=== PATIENT | female | born 1960 | race Caucasian/White ===

== ENCOUNTER 2016-12-12 11:02 | Inpatient (IN) | payer BC, OTHER ==
[2016-12-12] MEDS ORDERED: HEPARIN SODIUM,PORCINE 5,000 UNIT/ML 1 ML VIAL IV ONE (11:47)
[2016-12-12] MEDS ORDERED: LIDOCAINE 2% INJ 20 MG/ML (20 ML MDV) ONE (11:47)
[2016-12-12] MEDS ORDERED: NITROGLYCERIN SL TABS 0.4 MG TAB SUBLINGUAL PRN (11:47)
[2016-12-12] MEDS ORDERED: HEPARIN SODIUM,PORCINE 5,000 UNIT/ML 1 ML VIAL IV STA (11:47)
[2016-12-12] MEDS ORDERED: MORPHINE SULFATE 4 MG/ML SYRINGE IV PRN (11:47)
[2016-12-12] MEDS ORDERED: MIDAZOLAM 2 MG/2 ML VIAL ONE (11:47)
[2016-12-12] MEDS ORDERED: SODIUM CHLORIDE 0.9% 1,000 ML IV STA (11:47)
[2016-12-12] MEDS ORDERED: ATORVASTATIN 80 MG TAB PO STA (11:47)
[2016-12-12] MEDS ORDERED: HEPARIN SODIUM,PORCINE 5,000 UNIT/ML 1 ML VIAL IV PRN (11:47)
[2016-12-12] MEDS ORDERED: ASPIRIN 81 MG CHEW PO STA ×2 (11:47)
[2016-12-12] MEDS ORDERED: diphenhydrAMINE 50 MG/ML 1 ML VIAL ONE (11:48)
--- NOTE | 2016-12-12 11:50 | ED ---
General Adult HPI - General Chief complaint: Chest Pain Stated complaint: chest pain Time Seen by Provider: 12/12/16 11:39 Source: patient, RN notes reviewed, old records reviewed Mode of arrival: wheelchair Limitations: no limitations - History of Present Illness Initial comments: This is a 56 female to the ER today complaining of chest pain. Chest discomfort starting yesterday. Patient also noted fever with mild cough, no other specific upper respiratory symptoms, no runny nose no abdominal pain. Patient does have significant history of cardiac risk factors of high blood pressure high cholesterol morbid obesity, patient did feel a heaviness on her chest. No modifying factors or symptoms, she did not perform any exercise so unknown if that exacerbate symptom, patient denies any significant diaphoresis pathology did break fever with chills, at this time she has no shortness of breath. - Related Data Home Medications Medication Instructions Recorded Confirmed Atorvastatin [Lipitor] 20 mg PO DAILY 05/27/15 10/17/16 Butalb/APAP/Caff 50-325-40Mg 1 - 2 tab PO Q4HR PRN 05/27/15 10/17/16 [Fioricet 50-325-40] Carisoprodol [Soma] 350 mg PO TID PRN 05/27/15 10/17/16 Levothyroxine Sodium [Synthroid] 25 mcg PO QAM 05/27/15 10/17/16 Losartan Potassium 50 mg PO BID 05/27/15 10/17/16 Ipratropium-Albuterol Nebulize 3 ml INHALATION RT-QID PRN 04/05/16 10/17/16 [Duoneb 0.5 mg-3 mg/3 ml Soln] Brimonidine Tartrate [Alphagan P 1 drop BOTH EYES BID 05/04/16 10/17/16 0.15% Ophth Soln] Spironolactone [Aldactone] 50 mg PO BID 05/04/16 10/17/16 Albuterol Inhaler [Ventolin Hfa 1 - 2 puff INHALATION RT-Q6H PRN 06/28/16 Inhaler] Bimatoprost [Lumigan .01% Ophth 1 drop BOTH EYES HS 06/28/16 10/17/16 Soln] Budesonide-Formot 160-4.5 Mcg 2 puff INHALATION RT-BID 06/28/16 10/17/16 [Symbicort 160-4.5 Mcg Inhaler] Theophylline 24 Hour [Erick-24] 200 mg PO DAILY 06/28/16 10/17/16 Budesonide [Pulmicort] 0.5 mg INHALATION RT-BID 10/17/16 10/17/16 predniSONE See Taper PO DAILY 10/17/16 10/17/16 traMADol-ACETAMINOP 37.5-325MG 1 tab PO DAILY PRN 10/17/16 10/17/16 [Ultracet] Previous Rx's Medication Instructions Recorded Loratadine-Pseudoeph 5-120 mg 1 each PO Q12HR #10 tab.er.12h 10/20/16 [Claritin-D 12 Hour] predniSONE 10 mg PO DAILY #30 tab 10/20/16 Allergies Allergy/AdvReac Type Severity Reaction Status Date / Time cefaclor [From Ceclor] Allergy Anaphylaxis Verified 12/12/16 11:14 latex Allergy Rash/Hives Verified 12/12/16 11:14 levofloxacin [From Levaquin] Allergy Burning Verified 12/12/16 11:14 sensatin on feet sulfamethoxazole Allergy Anaphylaxis Verified 12/12/16 11:14 [From Bactrim] trimethoprim [From Bactrim] Allergy Anaphylaxis Verified 12/12/16 11:14 amoxicillin trihydrate AdvReac Nausea & Verified 12/12/16 11:14 [From Augmentin] Vomiting doxycycline AdvReac Nausea & Verified 12/12/16 11:14 Vomiting potassium clavulanate AdvReac Nausea & Verified 12/12/16 11:14 [From Augmentin] Vomiting Review of Systems ROS Statement: Those systems with pertinent positive or pertinent negative responses have been documented in the HPI. ROS Other: All systems not noted in ROS Statement are negative. Past Medical History Past Medical History: Asthma, Cancer, Eye Disorder, Hyperlipidemia, Hypertension , Musculoskeletal Disorder, Osteoarthritis (OA), Thyroid Disorder Additional Past Medical History / Comment(s): Migraine headache, glaucoma, obesity, severe persistent bronchial asthma, diverticular disease, environmental ALLERGIES, hyperlipidemia, hypertension, multiple bilateral pulmonary nodules seen on previous CAT scan of the chest, psoriasis, edema of the lower extremities History of Any Multi-Drug Resistant Organisms: None Reported Past Surgical History: Appendectomy, Orthopedic Surgery, Tonsillectomy Additional Past Surgical History / Comment(s): Tonsillectomy, dilatation and curettage, colonoscopy, bronchoscopy, appendectomy, L KNEE arthroscopy, skin cancer removal, D&C. Past Anesthesia/Blood Transfusion Reactions: Motion Sickness, Postoperative Nausea & Vomiting (PONV) Past Psychological History: No Psychological Hx Reported Additional Psychological History / Comment(s): Pt lives with her mother. Her mother is in a intermediate at this time for rehab. She uses no assistive device. She drives. Smoking Status: Never smoker Past Alcohol Use History: None Reported Past Drug Use History: None Reported - Past Family History Father Family Medical History: Cancer Additional Family Medical History / Comment(s): COLON CANCER Mother Family Medical History: Cancer Additional Family Medical History / Comment(s): SKIN CA, General Exam Limitations: no limitations General appearance: alert, in no apparent distress, anxious, in distress, obese Head exam: Present: atraumatic, normocephalic, normal inspection Eye exam: Present: normal appearance, PERRL, EOMI. Absent: scleral icterus, conjunctival injection, periorbital swelling ENT exam: Present: normal exam, mucous membranes moist Neck exam: Present: normal inspection. Absent: tenderness, meningismus, lymphadenopathy Respiratory exam: Present: normal lung sounds bilaterally. Absent: respiratory distress, wheezes, rales, rhonchi, stridor Cardiovascular Exam: Present: regular rate, normal rhythm, normal heart sounds. Absent: systolic murmur, diastolic murmur, rubs, gallop, clicks GI/Abdominal exam: Present: soft, normal bowel sounds. Absent: distended, tenderness, guarding, rebound, rigid Extremities exam: Present: normal inspection, full ROM, normal capillary refill. Absent: tenderness, pedal edema, joint swelling, calf tenderness Back exam: Present: normal inspection Neurological exam: Present: alert, oriented X3, CN II-XII intact Psychiatric exam: Present: normal affect, normal mood Skin exam: Present: warm, dry, intact, normal color. Absent: rash Course Vital Signs 12/12/16 11:09 Temperature 99.8 F H Pulse Rate 102 H Respiratory 16 Rate Blood Pressure 136/64 O2 Sat by Pulse 97 Oximetry EKG Findings - EKG Comments: EKG Findings:: EKG does show ST elevation in inferior leads with anterior T- wave inversion, normal sinus rhythm, normal axis, no ST depression, is a rate of 98, OH 146, QRS 86, QTC 423 Medical Decision Making - Medical Decision Making 56 female here with chest pain shortness of breath and fever, patient to take not Tylenol at home, patient coming in with chest pain, positive S2 elevation on EKG, patient seen and evaluated emergency room by cardiology and taken to the collaborating supervising physician for cardiac catheterization - Radiology Data Radiology results: report reviewed (Chest x-ray one view portable is negative for acute disease), image reviewed Critical Care Time Critical Care Time: Yes Total Critical Care Time: 31 Disposition Clinical Impression: ST elevation myocardial infarction (STEMI) Disposition: ADMITTED IP TO THIS HOSP Condition: Serious
[2016-12-12] MEDS ORDERED: HEPARIN SODIUM,PORCINE/D5W PMX 25,000 UNIT in DEXTROSE/WATER 1 500ML.BAG IV SCH (12:00)
[2016-12-12] MEDS ORDERED: NITROGLYCERIN-D5W PMX 50 MG in DEXTROSE/WATER 1 250ML.BAG IV ONE (12:00)
[2016-12-12] MEDS ORDERED: SODIUM CHLORIDE 0.9% 1,000 ML IV ONE (12:08)
--- NOTE | 2016-12-12 12:08 | P.CRDCN ---
History of Present Illness Consult reason: chest pain Chief complaint: abnormal ecg History of present illness: 56-year-old obese female presenting with chest discomfort since yesterday. She is complaining of a burning discomfort yesterday but did not seek medical attention. It got worse today and she came to the emergency room several minutes back rate she complained of her sensation of heaviness as if an elephant was sitting on her chest. Twelve-lead ECG shows sinus mechanism with ST elevation in the inferior leads and in the lateral precordial leads. These are new as compared to the ECG from September 2016. However there is UT depression noted in the inferior leads and the lateral precordial leads and UT elevation noted in aVR She also complained of fever for the last several days and a cough and bronchitis-like symptoms Past history of severe persistent bronchial asthma, obstructive sleep apnea, obesity and hypertension, glaucoma, morbid obesity, bilateral pulmonary nodules , psoriasis Past surgical history appendectomy tonsillectomy She is a never smoker no alcohol use Family history of colon cancer Medication list includes atorvastatin Lasix Synthroid losartan 50 g twice daily , steroids and inhalers ALLERGIES to Ceclor levofloxacin and Bactrim amoxicillin and doxycycline She can complains of a history of fever chills cough with expectoration no nausea vomiting or diarrhea any hematuria dysuria or strokes or seizure no skin lesions or no musculoskeletal complaints On examination she is complaining of midsternal chest discomfort at this time but she does not appear to be short of breath. Impression Chest discomfort at least since yesterday with ST elevation in inferior leads and subtle ST elevation in the lateral precordial leads but also with UT depression in those leads and UT elevation in aVR. Possible pericarditis versus acute MT Severe persistent bronchial asthma Hypertension Morbid obesity Obstructive sleep apnea Low IgG levels Bilateral pulmonary nodules Suggest Coronary angiography to evaluate for chest discomfort with EKG abnormalities This may be COPD exacerbation bronchitis with an element of pericarditis Past Medical History Past Medical History: Asthma, Cancer, Eye Disorder, Hyperlipidemia, Hypertension , Musculoskeletal Disorder, Osteoarthritis (OA), Thyroid Disorder Additional Past Medical History / Comment(s): Migraine headache, glaucoma, obesity, severe persistent bronchial asthma, diverticular disease, environmental ALLERGIES, hyperlipidemia, hypertension, multiple bilateral pulmonary nodules seen on previous CAT scan of the chest, psoriasis, edema of the lower extremities History of Any Multi-Drug Resistant Organisms: None Reported Past Surgical History: Appendectomy, Orthopedic Surgery, Tonsillectomy Additional Past Surgical History / Comment(s): Tonsillectomy, dilatation and curettage, colonoscopy, bronchoscopy, appendectomy, L KNEE arthroscopy, skin cancer removal, D&C. Past Anesthesia/Blood Transfusion Reactions: Motion Sickness, Postoperative Nausea & Vomiting (PONV) Past Psychological History: No Psychological Hx Reported Additional Psychological History / Comment(s): Pt lives with her mother. Her mother is in a intermediate at this time for rehab. She uses no assistive device. She drives. Smoking Status: Never smoker Past Alcohol Use History: None Reported Past Drug Use History: None Reported - Past Family History Father Family Medical History: Cancer Additional Family Medical History / Comment(s): COLON CANCER Mother Family Medical History: Cancer Additional Family Medical History / Comment(s): SKIN CA, Medications and Allergies Home Medications Medication Instructions Recorded Confirmed Type Atorvastatin [Lipitor] 20 mg PO DAILY 05/27/15 12/12/16 History Butalb/APAP/Caff 50-325-40Mg 1 - 2 tab PO Q4HR PRN 05/27/15 12/12/16 History [Fioricet 50-325-40] Carisoprodol [Soma] 350 mg PO TID PRN 05/27/15 12/12/16 History Levothyroxine Sodium [Synthroid] 25 mcg PO QAM 05/27/15 12/12/16 History Losartan Potassium 50 mg PO BID 05/27/15 12/12/16 History Brimonidine Tartrate [Alphagan P 1 drop BOTH EYES BID 05/04/16 12/12/16 History 0.15% Ophth Soln] Spironolactone [Aldactone] 50 mg PO BID 05/04/16 12/12/16 History Albuterol Inhaler [Ventolin Hfa 1 - 2 puff INHALATION RT-Q6H PRN 06/28/16 History Inhaler] Bimatoprost [Lumigan .01% Ophth 1 drop BOTH EYES HS 06/28/16 12/12/16 History Soln] Budesonide-Formot 160-4.5 Mcg 2 puff INHALATION RT-BID 06/28/16 12/12/16 History [Symbicort 160-4.5 Mcg Inhaler] Diazepam [Valium] 5 mg PO TID PRN 12/12/16 12/12/16 History Furosemide [Lasix] 20 mg PO TID PRN 12/12/16 12/12/16 History Loratadine-Pseudoeph 5-120 mg 1 tab PO Q12HR PRN 12/12/16 12/12/16 History [Claritin-D 12 Hour] Theophylline 24 Hour [Erick-24] 400 mg PO DAILY 12/12/16 12/12/16 History amLODIPine [Norvasc] 5 mg PO DAILY 12/12/16 12/12/16 History Allergies Allergy/AdvReac Type Severity Reaction Status Date / Time cefaclor [From Ceclor] Allergy Anaphylaxis Verified 12/12/16 11:14 latex Allergy Rash/Hives Verified 12/12/16 11:14 levofloxacin [From Levaquin] Allergy Burning Verified 12/12/16 11:14 sensatin on feet sulfamethoxazole Allergy Anaphylaxis Verified 12/12/16 11:14 [From Bactrim] trimethoprim [From Bactrim] Allergy Anaphylaxis Verified 12/12/16 11:14 amoxicillin trihydrate AdvReac Nausea & Verified 12/12/16 11:14 [From Augmentin] Vomiting doxycycline AdvReac Nausea & Verified 12/12/16 11:14 Vomiting potassium clavulanate AdvReac Nausea & Verified 12/12/16 11:14 [From Augmentin] Vomiting Results Current Medications Generic Name Dose Route Start Last Admin Trade Name Evansq PRN Reason Stop Dose Admin Aspirin 325 mg 12/13/16 09:00 Aspirin PO DAILY [facility] Atorvastatin Calcium 80 mg 12/13/16 09:00 Lipitor PO DAILY [facility] Heparin Sodium (Porcine) 0 unit 12/12/16 11:47 Heparin IV PER PROTOCOL PRN Low PTT Protocol Heparin Sodium/Dextrose 25,000 500 mls @ 20 mls/hr 12/12/16 12:00 unit/ IV Solution IV .Q24H [facility] Protocol 6.89 UNITS/KG/HR Sodium Chloride 1,000 mls @ 100 mls/hr 12/12/16 11:47 Saline 0.9% IV 12/12/16 21:46 .Q10H STA Nitroglycerin/Dextrose 50 mg/ 250 mls @ 1.5 mls/hr 12/12/16 12:00 12/12/16 11 :55 IV Solution IV 12/13/16 11:59 5 mcg/min .Q24H ONE 1.5 mls/hr Protocol Administration 5 MCG/MIN Morphine Sulfate 4 mg 12/12/16 11:47 Morphine Sulfate (Inj) IV Q4HR PRN Nausea Nitroglycerin 0.4 mg 12/12/16 11:47 Nitrostat SUBLINGUAL Q5M PRN Chest Pain
[2016-12-12] MEDS ORDERED: fentaNYL (PF) 50 MCG/ML 2 ML AMP ONE (12:13)
[2016-12-12] MEDS ORDERED: fentaNYL (PF) 50 MCG/ML 2 ML AMP IV ONE ×2 (12:15)
[2016-12-12] MEDS ORDERED: diphenhydrAMINE 50 MG/ML 1 ML VIAL IVP ONE ×2 (12:15)
[2016-12-12] MEDS ORDERED: LIDOCAINE 2% INJ 20 MG/ML SQ ONE ×2 (12:18→12:19)
[2016-12-12 12:19] LABS: Basophils % (A) 0 %; CH 29.5; CHCM 32.8; Eosinophils # (A) 0.1 k/uL (0-0.7); Eosinophils % (A) 1 %; HDW 2.48; HGB 11.8 gm/dL (11.4-16.0); Luc # (Auto) 0.28; Luc % (Auto) 2; Lymphocytes # (A) 3.1 k/uL (1.0-4.8); Lymphocytes % (A) 20 %; MCH 28.8 pg (25.0-35.0); MCHC 31.9 g/dL (31.0-37.0); MCV 90.2 fL (80.0-100.0); Mean Platelet Volume 6.6; Monocytes % (A) 6 %; Neutrophils # (A) 11.1 k/uL (1.3-7.7); Neutrophils % (A) 71 %; RDW 13.6 % (11.5-15.5); WBC 15.6 k/uL (3.8-10.6); WBC (Perox) 16.31
[2016-12-12 12:25] LABS: Partial Thromboplastin Time 24.5 sec (22.0-30.0); Prothrombin Time 10.2 sec (9.0-12.0)
--- NOTE | 2016-12-12 12:27 | XR ---
EXAMINATION TYPE: XR chest 1V portable DATE OF EXAM: 12/12/2016 11:59 AM COMPARISON: 10/17/2016 INDICATION: Chest pain TECHNIQUE: Single frontal view of the chest is obtained. FINDINGS: The heart size is normal. The pulmonary vasculature is normal. The lungs are clear. IMPRESSION: 1. No acute pulmonary process.
[2016-12-12 12:28] LABS: ALT 31 U/L (9-52); AST 22 U/L (14-36); Alkaline Phosphatase 92 U/L (38-126); Anion Gap 12 mmol/L; Blood Urea Nitrogen 17 mg/dL (7-17); Calcium 9.8 mg/dL (8.4-10.2); Carbon Dioxide 27 mmol/L (22-30); Chloride 99 mmol/L (98-107); Glucose 118 mg/dL (74-99); Non-African American GFR(MDRD) >60 (>60 ml/min/1.73 sqM); Potassium 4.5 mmol/L (3.5-5.1); Sodium 138 mmol/L (137-145); Total Bilirubin 1.1 mg/dL (0.2-1.3); Total Protein 7.2 g/dL (6.3-8.2)
[2016-12-12] MEDS ORDERED: NITROGLYCERIN 1000MCG/10ML SYRINGE INTRACORON ONE (12:32)
[2016-12-12] MEDS ORDERED: IOHEXOL 350 MG/ML 100 ML BOTTLE INJ ONE (12:39)
[2016-12-12] MEDS ORDERED: RX INFO: IV CONTRAST WAS GIVEN 1 EACH MISC MISCELLANE PRN (12:47)
[2016-12-12] MEDS ORDERED: FUROSEMIDE 20 MG TAB PO PRN (12:50)
[2016-12-12 12:52] LABS: Creatine Kinase 41 U/L (30-135)
[2016-12-12 13:04] LABS: Creatine Kinase MB 0.2 ng/mL (0.0-2.4); Troponin I <0.012 ng/mL (0.000-0.034)
[2016-12-12] MEDS ORDERED: HYDROmorphone 1 MG/ML 1 ML SYRINGE IVP PRN (19:43)
[2016-12-12] MEDS ORDERED: ALPRAZolam 0.25 MG TAB PO PRN (19:43)
[2016-12-12] MEDS ORDERED: TEMAZEPAM 15 MG CAP PO PRN (19:43)
[2016-12-12] MEDS ORDERED: LORATADINE-PSEUDOEPH 5-120 MG 1 EACH TAB.ER.12H PO PRN (19:46)
[2016-12-12] MEDS ORDERED: CARISOPRODOL 350 MG TAB PO PRN (19:46)
[2016-12-12 19:54] LABS: Creatine Kinase MB 0.3 ng/mL (0.0-2.4); Troponin I 0.013 ng/mL (0.000-0.034)
[2016-12-12] MEDS ORDERED: SYMBICORT 160-4.5 MCG INHALER INHALATION SCH (20:00)
[2016-12-12] MEDS: SODIUM CHLORIDE 0.9% 1,000 ML IV SCH ×2 (20:12→22:01)
[2016-12-12 20:16] VITALS: BMI 55.8
[2016-12-12] MEDS ORDERED: IPRATROPIUM-ALBUTEROL 3 ML NEB INHALATION PRN (21:10)
[2016-12-12] MEDS: BUDESONIDE 1 MG/2 ML NEBU INHALATION SCH (21:33)
[2016-12-12] MEDS: FORMOTEROL FUMARATE 20 MCG/2 ML NEBU INHALATION SCH (21:33)
[2016-12-12] MEDS: IPRATROPIUM-ALBUTEROL 3 ML NEB INHALATION SCH (21:33)
[2016-12-12 21:53] LABS: Glucose,Whole Blood 137 mg/dL (75-99)
[2016-12-12] MEDS: BRIMONIDINE TARTRATE 0.2% DROPS 5 ML BTL BOTH EYES SCH (21:58)
[2016-12-12] MEDS: LATANOPROST 0.005% OPHTH DROPS 2.5 ML BTL BOTH EYES SCH (21:58)
[2016-12-12] MEDS: methylPREDNISolone SOD SUCCI 125 MG/2 ML VIAL IV SCH ×2 (21:59→22:06)
[2016-12-12] MEDS: SPIRONOLACTONE 25 MG TAB PO SCH (22:00)
[2016-12-12] MEDS: LOSARTAN 50 MG TAB PO SCH (22:01)
[2016-12-12] MEDS: INSULIN LISPRO (humaLOG) 300 UNIT/3 ML VIAL SQ SCH (22:05)
[2016-12-12 23:54] LABS: Creatine Kinase MB 0.4 ng/mL (0.0-2.4)
[2016-12-12 23:55] LABS: Troponin I 0.065 ng/mL (0.000-0.034)
[2016-12-12] MEDS: DIAZEPAM 5 MG TAB PO PRN (23:59)
[2016-12-13 00:25] LABS: Hemoglobin A1C 6.8 % (4.2-6.1)
[2016-12-13 04:22] LABS: Appearance,Urine Clear (Clear); Bilirubin,Urine Negative (Negative); Glucose,Urine (UA) 2+ (Negative); Ketones,Urine Negative (Negative); Leukocyte Esterase,Urine Negative (Negative); Nitrite,Urine Negative (Negative); PH, Urine 5.5 (5.0-8.0); Protein,Urine Negative (Negative); Specific Gravity,Urine 1.014 (1.001-1.035); UA Billing (MACRO vs. MICRO) CHEM; Urobilinogen,Urine <2.0 mg/dL (<2.0)
[2016-12-13] MEDS: SODIUM CHLORIDE 0.9% 1,000 ML IV SCH ×2 (04:36→14:54)
[2016-12-13 06:25] LABS: Glucose,Whole Blood 159 mg/dL (75-99)
[2016-12-13 06:29] LABS: Basophils % (A) 0 %; CH 29.3; CHCM 31.8; Eosinophils % (A) 0 %; HCT 34.3 % (34.0-46.0); HDW 2.51; HGB 11.1 gm/dL (11.4-16.0); Luc # (Auto) 0.05; Luc % (Auto) 1; Lymphocytes # (A) 0.8 k/uL (1.0-4.8); Lymphocytes % (A) 8 %; MCHC 32.4 g/dL (31.0-37.0); MCV 92.5 fL (80.0-100.0); Mean Platelet Volume 6.6; Monocytes # (A) 0.2 k/uL (0-1.0); Monocytes % (A) 2 %; Neutrophils # (A) 9.1 k/uL (1.3-7.7); Neutrophils % (A) 89 %; RDW 13.5 % (11.5-15.5); WBC 10.2 k/uL (3.8-10.6); WBC (Perox) 10.86
[2016-12-13 06:32] LABS: Glucose,Whole Blood 252 mg/dL (75-99)
[2016-12-13] MEDS: LEVOTHYROXINE 25 MCG TAB PO SCH (06:36)
[2016-12-13] MEDS: methylPREDNISolone SOD SUCCI 125 MG/2 ML VIAL IV SCH ×2 (06:36→11:47)
[2016-12-13] MEDS: PANTOPRAZOLE 40 MG TABLET PO SCH (06:37)
[2016-12-13] MEDS: INSULIN LISPRO (humaLOG) 300 UNIT/3 ML VIAL SQ SCH ×4 (06:38→21:38)
[2016-12-13 06:43] LABS: Anion Gap 9 mmol/L; Blood Urea Nitrogen 15 mg/dL (7-17); Calcium 9.2 mg/dL (8.4-10.2); Carbon Dioxide 25 mmol/L (22-30); Chloride 102 mmol/L (98-107); Cholesterol 180 mg/dL (<200); Glucose 246 mg/dL (74-99); HDL Cholesterol 72 mg/dL (40-60); Non-African American GFR(MDRD) >60 (>60 ml/min/1.73 sqM); Potassium 4.9 mmol/L (3.5-5.1); Sodium 136 mmol/L (137-145); Triglycerides 41 mg/dL (<150)
--- NOTE | 2016-12-13 08:05 | CC ---
DATE OF SERVICE: Cardiac catheter report on suspected CT, but turned out to be normal coronaries. Admitted by Dr. Barney and hospitalist here. Patient is allergic to CECLOR, LATEX, LEVOFLOXACIN, SULFAMETHOXAZOLE. Patient is known to have hypertension, morbid exogenous obesity, admitted to the hospital through the emergency room and evaluated by my associates, suspected possible acute inferior CT. Mild J-point elevations are noted in the inferior leads with ongoing pain. Patient was brought to the field laboratory operator for possible intervention. With sterile precautions, right femoral artery was cannulated using a Seldinger technique. Place a 6 Estonian sheath into the right coronary artery and proceeded with right and left coronary arteriogram followed by left ventriculogram, right femoral angiogram and Angio-Seal. Patient tolerated the procedure. There were no complications during or after completion of the procedure. HEMODYNAMIC DATA: The aortic pressure noted to be 115/64 with ( ) pressure of 86. Left ventricular end diastolic pressure followed by the left ventriculogram was about 10, post angiogram revealed pressures of 12 to 14. There was no gradient across the aortic valve. LEFT VENTRICULOGRAPHY: Left ventriculography done in 30-degree SAAB projection revealed normal cardiac silhouette with excellent normal function with an ejection fraction of 70% without any mitral regurgitation. Ascending aorta and descending aorta appear normal. SELECTIVE CORONARY ARTERIOGRAPHY: Left main coronary artery is of normal caliber, free of any atherosclerotic occlusive disease. Left anterior descending revealed good caliber blood vessel, wraps around the apex, free of any atherosclerotic occlusive disease. Left circumflex is a nondominant, moderate caliber blood vessel free of any atherosclerotic occlusive disease throughout its course. Right coronary is a moderate caliber blood vessel, dominant, appears to have mild irregularities in the midsection without any critical atherosclerotic occlusive lesions and PDA and PLV are very small caliber blood vessels without any occlusive lesions other than mild irregularities, maybe mild plaque 10% to 20% in the mid RCA. ASSESSMENT: No evidence of acute myocardial infarction. No evidence of significant coronary artery disease. Normal left ventricular function. Normal end-diastolic pressure. RECOMMENDATIONS: Continue on medical therapy and risk factor modification. Considering patient's obesity, advised to get a CT of the chest to rule out pulmonary embolism. Meanwhile patient will be kept on some nitrates for possible vasospastic angina. Cath number being [id number].
[2016-12-13] MEDS: ASPIRIN 325 MG TAB PO SCH (08:09)
[2016-12-13] MEDS: LOSARTAN 50 MG TAB PO SCH ×2 (08:09→19:17)
[2016-12-13] MEDS: amLODIPine 5 MG TAB PO SCH ×2 (08:10→08:15)
[2016-12-13] MEDS: ISOSORBIDE MONONITRATE ER 60 MG TAB.ER.24H PO SCH (08:10)
[2016-12-13] MEDS: BRIMONIDINE TARTRATE 0.2% DROPS 5 ML BTL BOTH EYES SCH ×2 (08:10→19:20)
[2016-12-13] MEDS: ATORVASTATIN 80 MG TAB PO SCH (08:10)
[2016-12-13] MEDS: THEOPHYLLINE 24 HOUR 400 MG CAP.ER.24H PO SCH (08:11)
[2016-12-13] MEDS: SPIRONOLACTONE 25 MG TAB PO SCH ×2 (08:11→19:17)
[2016-12-13] MEDS: IPRATROPIUM-ALBUTEROL 3 ML NEB INHALATION SCH ×4 (08:28→19:15)
[2016-12-13] MEDS: BUDESONIDE 1 MG/2 ML NEBU INHALATION SCH ×2 (08:28→19:19)
[2016-12-13] MEDS: FORMOTEROL FUMARATE 20 MCG/2 ML NEBU INHALATION SCH ×2 (08:28→19:19)
--- NOTE | 2016-12-13 08:44 | HP ---
DATE OF ADMISSION: DATE OF SERVICE: 12/12/2016 Chief complaint is chest pain. HISTORY OF PRESENT ILLNESS: This 56-year-old woman with the past medical history of multiple problems including asthma, history of hyperlipidemia, hypertension, history of DJD, hypothyroidism, migraines, glaucoma being followed by Dr. Héctor Barney in the outpatient setting was complaining of chest pain. The pain is felt in the anterior part, started yesterday which was a pressure type and squeezing in character, which is aggravated by coughing and deep inspiration as well as movement also. The patient also had cough and phlegm for the last couple of days and because of the multiple concerns, patient came to [facility], admitted for further evaluation and treatment. Initially, showed CT changes of the possibility of acute coronary window was considered. Patient underwent emergent cardiac catheterization. The final reports are pending at this time but; however, the possibility of pericardium is also being considered. The cardiac cath did not show any acute coronary artery disease. PAST MEDICAL HISTORY: History of asthma, hypertension, hyperlipidemia, history of DJD, History of migraine headaches, tonsillectomy. Medications prior to admission include: 1. Loratadine-Pseudoeph Claritin-D 1 p.o. b.i.d. 2. Norvasc 5 mg p.o. daily. 3. Erick-24 four hundred mg. 4. Lasix 20 mg t.i.d. p.r.n. 5. Valium 5 mg t.i.d. p.r.n. 6. Aldactone 50 mg b.i.d. 7. Losartan 50 mg p.o. b.i.d. 8. Synthroid 25 mcg p.o. q.a.m. 9. Soma 350 mg p.o. t.i.d. p.r.n. 10. Fioricet 1 to 2 tablets q.4 p.r.n. 11. Symbicort 160/4.5 two puffs b.i.d. 12. Alphagan 1 drop both eyes b.i.d. 13. Lumigan 0.01% one drop eyes q.h.s. 14. Lipitor 20 mg daily. 15. Ventolin-HFA 1 to 2 puffs q.6 p.r.n. ALLERGIES: CEFACLOR, LATEX, LEVAQUIN, SULFAMETHOXAZOLE, TRIMETHOPRIM, AMOXICILLIN, DOXYCYCLINE, AUGMENTIN. FAMILY HISTORY: History of colon cancer in the family. SOCIAL HISTORY: No history of smoking, no history of alcohol. REVIEW OF SYSTEMS: ENT: No diminished hearing or vision. CARDIOVASCULAR: As mentioned earlier. RESPIRATORY: As mentioned earlier. GI: No nausea. : No dysuria. NERVOUS SYSTEM: As mentioned earlier. ALLERGY/IMMUNOLOGY: As mentioned earlier. HEMATOLOGY: As mentioned earlier. ENDOCRINE: Hypothyroidism, but no history of diabetes mellitus. CONSTITUTIONAL: As mentioned earlier. DERMATOLOGY: Negative. RHEUMATOLOGY: Negative. PSYCHIATRY: As mentioned earlier. PHYSICAL EXAMINATION: Patient is alert and oriented x3. Pulse is 99, blood pressure 137/82, respirations 18, temperature 97.4, pulse ox 94% on room air. HEENT: Conjunctivae normal, oral mucosa moist. NECK: No jugular venous distension, no carotid bruit, no lymph node enlargement.. CARDIOVASCULAR: S1, S2, muffled, no S3, no S4. RESPIRATORY: Breath sounds diminished at the bases, bilateral scattered rhonchi, no crackles and expiratory wheezing also present. Abdomen is soft, obese, nontender. No mass palpable. EXTREMITIES: Legs no edema, no swelling. NERVOUS SYSTEM: Higher functions as mentioned. Moves all 4 limbs. No focal motor deficits. LYMPHATICS: No lymph node enlargement in the neck, axillae or groin. SKIN: No ulcer, rash or bleeding. LABS: WBC is 15.6, hemoglobin is 11.8. Otherwise, troponin is 0.012, EKG noted. The chest x-ray reviewed which showed no acute pulmonary process. ASSESSMENT: 1. Chest pain, acute coronary artery syndrome, unlikely possibly acute pleuropericarditis. 2. Acute bronchial asthma, acute exacerbation, with purulent tracheobronchitis. 3. Hypertension essential. 4. Hyperlipidemia. 5. History of degenerative joint disease. 6. Hypothyroidism. 7. History of migraines. 8. History of glaucoma. 9. Obesity with a body mass index of 56.7. 10. History of diverticular disease. 11. Multiple bilateral pulmonary nodules in the previous CAT scan. 12. History of degenerative joint disease. 13. History tracheobronchomalacia. 14. History of diverticulosis and diverticulitis. 15. History of hypothyroidism. 16. FULL CODE. RECOMMENDATION: In this 56-year-old gentleman has multiple complex medical issues. Will monitor the patient closely, continue with the current medications and symptomatic treatment. Will optimize bronchodilator treatment. Otherwise, I would recommend IV steroids and continue to monitor. Other than that, symptomatic treatment of the pain also will be ordered. Will cut down the IV fluids, closely follow with Cardiology, await final report of the cardiac cath. Prognosis guarded. Further recommendations to follow. Will also get a 2-D echo with Doppler also.
[2016-12-13 11:46] LABS: Glucose,Whole Blood 306 mg/dL (75-99)
[2016-12-13] MEDS: BUTALB/APAP/CAFF 50-325-40MG TAB PO PRN ×2 (15:01→19:25)
--- NOTE | 2016-12-13 15:19 | P.PN ---
Subjective Principal diagnosis: Pericarditis This is a 56-year-old female who presented to the hospital with symptoms of chest discomfort. She describes the feeling as an elephant sitting on her chest. Her initial 12-lead EKG revealed a sinus mechanism with suggestion of ST elevation in the inferior lateral leads. This was new as compared with her prior EKG. There was however [place] depression also noted in the inferior leads and lateral leads. Patient was also known to have a recent fever over the past few days with associated cough and bronchitis-like symptoms. She has a known history of severe persistent bronchial asthma, COPD, obesity, hypertension. Because of the EKG changes with associated chest pain she was taken to the cardiac catheterization lab yesterday. Cardiac catheterization revealed normal coronary arteries. Myocardial infarction has been ruled out. Patient was seen and examined this morning, denies any chest pain, still feels wheezy. Objective - Vital Signs Vital signs: Vital Signs Temp 96.8 F L 12/13/16 08:00 Pulse 86 12/13/16 15:03 Resp 17 12/13/16 15:03 BP 133/64 12/13/16 15:03 Pulse Ox 96 12/13/16 15:03 Intake & Output 12/12/16 12/13/16 12/13/16 18:59 06:59 18:59 Intake Total 100 1600 360 Output Total 1200 300 Balance 100 400 60 Weight 143 kg 145.1 kg Intake: IV 100 Intake, IV Titration 1000 Amount Sodium Chloride 0.9% 1, 1000 000 ml @ 125 mls/hr IV . [facility] Rx#:[id number] Oral 600 360 Output: Urine 1200 300 Other: Voiding Method Toilet Toilet # Voids 1 1 - Exam PHYSICAL EXAMINATION: HEENT: Head is atraumatic, normocephalic. Pupils equal, round. Neck is supple. There is no elevated jugular venous pressure. HEART EXAMINATION: Heart S1, S2 normal. No murmur or gallop heard. CHEST EXAMINATION: Lungs reveal scattered coarse wheezes throughout. ABDOMEN: Soft, obese , nontender. Bowel sounds are heard. No organomegaly noted. EXTREMITIES: 2+ peripheral pulses with trace evidence of peripheral edema and no calf tenderness noted. NEUROLOGIC patient is awake, alert and oriented -3. . - Labs CBC & Chem 7: 12/13/16 06:04 12/13/16 06:04 Labs: Abnormal Lab Results - Last 24 Hours (Table) 12/12/16 12/12/16 12/12/16 Range/Units 21:51 22:54 22:54 RBC (3.80-5.40) m/uL Hgb (11.4-16.0) gm/dL Neutrophils # (1.3-7.7) k/uL Lymphocytes # (1.0-4.8) k/uL ESR (0-20) mm/hr Sodium (137-145) mmol/L Glucose (74-99) mg/dL POC Glucose (mg/dL) 137 H (75-99) mg/dL Hemoglobin A1c 6.8 H (4.2-6.1) % Troponin I 0.065 H* (0.000-0.034) ng/mL LDL Cholesterol, Calc (0-99) mg/dL HDL Cholesterol (40-60) mg/dL Urine Glucose (UA) (Negative) 12/13/16 12/13/16 12/13/16 Range/Units 04:11 06:04 06:04 RBC 3.70 L (3.80-5.40) m/uL Hgb 11.1 L (11.4-16.0) gm/dL Neutrophils # 9.1 H (1.3-7.7) k/uL Lymphocytes # 0.8 L (1.0-4.8) k/uL ESR (0-20) mm/hr Sodium 136 L (137-145) mmol/L Glucose 246 H (74-99) mg/dL POC Glucose (mg/dL) (75-99) mg/dL Hemoglobin A1c (4.2-6.1) % Troponin I (0.000-0.034) ng/mL LDL Cholesterol, Calc 100 H (0-99) mg/dL HDL Cholesterol 72 H (40-60) mg/dL Urine Glucose (UA) 2+ H (Negative) 12/13/16 12/13/16 12/13/16 Range/Units 06:04 06:24 06:31 RBC (3.80-5.40) m/uL Hgb (11.4-16.0) gm/dL Neutrophils # (1.3-7.7) k/uL Lymphocytes # (1.0-4.8) k/uL ESR 56 H (0-20) mm/hr Sodium (137-145) mmol/L Glucose (74-99) mg/dL POC Glucose (mg/dL) 159 H 252 H (75-99) mg/dL Hemoglobin A1c (4.2-6.1) % Troponin I (0.000-0.034) ng/mL LDL Cholesterol, Calc (0-99) mg/dL HDL Cholesterol (40-60) mg/dL Urine Glucose (UA) (Negative) 12/13/16 Range/Units 11:45 RBC (3.80-5.40) m/uL Hgb (11.4-16.0) gm/dL Neutrophils # (1.3-7.7) k/uL Lymphocytes # (1.0-4.8) k/uL ESR (0-20) mm/hr Sodium (137-145) mmol/L Glucose (74-99) mg/dL POC Glucose (mg/dL) 306 H (75-99) mg/dL Hemoglobin A1c (4.2-6.1) % Troponin I (0.000-0.034) ng/mL LDL Cholesterol, Calc (0-99) mg/dL HDL Cholesterol (40-60) mg/dL Urine Glucose (UA) (Negative) Assessment and Plan Plan: Assessment and plan #1 symptoms of chest discomfort initially felt to be ST elevation myocardial infarction, patient was taken to the cardiac catheterization lab where she was found to have normal coronary arteries. With normal left ventricular systolic function. Myocardial infarction has been ruled out. Diagnosis of pericarditis. #2 obesity #3 bronchial asthma #4 hypertension # 5 hyperlipidemia #6 hypothyroidism Plan We'll decrease patient's aspirin 81 mg daily, continue Lipitor, Cozaar, Aldactone 50 mg one tablet by mouth twice a day, Norvasc 5 mg daily, discontinue IV heparin. Sed rate was obtained today which came back to be high at 56. Add Colchicine. DNP note has been reviewed, I agree with a documented findings and plan of care. Patient was seen and examined.
[2016-12-13 17:10] LABS: Glucose,Whole Blood 309 mg/dL (75-99)
[2016-12-13] MEDS: DIAZEPAM 5 MG TAB PO PRN (19:15)
[2016-12-13] MEDS: LATANOPROST 0.005% OPHTH DROPS 2.5 ML BTL BOTH EYES SCH (19:19)
[2016-12-13] MEDS: COLCHICINE 0.6 MG TAB PO SCH (19:26)
--- NOTE | 2016-12-13 19:43 | PN ---
DATE OF SERVICE: 12/13/2016 This 56-year-old woman who was admitted with chest pain had cardiac catheterization with normal coronary arteries. The patient had features of pericarditis. Cardiology is following the patient closely. Cardiac catheterization showed no evidence of myocardial infarction or significant coronary artery disease. Two-D echo with Doppler: final report is pending at this time. The patient still has significant cough and sputum also. Past medical history reviewed. REVIEW OF SYSTEMS: CARDIOVASCULAR SYSTEM: As mentioned earlier. RESPIRATORY SYSTEM: As mentioned earlier. GI: No nausea, vomiting. : No dysuria. NERVOUS SYSTEM: No numbness or weakness. Current medications are reviewed and include: 1. Fioricet 50 mg q.4 p.r.n. 2. DuoNeb q.i.d. and p.r.n. 3. Norvasc 5 mg p.o. daily. 4. Aspirin 325 mg daily. 5. Lipitor 80 mg daily. 6. Alphagan eyedrops. 7. Pulmicort 1 mg b.i.d. 8. Soma. 9. Colcrys. 10. Valium. 11. Perforomist. 12. Lasix. 13. Heparin. 14. Dilaudid. 15. Humalog. 16. Imdur. 17. Xalatan. 18. Synthroid. 19. Claritin D. 20. Cozaar. 21. Solu-Medrol. 22. Morphine sulfate. 23. Nitrostat. 24. Protonix. 25. Aldactone. 26. Restoril. 27. Erick-24. PHYSICAL EXAMINATION: Patient is alert and oriented x3. Pulse 86. Blood pressure is 130/64, respiration 17, temperature normal, pulse ox 96% on room air. HEENT: Conjunctivae normal. Oral mucosa moist. NECK: No jugular venous distention. No carotid bruit. No lymph node enlargement. CARDIOVASCULAR SYSTEM: S1, S2 muffled. RESPIRATORY SYSTEM: Breath sounds diminished at the bases. Bilateral scattered rhonchi and crackles. ABDOMEN: Soft, non-tender. LEGS: No edema. No swelling. NERVOUS SYSTEM: No focal deficit. LABS: WBC 10.2, hemoglobin 11.1. Sodium 136. HDL is 72. Accu-Cheks noted. Urine glucose is 2+. Hemoglobin A1c is 6.8. ASSESSMENT: 1. Chest pain; possible acute pleural pericarditis. 2. MYOCARDIAL INFARCTION RULED OUT. 3. Acute bronchial asthma, acute exacerbation, with acute purulent tracheobronchitis. 4. Hypertension, essential. 5. Hyperlipidemia. 6. History of degenerative joint disease. 7. History of hypothyroidism. 8. History of migraine. 9. History of glaucoma. 10. Obesity with a body mass index of 56.7. 11. History of diverticular disease. 12. Multiple bilateral pulmonary nodules on the previous CT scan. 13. History of tracheobronchomalacia. 14. History of diverticulosis and diverticulitis. 15. History of hypothyroidism. 16. FULL CODE. RECOMMENDATIONS AND DISCUSSION: In this 56-year-old gentleman who presented with multiple complex medical issues, we will monitor the patient closely, continue the current medications, continue symptomatic treatment. Otherwise, I would recommend following closely with Cardiology. As mentioned earlier, MYOCARDIAL INFARCTION WAS RULED OUT. Cardiac catheterization was clean, the patient had features of pleural pericarditis. Colchicine has been initiated. The patient was started on IV steroids, which I will cut down rather rapidly. Otherwise, we will hold off the antibiotics because the patient has got a SERIES OF ALLERGIES. Antibiotics for bronchitis will be held off because of the allergies. Otherwise, guarded prognosis because of the multiple medical issues. Further recommendations to follow. See orders for further details.
[2016-12-13 20:53] LABS: Glucose,Whole Blood 327 mg/dL (75-99)
[2016-12-13] MEDS: methylPREDNISolone SOD SUCCI 40 MG/ML 1 ML VIAL IV SCH (23:47)
[2016-12-14] MEDS: DIAZEPAM 5 MG TAB PO PRN (01:33)
[2016-12-14 01:37] LABS: Glucose,Whole Blood 211 mg/dL (75-99)
[2016-12-14 02:19] VITALS: RESP 18
[2016-12-14 06:06] LABS: Glucose,Whole Blood 213 mg/dL (75-99)
[2016-12-14] MEDS: PANTOPRAZOLE 40 MG TABLET PO SCH (06:15)
[2016-12-14] MEDS: LEVOTHYROXINE 25 MCG TAB PO SCH (06:15)
[2016-12-14] MEDS: INSULIN LISPRO (humaLOG) 300 UNIT/3 ML VIAL SQ SCH ×3 (06:16→18:05)
[2016-12-14 06:34] LABS: Basophils % (A) 0 %; CH 29.2; CHCM 31.6; Eosinophils % (A) 0 %; HCT 32.3 % (34.0-46.0); HDW 2.49; HGB 10.3 gm/dL (11.4-16.0); Luc # (Auto) 0.06; Luc % (Auto) 0; Lymphocytes % (A) 5 %; MCH 29.6 pg (25.0-35.0); MCHC 31.8 g/dL (31.0-37.0); MCV 92.9 fL (80.0-100.0); Mean Platelet Volume 6.8; Monocytes # (A) 0.5 k/uL (0-1.0); Monocytes % (A) 3 %; Neutrophils # (A) 17.6 k/uL (1.3-7.7); Neutrophils % (A) 92 %; RBC 3.48 m/uL (3.80-5.40); RDW 13.5 % (11.5-15.5); WBC 19.2 k/uL (3.8-10.6); WBC (Perox) 19.53
[2016-12-14 06:51] LABS: Anion Gap 12 mmol/L; Blood Urea Nitrogen 21 mg/dL (7-17); Calcium 9.5 mg/dL (8.4-10.2); Carbon Dioxide 21 mmol/L (22-30); Chloride 104 mmol/L (98-107); Glucose 200 mg/dL (74-99); Non-African American GFR(MDRD) >60 (>60 ml/min/1.73 sqM); Potassium 4.9 mmol/L (3.5-5.1); Sodium 137 mmol/L (137-145)
[2016-12-14] MEDS: BUDESONIDE 1 MG/2 ML NEBU INHALATION SCH (07:58)
[2016-12-14] MEDS: IPRATROPIUM-ALBUTEROL 3 ML NEB INHALATION SCH ×3 (07:58→16:32)
[2016-12-14] MEDS: FORMOTEROL FUMARATE 20 MCG/2 ML NEBU INHALATION SCH (07:58)
[2016-12-14] MEDS: COLCHICINE 0.6 MG TAB PO SCH (08:57)
[2016-12-14] MEDS: ASPIRIN 325 MG TAB PO SCH (08:57)
[2016-12-14] MEDS: ISOSORBIDE MONONITRATE ER 60 MG TAB.ER.24H PO SCH ×2 (08:57→12:22)
[2016-12-14] MEDS: BRIMONIDINE TARTRATE 0.2% DROPS 5 ML BTL BOTH EYES SCH (08:57)
[2016-12-14] MEDS: methylPREDNISolone SOD SUCCI 40 MG/ML 1 ML VIAL IV SCH ×2 (08:57→17:57)
[2016-12-14] MEDS: THEOPHYLLINE 24 HOUR 400 MG CAP.ER.24H PO SCH (08:58)
[2016-12-14] MEDS: LOSARTAN 50 MG TAB PO SCH (08:58)
[2016-12-14] MEDS: amLODIPine 5 MG TAB PO SCH ×2 (08:58→10:12)
[2016-12-14] MEDS: ATORVASTATIN 80 MG TAB PO SCH (08:58)
[2016-12-14] MEDS: SPIRONOLACTONE 25 MG TAB PO SCH (08:59)
[2016-12-14 12:07] LABS: Glucose,Whole Blood 264 mg/dL (75-99)
--- NOTE | 2016-12-14 15:54 | P.PN ---
Subjective Principal diagnosis: Pericarditis This is a 56-year-old female who presented to the hospital with symptoms of chest discomfort. She describes the feeling as an elephant sitting on her chest. Her initial 12-lead EKG revealed a sinus mechanism with suggestion of ST elevation in the inferior lateral leads. This was new as compared with her prior EKG. There was however [place] depression also noted in the inferior leads and lateral leads. Patient was also known to have a recent fever over the past few days with associated cough and bronchitis-like symptoms. She has a known history of severe persistent bronchial asthma, COPD, obesity, hypertension. Because of the EKG changes with associated chest pain she was taken to the cardiac catheterization lab . Cardiac catheterization revealed normal coronary arteries. Myocardial infarction has been ruled out. Patient was seen and examined this morning, denies any chest pain, still feels wheezy. Shortness of breath through the night. Objective - Vital Signs Vital signs: Vital Signs Temp 97.6 F 12/14/16 12:00 Pulse 92 12/14/16 12:52 Resp 18 12/14/16 12:00 BP 111/53 12/14/16 12:00 Pulse Ox 95 12/14/16 12:00 Intake & Output 12/13/16 12/14/16 12/14/16 18:59 06:59 18:59 Intake Total 960 430 Output Total 300 1050 500 Balance 660 -1050 -70 Weight 147.2 kg Intake: Oral 960 430 Output: Urine 300 1050 500 Other: Voiding Method Toilet Toilet # Voids 1 - Exam PHYSICAL EXAMINATION: HEENT: Head is atraumatic, normocephalic. Pupils equal, round. Neck is supple. There is no elevated jugular venous pressure. HEART EXAMINATION: Heart S1, S2 normal. No murmur or gallop heard. CHEST EXAMINATION: Lungs reveal scattered coarse wheezes throughout. ABDOMEN: Soft, obese , nontender. Bowel sounds are heard. No organomegaly noted. EXTREMITIES: 2+ peripheral pulses with trace evidence of peripheral edema and no calf tenderness noted. NEUROLOGIC patient is awake, alert and oriented -3. . - Labs CBC & Chem 7: 12/14/16 06:02 12/14/16 06:02 Labs: Abnormal Lab Results - Last 24 Hours (Table) 12/13/16 12/13/16 12/14/16 Range/Units 17:01 20:52 01:35 WBC (3.8-10.6) k/uL RBC (3.80-5.40) m/uL Hgb (11.4-16.0) gm/dL Hct (34.0-46.0) % Neutrophils # (1.3-7.7) k/uL Carbon Dioxide (22-30) mmol/L BUN (7-17) mg/dL Glucose (74-99) mg/dL POC Glucose (mg/dL) 309 H 327 H 211 H (75-99) mg/dL 12/14/16 12/14/16 12/14/16 Range/Units 06:02 06:02 06:04 WBC 19.2 H (3.8-10.6) k/uL RBC 3.48 L (3.80-5.40) m/uL Hgb 10.3 L (11.4-16.0) gm/dL Hct 32.3 L (34.0-46.0) % Neutrophils # 17.6 H (1.3-7.7) k/uL Carbon Dioxide 21 L (22-30) mmol/L BUN 21 H (7-17) mg/dL Glucose 200 H (74-99) mg/dL POC Glucose (mg/dL) 213 H (75-99) mg/dL 12/14/16 Range/Units 11:53 WBC (3.8-10.6) k/uL RBC (3.80-5.40) m/uL Hgb (11.4-16.0) gm/dL Hct (34.0-46.0) % Neutrophils # (1.3-7.7) k/uL Carbon Dioxide (22-30) mmol/L BUN (7-17) mg/dL Glucose (74-99) mg/dL POC Glucose (mg/dL) 264 H (75-99) mg/dL Assessment and Plan Plan: Assessment and plan #1 symptoms of chest discomfort initially felt to be ST elevation myocardial infarction, patient was taken to the cardiac catheterization lab where she was found to have normal coronary arteries. With normal left ventricular systolic function. Myocardial infarction has been ruled out. Diagnosis of pericarditis. #2 obesity #3 bronchial asthma #4 hypertension # 5 hyperlipidemia #6 hypothyroidism Plan Cardiology's perspective, we will recommend to continue the patient on current dose of colchicine. A follow-up appointment will be made with Dr. Sales in the office post discharge. DNP note has been reviewed, I agree with a documented findings and plan of care. Patient was seen and examined.
[2016-12-14 16:57] LABS: Glucose,Whole Blood 222 mg/dL (75-99)
[2016-12-14 19:11] VITALS: BP 113/59; PULSE 91; TEMP 97.2
--- NOTE | 2016-12-15 12:04 | DS ---
DATE OF ADMISSION: 12/12/2016 DATE OF DISCHARGE: 12/14/2016 Patient is admitted for chest pain. Patient is found to have ST-elevations in the inferior leads and patient subsequently underwent cardiac catheterization which showed ( ). Patient is diagnosed with pericarditis. Patient still has a history of asthma, because of which I am giving her Medrol Dose-Elio since steroids have shown to cause recurrence of pericarditis or not implemented recurrence of pericarditis. I am going to go ahead and discharge her on colchicine. I am giving her an additional aspirin because patient is already taking aspirin at home. I will also give her Pepcid until she is done with prednisone. Patient is clinically stable. Patient was seen and examined on the day of discharge. Vitals are stable. PHYSICAL EXAMINATION: GENERAL: The patient is alert and oriented x3, not in any acute distress. Well developed, well nourished. HEENT: Pupils are round and equally reacting to light. EOMI. No scleral icterus. No conjunctival pallor. Normocephalic, atraumatic. No pharyngeal erythema. No thyromegaly. CARDIOVASCULAR: S1 and S2 present. No murmurs, rubs, or gallops. PULMONARY: Chest is clear to auscultation, no wheezing or crackles. ABDOMEN: Soft, nontender, nondistended, normoactive bowel sounds. No palpable organomegaly. MUSCULOSKELETAL: No joint swelling or deformity. EXTREMITIES: No cyanosis, clubbing, or pedal edema. NEUROLOGICAL: Gross neurological examination did not reveal any focal deficits. SKIN: No rashes. FINAL DIAGNOSES: 1. Acute pericarditis, myocardial infarction ruled out. 2. Bronchial asthma. 3. Hypertension. 4. Hyperlipidemia. 5. Patient has multiple pulmonary nodules, which are being followed by followup CT scan in Dr. Coto's office. 6. Morbid obesity. 7. History of diverticulosis. 8. Hypothyroidism. 9. Glaucoma. Please refer to my depart summary for further details of discharge medications. DISCHARGE DIET: Cardiac. Activity as tolerated. Follow up with her primary care physician, Dr. Héctor Barney in 3 to 7 days. Patient will follow with Dr. Sales as an outpatient in about a week; Dr. Coto as scheduled. Spent greater than 35 minutes in total discharge process.
== END 2016-12-14 20:04 | disposition home or self-care (01) | DRG 287 ==
LOC: EC 11:02 → 6ICU 11:50 → 6SEL 13:54
PROVIDERS: ADMIT Hospitalist; ATTEND Hospitalist
PROC: B2151ZZ Fluoroscopy of Left Heart using Low Osmolar Contrast (ICD-10-PCS; 2016-12-12)
PROC: B2111ZZ Fluoroscopy of Multiple Coronary Arteries using Low Osmolar Contrast (ICD-10-PCS; principal; 2016-12-12 12:00)
DX: I30.9 Acute pericarditis, unspecified (principal); J44.0 Chronic obstructive pulmonary disease with (acute) lower respiratory infection; J45.901 Unspecified asthma with (acute) exacerbation; Z68.43 Body mass index [BMI] 50.0-59.9, adult; J44.1 Chronic obstructive pulmonary disease with (acute) exacerbation; E66.01 Morbid (severe) obesity due to excess calories; I10 Essential (primary) hypertension; E03.9 Hypothyroidism, unspecified; E78.5 Hyperlipidemia, unspecified; M19.90 Unspecified osteoarthritis, unspecified site; G43.909 Migraine, unspecified, not intractable, without status migrainosus; H40.9 Unspecified glaucoma; G47.33 Obstructive sleep apnea (adult) (pediatric); L40.9 Psoriasis, unspecified; Z71.3 Dietary counseling and surveillance; Z85.828 Personal history of other malignant neoplasm of skin; Z88.2 Allergy status to sulfonamides; Z88.1 Allergy status to other antibiotic agents; Z91.040 Latex allergy status; Z90.49 Acquired absence of other specified parts of digestive tract
CPT/HCPCS: 71010; 80048; 80053; 80061; 81003; 82550; 82553; 83036; 84484; 85025; 85610; 85652; 85730; 93005; 93458; 94640; 94660; 94760; 96374; 99291

== ENCOUNTER → 2017-02-07 | Outpatient (CLI) | payer OTHER ==
--- NOTE | 2017-02-08 11:15 | MM ---
Reason for exam: screening (asymptomatic). Last mammogram was performed 1 year and 3 months ago. History: Patient is postmenopausal and is nulliparous. Physical Findings: A clinical breast exam by your physician is recommended on an annual basis and results should be correlated with mammographic findings. MG Screening Mammo w CAD Bilateral CC and MLO view(s) were taken. Prior study comparison: November 19, 2015, mammogram, performed at [facility]. November 18, 2011, mammogram, performed at [facility]. There are scattered fibroglandular densities. Finding: There are typically benign round, diffuse/scattered and grouped calcifications in both breasts. Developing asymmetry in the right middle depth outer aspect. ASSESSMENT: Incomplete: need additional imaging evaluation, BI-RAD 0 RECOMMENDATION: Special view mammogram of the right breast. If lesion persists on supplemental views, image directed ultrasound is recommended. [facility] will attempt to contact patient to return for supplemental views and ultrasound if indicated.
== END | disposition home or self-care (01) ==
LOC: RADMAMWWP 10:41
PROVIDERS: ATTEND Family Medicine
DX: Z12.31 Encounter for screening mammogram for malignant neoplasm of breast (principal)

== ENCOUNTER → 2017-02-14 | Outpatient (CLI) | payer OTHER ==
--- NOTE | 2017-02-15 07:33 | MM ---
Reason for exam: additional evaluation requested from abnormal screening. Last mammogram was performed less than 1 month ago. History: Patient is postmenopausal and is nulliparous. Physical Findings: Nurse did not find any significant physical abnormalities on exam. MG Work Up Mamm w CAD RT LM, spot compression CC, and spot compression MLO view(s) were taken of the right breast. Prior study comparison: February 07, 2017, bilateral MG screening mammo w CAD. November 19, 2015, mammogram, performed at [facility]. Finding: There is a 10 mm high density mass in the right breast. These results were verbally communicated with the patient and result sheet given to the patient on 02/14/17. ASSESSMENT: Incomplete: need additional imaging evaluation, BI-RAD 0 RECOMMENDATION: Ultrasound of the right breast.
--- NOTE | 2017-02-15 07:34 | USB ---
Reason for exam: additional evaluation requested from abnormal screening. History: Patient is postmenopausal and is nulliparous. US Breast Workup Limited RT Right breast ultrasound demonstrates no cystic or solid lesion seen. These results were verbally communicated with the patient and result sheet given to the patient on 02/14/17. ASSESSMENT: Probably benign, BI-RAD 3 RECOMMENDATION: Follow-up diagnostic mammogram of the right breast in 6 months.
== END | disposition home or self-care (01) ==
LOC: RADMAMWWP 13:28
PROVIDERS: ATTEND Family Medicine
DX: R92.8 Other abnormal and inconclusive findings on diagnostic imaging of breast (principal)
CPT/HCPCS: 76642; G0206

== ENCOUNTER 2017-09-28 12:25 | Emergency (ER) | payer OTHER ==
--- NOTE | 2017-09-28 13:23 | ED ---
General Adult HPI - General Chief complaint: Recheck/Abnormal Lab/Rx Stated complaint: Acute Kidney Failuer-Sent by Time Seen by Provider: 09/28/17 12:45 Source: patient, RN notes reviewed Mode of arrival: wheelchair Limitations: no limitations - History of Present Illness Initial comments: This is a 56-year-old female who presents emergency department stating that her office called her and told her that she needed to go to the hospital because her kidney function was off. Patient denies any symptoms currently. Patient states she's on spironolactone and Lasix. Patient states he only new medication she takes is baclofen. Patient states she was getting some preoperative blood work and was told her kidney function was off and she should go to the emergency room. Patient denies any fever or chills recently. Patient denies any dysuria hematuria urinary frequency. Patient denies any chest pain difficulty breathing or shortness of breath. - Related Data Home Medications Medication Instructions Recorded Confirmed Atorvastatin [Lipitor] 20 mg PO DAILY 05/27/15 09/28/17 Butalb/APAP/Caff 50-325-40Mg 1 - 2 tab PO Q4HR PRN 05/27/15 09/28/17 [Fioricet 50-325-40] Levothyroxine Sodium [Synthroid] 25 mcg PO QAM 05/27/15 09/28/17 Losartan Potassium 50 mg PO BID 05/27/15 09/28/17 Albuterol Inhaler [Ventolin Hfa 1 - 2 puff INHALATION RT-Q6H PRN 06/28/16 Inhaler] Bimatoprost [Lumigan .01% Ophth 1 drop BOTH EYES HS 06/28/16 09/28/17 Soln] Budesonide-Formot 160-4.5 Mcg 2 puff INHALATION RT-BID 06/28/16 09/28/17 [Symbicort 160-4.5 Mcg Inhaler] Diazepam [Valium] 5 mg PO TID PRN 12/12/16 09/28/17 Furosemide [Lasix] 60 mg PO DAILY 12/12/16 09/28/17 Theophylline 24 Hour [Erikc-24] 400 mg PO DAILY 12/12/16 09/28/17 Baclofen 10 mg PO BID 09/28/17 09/28/17 Budesonide [Pulmicort] 0.5 mg PO RT-BID 09/28/17 09/28/17 Ipratropium-Albuterol Nebulize 3 ml INHALATION RT-QID PRN 09/28/17 09/28/17 [Duoneb 0.5 mg-3 mg/3 ml Soln] Spironolactone 50 mg PO BID 09/28/17 09/28/17 traMADol HCL [Ultram] 50 mg PO TID PRN 09/28/17 09/28/17 Allergies Allergy/AdvReac Type Severity Reaction Status Date / Time cefaclor [From Ceclor] Allergy Anaphylaxis Verified 09/28/17 13:51 latex Allergy Rash/Hives Verified 09/28/17 13:51 levofloxacin [From Levaquin] Allergy Burning Verified 09/28/17 13:51 sensatin on feet sulfamethoxazole Allergy Anaphylaxis Verified 09/28/17 13:51 [From Bactrim] trimethoprim [From Bactrim] Allergy Anaphylaxis Verified 09/28/17 13:51 amoxicillin trihydrate AdvReac Nausea & Verified 09/28/17 13:51 [From Augmentin] Vomiting doxycycline AdvReac Nausea & Verified 09/28/17 13:51 Vomiting potassium clavulanate AdvReac Nausea & Verified 09/28/17 13:51 [From Augmentin] Vomiting Review of Systems ROS Statement: Those systems with pertinent positive or pertinent negative responses have been documented in the HPI. ROS Other: All systems not noted in ROS Statement are negative. Past Medical History Past Medical History: Asthma, Cancer, Diabetes Mellitus, Eye Disorder, Hyperlipidemia, Hypertension, Musculoskeletal Disorder, Osteoarthritis (OA), Thyroid Disorder Additional Past Medical History / Comment(s): Migraine headache, glaucoma, obesity, severe persistent bronchial asthma, diverticular disease, environmental ALLERGIES, hyperlipidemia, hypertension, multiple bilateral pulmonary nodules seen on previous CAT scan of the chest, psoriasis, edema of the lower extremities History of Any Multi-Drug Resistant Organisms: None Reported Past Surgical History: Appendectomy, Orthopedic Surgery, Tonsillectomy Additional Past Surgical History / Comment(s): Tonsillectomy, dilatation and curettage, colonoscopy, bronchoscopy, appendectomy, L KNEE arthroscopy, skin cancer removal, D&C. Past Anesthesia/Blood Transfusion Reactions: Motion Sickness, Postoperative Nausea & Vomiting (PONV) Past Psychological History: No Psychological Hx Reported Smoking Status: Never smoker Past Alcohol Use History: None Reported Past Drug Use History: None Reported - Past Family History Father Family Medical History: Cancer Additional Family Medical History / Comment(s): COLON CANCER Mother Family Medical History: Cancer Additional Family Medical History / Comment(s): SKIN CA, General Exam - General Exam Comments Initial Comments: GENERAL: Patient is well-developed and well-nourished. Patient is nontoxic and well- hydrated and is in no acute distress. ENT: Neck is soft and supple. No significant lymphadenopathy is noted. Oropharynx is clear. Moist mucous membranes. Neck has full range of motion without eliciting any pain. EYES: The sclera were anicteric and conjunctiva were pink and moist. Extraocular movements were intact and pupils were equal round and reactive to light. Eyelids were unremarkable. PULMONARY: Unlabored respirations. Good breath sounds bilaterally. No audible rales rhonchi or wheezing was noted. CARDIOVASCULAR: There is a regular rate and rhythm without any murmurs gallops or rubs. ABDOMEN: Soft and nontender with normal bowel sounds. No palpable organomegaly was noted. There is no palpable pulsatile mass. SKIN: Skin is clear with no lesions or rashes and otherwise unremarkable. NEUROLOGIC: Patient is alert and oriented x3. Cranial nerves II through XII are grossly intact. Motor and sensory are also intact. Normal speech, volume and content. Symmetrical smile. MUSCULOSKELETAL: Normal extremities with adequate strength and full range of motion. No lower extremity swelling or edema. No calf tenderness. LYMPHATICS: No significant lymphadenopathy is noted PSYCHIATRIC: Normal psychiatric evaluation. Normal interpersonal interactions appears functionally intact in deals appropriately with others. No signs of depression. No signs of anxiety. No delusions. No hallucinations. Limitations: no limitations Course Vital Signs 09/28/17 09/28/17 12:42 13:27 Temperature 97.8 F 98.5 F Pulse Rate 86 85 Respiratory 20 18 Rate Blood Pressure 140/63 127/66 O2 Sat by Pulse 99 97 Oximetry Medical Decision Making - Lab Data Result diagrams: 09/28/17 13:27 09/28/17 13:27 Lab Results 09/28/17 09/28/17 09/28/17 Range/Units 12:59 13:27 13:27 WBC 12.9 H (3.8-10.6) k/uL RBC 4.02 (3.80-5.40) m/uL Hgb 11.5 (11.4-16.0) gm/dL Hct 37.3 (34.0-46.0) % MCV 93.0 (80.0-100.0) fL MCH 28.7 (25.0-35.0) pg MCHC 30.9 L (31.0-37.0) g/dL RDW 14.3 (11.5-15.5) % Plt Count 502 H (150-450) k/uL Neutrophils % 72 % Lymphocytes % 20 % Monocytes % 6 % Eosinophils % 1 % Basophils % 1 % Neutrophils # 9.2 H (1.3-7.7) k/uL Lymphocytes # 2.5 (1.0-4.8) k/uL Monocytes # 0.7 (0-1.0) k/uL Eosinophils # 0.1 (0-0.7) k/uL Basophils # 0.1 (0-0.2) k/uL Sodium 138 (137-145) mmol/L Potassium 4.4 (3.5-5.1) mmol/L Chloride 101 (98-107) mmol/L Carbon Dioxide 26 (22-30) mmol/L Anion Gap 11 mmol/L BUN 32 H (7-17) mg/dL Creatinine 1.34 H (0.52-1.04) mg/dL Est GFR (MDRD) Af Amer 49 (>60 ml/min/1.73 sqM) Est GFR (MDRD) Non-Af 41 (>60 ml/min/1.73 sqM) Glucose 107 H (74-99) mg/dL Calcium 9.9 (8.4-10.2) mg/dL Total Bilirubin 0.5 (0.2-1.3) mg/dL AST 16 (14-36) U/L ALT 28 (9-52) U/L Alkaline Phosphatase 107 (38-126) U/L Total Protein 7.6 (6.3-8.2) g/dL Albumin 4.4 (3.5-5.0) g/dL Urine Color Colorless Urine Appearance Clear (Clear) Urine pH 5.0 (5.0-8.0) Ur Specific Glidden 1.006 (1.001-1.035) Urine Protein Negative (Negative) Urine Glucose (UA) Negative (Negative) Urine Ketones Negative (Negative) Urine Blood Negative (Negative) Urine Nitrite Negative (Negative) Urine Bilirubin Negative (Negative) Urine Urobilinogen <2.0 (<2.0) mg/dL Ur Leukocyte Esterase Small H (Negative) Urine WBC <1 (0-5) /hpf Ur Squamous Epith Cells 1 (0-4) /hpf Urine Mucus Rare H (None) /hpf Disposition Clinical Impression: Renal insufficiency Disposition: HOME SELF-CARE Condition: Good Additional Instructions: Patient should stop her spironolactone she follows up with a primary medical care doctor Referrals: Héctor Galvez DO [Primary Care Provider] - 1-2 days Time of Disposition: 14:31
[2017-09-28 13:29] VITALS: RESP 18
[2017-09-28 13:29] LABS: Appearance,Urine Clear (Clear); Bilirubin,Urine Negative (Negative); Glucose,Urine (UA) Negative (Negative); Ketones,Urine Negative (Negative); Leukocyte Esterase,Urine Small (Negative); Mucus,Urine Rare /hpf; Nitrite,Urine Negative (Negative); Particle Count 1513; Protein,Urine Negative (Negative); Specific Gravity,Urine 1.006 (1.001-1.035); Squamous Epithelial Cell,Urine 1 /hpf (0-4); UA Billing (MACRO vs. MICRO) MICRO; Urobilinogen,Urine <2.0 mg/dL (<2.0); WBC,Urine <1 /hpf (0-5)
[2017-09-28 13:50] LABS: Basophils # (A) 0.1 k/uL (0-0.2); Basophils % (A) 1 %; CH 29.5; CHCM 31.9; Eosinophils # (A) 0.1 k/uL (0-0.7); Eosinophils % (A) 1 %; HCT 37.3 % (34.0-46.0); HDW 2.17; HGB 11.5 gm/dL (11.4-16.0); Luc # (Auto) 0.19; Luc % (Auto) 2; Lymphocytes # (A) 2.5 k/uL (1.0-4.8); Lymphocytes % (A) 20 %; MCH 28.7 pg (25.0-35.0); MCHC 30.9 g/dL (31.0-37.0); Mean Platelet Volume 6.9; Monocytes # (A) 0.7 k/uL (0-1.0); Monocytes % (A) 6 %; Neutrophils # (A) 9.2 k/uL (1.3-7.7); Neutrophils % (A) 72 %; RBC 4.02 m/uL (3.80-5.40); RDW 14.3 % (11.5-15.5); WBC 12.9 k/uL (3.8-10.6); WBC (Perox) 13.09
[2017-09-28 13:58] LABS: Calcium 9.9 mg/dL (8.4-10.2); Potassium 4.4 mmol/L (3.5-5.1); Total Bilirubin 0.5 mg/dL (0.2-1.3); Total Protein 7.6 g/dL (6.3-8.2)
[2017-09-28 14:50] VITALS: BP 115/68; PULSE 84; TEMP 98.7
== END 2017-09-28 14:50 | disposition home or self-care (01) ==
LOC: EC 12:25
DX: N28.9 Disorder of kidney and ureter, unspecified (principal); J45.909 Unspecified asthma, uncomplicated; E78.5 Hyperlipidemia, unspecified; I10 Essential (primary) hypertension; E07.9 Disorder of thyroid, unspecified; E66.9 Obesity, unspecified; Z85.828 Personal history of other malignant neoplasm of skin; Z68.43 Body mass index [BMI] 50.0-59.9, adult; Z88.1 Allergy status to other antibiotic agents; Z91.040 Latex allergy status; Z88.2 Allergy status to sulfonamides; Z88.0 Allergy status to penicillin; Z79.51 Long term (current) use of inhaled steroids; Z79.899 Other long term (current) drug therapy
CPT/HCPCS: 36415; 80053; 81001; 85025; 99283

== ENCOUNTER 2017-10-18 10:12 | Day surgery (SDC) | payer OTHER ==
[2017-10-17 08:51] VITALS: BMI 58.8
--- NOTE | 2017-10-17 14:37 | HP ---
HISTORY AND PHYSICAL DATE OF SERVICE: 10/18/2017 Nupur Pacheco is a 56-year-old patient seen with progressive right knee pain. We discussed options. She elected to proceed with arthroscopy. Consent was obtained. Medical clearance provided by Dr. Barney. PAST MEDICAL HISTORY: Hypothyroidism, hypertension, asthma, hyperlipidemia. PAST SURGICAL HISTORY: Noncontributory. . DAILY MEDICATIONS: 1. Albuterol. 2. Lasix. 3. Levothyroxine. 4. Lopressor. 5. Theophylline. 6. Lipitor. 7. Tramadol. ALLERGIES: VIOXX, BACTRIM, CELEBREX, AUGMENTIN, CEFACLOR. SOCIAL HISTORY: Patient denies current tobacco use. PHYSICAL EVALUATION: Right knee range of motion, -2 to 115 degrees. Mild effusion. Tenderness medial joint line. Positive medial Valeriano's. Ligaments stable. Hip rotation without pain. Distal neurovascular exam intact. Crepitus along the medial and patellofemoral compartments and range of motion. Radiographs of the right knee revealed moderate medial compartment osteoarthritis and MRI of the right knee revealed a medial meniscal tear. IMPRESSION: Internal derangement, right knee with medial meniscal tear. PLAN: Right knee arthroscopy with partial meniscectomy and debridement. MMODL / IJN: [id number] /
[~2017-10-18 10:12] MED LIST: DEXAMETHASONE SOD PHOSPHATE 10 MG/ML 1 ML VIAL IV ONE; LACTATED RINGERS 1,000 ML IV SCH; LIDOCAINE 1% 20 ML VIAL (10MG/ML) FOR IV START INTRADERMA PRN; MIDAZOLAM 2 MG/2 ML VIAL IV PRN; ONDANSETRON 4 MG/2 ML VIAL IVP ONE; Pre Op ABX Message 1 EACH MISC MISCELLANE ONE; SCOPOLAMINE 1.5MG/72HR PATCH TRANSDERM ONE
[2017-10-18] MEDS ORDERED: CLINDAMYCIN 900 MG in DEXTROSE 5% IN WATER 50 ML IVPB ONE ×2 (10:15)
[2017-10-18 10:53] VITALS: TEMP 97.8
[2017-10-18 11:13] LABS: Glucose,Whole Blood 113 mg/dL (75-99)
[2017-10-18] MEDS ORDERED: PROPOFOL 10 MG/ML 20 ML VIAL IV ONE (11:52)
[2017-10-18] MEDS ORDERED: MIDAZOLAM 2 MG/2 ML VIAL ONE (11:52)
[2017-10-18] MEDS ORDERED: fentaNYL (PF) 50 MCG/ML 2 ML AMP ONE (11:52)
[2017-10-18] MEDS ORDERED: PHENYLEPHRINE-0.9% NACL SYG 1 MG/10 ML SYRINGE ONE (11:52)
[2017-10-18] MEDS ORDERED: LIDOCAINE 1% INJ 10MG/ML (20 ML MDV) ONE (11:52)
[2017-10-18] MEDS ORDERED: HYDROmorphone (PF) 1 MG/ML ONE (11:52)
[2017-10-18] MEDS ORDERED: SUCCINYLCHOLINE CHLORIDE 100 MG/5 ML SYR IV ONE (11:52)
--- NOTE | 2017-10-18 12:52 | P.OP ---
Date of Procedure: 10/18/17 Preoperative Diagnosis: Internal derangement right knee Postoperative Diagnosis: 1. Tear medial and lateral meniscus right knee 2. Grade 2/3 chondromalacia medial femoral condyle right knee 3. Grade 2 chondromalacia medial tibial plateau right knee 4. Grade 2/3 chondromalacia patella right knee 5. Reactive synovitis medial and suprapatellar compartments right knee Procedure(s) Performed: 1. Arthroscopic partial medial and lateral meniscectomy right knee 2. Arthroscopic chondroplasty medial femoral condyle right knee 3. Arthroscopic chondroplasty medial tibial plateau right knee 4. Arthroscopic chondroplasty patella right knee 5. Arthroscopic partial synovectomy medial and suprapatellar compartments right knee Implants: None Anesthesia: YNES, local Surgeon: Chandan Velasquez Estimated Blood Loss (ml): 10 Pathology: none sent Condition: stable Disposition: PACU Indications for Procedure: 56-year-old patient seen with progressive right knee pain. After we had discussed treatment options, she elected to proceed with arthroscopy. Operative Findings: See description of procedure Description of Procedure: Patient was taken to the operative suite. Patient underwent a general anesthetic by the department of anesthesia. Patient was given preoperative antibiotics. The right lower extremity was placed in a well-padded arthroscopic leg grant. The right leg was prepped and draped in the normal sterile orthopedic fashion. A lateral parapatellar and suprapatellar incision was made. Trochars were inserted. Arthroscopy was initiated. Suprapatellar pouch revealed some reactive synovitis. The patellofemoral joint appeared to articulate congruently. There was grade 2/3 chondromalacia with some osteochondral tears present. The scope was guided into the medial gutter. Was bodies or plica were identified. The scope was then guided into the medial compartment. A medial parapatellar incision was made. Trocar inserted followed by probe. There was a radial tear involving the posterior horn and midbody of the medial meniscus. There were grade 2/3 chondromalacia changes of the medial femoral condyle and grade 2 chondromalacia changes of the medial tibial plateau. There was reactive synovitis anteriorly. A partial medial meniscectomy was performed down to stable tissue. I performed a chondroplasty of the medial femoral condyle and tibial plateau down to stable tissue. I performed a partial synovectomy. The residual meniscus and osteochondral surfaces appeared stable. Scope and probe were then guided into the intercondylar notch. Cruciates were identified, probed and found to be stable. The scope and probe were then guided into lateral compartment. There was a radial tear involving the midbody of the lateral meniscus. There were grade 1 chondral moist changes of the lateral femoral condyle and tibial plateau with no osteochondral tears present. There were no loose bodies. There was no reactive synovitis. A partial lateral meniscectomy was performed down to stable tissue. The residual meniscus was stable. The scope was in guided back into the suprapatellar compartment. I introduced a motorized shaver into the super patellar compartment. I performed a chondroplasty of the patella down to stable tissue. I performed a partial synovectomy. The shaver was removed. Instruments were now removed from the joint. The joint was infiltrated with .25 % Marcaine. Steri-Strips were applied to the portal sites. Sterile dressings were applied. The patient was placed into a SRINIVAS hose. No tourniquet was utilized. The patient was awakened, transferred to a bed and taken to recovery stable satisfactory condition.
[2017-10-18] MEDS: HYDROmorphone 0.5 MG/0.5 ML SYRINGE IVP PRN ×3 (12:55→13:15)
[2017-10-18] MEDS ORDERED: ONDANSETRON 4 MG/2 ML VIAL IVP ONE (13:00)
[2017-10-18] MEDS ORDERED: diphenhydrAMINE 50 MG/ML 1 ML VIAL IVP ONE (13:27)
[2017-10-18] MEDS ORDERED: LACTATED RINGERS 1,000 ML IV ONE (13:28)
[2017-10-18 16:39] VITALS: PULSE 86
[2017-10-18 16:40] VITALS: BP 142/80; RESP 20
== END 2017-10-18 16:48 | disposition home or self-care (01) ==
LOC: OR 10:12
PROVIDERS: ATTEND Orthopaedic Surgery
DX: S83.241A Other tear of medial meniscus, current injury, right knee, initial encounter (principal); S83.281A Other tear of lateral meniscus, current injury, right knee, initial encounter; X58.XXXA Exposure to other specified factors, initial encounter; M94.261 Chondromalacia, right knee; M22.41 Chondromalacia patellae, right knee; M65.861 Other synovitis and tenosynovitis, right lower leg; E03.9 Hypothyroidism, unspecified; I10 Essential (primary) hypertension; J45.909 Unspecified asthma, uncomplicated; E78.5 Hyperlipidemia, unspecified; I25.10 Atherosclerotic heart disease of native coronary artery without angina pectoris; J44.9 Chronic obstructive pulmonary disease, unspecified; E66.01 Morbid (severe) obesity due to excess calories; Z68.43 Body mass index [BMI] 50.0-59.9, adult; Z79.899 Other long term (current) drug therapy; Z88.6 Allergy status to analgesic agent; Z88.1 Allergy status to other antibiotic agents; Z88.0 Allergy status to penicillin; Z88.2 Allergy status to sulfonamides; Z91.040 Latex allergy status
CPT/HCPCS: 29880; J2250; J1200; J1100; J2405; J2001; J3010; J1170 ×2; J2370; J0330; J2704

== ENCOUNTER → 2017-12-07 | Outpatient (CLI) | payer OTHER ==
--- NOTE | 2017-12-08 08:47 | MM ---
Reason for exam: follow-up at short interval from prior study. Last mammogram was performed 10 months ago. History: Patient is postmenopausal and is nulliparous. Physical Findings: Nurse did not find any significant physical abnormalities on exam. MG Diagnostic Mammo RT w CAD CC and MLO view(s) were taken of the right breast. Prior study comparison: February 14, 2017, right breast MG work up mamm w CAD RT. February 07, 2017, bilateral MG screening mammo w CAD. There are scattered fibroglandular densities. Stable nodular density in the right breast. This finding is changed when compared with previous exams. These results were verbally communicated with the patient and result sheet given to the patient on 12/07/17. ASSESSMENT: Probably benign, BI-RAD 3 RECOMMENDATION: Follow-up diagnostic mammogram of both breasts in 2 months. Back on schedule, January 2018.
== END | disposition home or self-care (01) ==
LOC: RADMAMWWP 15:24
PROVIDERS: ATTEND Family Medicine
DX: R92.8 Other abnormal and inconclusive findings on diagnostic imaging of breast (principal)
CPT/HCPCS: 77065

== ENCOUNTER → 2018-03-29 | Outpatient (CLI) | payer OTHER ==
--- NOTE | 2018-03-29 14:55 | MM ---
Reason for exam: follow-up at short interval from prior study. Last mammogram was performed 4 months ago. History: Patient is postmenopausal and is nulliparous. Physical Findings: Nurse did not find any significant physical abnormalities on exam. MG Diagnostic Mammo w CAD CLEMENT Bilateral CC and MLO view(s) were taken. Prior study comparison: December 07, 2017, right breast MG diagnostic mammo RT w CAD. February 14, 2017, right breast MG work up mamm w CAD RT. The breast tissue is heterogeneously dense. This may lower the sensitivity of mammography. Finding: There are typically benign round, grouped/clustered and scattered calcifications in both breasts. There is no discrete abnormality. Benign bilateral axillary lymph nodes. These results were verbally communicated with the patient and result sheet given to the patient on 03/29/18. ASSESSMENT: Benign, BI-RAD 2 RECOMMENDATION: Routine screening mammogram of both breasts in 1 year.
== END | disposition home or self-care (01) ==
LOC: RADMAMWWP 13:27
DX: R92.8 Other abnormal and inconclusive findings on diagnostic imaging of breast (principal)
CPT/HCPCS: 77066

== ENCOUNTER → 2019-03-11 | Outpatient (CLI) | payer OTHER ==
--- NOTE | 2019-03-12 10:13 | MM ---
Reason for exam: screening (asymptomatic). Last mammogram was performed 11 months ago. History: Patient is postmenopausal, history of other cancer, and is nulliparous. Physical Findings: A clinical breast exam by your physician is recommended on an annual basis and results should be correlated with mammographic findings. MG Screening Mammo w CAD Bilateral CC and MLO view(s) were taken. XCCL view(s) were taken of the left breast. Prior study comparison: March 29, 2018, bilateral MG diagnostic mammo w CAD CLEMENT. December 07, 2017, right breast MG diagnostic mammo RT w CAD. The breast tissue is heterogeneously dense. This may lower the sensitivity of mammography. Focal asymmetry upper outer left breast is stable. No significant changes when compared with prior studies. ASSESSMENT: Benign, BI-RAD 2 RECOMMENDATION: Routine screening mammogram of both breasts in 1 year.
== END | disposition home or self-care (01) ==
LOC: RADMAMWWP 12:19
PROVIDERS: ATTEND Physician Assistant Medical
DX: Z12.31 Encounter for screening mammogram for malignant neoplasm of breast (principal)
CPT/HCPCS: 77067

== ENCOUNTER → 2019-04-02 | Outpatient (CLI) | payer OTHER ==
[2019-04-02 13:59] VITALS: BP 136/83; PULSE 52; RESP 20; TEMP 98.1; BMI 55.3
--- NOTE | 2019-04-02 14:46 | P.HPOB ---
History of Present Illness H&P Date: 04/02/19 Chief Complaint: The patient is here for routine gynecologic exam. This is a 58-year-old with an LMP of 2012. The patient's last Pap smear was about 2012. She is without gynecologic complaints and denies any postmenopausal bleeding. Review of Systems She believes she is gained a fair amount of weight over the last few years. She may have gained more than 100 pounds over the last couple of years. She believes her weight gain is at least in part due to steroid use because of chronic lung problems. Respiratory: some asthma symptoms at times. She denies cardiac problems. G.I.: certain foods seemed upset her stomach. Past Medical History Past Medical History: Asthma, Cancer, COPD, Diabetes Mellitus, Eye Disorder, Hyperlipidemia, Hypertension, Musculoskeletal Disorder, Osteoarthritis (OA), Thyroid Disorder Additional Past Medical History / Comment(s): Migraine headache, glaucoma, obesity, severe persistent bronchial asthma, diverticular disease, environmental ALLERGIES,multiple bilateral pulmonary nodules seen on previous CAT scan of the chest, psoriasis, edema of the lower extremities. Basal cell skin cancer. 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 History of Any Multi-Drug Resistant Organisms: None Reported Past Surgical History: Appendectomy, Orthopedic Surgery, Tonsillectomy Additional Past Surgical History / Comment(s): Tonsillectomy, dilatation and curettage, colonoscopy 2016(2nd, next 5yr), bronchoscopy, appendectomy, L KNEE arthroscopy, skin cancer removal, D&C. Past Anesthesia/Blood Transfusion Reactions: Motion Sickness, Postoperative Nausea & Vomiting (PONV) Past Psychological History: No Psychological Hx Reported Additional Psychological History / Comment(s): Pt lives with her mother. Her mother is in a senior living at this time for rehab. She uses no assistive device. She drives. Smoking Status: Never smoker Past Alcohol Use History: Rare (1 per month) Past Drug Use History: None Reported Additional History: She is and is not seeing anybody at this time. She is a [employer] and is considered disabled. - Past Family History Father Family Medical History: Cancer Additional Family Medical History / Comment(s): COLON CANCER. Skin cancer. Mother Family Medical History: Cancer, Diabetes Mellitus, Hypertension Additional Family Medical History / Comment(s): SKIN CA, Medications and Allergies Home Medications Medication Instructions Recorded Confirmed Type Atorvastatin [Lipitor] 20 mg PO DAILY 05/27/15 04/02/19 History Butalb/APAP/Caff 50-325-40Mg 1 - 2 tab PO Q4HR PRN 05/27/15 04/02/19 History [Fioricet 50-325-40] Levothyroxine Sodium [Synthroid] 25 mcg PO QAM 05/27/15 04/02/19 History Losartan Potassium 50 mg PO BID 05/27/15 04/02/19 History Albuterol Inhaler [Ventolin Hfa 1 - 2 puff INHALATION RT-Q6H PRN 06/28/16 04/02/19 History Inhaler] Budesonide-Formot 160-4.5 Mcg 2 puff INHALATION RT-BID 06/28/16 04/02/19 History [Symbicort 160-4.5 Mcg Inhaler] Diazepam [Valium] 5 mg PO TID PRN 12/12/16 04/02/19 History Furosemide [Lasix] 40 mg PO BID 12/12/16 04/02/19 History Theophylline 24 Hour [Erick-24] 400 mg PO DAILY 12/12/16 04/02/19 History Baclofen 10 mg PO BID PRN 09/28/17 04/02/19 History Budesonide [Pulmicort] 0.5 mg PO RT-BID 09/28/17 04/02/19 History Ipratropium-Albuterol Nebulize 3 ml INHALATION RT-QID PRN 09/28/17 04/02/19 History [Duoneb 0.5 mg-3 mg/3 ml Soln] traMADol HCL [Ultram] 50 mg PO TID PRN 09/28/17 04/02/19 History Latanoprost Ophth [Xalatan 0.005%] 1 drop BOTH EYES DAILY 10/18/17 04/02/19 History Multivit with Calcium,Iron,Min 1 each PO DAILY 04/02/19 04/02/19 History [Women's Multivitamin] Allergies Allergy/AdvReac Type Severity Reaction Status Date / Time cefaclor [From Ceclor] Allergy Anaphylaxis Verified 04/02/19 13:45 latex Allergy Rash/Hives Verified 04/02/19 13:45 levofloxacin [From Levaquin] Allergy Burning Verified 04/02/19 13:45 sensatin on feet sulfamethoxazole Allergy Anaphylaxis Verified 04/02/19 13:45 [From Bactrim] trimethoprim [From Bactrim] Allergy Anaphylaxis Verified 04/02/19 13:45 amoxicillin trihydrate AdvReac Nausea & Verified 04/02/19 13:45 [From Augmentin] Vomiting doxycycline AdvReac Nausea & Verified 04/02/19 13:45 Vomiting potassium clavulanate AdvReac Nausea & Verified 04/02/19 13:45 [From Augmentin] Vomiting Exam Vital Signs Temp Pulse Resp BP Pulse Ox 04/02/19 13:55 98.1 F 52 L 20 136/83 100 Intake and Output 04/01/19 04/02/19 04/02/19 22:59 06:59 14:59 Other: Weight 141.521 kg Height 5'3", weight 312 pounds, NICHOLAS 55.3. This is a well-developed well-nourished obese white female who is alert and oriented times 3 in no acute distress. HEENT: Within normal limits. NECK: Supple without mass or thyromegaly. CHEST AND LUNGS: moderate prolonged exploration phase by auscultation consistent with COPD. HEART: Regular rate and rhythm. BREASTS: Are without mass or discharge. AXILLARY EXAM: Negative for adenopathy. BACK: Negative for CVA tenderness. ABDOMEN: Soft, obese, nontender, without palpable masses. PELVIC EXAM: Normal external genitalia with mild atrophy. Cervix and vagina appear normal with mild atrophy. There is no unusual discharge. There is no evidence of prolapse. The uterus is midposition, nongravid size and nontender. There are no palpable adnexal masses or tenderness. Bimanual examination is somewhat limited secondary to her size. RECTAL EXAM: don't vaginal exam is negative for mass or tenderness and is trace positive for Hemoccult blood on one of 2 specimens.. EXTREMITIES: Nontender. IMPRESSION: 1. 58-year-old menopausal female with normal gynecologic exam. 2. Obesity which may limit the pelvic examination. 3. Trace Hemoccult positive stool on one of 2 specimens. The patient states she has a history of rectal fissures which sometimes are aggravated with hard stools. 4.Multiple medical problems PLAN: 1. Pap smear was performed with high-risk HPV testing (cotesting). 2. Self breast awareness was discussed with the patient. 3. Screening mammogram was done on 03/11/2019 and was benign. She will repeat this in one year. 4. I have given her a fecal occult blood test kit. She will follow-up with her primary care physician for reevaluation and she can have the test kit rechecked by her primary caregiver. She is to obtain specimens from 2 consecutive bowel movements and return them for developing. She is to do this testing after she has kept her stools soft by keeping lots of fiber in her diet and drinking lots of fluids. If it continues to be Hemoccult positive, she should follow up with Dr. Barrios, her G.I. specialist. 5. She was advised to return in one year for her annual well woman exam.
== END ==
LOC: WWCWWP 13:21
PROVIDERS: ATTEND Obstetrics & Gynecology
DX: Z01.419 Encounter for gynecological examination (general) (routine) without abnormal findings (principal)

== ENCOUNTER → 2020-07-09 | Outpatient (CLI) | payer OTHER ==
--- NOTE | 2020-07-10 08:51 | MM ---
Reason for exam: screening (asymptomatic). Last mammogram was performed 1 year and 4 months ago. History: Patient is postmenopausal, history of other cancer, and is nulliparous. Physical Findings: A clinical breast exam by your physician is recommended on an annual basis and results should be correlated with mammographic findings. MG Screening Mammo w CAD Bilateral CC and MLO view(s) were taken. Prior study comparison: March 11, 2019, bilateral MG screening mammo w CAD. March 29, 2018, bilateral MG diagnostic mammo w CAD CLEMENT. The breast tissue is heterogeneously dense. This may lower the sensitivity of mammography. Finding #1: There is a 6 mm equal density (isodense) mass in the lower quadrant, central position of the right breast. Finding #2: There are typically benign calcifications in both breasts. There is a chronic nodularity bilaterally. ASSESSMENT: Incomplete: need additional imaging evaluation, BI-RAD 0 RECOMMENDATION: Special view mammogram of the right breast. If lesion persists on supplemental views, image directed ultrasound is recommended. [facility] will attempt to contact patient to return for supplemental views and ultrasound if indicated.
== END | disposition home or self-care (01) ==
LOC: RADMAMWWP 10:01
DX: Z12.31 Encounter for screening mammogram for malignant neoplasm of breast (principal)
CPT/HCPCS: 77067

== ENCOUNTER → 2020-07-14 | Outpatient (CLI) | payer OTHER ==
--- NOTE | 2020-07-14 14:34 | MM ---
Reason for exam: additional evaluation requested from abnormal screening. Last mammogram was performed less than 1 month ago. History: Patient is postmenopausal, history of other cancer, and is nulliparous. Physical Findings: Nurse did not find any significant physical abnormalities on exam. MG Work Up Mamm w CAD RT Spot compression CC and spot compression MLO view(s) were taken of the right breast. Prior study comparison: July 09, 2020, bilateral MG screening mammo w CAD. March 11, 2019, bilateral MG screening mammo w CAD. Nodular density 10.6cm from nipple central right breast. These results were verbally communicated with the patient and result sheet given to the patient on 07/14/20. ASSESSMENT: Incomplete: need additional imaging evaluation, BI-RAD 0 RECOMMENDATION: Ultrasound of the right breast.
--- NOTE | 2020-07-14 15:00 | USB ---
Reason for exam: additional evaluation requested from abnormal screening. History: Patient is postmenopausal, history of other cancer, and is nulliparous. US Breast Workup Limited RT Right limited breast ultrasound including focal area of concern, retroareolar and axilla demonstrates a 0.6 x 0.5 x 0.4cm oval, cystic lesion at 12 o'clock. These results were verbally communicated with the patient and result sheet given to the patient on 07/14/20. ASSESSMENT: Benign, BI-RAD 2 RECOMMENDATION: Return to routine screening mammogram schedule for both breasts.
== END | disposition home or self-care (01) ==
LOC: RADMAMWWP 13:35
DX: R92.8 Other abnormal and inconclusive findings on diagnostic imaging of breast (principal)
CPT/HCPCS: 77065

== ENCOUNTER → 2021-07-12 | Outpatient (CLI) | payer OTHER ==
--- NOTE | 2021-07-14 10:42 | MM ---
Reason for exam: screening (asymptomatic). Last mammogram was performed 1 year ago. History: Patient is postmenopausal, history of other cancer, and is nulliparous. Took hormonal contraceptives for 15 years. Physical Findings: A clinical breast exam by your physician is recommended on an annual basis and results should be correlated with mammographic findings. MG Screening Mammo w CAD Bilateral CC and MLO view(s) were taken. Prior study comparison: July 14, 2020, right breast MG work up mamm w CAD RT. July 09, 2020, bilateral MG screening mammo w CAD. The breast tissue is heterogeneously dense. This may lower the sensitivity of mammography. Stable benign calcifications. No significant changes when compared with prior studies. ASSESSMENT: Benign, BI-RAD 2 RECOMMENDATION: Routine screening mammogram of both breasts in 1 year.
== END | disposition home or self-care (01) ==
LOC: RADMAMWWP 13:09
DX: Z12.31 Encounter for screening mammogram for malignant neoplasm of breast (principal)
CPT/HCPCS: 77067

== ENCOUNTER 2021-12-21 12:01 | Day surgery (SDC) | payer OTHER ==
[2021-12-16 17:59] VITALS: BMI 57.6
[~2021-12-21 12:01] MED LIST changes: +ALBUTEROL NEB (CONC) 2.5 MG/0.5 ML INHALATION ONE; -DEXAMETHASONE SOD PHOSPHATE 10 MG/ML 1 ML VIAL IV ONE; +LIDOCAINE 1% (10MG/ML) FOR IV START INTRADERMA PRN; -LIDOCAINE 1% 20 ML VIAL (10MG/ML) FOR IV START INTRADERMA PRN; +LIDOCAINE 2% (PF) 20 MG/ML 5 ML VIAL INHALATION ONE; +LIDOCAINE VISCOUS 300 MG/15 ML CUP MUCOUS MEM ONE; -MIDAZOLAM 2 MG/2 ML VIAL IV PRN; -ONDANSETRON 4 MG/2 ML VIAL IVP ONE; -Pre Op ABX Message 1 EACH MISC MISCELLANE ONE; -SCOPOLAMINE 1.5MG/72HR PATCH TRANSDERM ONE
[2021-12-21 12:44] LABS: Glucose,Whole Blood 190 mg/dL (75-99)
[2021-12-21] MEDS ORDERED: KETAMINE 10 MG/ML 20 ML VIAL ONE (13:27)
[2021-12-21] MEDS ORDERED: fentaNYL (PF) 50 MCG/ML 2 ML AMP ONE (13:27)
[2021-12-21] MEDS ORDERED: PROPOFOL 10 MG/ML 20 ML VIAL IV ONE (13:27)
[2021-12-21] MEDS ORDERED: MIDAZOLAM 2 MG/2 ML VIAL ONE (13:27)
[2021-12-21] MEDS ORDERED: LIDOCAINE 1% INJ 10MG/ML (20 ML MDV) ONE (13:27)
[2021-12-21] MEDS ORDERED: LIDOCAINE 2% INJ 20 MG/ML INTRATRACH ONE (13:46)
--- NOTE | 2021-12-21 13:57 | P.PCN ---
Date of Procedure: 12/21/21 Preoperative Diagnosis: 1 Chronic cough Postoperative Diagnosis: 1 Tracheobronchomalacia (mild) 2 Acute bronchitis (mild) 3 BAL of the lingula Procedure(s) Performed: Flexible bronchoscopy, airway inspection, bronchioloalveolar lavage of the lingula Anesthesia: MAC Surgeon: Earlene Coto Estimated Blood Loss (ml): 0 Pathology: other Condition: stable Disposition: same day Operative Findings: this procedure was done under conscious sedation. The procedure was done in the endoscopy suite. The patient was given a combination of ketamine and propofol for sedation. Following that, the flexible bronchoscope was introduced through the right nostril that was advanced into the upper airway. Examination of the posterior nasopharynx, pharynx, larynx was done and there was evidence of redundant adipose tissue and collapsible upper laryngeal wall consistent with underlying obstructive sleep apnea. Epiglottis was easily identified. The vallecula was within normal limits. The arytenoids were slightly swollen and erythematous. There was normal functional vocal cords with normal abduction and adduction of the vocal cords. A total of 2 mL of 1% lidocaine was applied to the vocal cords and following that the bronchoscope was advanced into the upper trachea. Examination of the tracheal bronchial tree was done.Trachea was seen and it was normal and then the gaurav appears normal then the scope advanced to the left main and SARITA LB1-LB3 were seen and no endobronchial lesions were seen then the scope advanced to the lingula and the LB4 and LB5 were seen and no endobronchial lesions were seen the scope retracted and advanced to the left lower lobes LB6 to LB12 were seen one by one and no endobronchial lesions, then the scope was retracted back to the gaurav and advanced to the Right main and RUL RB1 and RB2 and RB3 were seen one by one and no endobronchial lesions were seen the scope then retracted and advanced to the BI and RML RB4 and RB5 were seen and no endobronchial lesions were seen then it was retracted and advanced to the RLL RB6 to RB12 were seen the airway inspection revealed a mild degree of tracheal bronchomalacia. Some looseness for secretions were obtained within the airway. The bronchial mucosa was slightly inflamed. No other abnormalities was identified. The bronchoscope was wedged into this a segment of the lingula and the bronchioloalveolar lavage was done. A total of 60 mL of fluid was infused and 20 mL was suctioned back without any difficulties. Bronchoscope was removed. The patient was transferred recovery in stable condition. She did encounter some cough and following the procedure. No oxygen desaturations. No other complications. Plan Complete a prednisone burst taper and will decide if antibiotics are needed based on the results of the bronchioloalveolar lavage and the cultures.
[2021-12-21 14:13] VITALS: TEMP 96.9
--- NOTE | 2021-12-21 14:25 | XR ---
EXAMINATION TYPE: XR chest 1V portable DATE OF EXAM: 12/21/2021 COMPARISON: Chest x-ray December 15, 2021. HISTORY: Postbronchoscopy. TECHNIQUE: Single AP portable frontal upright view of the chest is obtained. FINDINGS: There are some increased opacities in the bilateral lower lungs. Findings favor atelectat ic change. The cardiac silhouette size is mildly enlarged. No pneumothorax identified after broncho scopy. The osseous structures are intact. IMPRESSION: As above.
[2021-12-21 15:18] VITALS: PULSE 74; RESP 16
[2021-12-21 15:19] VITALS: BP 173/98
[2021-12-22 01:31] LABS: Appearance,BF Cloudy
== END 2021-12-21 15:23 ==
LOC: ORWHC2ENDO 12:01
PROVIDERS: ATTEND Internal Medicine Critical Care Medicine
DX: J20.9 Acute bronchitis, unspecified (principal); M83.9 Adult osteomalacia, unspecified
CPT/HCPCS: 31624; 89050; 87252; 87070; 87205; 87116; 87102; 87206; 71045; J2001 ×2; J2250; J3010; J2704; 87496; 87498; 87502; 87529; 87634; 87798

== ENCOUNTER → 2021-12-21 | Outpatient (CLI) | payer OTHER ==
--- NOTE | 2021-12-22 07:05 | CT ---
EXAMINATION TYPE: CT chest w con DATE OF EXAM: 12/21/2021 COMPARISON: Chest CT October 17, 2016 HISTORY: h/o pneumonia CT DLP: 693.2 mGycm. Automated Exposure Control for Dose Reduction was Utilized. TECHNIQUE: CT scan of the thorax is performed following with IV Contrast, patient injected with 80 m L of Isovue 300. FINDINGS: LUNGS: Stable 5 mm anterior right upper to midlung nodule axial image 21. Stable 3 to 4 mm periphera l right middle lobe nodule axial image 34. No new or enlarging greater than 5 mm nodules. Some ground glass opacity localized to to the posterior lingula and posterior aspect of the right middle lobe are present on current study. Stable mild left basilar linear scarring just above diaphragm There is no pleural effusion or pneumothorax seen. The tracheobronchial tree is patent. MEDIASTINUM: There are no greater than 1 cm hilar or mediastinal lymph nodes. Tiny pericardial effusi on is now present. Cardiomegaly redemonstrated. Coronary artery desiccation again seen. OTHER: Anterior bridging osteophytes in the visualized spine. IMPRESSION: Confirmation of groundglass opacities involving the right middle lobe and lingula consist ent with bilateral pneumonic infiltrates.
== END | disposition home or self-care (01) ==
LOC: RADCTMAIN 15:56
PROVIDERS: ATTEND Internal Medicine Critical Care Medicine
DX: J18.1 Lobar pneumonia, unspecified organism (principal); R91.8 Other nonspecific abnormal finding of lung field
CPT/HCPCS: 82565; 84520; 71260; 36415; Q9967

== ENCOUNTER 2022-03-19 17:26 | Inpatient (IN) | payer OTHER ==
[2022-03-19] MEDS ORDERED: methylPREDNISolone SOD SUCCI 125 MG/2 ML VIAL IV STA (17:44)
[2022-03-19] MEDS ORDERED: SODIUM CHLORIDE 0.9% 1,000 ML IV STA (17:44)
[2022-03-19] MEDS ORDERED: ALBUTEROL HFA INHALER INHALATION STA (17:44)
--- NOTE | 2022-03-19 17:48 | ED ---
General Adult HPI - General Chief complaint: Shortness of Breath Stated complaint: Covid+,NICOLE Time Seen by Provider: 03/19/22 17:29 Source: patient, RN notes reviewed Mode of arrival: ambulatory Limitations: no limitations - History of Present Illness Initial comments: Patient is a pleasant 61-year-old female presenting to the emergency department with concerns for difficulty breathing. Patient has had cough and shortness of breath for the past 4 days. Cough dry nonproductive. Patient has wheezing. Patient does have history of asthma and COPD. Patient did test positive for COVID-19 infection. Patient does feel somewhat fatigued. - Related Data Home Medications Medication Instructions Recorded Confirmed Atorvastatin [Lipitor] 20 mg PO DAILY 05/27/15 12/21/21 Butalb/APAP/Caff 50-325-40Mg 1 - 2 tab PO Q4HR PRN 05/27/15 12/21/21 [Fioricet 50-325-40] Levothyroxine Sodium [Synthroid] 25 mcg PO QAM 05/27/15 12/21/21 Losartan Potassium 50 mg PO BID 05/27/15 12/21/21 Albuterol Inhaler (Mhu) [Ventolin 1 - 2 puff INHALATION RT-Q6H PRN 06/28/16 12/21/21 Hfa Inhaler (Mhu)] Budesonide-Formot 160-4.5 Mcg 2 puff INHALATION RT-BID 06/28/16 12/21/21 [Symbicort 160-4.5 Mcg Inhaler] Furosemide [Lasix] 80 mg PO DAILY 12/12/16 12/21/21 Theophylline 24 Hour [Erick-24] 400 mg PO HS 12/12/16 12/21/21 Baclofen 10 mg PO BID PRN 09/28/17 12/21/21 Ipratropium-Albuterol Nebulize 3 ml INHALATION RT-QID PRN 09/28/17 12/21/21 [Duoneb 0.5 mg-3 mg/3 ml Soln] traMADol HCL [Ultram] 50 mg PO TID PRN 09/28/17 12/21/21 Multivit with Calcium,Iron,Min 1 each PO DAILY 04/02/19 12/21/21 [Women's Multivitamin] Acetaminophen [Tylenol Arthritis] 650 mg PO DIRECTED PRN 12/16/21 12/21/21 Cholecalciferol [Vitamin D3 (25 50 mcg PO DAILY 12/16/21 12/21/21 Mcg = 1000 Iu)] Diclofenac Sodium Gel [Voltaren 2 gm TOPICAL QID PRN 12/16/21 12/21/21 Gel] Fluticasone Nasal Aston [Flonase 1 spray EA NOSTRIL BID 12/16/21 12/21/21 Nasal Aston] Ibuprofen [Motrin Ib] 200 - 400 mg PO Q8H PRN 12/16/21 12/21/21 Metoprolol Tartrate [Lopressor] 25 mg PO BID 12/16/21 12/21/21 Tiotropium 2.5 Mcg/Puff [Spiriva 2 puff INHALATION DAILY 12/16/21 12/21/21 Respimat 2.5 Mcg] Vitamin B Complex 1 each PO DAILY 12/16/21 12/21/21 predniSONE [Deltasone] 40 mg PO DAILY 12/16/21 12/21/21 Allergies Allergy/AdvReac Type Severity Reaction Status Date / Time cefaclor [From Ceclor] Allergy Anaphylaxis Verified 03/19/22 17:31 latex Allergy Rash/Hives Verified 03/19/22 17:31 levofloxacin [From Levaquin] Allergy Burning Verified 03/19/22 17:31 sensatin on feet sulfamethoxazole Allergy Anaphylaxis Verified 03/19/22 17:31 [From Bactrim] trimethoprim [From Bactrim] Allergy Anaphylaxis Verified 03/19/22 17:31 amoxicillin trihydrate AdvReac Nausea & Verified 03/19/22 17:31 [From Augmentin] Vomiting celecoxib [From Celebrex] AdvReac weight gain Verified 03/19/22 17:31 doxycycline AdvReac Nausea & Verified 03/19/22 17:31 Vomiting montelukast [From Singulair] AdvReac hyperactivi Verified 03/19/22 17:31 ty potassium clavulanate AdvReac Nausea & Verified 03/19/22 17:31 [From Augmentin] Vomiting rofecoxib [From Vioxx] AdvReac weight gain Verified 03/19/22 17:31 Review of Systems ROS Statement: Those systems with pertinent positive or pertinent negative responses have been documented in the HPI. ROS Other: All systems not noted in ROS Statement are negative. Constitutional: Denies: fever Eyes: Denies: eye pain ENT: Denies: ear pain Respiratory: Reports: as per HPI, cough, dyspnea Cardiovascular: Denies: chest pain Endocrine: Reports: fatigue Gastrointestinal: Denies: abdominal pain Genitourinary: Denies: dysuria Musculoskeletal: Denies: back pain Skin: Denies: rash Neurological: Denies: weakness Past Medical History Past Medical History: Asthma, Cancer, COPD, Diabetes Mellitus, Eye Disorder, Hyperlipidemia, Hypertension, Musculoskeletal Disorder, Osteoarthritis (OA), Pneumonia, Skin Disorder, Sleep Apnea/CPAP/BIPAP, Thyroid Disorder Additional Past Medical History / Comment(s): Migraine headache, glaucoma, obesity, severe persistent bronchial asthma, diverticular disease, environmental allergies,multiple bilat pulmonary nodules, psoriasis, edema BLE. Basal cell skin cancer. Pericarditis. Uses CPAP. Pneumonia 12/03/21 ongoing History of Any Multi-Drug Resistant Organisms: None Reported Past Surgical History: Appendectomy, Orthopedic Surgery, Tonsillectomy Additional Past Surgical History / Comment(s): D&C, colonoscopy 2015, bronchoscopy, Bilat Knee arthroscopy, skin cancer removal Past Anesthesia/Blood Transfusion Reactions: Motion Sickness, Postoperative Nausea & Vomiting (PONV) Past Psychological History: No Psychological Hx Reported Smoking Status: Never smoker Past Alcohol Use History: Occasional Past Drug Use History: None Reported - Past Family History Brother(s) Family Medical History: Cancer Additional Family Medical History / Comment(s): blood cancer Father Family Medical History: Cancer Additional Family Medical History / Comment(s): Colon cancer. Skin cancer. Mother Family Medical History: Cancer, Diabetes Mellitus, Hypertension Additional Family Medical History / Comment(s): SKIN CA, General Exam Limitations: no limitations General appearance: alert Head exam: Present: normocephalic Eye exam: Present: normal appearance Neck exam: Present: normal inspection Respiratory exam: Present: respiratory distress (Mild respiratory distress), wheezes Cardiovascular Exam: Present: regular rate, normal rhythm GI/Abdominal exam: Present: soft. Absent: tenderness Extremities exam: Present: normal inspection Neurological exam: Present: alert Psychiatric exam: Present: normal affect, normal mood Skin exam: Present: normal color Course Vital Signs 03/19/22 03/19/22 03/19/22 17:27 17:45 18:31 Temperature 98.6 F Pulse Rate 98 87 Respiratory 24 22 20 Rate Blood Pressure 129/59 143/67 O2 Sat by Pulse 97 Oximetry 03/19/22 19:19 Temperature Pulse Rate 86 Respiratory 18 Rate Blood Pressure 132/59 O2 Sat by Pulse 96 Oximetry EKG Findings - EKG Comments: EKG Findings:: Sinus rhythm with rate of 90. NM 162. QRS 93. QT 360. QTC 408. Normal axis. Low QRS voltage. Nonspecific ST-T Medical Decision Making - Medical Decision Making Patient reevaluated with some improvement. Patient still with wheezing. Patient updated on results and plan. Case discussed with Dr. Pacheco, who will admit covering the MO - Lab Data Result diagrams: 03/19/22 18:22 03/19/22 18: Lab Results 03/19/22 03/19/22 03/19/22 Range/Units 18: 18: 18:22 WBC 10.3 (3.8-10.6) k/uL RBC 4.14 (3.80-5.40) m/uL Hgb 12.6 (11.4-16.0) gm/dL Hct 39.0 (34.0-46.0) % MCV 94.1 (80.0-100.0) fL MCH 30.3 (25.0-35.0) pg MCHC 32.2 (31.0-37.0) g/dL RDW 13.5 (11.5-15.5) % Plt Count 337 (150-450) k/uL MPV 7.5 Neutrophils % 64 % Lymphocytes % 28 % Monocytes % 4 % Eosinophils % 1 % Basophils % 1 % Neutrophils # 6.5 (1.3-7.7) k/uL Lymphocytes # 2.9 (1.0-4.8) k/uL Monocytes # 0.5 (0-1.0) k/uL Eosinophils # 0.1 (0-0.7) k/uL Basophils # 0.1 (0-0.2) k/uL PT 10.4 (9.0-12.0) sec INR 1.0 (<1.2) APTT 22.0 (22.0-30.0) sec D-Dimer 0.52 (<0.60) mg/L FEU Sodium 138 (137-145) mmol/L Potassium 3.8 (3.5-5.1) mmol/L Chloride 103 (98-107) mmol/L Carbon Dioxide 21 L (22-30) mmol/L Anion Gap 14 mmol/L BUN 33 H (7-17) mg/dL Creatinine 1.69 H (0.52-1.04) mg/dL Est GFR (CKD-EPI)AfAm 37 (>60 ml/min/1.73 sqM) Est GFR (CKD-EPI)NonAf 32 (>60 ml/min/1.73 sqM) Glucose 135 H (74-99) mg/dL Plasma Lactic Acid Wojciech (0.7-2.0) mmol/L Calcium 9.5 (8.4-10.2) mg/dL Total Bilirubin 0.8 (0.2-1.3) mg/dL AST 28 (14-36) U/L ALT 19 (4-34) U/L Alkaline Phosphatase 99 (38-126) U/L Total Protein 7.6 (6.3-8.2) g/dL Albumin 4.4 (3.5-5.0) g/dL 03/19/22 Range/Units 18:22 WBC (3.8-10.6) k/uL RBC (3.80-5.40) m/uL Hgb (11.4-16.0) gm/dL Hct (34.0-46.0) % MCV (80.0-100.0) fL MCH (25.0-35.0) pg MCHC (31.0-37.0) g/dL RDW (11.5-15.5) % Plt Count (150-450) k/uL MPV Neutrophils % % Lymphocytes % % Monocytes % % Eosinophils % % Basophils % % Neutrophils # (1.3-7.7) k/uL Lymphocytes # (1.0-4.8) k/uL Monocytes # (0-1.0) k/uL Eosinophils # (0-0.7) k/uL Basophils # (0-0.2) k/uL PT (9.0-12.0) sec INR (<1.2) APTT (22.0-30.0) sec D-Dimer (<0.60) mg/L FEU Sodium (137-145) mmol/L Potassium (3.5-5.1) mmol/L Chloride (98-107) mmol/L Carbon Dioxide (22-30) mmol/L Anion Gap mmol/L BUN (7-17) mg/dL Creatinine (0.52-1.04) mg/dL Est GFR (CKD-EPI)AfAm (>60 ml/min/1.73 sqM) Est GFR (CKD-EPI)NonAf (>60 ml/min/1.73 sqM) Glucose (74-99) mg/dL Plasma Lactic Acid Wojciech 3.4 H* (0.7-2.0) mmol/L Calcium (8.4-10.2) mg/dL Total Bilirubin (0.2-1.3) mg/dL AST (14-36) U/L ALT (4-34) U/L Alkaline Phosphatase (38-126) U/L Total Protein (6.3-8.2) g/dL Albumin (3.5-5.0) g/dL Disposition Clinical Impression: MARLYN (acute kidney injury), Acute exacerbation of chronic obstructive pulmonary disease, Dehydration, COVID-19 Disposition: ADMITTED IP TO THIS HOSP Is patient prescribed a controlled substance at d/c from ED?: No Referrals: Jessica Smith, PAC [REFERRING] - 1-2 days Time of Disposition: 19:34
[2022-03-19 18:40] LABS: Basophils # (A) 0.1 k/uL (0-0.2); Basophils % (A) 1 %; Eosinophils # (A) 0.1 k/uL (0-0.7); Eosinophils % (A) 1 %; HGB 12.6 gm/dL (11.4-16.0); Lymphocytes # (A) 2.9 k/uL (1.0-4.8); Lymphocytes % (A) 28 %; MCH 30.3 pg (25.0-35.0); MCHC 32.2 g/dL (31.0-37.0); MCV 94.1 fL (80.0-100.0); Mean Platelet Volume 7.5; Monocytes # (A) 0.5 k/uL (0-1.0); Monocytes % (A) 4 %; Neutrophils # (A) 6.5 k/uL (1.3-7.7); Neutrophils % (A) 64 %; Platelet Count 337 k/uL (150-450); RBC 4.14 m/uL (3.80-5.40); RDW 13.5 % (11.5-15.5); WBC 10.3 k/uL (3.8-10.6)
[2022-03-19 18:56] LABS: Albumin 4.4 g/dL (3.5-5.0); Calcium 9.5 mg/dL (8.4-10.2); Potassium 3.8 mmol/L (3.5-5.1); Total Bilirubin 0.8 mg/dL (0.2-1.3); Total Protein 7.6 g/dL (6.3-8.2)
[2022-03-19 19:17] LABS: Prothrombin Time 10.4 sec (9.0-12.0)
--- NOTE | 2022-03-19 19:20 | XR ---
EXAMINATION TYPE: XR chest 2V DATE OF EXAM: 03/19/2022 COMPARISON: 01/05/2022 HISTORY: Rapidly breathing TECHNIQUE: FINDINGS: Heart is normal. There is minimal pleural reaction lateral left lung base. There are no hil ar masses. There are chest leads. Bony thorax is intact. IMPRESSION: Mild pleural reaction at the left lung base without change. Normal heart.
[2022-03-19] MEDS ORDERED: IPRATROPIUM-ALBUTEROL 3 ML NEB INHALATION PRN ×2 (20:01→22:58)
[2022-03-19] MEDS ORDERED: NALOXONE 0.4 MG/ML 1 ML VIAL IV PRN (20:04)
[2022-03-19] MEDS: SODIUM CHLORIDE 0.9% 1,000 ML IV SCH (20:22)
[2022-03-19] MEDS ORDERED: BEBTELOVIMAB (EUA) 175 MG/2 ML VIAL IV ONE (20:30)
[2022-03-19 21:29] LABS: Glucose,Whole Blood 151 mg/dL (75-99)
[2022-03-19] MEDS ORDERED: SODIUM CHLORIDE 0.9% 1,000 ML IV ONE (21:58)
--- NOTE | 2022-03-19 22:52 | P.HPIM ---
History of Present Illness H&P Date: 03/19/22 Chief Complaint: hypoxemia 61 year old female with hypertension , DM, COPD, WILSON patient comes in due to hypoxemia , she has been having URI symptoms for the past 4 days , she tested positive for covid at home, reporting fever, chills, sore throat, cough, diffuse muscle aches. she monitors her Oxygen and today was pretty low in the mid 80s% for which she decided to come in for evaluation , denies any recent hospitalization, or history of blood clots. she uses CPAP at home, with setting of 16 cm H2O denies any smoking, illicit drugs. or heavy alcohol in the ED, upon evaluation she was not hypoxic, and satting well on room air, however, she was noted to be wheezing . blood work showed MARLYN, with lactic acidosis CXR no acute changes , she has pleural reaction unchanged Review of Systems Pertinent positives as noted in HPI. All other systems were reviewed and are negative Past Medical History Past Medical History: Asthma, Cancer, COPD, Diabetes Mellitus, Eye Disorder, Hyperlipidemia, Hypertension, Musculoskeletal Disorder, Osteoarthritis (OA), Pneumonia, Skin Disorder, Sleep Apnea/CPAP/BIPAP, Thyroid Disorder Additional Past Medical History / Comment(s): Migraine headache, glaucoma, obesity, severe persistent bronchial asthma, diverticular disease, environmental allergies,multiple bilat pulmonary nodules, psoriasis, edema BLE. Basal cell skin cancer. Pericarditis. Uses CPAP. Pneumonia 12/03/21 ongoing History of Any Multi-Drug Resistant Organisms: None Reported Past Surgical History: Appendectomy, Orthopedic Surgery, Tonsillectomy Additional Past Surgical History / Comment(s): D&C, colonoscopy 2016, bronchoscopy, Bilat Knee arthroscopy, skin cancer removal Past Anesthesia/Blood Transfusion Reactions: Motion Sickness, Postoperative Nausea & Vomiting (PONV) Past Psychological History: No Psychological Hx Reported Smoking Status: Never smoker Past Alcohol Use History: Occasional Past Drug Use History: None Reported - Past Family History Brother(s) Family Medical History: Cancer Additional Family Medical History / Comment(s): blood cancer Father Family Medical History: Cancer Additional Family Medical History / Comment(s): Colon cancer. Skin cancer. Mother Family Medical History: Cancer, Diabetes Mellitus, Hypertension Additional Family Medical History / Comment(s): SKIN CA, Medications and Allergies Home Medications Medication Instructions Recorded Confirmed Type Levothyroxine Sodium [Synthroid] 25 mcg PO HS 05/27/15 03/19/22 History Losartan Potassium 50 mg PO BID 05/27/15 03/19/22 History Theophylline 24 Hour [Erick-24] 400 mg PO DAILY 12/12/16 03/19/22 History Baclofen 10 mg PO BID 09/28/17 03/19/22 History Ipratropium-Albuterol Nebulize 3 ml INHALATION RT-QID 09/28/17 03/19/22 History [Duoneb 0.5 mg-3 mg/3 ml Soln] Multivit with Calcium,Iron,Min 1 tab PO DAILY 04/02/19 03/19/22 History [Women's Multivitamin] Cholecalciferol [Vitamin D3 (25 50 mcg PO DAILY 12/16/21 03/19/22 History Mcg = 1000 Iu)] Diclofenac Sodium Gel [Voltaren 2 gm TOPICAL QID PRN 12/16/21 03/19/22 History Gel] Fluticasone Nasal Rush [Flonase 1 spr EA NOSTRIL BID 12/16/21 03/19/22 History Nasal Rush] Metoprolol Tartrate [Lopressor] 25 mg PO BID 12/16/21 03/19/22 History Tiotropium 2.5 Mcg/Puff [Spiriva 2 puff INHALATION RT-DAILY 12/16/21 03/19/22 History Respimat 2.5 Mcg] Albuterol Sulfate [Albuterol 1 puff INHALATION RT-QID PRN 03/19/22 03/19/22 History Sulfate Hfa] Ascorbic Acid [Vitamin C] 1,000 mg PO DAILY 03/19/22 03/19/22 History Atorvastatin [Lipitor] 20 mg PO HS 03/19/22 03/19/22 History Fluticasone Propion/Salmeterol 1 puff INHALATION RT-BID 03/19/22 03/19/22 History [Fluticasone-Salmeterol 250-50] Furosemide [Lasix] 80 mg PO DAILY 03/19/22 03/19/22 History Zinc 50 mg PO DAILY 03/19/22 03/19/22 History metFORMIN HCL [Glucophage] 500 mg PO BID 03/19/22 03/19/22 History Allergies Allergy/AdvReac Type Severity Reaction Status Date / Time cefaclor [From [facility]] Allergy Anaphylaxis Verified 03/19/22 20:06 latex Allergy Rash/Hives Verified 03/19/22 20:06 levofloxacin [From Levaquin] Allergy Burning Verified 03/19/22 20:06 sensatin on feet sulfamethoxazole Allergy Anaphylaxis Verified 03/19/22 20:06 [From Bactrim] trimethoprim [From Bactrim] Allergy Anaphylaxis Verified 03/19/22 20:06 amlodipine AdvReac Angioedema Verified 03/19/22 20:06 amoxicillin trihydrate AdvReac Nausea & Verified 03/19/22 20:06 [From Augmentin] Vomiting celecoxib [From Celebrex] AdvReac weight gain Verified 03/19/22 20:06 doxycycline AdvReac Nausea & Verified 03/19/22 20:06 Vomiting ferrous sulfate AdvReac Nausea & Verified 03/19/22 20:06 Vomiting & Diarrhea montelukast [From Singulair] AdvReac hyperactivity, Verified 03/19/22 20:06 weight gain naproxen [From Aleve] AdvReac Angioedema Verified 03/19/22 20:06 potassium clavulanate AdvReac Nausea & Verified 03/19/22 20:06 [From Augmentin] Vomiting rofecoxib [From Vioxx] AdvReac weight gain Verified 03/19/22 20:06 Physical Exam Vitals: Vital Signs Temp Pulse Resp BP Pulse Ox 03/19/22 20:28 73 18 134/69 96 03/19/22 19:19 86 18 132/59 96 03/19/22 18:31 87 20 143/67 03/19/22 17:45 22 03/19/22 17:27 98.6 F 98 24 129/59 97 Intake and Output 03/19/22 03/19/22 03/19/22 06:59 14:59 22:59 Other: Weight 145.603 kg Constitutional: No acute distress, conversant, pleasant Eyes: Anicteric sclerae, moist conjunctiva, Pupils equal round reactive to light ENMT: NC/AT Oropharynx clear, no erythema, or exudates Neck: Supple, FROM, no masses, or JVD No carotid bruits No thyromegaly Lungs: good breath sounds bilaterally , with expiratory wheezing Clear to percussion Normal respiratory effort, no accessory muscle use Cardiovascular: Heart regular in rate and rhythm, No murmurs, gallops, or rubs No peripheral edema Abdominal: Soft Nontender, no guarding, rebound or rigidity Abdomen moving with respiration Normoactive bowel sounds No hepatomegaly, No splenomegaly No palpable mass No abdominal wall hernia noted Skin: Normal temperature, tone, texture, turgor No induration No subcutaneous nodules No rash, lesions No ulcers Extremities: No digital cyanosis No clubbing Pedal pulses intact and symmetrical Radial pulses intact and symmetrical No calf tenderness Psychiatric: Alert and oriented to person, place and time Appropriate affect fair judgement Neuro Muscles Strength 5/5 in all 4 extremities Sensation to light touch grossly present throughout Cranial nerves II-XII grossly intact No focal sensory deficits Lymphatics: no palpable cervical or supraclavicular , or inguinal lymph nodes Results CBC & Chem 7: 03/19/22 18:22 03/19/22 18:22 Labs: Abnormal Lab Results - Last 24 Hours (Table) 03/19/22 03/19/22 03/19/22 Range/Units 18:22 18:22 21:21 Carbon Dioxide 21 L (22-30) mmol/L BUN 33 H (7-17) mg/dL Creatinine 1.69 H (0.52-1.04) mg/dL Glucose 135 H (74-99) mg/dL POC Glucose (mg/dL) 151 H (75-99) mg/dL Plasma Lactic Acid Wojciech 3.4 H* (0.7-2.0) mmol/L Assessment and Plan Assessment: acute COPD exacerbation COVID URI MARLYN lactic acidosis plan confirm COVID infection CXR no acute changes systemic PO steroids patient received monoclonal AB in the ED duonebs scheduled and PRN patient does not tolerate spireva IVF hydration with normal saline follow up LA check COVID related labs , d dimer, fibrinogen, CRP, LDH, procalcitonin , ferritin , PRO BNP, trops supportive care pulmonary consult avoid nephrotoxic meds hold losartan and diuretics monitor renal function monitor urine output tylenol for fevers lovenox sc daily for DVT PPX full code anticipated length of stay > 2 midnights
[2022-03-19] MEDS: ATORVASTATIN 20 MG TAB PO SCH (23:02)
[2022-03-19] MEDS: LEVOTHYROXINE 25 MCG TAB PO SCH ×2 (23:02→23:08)
[2022-03-19] MEDS: BACLOFEN 10 MG TAB PO SCH (23:02)
[2022-03-19] MEDS: METOPROLOL TARTRATE 25 MG TAB PO SCH (23:02)
[2022-03-19] MEDS: predniSONE 20 MG TAB PO SCH (23:02)
[2022-03-19] MEDS: methylPREDNISolone SOD SUCCI 125 MG/2 ML VIAL IV SCH (23:03)
[2022-03-19] MEDS: INSULIN ASPART (NovoLOG) 100 UNIT/ML VIAL SQ SCH (23:04)
[2022-03-20] MEDS: ACETAMINOPHEN TAB 325 MG TAB PO PRN ×3 (05:10→22:51)
[2022-03-20] MEDS: FLUTICASONE 50MCG/SPRAY NASAL 16GM EA NOSTRIL SCH ×3 (05:19→22:52)
[2022-03-20] MEDS: LEVOTHYROXINE 25 MCG TAB PO SCH ×2 (05:19→22:53)
[2022-03-20] MEDS: methylPREDNISolone SOD SUCCI 125 MG/2 ML VIAL IV SCH ×4 (06:38→22:50)
[2022-03-20 07:03] LABS: INR 0.9 (<1.2); Partial Thromboplastin Time 24.2 sec (22.0-30.0); Prothrombin Time 10.2 sec (9.0-12.0)
[2022-03-20 07:27] LABS: Glucose,Whole Blood 242 mg/dL (75-99)
[2022-03-20] MEDS ORDERED: IPRATROPIUM-ALBUTEROL 3 ML NEB INHALATION SCH (08:00)
[2022-03-20] MEDS: ALBUTEROL HFA INHALER INHALATION SCH ×4 (08:17→19:47)
[2022-03-20] MEDS: BACLOFEN 10 MG TAB PO SCH ×2 (08:38→22:51)
[2022-03-20] MEDS: THEOPHYLLINE 24 HOUR 400 MG CAP.ER.24H PO SCH (08:38)
[2022-03-20] MEDS: ZINC SULFATE 220 MG CAP PO SCH (08:38)
[2022-03-20] MEDS: ASCORBIC ACID 500 MG TAB PO SCH (08:38)
[2022-03-20] MEDS: predniSONE 20 MG TAB PO SCH (08:38)
[2022-03-20] MEDS: METOPROLOL TARTRATE 25 MG TAB PO SCH ×2 (08:38→22:50)
[2022-03-20] MEDS: INSULIN ASPART (NovoLOG) 100 UNIT/ML VIAL SQ SCH ×4 (08:39→22:52)
[2022-03-20] MEDS ORDERED: ENOXAPARIN 40 MG/0.4 ML SYRINGE SQ SCH (09:00)
[2022-03-20 09:13] LABS: HCT 36.3 % (37.2-46.3); HGB 11.1 g/dL (12.0-15.0); MCH 29.6 pg (27.0-32.0); MCHC 30.6 g/dL (32.0-37.0); MCV 96.8 fL (80.0-97.0); Mean Platelet Volume 10.2 fL (9.5-12.2); NRBC Per 100 WBC 0 /100 WBCS (0.0-0.0); Platelet Count 267 X 10*3/uL (140-440); RBC 3.75 X 10*6/uL (4.10-5.20); RDW 13.2 % (11.5-14.5); WBC 6.37 X 10*3/uL (4.50-10.00)
[2022-03-20 09:45] LABS: Albumin 4.2 g/dL (3.8-4.9); Albumin/Globulin Ratio 1.61 (1.60-3.17); Anion Gap 16.2 mmol/L (10.00-18.00); BUN/Creat Ratio 20.56 Ratio (12.00-20.00); Blood Urea Nitrogen 33.1 mg/dL (9.0-27.0); C Reactive Protein 1.1 mg/dL (0.00-0.80); Carbon Dioxide 20.5 mmol/L (20.0-27.5); Globulin 2.6 g/dL (1.6-3.3); Magnesium 1.7 mg/dL (1.5-2.4); Non-African American GFR(CKD) 33.7 (60.0-200.0); Potassium 4.3 mmol/L (3.5-5.5); Total Bilirubin 0.3 mg/dL (0.30-1.20); Total Protein 6.8 g/dL (6.2-8.2)
[2022-03-20] MEDS ORDERED: LOPERAMIDE 2 MG CAP PO PRN (09:51)
[2022-03-20 09:53] LABS: Basophils # (A) 0.02 X 10*3/uL (0.00-0.10); Basophils % (A) 0.3 %; Eosinophils # (A) 0 X 10*3/uL (0.04-0.35); Eosinophils % (A) 0 %; Immature Grans, Automated 0.3 %; Lymphocytes # (A) 1.39 X 10*3/uL (0.90-5.00); Lymphocytes % (A) 21.8 %; Monocytes # (A) 0.09 X 10*3/uL (0.20-1.00); Monocytes % (A) 1.4 %; Neutrophils # (A) 4.85 X 10*3/uL (1.80-7.70); Neutrophils % (A) 76.2 %
[2022-03-20 09:54] LABS: Acanthocytes 2+
[2022-03-20 11:41] LABS: Glucose,Whole Blood 285 mg/dL (75-99)
[2022-03-20] MEDS: SODIUM CHLORIDE 0.9% 1,000 ML IV SCH ×2 (11:43→17:11)
[2022-03-20] MEDS: TIOTROPIUM 2.5 MCG INHALER INHALATION SCH (11:44)
--- NOTE | 2022-03-20 12:20 | P.CNPUL ---
History of Present Illness Consult date: 03/20/22 Reason for consult: dyspnea, COPD History of present illness: A pleasant 61-year-old female patient is well-known to me. She is known to have severe persistent bronchial asthma/COPD along with obstructive sleep apnea. The patient is morbidly obese with a BMI 58.7. Around December of this current year, the patient was having increased symptoms of bronchitis and asthma exacerbation. At that point, I performed a bronchoscopy on her in the microbial cultures came back essentially negative. She was doing well and around 2 days ago, she started having increased dyspnea cough chest tightness and wheezing. She does have some loose diarrhea. No change in the taste or smell. She checked herself positive for COVID 19 on outpatient basis. This was confirmed after she came back to the hospital. Accordingly, the patient was hospitalized that the patient was found to have increased bronchospasm wheezing and shortness of breath. She is currently on IV Solu Medrol 60 mg every 6 hours. She is on room air oxygen. Her pulse ox is 94%. No altered mentation. No chest pain. No change in mental status. Outpatient medications have been resumed and the patient remains on Lovenox 30 mg subcu for DVT prophylaxis. Note that the patient has been vaccinated 2 for COVID 19 and she has not taken the booster shot. Other blood work the patient also comes at 6.37 with a hemoglobin of 11.1. Normal coagulation profile. D-dimer is at 0.46. The BUN 33 with a creatinine of 1.6 and the sodium level of 138. LFTs are normal. CRP level is at 1.1. LDH level is at 211. Detrol calcitonin LEVEL IS AT 0.1. CHEST X-RAY SHOWING SOME PLEURAL REACTION LEFT LUNG BASE OTHERWISE NO OTHER ACUTE ABNORMALITIES NOTED. Review of Systems CONSTITUTIONAL: Positive for continued weight gain. EYES: Denies change in vision. EARS, NOSE, MOUTH, THROAT: Denies headaches, denies sore throat. CARDIOVASCULAR: Denies chest pain, palpitations or syncopal episodes. Some chest tightness. RESPIRATORY: Positive for shortness of breath, cough, congestion. Denies hemoptysis. GASTROINTESTINAL: Denies change in appetite, denies abdominal pain GENITOURINARY: Denies hematuria, denies infections. MUSKULOSKELETAL: Denies pain, denies swelling. INTEGUMENTARY: Denies rash, denies eczema. NEUROLOGICAL: Denies recent memory loss, no recent seizure activity. PSYCHIATRIC: Denies anxiety, denies depression. HEMATOLOGIC/LYMPHATIC: Denies anemia, denies enlarged lymph nodes. Past Medical History Past Medical History: Asthma, Cancer, COPD, Diabetes Mellitus, Eye Disorder, Hyperlipidemia, Hypertension, Musculoskeletal Disorder, Osteoarthritis (OA), Pneumonia, Skin Disorder, Sleep Apnea/CPAP/BIPAP, Thyroid Disorder Additional Past Medical History / Comment(s): Migraine headache, glaucoma, obesity, severe persistent bronchial asthma, diverticular disease, environmental allergies,multiple bilat pulmonary nodules, psoriasis, edema BLE. Basal cell skin cancer. Pericarditis. Uses CPAP. Pneumonia 12/03/21 ongoing History of Any Multi-Drug Resistant Organisms: None Reported Past Surgical History: Appendectomy, Orthopedic Surgery, Tonsillectomy Additional Past Surgical History / Comment(s): D&C, colonoscopy 2015, bronchoscopy, Bilat Knee arthroscopy, skin cancer removal Past Anesthesia/Blood Transfusion Reactions: Motion Sickness, Postoperative Nausea & Vomiting (PONV) Past Psychological History: No Psychological Hx Reported Smoking Status: Never smoker Past Alcohol Use History: Occasional Past Drug Use History: None Reported - Past Family History Brother(s) Family Medical History: Cancer Additional Family Medical History / Comment(s): blood cancer Father Family Medical History: Cancer Additional Family Medical History / Comment(s): Colon cancer. Skin cancer. Mother Family Medical History: Cancer, Diabetes Mellitus, Hypertension Additional Family Medical History / Comment(s): SKIN CA, Medications and Allergies Home Medications Medication Instructions Recorded Confirmed Type Levothyroxine Sodium [Synthroid] 25 mcg PO HS 05/27/15 03/19/22 History Losartan Potassium 50 mg PO BID 05/27/15 03/19/22 History Theophylline 24 Hour [Erick-24] 400 mg PO DAILY 12/12/16 03/19/22 History Baclofen 10 mg PO BID 09/28/17 03/19/22 History Ipratropium-Albuterol Nebulize 3 ml INHALATION RT-QID 09/28/17 03/19/22 History [Duoneb 0.5 mg-3 mg/3 ml Soln] Multivit with Calcium,Iron,Min 1 tab PO DAILY 04/02/19 03/19/22 History [Women's Multivitamin] Cholecalciferol [Vitamin D3 (25 50 mcg PO DAILY 12/16/21 03/19/22 History Mcg = 1000 Iu)] Diclofenac Sodium Gel [Voltaren 2 gm TOPICAL QID PRN 12/16/21 03/19/22 History Gel] Fluticasone Nasal Trimble [Flonase 1 spr EA NOSTRIL BID 12/16/21 03/19/22 History Nasal Trimble] Metoprolol Tartrate [Lopressor] 25 mg PO BID 12/16/21 03/19/22 History Tiotropium 2.5 Mcg/Puff [Spiriva 2 puff INHALATION RT-DAILY 12/16/21 03/19/22 History Respimat 2.5 Mcg] Albuterol Sulfate [Albuterol 1 puff INHALATION RT-QID PRN 03/19/22 03/19/22 History Sulfate Hfa] Ascorbic Acid [Vitamin C] 1,000 mg PO DAILY 03/19/22 03/19/22 History Atorvastatin [Lipitor] 20 mg PO HS 03/19/22 03/19/22 History Fluticasone Propion/Salmeterol 1 puff INHALATION RT-BID 03/19/22 03/19/22 History [Fluticasone-Salmeterol 250-50] Furosemide [Lasix] 80 mg PO DAILY 03/19/22 03/19/22 History Zinc 50 mg PO DAILY 03/19/22 03/19/22 History metFORMIN HCL [Glucophage] 500 mg PO BID 03/19/22 03/19/22 History Allergies Allergy/AdvReac Type Severity Reaction Status Date / Time cefaclor [From Ceclor] Allergy Anaphylaxis Verified 03/19/22 20:06 latex Allergy Rash/Hives Verified 03/19/22 20:06 levofloxacin [From Levaquin] Allergy Burning Verified 03/19/22 20:06 sensatin on feet sulfamethoxazole Allergy Anaphylaxis Verified 03/19/22 20:06 [From Bactrim] trimethoprim [From Bactrim] Allergy Anaphylaxis Verified 03/19/22 20:06 amlodipine AdvReac Angioedema Verified 03/19/22 20:06 amoxicillin trihydrate AdvReac Nausea & Verified 03/19/22 20:06 [From Augmentin] Vomiting celecoxib [From Celebrex] AdvReac weight gain Verified 03/19/22 20:06 doxycycline AdvReac Nausea & Verified 03/19/22 20:06 Vomiting ferrous sulfate AdvReac Nausea & Verified 03/19/22 20:06 Vomiting & Diarrhea montelukast [From Singulair] AdvReac hyperactivity, Verified 03/19/22 20:06 weight gain naproxen [From Aleve] AdvReac Angioedema Verified 03/19/22 20:06 potassium clavulanate AdvReac Nausea & Verified 03/19/22 20:06 [From Augmentin] Vomiting rofecoxib [From Vioxx] AdvReac weight gain Verified 03/19/22 20:06 Physical Exam Vitals: Vital Signs Temp Pulse Pulse Resp BP BP Pulse Ox 03/20/22 08:00 97.9 F 84 18 132/75 94 L 03/20/22 02:00 97.9 F 62 18 144/79 93 L 03/19/22 20:28 73 18 134/69 96 03/19/22 19:19 86 18 132/59 96 03/19/22 18:31 87 20 143/67 03/19/22 17:45 22 03/19/22 17:27 98.6 F 98 24 129/59 97 Intake and Output 03/19/22 03/20/22 03/20/22 22:59 06:59 14:59 Intake Total 2200 Balance 2200 Intake: Intake, IV Titration 2200 Amount Sodium Chloride 0.9% 1, 1200 000 ml @ 100 mls/hr IV . Q10H [facility] Rx#:[id number] Sodium Chloride 0.9% 1, 1000 000 ml @ 999 mls/hr IV . Q1H1M [facility] Rx#:[id number] Other: # Voids 3 Weight 145.603 kg GENERAL EXAM: Morbidly obese. Alert, active, comfortable in no apparent distress. She is morbidly obese with a BMI 58.7 HEAD: Normocephalic. EYES: Normal reaction of pupils, equal size. NOSE: Clear with pink turbinates. THROAT: There is crowding of posterior pharynx. No erythema or exudates. NECK: Short. No masses, no JVD. CHEST: No chest wall deformity. LUNGS: Equal air entry with no crackles, rhonchi or dullness. There is faint end expiratory wheeze. Diminished. The patient diffuse expiratory wheezes throughout the lung meyers bilaterally CVS: S1 and S2 normal with no audible murmurs, regular rhythm. ABDOMEN: Obese, soft, normal bowel sounds, no guarding or rigidity. SPINE: No scoliosis or deformity SKIN: No rashes CENTRAL NERVOUS SYSTEM: No focal deficits, tone is normal in all 4 extremities. Extremities: There is recent peripheral edema. No clubbing, no cyanosis. Peripheral pulses are intact. Results - Laboratory Findings CBC and BMP: 03/20/22 05:06 03/20/22 05:06 PT/INR, D-dimer PT 10.2 sec (9.0-12.0) 03/20/22 05:06 INR 0.9 (<1.2) 03/20/22 05:06 D-Dimer 0.46 mg/L FEU (<0.60) 03/20/22 05:06 Abnormal lab findings: Abnormal Labs 03/19/22 03/19/22 03/19/22 18:22 18:22 21:21 RBC Hgb Hct MCHC Monocytes # Eosinophils # Carbon Dioxide 21 L BUN 33 H Creatinine 1.69 H Est GFR (CKD-EPI)AfAm Est GFR (CKD-EPI)NonAf BUN/Creatinine Ratio Glucose 135 H POC Glucose (mg/dL) 151 H Plasma Lactic Acid Wojciech 3.4 H* C-Reactive Protein Procalcitonin Coronavirus (PCR) 03/19/22 03/20/22 03/20/22 22:41 05:06 05:06 RBC 3.75 L Hgb 11.1 L Hct 36.3 L MCHC 30.6 L Monocytes # 0.09 L Eosinophils # 0 L Carbon Dioxide BUN 33.1 H Creatinine 1.6 H Est GFR (CKD-EPI)AfAm 39.0 L Est GFR (CKD-EPI)NonAf 33.7 L BUN/Creatinine Ratio 20.56 H Glucose 272 H POC Glucose (mg/dL) Plasma Lactic Acid Wojciech C-Reactive Protein 1.10 H Procalcitonin 0.10 H Coronavirus (PCR) 03/20/22 03/20/22 07:00 07:25 RBC Hgb Hct MCHC Monocytes # Eosinophils # Carbon Dioxide BUN Creatinine Est GFR (CKD-EPI)AfAm Est GFR (CKD-EPI)NonAf BUN/Creatinine Ratio Glucose POC Glucose (mg/dL) 242 H Plasma Lactic Acid Wojciech C-Reactive Protein Procalcitonin Coronavirus (PCR) Detected A - Diagnostic Findings Chest x-ray: image reviewed Assessment and Plan Plan: 1 COVID 19 infection, previous vaccinated for COVID 19 x2 (moderna), no boosters. The patient had exacerbation of her chronic COPD/asthma. No acute indication for pneumonia. No hypoxemia. The patient has been vaccinated for COVID 192 without any booster shots. The patient's inflammatory markers abdomen low including LDH, CRP and D dimers. 2 Severe persistent bronchial asthma/COPD with an acute exacerbation. 3 Shortness of breath, chest tightness, wheezing and cough secondary to above. 5 history of Multiple bilateral pulmonary nodules all stable on CT 6 Severe obstructive sleep apnea with apnea hypopnea index of 63.8 and severe nocturnal oxygen desaturation, awaiting CPAP titration. 7 Psoriasis. 8 Chronic lower extremity edema. 9 Diverticular disease. 10 Environmental ALLERGIES. 11 Hyperlipidemia. 12 Hypertension. 13 Borderline low IgG levels. Plan We'll treat this patient's for COPD/asthma exacerbation with a combination of bronchodilators and steroids. Monitor the blood sugar especially the patient developed a mild component of steroid-induced hyperglycemia. No need for the additional treatment regarding COVID 19. No clear indication for COVID 19 pneumonia. This band of being a simple infection in a patient with previous COVID 19 vaccination. All medications we will resume. We'll continue to follow.
--- NOTE | 2022-03-20 13:41 | P.PN ---
Subjective Progress Note Date: 03/20/22 Principal diagnosis: sob Doing better compared to admission but still with sob and cough. No fevers. No chest pain. No n/v. Objective - Vital Signs Vital signs: Vital Signs Temp 97.9 F 03/20/22 08:00 Pulse 84 03/20/22 08:00 Resp 18 03/20/22 08:00 BP 132/75 03/20/22 08:00 Pulse Ox 94 L 03/20/22 08:00 Intake & Output 03/19/22 03/20/22 03/20/22 18:59 06:59 18:59 Intake Total 2200 Balance 2200 Weight 145.603 kg 145.603 kg Intake: Intake, IV Titration 2200 Amount Sodium Chloride 0.9% 1, 1200 000 ml @ 100 mls/hr IV . Q10H [facility] Rx#:[id number] Sodium Chloride 0.9% 1, 1000 000 ml @ 999 mls/hr IV . Q1H1M [facility] Rx#:[id number] Other: # Voids 3 - Exam Constitutional: No acute distress, conversant, pleasant Eyes:Anicteric sclerae, moist conjunctiva, no lid-lag, PERRLA, ENMT: Oropharynx clear, no erythema, exudates Neck: Supple, FROM, no masses, or JVD, No carotid bruits, No thyromegaly Lungs: Bilateral wheezing, Clear to percussion, Normal respiratory effort, no accessory muscle use Cardiovascular: Heart regular in rate and rhythm, No murmurs, gallops, or rubs, No peripheral edema Abdominal: Soft, Nontender, no guarding, rebound or rigidity, Normoactive bowel sounds, No hepatomegaly, No splenomegaly, No palpable mass Skin: Normal temperature, tone, texture, turgor, no induration, No subcutaneous nodules, No rash, lesions, No ulcers Extremities: No digital cyanosis, No clubbing, Pedal pulses intact and symmetrical, Radial pulses intact and symmetrical, No calf tenderness Psychiatric: Alert and oriented to person, place and time, appropriate affect, intact judgement Neuro: Muscles Strength 5/5 in all 4 extremities, Sensation to light touch gross ly present throughout, Cranial nerves II-XII grossly intact, no focal sensory deficits - Labs CBC & Chem 7: 03/20/22 05:06 03/20/22 05:06 Labs: Abnormal Lab Results - Last 24 Hours (Table) 03/19/22 03/19/22 03/19/22 Range/Units 18:22 18:22 21:21 RBC (4.10-5.20) X 10*6/uL Hgb (12.0-15.0) g/dL Hct (37.2-46.3) % MCHC (32.0-37.0) g/dL Monocytes # (0.20-1.00) X 10*3/uL Eosinophils # (0.04-0.35) X 10*3/uL Carbon Dioxide 21 L (22-30) mmol/L BUN 33 H (7-17) mg/dL Creatinine 1.69 H (0.52-1.04) mg/dL Est GFR (CKD-EPI)AfAm (60.0-200.0) Est GFR (CKD-EPI)NonAf (60.0-200.0) BUN/Creatinine Ratio (12.00-20.00) Ratio Glucose 135 H (74-99) mg/dL POC Glucose (mg/dL) 151 H (75-99) mg/dL Plasma Lactic Acid Wojciech 3.4 H* (0.7-2.0) mmol/L C-Reactive Protein (0.00-0.80) mg/dL Procalcitonin (0.02-0.09) ng/mL Coronavirus (PCR) (Not Detectd) 03/19/22 03/20/22 03/20/22 Range/Units 22:41 05:06 05:06 RBC 3.75 L (4.10-5.20) X 10*6/uL Hgb 11.1 L (12.0-15.0) g/dL Hct 36.3 L (37.2-46.3) % MCHC 30.6 L (32.0-37.0) g/dL Monocytes # 0.09 L (0.20-1.00) X 10*3/uL Eosinophils # 0 L (0.04-0.35) X 10*3/uL Carbon Dioxide (22-30) mmol/L BUN 33.1 H (7-17) mg/dL Creatinine 1.6 H (0.52-1.04) mg/dL Est GFR (CKD-EPI)AfAm 39.0 L (60.0-200.0) Est GFR (CKD-EPI)NonAf 33.7 L (60.0-200.0) BUN/Creatinine Ratio 20.56 H (12.00-20.00) Ratio Glucose 272 H (74-99) mg/dL POC Glucose (mg/dL) (75-99) mg/dL Plasma Lactic Acid Wojciech (0.7-2.0) mmol/L C-Reactive Protein 1.10 H (0.00-0.80) mg/dL Procalcitonin 0.10 H (0.02-0.09) ng/mL Coronavirus (PCR) (Not Detectd) 03/20/22 03/20/22 03/20/22 Range/Units 07:00 07:25 11:39 RBC (4.10-5.20) X 10*6/uL Hgb (12.0-15.0) g/dL Hct (37.2-46.3) % MCHC (32.0-37.0) g/dL Monocytes # (0.20-1.00) X 10*3/uL Eosinophils # (0.04-0.35) X 10*3/uL Carbon Dioxide (22-30) mmol/L BUN (7-17) mg/dL Creatinine (0.52-1.04) mg/dL Est GFR (CKD-EPI)AfAm (60.0-200.0) Est GFR (CKD-EPI)NonAf (60.0-200.0) BUN/Creatinine Ratio (12.00-20.00) Ratio Glucose (74-99) mg/dL POC Glucose (mg/dL) 242 H 285 H (75-99) mg/dL Plasma Lactic Acid Wojciech (0.7-2.0) mmol/L C-Reactive Protein (0.00-0.80) mg/dL Procalcitonin (0.02-0.09) ng/mL Coronavirus (PCR) Detected A (Not Detectd) Assessment and Plan Plan: acute COPD exacerbation COVID URI Continue bronchodilators and steroids Seen by pulmonary patient received monoclonal AB in the ED IVF hydration with normal saline Lactic acidosis Resolved MARLYN Likely secondary to dehydration avoid nephrotoxic meds hold losartan and diuretics monitor renal function monitor urine output Hyperglycemia Last A1c from 2016 indicates prediabetes Could be steroid induced or worsened Recheck A1c Start sliding scale insulin with blood sugar checks every before meals and at bedtime DVT prophylaxis lovenox sc daily full code Disposition: Likely home in 2-3 days
[2022-03-20 16:23] LABS: Estimated Average Glucose UNC
[2022-03-20 16:41] LABS: Glucose,Whole Blood 329 mg/dL (75-99)
[2022-03-20 20:59] LABS: Glucose,Whole Blood 315 mg/dL (75-99)
[2022-03-20] MEDS: ATORVASTATIN 20 MG TAB PO SCH (22:50)
[2022-03-21 06:27] LABS: Glucose,Whole Blood 243 mg/dL (75-99)
[2022-03-21] MEDS: LEVOTHYROXINE 25 MCG TAB PO SCH (06:29)
[2022-03-21] MEDS: methylPREDNISolone SOD SUCCI 125 MG/2 ML VIAL IV SCH ×3 (06:29→17:41)
[2022-03-21] MEDS ORDERED: cloNIDine HCL 0.1 MG TAB PO STA (06:45)
[2022-03-21] MEDS: SODIUM CHLORIDE 0.9% 1,000 ML IV SCH ×2 (07:37→13:21)
[2022-03-21] MEDS: ASCORBIC ACID 500 MG TAB PO SCH (08:12)
[2022-03-21] MEDS: ENOXAPARIN 30 MG/0.3 ML SYRINGE SQ SCH (08:12)
[2022-03-21] MEDS: THEOPHYLLINE 24 HOUR 400 MG CAP.ER.24H PO SCH (08:12)
[2022-03-21] MEDS: INSULIN ASPART (NovoLOG) 100 UNIT/ML VIAL SQ SCH ×4 (08:12→20:22)
[2022-03-21] MEDS: ZINC SULFATE 220 MG CAP PO SCH (08:12)
[2022-03-21] MEDS: BACLOFEN 10 MG TAB PO SCH ×2 (08:12→20:22)
[2022-03-21] MEDS: METOPROLOL TARTRATE 25 MG TAB PO SCH ×2 (08:12→20:22)
[2022-03-21] MEDS: FLUTICASONE 50MCG/SPRAY NASAL 16GM EA NOSTRIL SCH ×2 (08:13→20:24)
[2022-03-21] MEDS: TIOTROPIUM 2.5 MCG INHALER INHALATION SCH (08:40)
[2022-03-21] MEDS: ALBUTEROL HFA INHALER INHALATION SCH ×4 (08:40→20:18)
[2022-03-21] MEDS ORDERED: FAMOTIDINE 20 MG/2 ML VIAL IV SCH (10:00)
[2022-03-21 11:05] LABS: Glucose,Whole Blood 302 mg/dL (75-99)
--- NOTE | 2022-03-21 14:17 | P.PN ---
Subjective Progress Note Date: 03/21/22 Principal diagnosis: Shortness of breath A pleasant 61-year-old female patient is well-known to me. She is known to have severe persistent bronchial asthma/COPD along with obstructive sleep apnea. The patient is morbidly obese with a BMI 58.7. Around December of this current year, the patient was having increased symptoms of bronchitis and asthma exacerbation. At that point, I performed a bronchoscopy on her in the microbial cultures came back essentially negative. She was doing well and around 2 days ago, she started having increased dyspnea cough chest tightness and wheezing. She does have some loose diarrhea. No change in the taste or smell. She checked herself positive for COVID 19 on outpatient basis. This was confirmed after she came back to the hospital. Accordingly, the patient was hospitalized that the patient was found to have increased bronchospasm wheezing and shortness of breath. She is currently on IV Solu Medrol 60 mg every 6 hours. She is on room air oxygen. Her pulse ox is 94%. No altered mentation. No chest pain. No change in mental status. Outpatient medications have been resumed and the patient remains on Lovenox 30 mg subcu for DVT prophylaxis. Note that the patient has been vaccinated 2 for COVID 19 and she has not taken the booster shot. Other blood work the patient also comes at 6.37 with a hemoglobin of 11.1. Normal coagulation profile. D-dimer is at 0.46. The BUN 33 with a creatinine of 1.6 and the sodium level of 138. LFTs are normal. CRP level is at 1.1. LDH level is at 211. Detrol calcitonin LEVEL IS AT 0.1. CHEST X-RAY SHOWING SOME PLEURAL REACTION LEFT LUNG BASE OTHERWISE NO OTHER ACUTE ABNORM ALITIES NOTED. On 03/21/2022 patient seen in follow-up on medical surgical floor. She is awake and alert, in no acute distress, she is currently on room air with pulse ox of 94%, she sits up in the recliner, breathing seems to be nonlabored, she does get short of breath with exertion but no acute distress, with chest pain, she's been afebrile, vital signs have been stable overnight. Chest x-ray from admission showed mild pleural reaction at the left lung base, unchanged compared to previous chest x-ray from December 2021. Her labs from yesterday were reviewed showing white blood cell count is 6.3, hemoglobin was 11.1, electrolytes and renal profile were within normal limits, d-dimer was within normal limits, and so was a fibrinogen, electrolytes were within normal limits, renal profile was stable with BUN of 33.1, and creatinine of 1.6, ferritin LDH were within normal limits, troponin was negative, CRP was 1.1, pro calcitonin level was negative at 0.10. She has a very congested harsh cough, and she remains on IV Solu-Medrol at 60 mg every 6 hours, DuoNeb on an as-needed basis, she is on GI and DVT prophylaxis, multivitamins, she is on theophylline, and Spiriva. Objective - Vital Signs Vital signs: Vital Signs Temp 97.7 F 03/21/22 07:54 Pulse 59 L 03/21/22 07:54 Resp 19 03/21/22 07:54 BP 150/74 03/21/22 07:54 Pulse Ox 94 L 03/21/22 07:54 Intake & Output 03/20/22 03/21/22 03/21/22 18:59 06:59 18:59 Intake Total 480 Balance 480 Intake: Oral 480 Other: Voiding Method Toilet # Voids 3 - Exam GENERAL EXAM: Alert, very pleasant, 61-year-old white female, on room air with a pulse ox of 94%, sitting up in a recliner comfortable in no apparent distress. HEAD: Normocephalic/atraumatic. EYES: Normal reaction of pupils, equal size. Conjunctiva pink, sclera white. NOSE: Clear with pink turbinates. THROAT: No erythema or exudates. NECK: No masses, no JVD, no thyroid enlargement, no adenopathy. CHEST: No chest wall deformity. Symmetrical expansion. LUNGS: Equal air entry with diffuse wheezes, congestive cough, CVS: Regular rate and rhythm, normal S1 and S2, no gallops, no murmurs, no rubs ABDOMEN: Soft, nontender. No hepatosplenomegaly, normal bowel sounds, no guarding or rigidity. EXTREMITIES: No clubbing, no edema, no cyanosis, 2+ pulses and upper and lower extremities. MUSCULOSKELETAL: Muscle strength and tone normal. SPINE: No scoliosis or deformity SKIN: No rashes CENTRAL NERVOUS SYSTEM: Alert and oriented -3. No focal deficits, tone is normal in all 4 extremities. PSYCHIATRIC: Alert and oriented -3. Appropriate affect. Intact judgment and insight. - Labs CBC & Chem 7: 03/20/22 05:06 03/20/22 05:06 Labs: Abnormal Lab Results - Last 24 Hours (Table) 03/20/22 03/20/22 03/21/22 Range/Units 16:30 20:58 06:26 POC Glucose (mg/dL) 329 H 315 H 243 H (75-99) mg/dL 03/21/22 Range/Units 11:04 POC Glucose (mg/dL) 302 H (75-99) mg/dL Assessment and Plan Plan: Assessment: #1. Acute COVID-19 infection, patient was previously vaccinated for COVID-19 2 with Moderna, no boosters. Chest x-ray did not show acute pneumonia, patient is on room air, patient's inflammatory markers are not significantly elevated, d- dimer is negative #2. Acute exacerbation of severe persistent bronchial asthma #3. Shortness of breath, wheezing and chest tightness related to the above #4. History of multiple bilateral pulmonary nodules, all stable on computed tomography scan #5. Severe obstructive sleep apnea with AHI score of 63.8, and severe nocturnal oxygen desaturation awaiting CPAP titration #6. Psoriasis #7. Chronic lower extremity edema #8. The reticular disease #9. Hypertension #10. Hyperlipidemia #11. Borderline low IgG levels #12. Environmental ALLERGIES Plan: Continue current medical treatment Patient's chronic bronchial asthma is still quite active, and patient would benefit from continued inpatient treatment with IV steroids Continue inhaled and nebulized bronchodilators Continue multivitamins, and GI and DVT prophylaxis Inflammatory markers were noted, and are not significantly elevated d-dimer is within normal limits We'll continue to follow her clinical course I have personally seen and examined the patient, performed the documentation and the assessment and plan as written. Number of minutes spent on the visit: [10] Time with Patient: Less than 30
--- NOTE | 2022-03-21 14:25 | P.PN ---
Subjective Patient was examined at bedside today not complaining of any chest pain, palpitations, nausea vomiting. Case discussed with health services information specialist noted patient's heart rate dips down all the way to 30 and hypertensive at times. She is not complaining of any cardiac pain. Patient was evaluated by pulmonary just prior to my arrival continue with treatment for asthma most likely provoked by COVID- 19. Objective - Vital Signs Vital signs: Vital Signs Temp 97.7 F 03/21/22 07:54 Pulse 59 L 03/21/22 07:54 Resp 19 03/21/22 07:54 BP 150/74 03/21/22 07:54 Pulse Ox 94 L 03/21/22 07:54 Intake & Output 03/20/22 03/21/22 03/21/22 18:59 06:59 18:59 Intake Total 480 Balance 480 Intake: Oral 480 Other: Voiding Method Toilet # Voids 3 - Exam Constitutional: No acute distress, conversant, pleasant Eyes:Anicteric sclerae, moist conjunctiva, no lid-lag, PERRLA, ENMT: Oropharynx clear, no erythema, exudates Neck: Supple, FROM, no masses, or JVD, No carotid bruits, No thyromegaly Lungs: Bilateral wheezing, Clear to percussion, Normal respiratory effort, no accessory muscle use Cardiovascular: No murmurs, gallops, or rubs, No peripheral edema Abdominal: Soft, Nontender, no guarding, rebound or rigidity, Normoactive bowel sounds, No hepatomegaly, No splenomegaly, No palpable mass Skin: Normal temperature, tone, texture, turgor, no induration, No subcutaneous nodules, No rash, lesions, No ulcers Extremities: No digital cyanosis, No clubbing, Pedal pulses intact and symmetrical, Radial pulses intact and symmetrical, No calf tenderness Psychiatric: Alert and oriented to person, place and time, appropriate affect, intact judgement Neuro: Muscles Strength 5/5 in all 4 extremities, Sensation to light touch grossly present throughout, Cranial nerves II-XII grossly intact, no focal s ensory deficits - Labs CBC & Chem 7: 03/20/22 05:06 03/20/22 05:06 Labs: Abnormal Lab Results - Last 24 Hours (Table) 03/20/22 03/20/22 03/21/22 Range/Units 16:30 20:58 06:26 POC Glucose (mg/dL) 329 H 315 H 243 H (75-99) mg/dL 03/21/22 Range/Units 11:04 POC Glucose (mg/dL) 302 H (75-99) mg/dL Assessment and Plan Assessment: Assessment: #1 asthma exacerbation #2 COVID-19 pneumonia #3 lactic acidosis resolved #4 acute kidney injury #5 hyperglycemia secondary to steroids induced #6 episodes of bradycardia Plan: -Admit to medicine for close monitoring -Aspiration/fall precaution -Agree with methylprednisolone -Chest x-ray noted from March 19 repeat tomorrow -Cardio consult is patient's heart rate dips down to the 30s and episodes hypertension -Repeat EKG -Patient's glucose levels are controlled most likely secondary to IV methylprednisolone. We'll start patient on 5 units Levemir at bedtime and continue with sliding scale -Obtain hemoglobin A1c. -DVT prophylaxis Lovenox
[2022-03-21 14:27] LABS: Basophils # (A) 0.02 X 10*3/uL (0.00-0.10); Basophils % (A) 0.1 %; Eosinophils # (A) 0 X 10*3/uL (0.04-0.35); Eosinophils % (A) 0 %; HCT 34.7 % (37.2-46.3); HGB 10.6 g/dL (12.0-15.0); Immature Grans, Automated 0.6 %; Lymphocytes # (A) 1.68 X 10*3/uL (0.90-5.00); Lymphocytes % (A) 8.7 %; MCH 29.6 pg (27.0-32.0); MCHC 30.5 g/dL (32.0-37.0); MCV 96.9 fL (80.0-97.0); Mean Platelet Volume 10.8 fL (9.5-12.2); Monocytes # (A) 0.53 X 10*3/uL (0.20-1.00); Monocytes % (A) 2.7 %; NRBC Per 100 WBC 0 /100 WBCS (0.0-0.0); Neutrophils # (A) 17.07 X 10*3/uL (1.80-7.70); Neutrophils % (A) 87.9 %; Platelet Count 264 X 10*3/uL (140-440); RBC 3.58 X 10*6/uL (4.10-5.20); RDW 13.2 % (11.5-14.5); WBC 19.41 X 10*3/uL (4.50-10.00)
[2022-03-21 16:01] LABS: Glucose,Whole Blood 277 mg/dL (75-99)
[2022-03-21 16:13] LABS: African American GFR (CKD) 37.6 (60.0-200.0); Anion Gap 15.6 mmol/L (10.00-18.00); BUN/Creat Ratio 19.52 Ratio (12.00-20.00); Blood Urea Nitrogen 32.4 mg/dL (9.0-27.0); Carbon Dioxide 16.6 mmol/L (20.0-27.5); Non-African American GFR(CKD) 32.5 (60.0-200.0); Potassium 3.9 mmol/L (3.5-5.5)
[2022-03-21] MEDS: ACETAMINOPHEN TAB 325 MG TAB PO PRN (18:06)
[2022-03-21] MEDS ORDERED: ALPRAZolam 0.25 MG TAB PO STA (18:18)
[2022-03-21 20:07] LABS: Glucose,Whole Blood 289 mg/dL (75-99)
[2022-03-21] MEDS: SYMBICORT 160-4.5 MCG INHALER INHALATION SCH (20:18)
[2022-03-21] MEDS: ATORVASTATIN 20 MG TAB PO SCH (20:21)
[2022-03-21] MEDS: guaiFENesin 600 MG TABLET.ER PO SCH (20:21)
[2022-03-21] MEDS: INSULIN DETEMIR (LEVEMIR) 100 UNIT/ML SYR SQ SCH (20:22)
[2022-03-21] MEDS: BENZONATATE 100 MG CAP PO SCH (20:22)
[2022-03-21] MEDS: FAMOTIDINE 20 MG TAB PO SCH (20:23)
[2022-03-22] MEDS: SODIUM CHLORIDE 0.9% 1,000 ML IV SCH ×3 (00:18→17:54)
[2022-03-22] MEDS: methylPREDNISolone SOD SUCCI 125 MG/2 ML VIAL IV SCH ×4 (00:29→17:54)
[2022-03-22] MEDS: LEVOTHYROXINE 25 MCG TAB PO SCH (05:16)
--- NOTE | 2022-03-22 07:15 | XR ---
EXAMINATION TYPE: XR chest 1V portable DATE OF EXAM: 03/22/2022 CLINICAL HISTORY: Difficulty breathing progress study. TECHNIQUE: Single AP portable upright view of the chest is obtained. COMPARISON: Chest x-ray from 3 days earlier and older studies. FINDINGS: Lungs remain grossly clear. Mild cardiomegaly redemonstrated. Osseous structures are intac t. IMPRESSION: Mild cardiomegaly without new suspicious acute pulmonary process. Left basilar findings f avor scarring and/or atelectasis not significantly changed from most recent prior.
[2022-03-22 07:24] LABS: Glucose,Whole Blood 230 mg/dL (75-99)
[2022-03-22] MEDS: METOPROLOL TARTRATE 25 MG TAB PO SCH (07:59)
[2022-03-22] MEDS: SYMBICORT 160-4.5 MCG INHALER INHALATION SCH ×2 (08:09→20:17)
[2022-03-22] MEDS: ALBUTEROL HFA INHALER INHALATION SCH ×4 (08:09→20:17)
[2022-03-22] MEDS: TIOTROPIUM 2.5 MCG INHALER INHALATION SCH (08:09)
[2022-03-22] MEDS: FAMOTIDINE 20 MG TAB PO SCH (08:28)
[2022-03-22] MEDS: BACLOFEN 10 MG TAB PO SCH ×2 (08:28→21:59)
[2022-03-22] MEDS: ZINC SULFATE 220 MG CAP PO SCH (08:28)
[2022-03-22] MEDS: INSULIN ASPART (NovoLOG) 100 UNIT/ML VIAL SQ SCH ×4 (08:28→22:00)
[2022-03-22] MEDS: ASCORBIC ACID 500 MG TAB PO SCH (08:28)
[2022-03-22] MEDS: BENZONATATE 100 MG CAP PO SCH ×3 (08:28→21:59)
[2022-03-22] MEDS: guaiFENesin 600 MG TABLET.ER PO SCH ×2 (08:28→21:59)
[2022-03-22] MEDS: THEOPHYLLINE 24 HOUR 400 MG CAP.ER.24H PO SCH (08:28)
[2022-03-22] MEDS: ENOXAPARIN 30 MG/0.3 ML SYRINGE SQ SCH (08:28)
[2022-03-22] MEDS: FLUTICASONE 50MCG/SPRAY NASAL 16GM EA NOSTRIL SCH ×2 (08:31→22:00)
[2022-03-22] MEDS: ACETAMINOPHEN TAB 325 MG TAB PO PRN ×2 (09:13→22:05)
[2022-03-22 09:15] LABS: Basophils # (A) 0.01 X 10*3/uL (0.00-0.10); Basophils % (A) 0.1 %; Eosinophils # (A) 0 X 10*3/uL (0.04-0.35); Eosinophils % (A) 0 %; HGB 10.7 g/dL (12.0-15.0); Immature Grans, Automated 1.2 %; MCH 30.1 pg (27.0-32.0); MCHC 31.5 g/dL (32.0-37.0); MCV 95.8 fL (80.0-97.0); Mean Platelet Volume 10.8 fL (9.5-12.2); Monocytes # (A) 0.26 X 10*3/uL (0.20-1.00); Monocytes % (A) 1.6 %; NRBC Per 100 WBC 0 /100 WBCS (0.0-0.0); Neutrophils # (A) 14.01 X 10*3/uL (1.80-7.70); Neutrophils % (A) 87.1 %; Platelet Count 245 X 10*3/uL (140-440); RBC 3.55 X 10*6/uL (4.10-5.20); RDW 13.2 % (11.5-14.5); WBC 16.07 X 10*3/uL (4.50-10.00)
[2022-03-22 09:34] LABS: African American GFR (CKD) 40.6 (60.0-200.0); Anion Gap 11.7 mmol/L (10.00-18.00); BUN/Creat Ratio 21.15 Ratio (12.00-20.00); Calcium 9.3 mg/dL (8.7-10.3); Carbon Dioxide 21.1 mmol/L (20.0-27.5); Potassium 4.6 mmol/L (3.5-5.5)
[2022-03-22] MEDS: LOSARTAN 25 MG TAB PO SCH ×2 (11:05→22:00)
[2022-03-22 11:46] LABS: Glucose,Whole Blood 232 mg/dL (75-99)
--- NOTE | 2022-03-22 12:25 | P.PN ---
Subjective Progress Note Date: 03/22/22 Principal diagnosis: Shortness of breath A pleasant 61-year-old female patient is well-known to me. She is known to have severe persistent bronchial asthma/COPD along with obstructive sleep apnea. The patient is morbidly obese with a BMI 58.7. Around December of this current year, the patient was having increased symptoms of bronchitis and asthma exacerbation. At that point, I performed a bronchoscopy on her in the microbial cultures came back essentially negative. She was doing well and around 2 days ago, she started having increased dyspnea cough chest tightness and wheezing. She does have some loose diarrhea. No change in the taste or smell. She checked herself positive for COVID 19 on outpatient basis. This was confirmed after she came back to the hospital. Accordingly, the patient was hospitalized that the patient was found to have increased bronchospasm wheezing and shortness of breath. She is currently on IV Solu Medrol 60 mg every 6 hours. She is on room air oxygen. Her pulse ox is 94%. No altered mentation. No chest pain. No change in mental status. Outpatient medications have been resumed and the patient remains on Lovenox 30 mg subcu for DVT prophylaxis. Note that the patient has been vaccinated 2 for COVID 19 and she has not taken the booster shot. Other blood work the patient also comes at 6.37 with a hemoglobin of 11.1. Normal coagulation profile. D-dimer is at 0.46. The BUN 33 with a creatinine of 1.6 and the sodium level of 138. LFTs are normal. CRP level is at 1.1. LDH level is at 211. Detrol calcitonin LEVEL IS AT 0.1. CHEST X-RAY SHOWING SOME PLEURAL REACTION LEFT LUNG BASE OTHERWISE NO OTHER ACUTE ABNORM ALITIES NOTED. On 03/21/2022 patient seen in follow-up on medical surgical floor. She is awake and alert, in no acute distress, she is currently on room air with pulse ox of 94%, she sits up in the recliner, breathing seems to be nonlabored, she does get short of breath with exertion but no acute distress, with chest pain, she's been afebrile, vital signs have been stable overnight. Chest x-ray from admission showed mild pleural reaction at the left lung base, unchanged compared to previous chest x-ray from December 2021. Her labs from yesterday were reviewed showing white blood cell count is 6.3, hemoglobin was 11.1, electrolytes and renal profile were within normal limits, d-dimer was within normal limits, and so was a fibrinogen, electrolytes were within normal limits, renal profile was stable with BUN of 33.1, and creatinine of 1.6, ferritin LDH were within normal limits, troponin was negative, CRP was 1.1, pro calcitonin level was negative at 0.10. She has a very congested harsh cough, and she remains on IV Solu-Medrol at 60 mg every 6 hours, DuoNeb on an as-needed basis, she is on GI and DVT prophylaxis, multivitamins, she is on theophylline, and Spiriva. On 03/22/2022 patient seen in follow-up on medical surgical floor. Patient is awake and alert, still quite wheezy, was complaining of some chest tightness earlier, coughing. She was noted to be bradycardic earlier, her beta blockers are on hold. She continues on IV steroids with Solu-Medrol 60 mg every 6 hours, nebulized bronchodilators, Mucinex, she is on Symbicort, Spiriva and albuterol, she is on Tessalon pearls. She is on prophylactic dose of Lovenox 30 mg once a day, she had a negative pro calcitonin of 0.10. She tested positive for coarse with 19, she is being treated for acute exacerbation of severe persistent bronchial asthma, was possibly triggered by COVID-19 infection. Objective - Vital Signs Vital signs: Vital Signs Temp 97.3 F L 03/22/22 10:00 Pulse 44 L 03/22/22 10:00 Resp 18 03/22/22 10:00 BP 145/78 03/22/22 10:00 Pulse Ox 98 03/22/22 10:00 Intake & Output 03/21/22 03/22/22 03/22/22 18:59 06:59 18:59 Intake Total 1080 480 Balance 1080 480 Intake: Oral 1080 480 Other: Voiding Method Toilet Toilet # Voids 4 1 2 # Bowel Movements 1 1 - Exam GENERAL EXAM: Alert, very pleasant, 61-year-old white female, on 2 l/min with a pulse ox of 98%, sitting up in a recliner comfortable in no apparent distress. HEAD: Normocephalic/atraumatic. EYES: Normal reaction of pupils, equal size. Conjunctiva pink, sclera white. NOSE: Clear with pink turbinates. THROAT: No erythema or exudates. NECK: No masses, no JVD, no thyroid enlargement, no adenopathy. CHEST: No chest wall deformity. Symmetrical expansion. LUNGS: Equal air entry with diffuse wheezes, congestive cough, CVS: Regular rate and rhythm, normal S1 and S2, no gallops, no murmurs, no rubs ABDOMEN: Soft, nontender. No hepatosplenomegaly, normal bowel sounds, no guarding or rigidity. EXTREMITIES: No clubbing, no edema, no cyanosis, 2+ pulses and upper and lower extremities. MUSCULOSKELETAL: Muscle strength and tone normal. SPINE: No scoliosis or deformity SKIN: No rashes CENTRAL NERVOUS SYSTEM: Alert and oriented -3. No focal deficits, tone is normal in all 4 extremities. PSYCHIATRIC: Alert and oriented -3. Appropriate affect. Intact judgment and insight. - Labs CBC & Chem 7: 03/22/22 06:03 03/22/22 06:03 Labs: Abnormal Lab Results - Last 24 Hours (Table) 03/21/22 03/21/22 03/21/22 Range/Units 10:51 10:51 10:51 WBC 19.41 H (4.50-10.00) X 10*3/uL RBC 3.58 L (4.10-5.20) X 10*6/uL Hgb 10.6 L (12.0-15.0) g/dL Hct 34.7 L (37.2-46.3) % MCHC 30.5 L (32.0-37.0) g/dL Immature Gran # 0.11 H (0.00-0.04) X 10*3/uL Neutrophils # 17.07 H (1.80-7.70) X 10*3/uL Eosinophils # 0 L (0.04-0.35) X 10*3/uL Carbon Dioxide 16.6 L (20.0-27.5) mmol/L BUN 32.4 H (9.0-27.0) mg/dL Creatinine 1.7 H (0.6-1.5) mg/dL Est GFR (CKD-EPI)AfAm 37.6 L (60.0-200.0) Est GFR (CKD-EPI)NonAf 32.5 L (60.0-200.0) BUN/Creatinine Ratio (12.00-20.00) Ratio Glucose 336 H (70-110) mg/dL POC Glucose (mg/dL) (75-99) mg/dL Hemoglobin A1c 7.1 H (0.0-6.0) % 03/21/22 03/21/22 03/22/22 Range/Units 16:00 20:05 06:03 WBC 16.07 H (4.50-10.00) X 10*3/uL RBC 3.55 L (4.10-5.20) X 10*6/uL Hgb 10.7 L (12.0-15.0) g/dL Hct 34.0 L (37.2-46.3) % MCHC 31.5 L (32.0-37.0) g/dL Immature Gran # 0.19 H (0.00-0.04) X 10*3/uL Neutrophils # 14.01 H (1.80-7.70) X 10*3/uL Eosinophils # 0 L (0.04-0.35) X 10*3/uL Carbon Dioxide (20.0-27.5) mmol/L BUN (9.0-27.0) mg/dL Creatinine (0.6-1.5) mg/dL Est GFR (CKD-EPI)AfAm (60.0-200.0) Est GFR (CKD-EPI)NonAf (60.0-200.0) BUN/Creatinine Ratio (12.00-20.00) Ratio Glucose (70-110) mg/dL POC Glucose (mg/dL) 277 H 289 H (75-99) mg/dL Hemoglobin A1c (0.0-6.0) % 03/22/22 03/22/22 03/22/22 Range/Units 06:03 07:23 11:45 WBC (4.50-10.00) X 10*3/uL RBC (4.10-5.20) X 10*6/uL Hgb (12.0-15.0) g/dL Hct (37.2-46.3) % MCHC (32.0-37.0) g/dL Immature Gran # (0.00-0.04) X 10*3/uL Neutrophils # (1.80-7.70) X 10*3/uL Eosinophils # (0.04-0.35) X 10*3/uL Carbon Dioxide (20.0-27.5) mmol/L BUN 33.0 H (9.0-27.0) mg/dL Creatinine 1.6 H (0.6-1.5) mg/dL Est GFR (CKD-EPI)AfAm 40.6 L (60.0-200.0) Est GFR (CKD-EPI)NonAf 35.0 L (60.0-200.0) BUN/Creatinine Ratio 21.15 H (12.00-20.00) Ratio Glucose 243 H (70-110) mg/dL POC Glucose (mg/dL) 230 H 232 H (75-99) mg/dL Hemoglobin A1c (0.0-6.0) % Assessment and Plan Plan: Assessment: #1. Acute COVID-19 infection, patient was previously vaccinated for COVID-19 2 with Moderna, no boosters. Chest x-ray did not show acute pneumonia, patient is on room air, patient's inflammatory markers are not significantly elevated, d- dimer is negative #2. Acute exacerbation of severe persistent bronchial asthma #3. Shortness of breath, wheezing and chest tightness related to the above #4. History of multiple bilateral pulmonary nodules, all stable on computed tomography scan #5. Severe obstructive sleep apnea with AHI score of 63.8, and severe nocturnal oxygen desaturation awaiting CPAP titration #6. Psoriasis #7. Chronic lower extremity edema #8. The reticular disease #9. Hypertension #10. Hyperlipidemia #11. Borderline low IgG levels #12. Environmental ALLERGIES Plan: Patient is still quite short of breath, wheezy, and bronchospastic Continue high-dose IV steroids, continue inhaled and nebulized bronchodilators Continue prophylactic Lovenox We will add multivitamins Patient developed some bradycardia, cardiology is adjusting beta blockers Not quite ready for discharge Continue current inpatient treatment I have personally seen and examined the patient, performed the documentation and the assessment and plan as written. Number of minutes spent on the visit: [10] Time with Patient: Less than 30
--- NOTE | 2022-03-22 12:40 | P.PN ---
Subjective Patient was examined at bedside today was having an episode of chest pain in the morning to completely resolve. Patient stated last for a few seconds and then resolved was also reproducible by deep inspiration and palpation. The pain did however radiate to the left arm. During my examination it is completely asymptomatic not complaining of any intractable nausea, vomiting, palpitations or chest pain. Case discussed with RN present at bedside. Objective - Vital Signs Vital signs: Vital Signs Temp 97.3 F L 03/22/22 10:00 Pulse 44 L 03/22/22 10:00 Resp 18 03/22/22 10:00 BP 145/78 03/22/22 10:00 Pulse Ox 98 03/22/22 10:00 Intake & Output 03/21/22 03/22/22 03/22/22 18:59 06:59 18:59 Intake Total 1080 480 Balance 1080 480 Intake: Oral 1080 480 Other: Voiding Method Toilet Toilet # Voids 4 1 2 # Bowel Movements 1 1 - Exam Constitutional: No acute distress, conversant, pleasant Eyes:Anicteric sclerae, moist conjunctiva, no lid-lag, PERRLA, ENMT: Oropharynx clear, no erythema, exudates Neck: Supple, FROM, no masses, or JVD, No carotid bruits, No thyromegaly Lungs: Bilateral wheezing, Clear to percussion, Normal respiratory effort, no accessory muscle use Cardiovascular: No murmurs, gallops, or rubs, No peripheral edema Abdominal: Soft, Nontender, no guarding, rebound or rigidity, Normoactive bowel sounds, No hepatomegaly, No splenomegaly, No palpable mass Skin: Normal temperature, tone, texture, turgor, no induration, No subcutaneous nodules, No rash, lesions, No ulcers Extremities: No digital cyanosis, No clubbing, Pedal pulses intact and symmetrical, Radial pulses intact and symmetrical, No calf tenderness Psychiatric: Alert and oriented to person, place and time, appropriate affect, intact judgement Neuro: Muscles Strength 5/5 in all 4 extremities, Sensation to light touch grossly present throughout, Cranial nerves II-XII grossly intact, no focal sensory deficits - Labs CBC & Chem 7: 03/22/22 06:03 03/22/22 06:03 Labs: Abnormal Lab Results - Last 24 Hours (Table) 03/21/22 03/21/22 03/21/22 Range/Units 10:51 10:51 10:51 WBC 19.41 H (4.50-10.00) X 10*3/uL RBC 3.58 L (4.10-5.20) X 10*6/uL Hgb 10.6 L (12.0-15.0) g/dL Hct 34.7 L (37.2-46.3) % MCHC 30.5 L (32.0-37.0) g/dL Immature Gran # 0.11 H (0.00-0.04) X 10*3/uL Neutrophils # 17.07 H (1.80-7.70) X 10*3/uL Eosinophils # 0 L (0.04-0.35) X 10*3/uL Carbon Dioxide 16.6 L (20.0-27.5) mmol/L BUN 32.4 H (9.0-27.0) mg/dL Creatinine 1.7 H (0.6-1.5) mg/dL Est GFR (CKD-EPI)AfAm 37.6 L (60.0-200.0) Est GFR (CKD-EPI)NonAf 32.5 L (60.0-200.0) BUN/Creatinine Ratio (12.00-20.00) Ratio Glucose 336 H (70-110) mg/dL POC Glucose (mg/dL) (75-99) mg/dL Hemoglobin A1c 7.1 H (0.0-6.0) % 03/21/22 03/21/22 03/22/22 Range/Units 16:00 20:05 06:03 WBC 16.07 H (4.50-10.00) X 10*3/uL RBC 3.55 L (4.10-5.20) X 10*6/uL Hgb 10.7 L (12.0-15.0) g/dL Hct 34.0 L (37.2-46.3) % MCHC 31.5 L (32.0-37.0) g/dL Immature Gran # 0.19 H (0.00-0.04) X 10*3/uL Neutrophils # 14.01 H (1.80-7.70) X 10*3/uL Eosinophils # 0 L (0.04-0.35) X 10*3/uL Carbon Dioxide (20.0-27.5) mmol/L BUN (9.0-27.0) mg/dL Creatinine (0.6-1.5) mg/dL Est GFR (CKD-EPI)AfAm (60.0-200.0) Est GFR (CKD-EPI)NonAf (60.0-200.0) BUN/Creatinine Ratio (12.00-20.00) Ratio Glucose (70-110) mg/dL POC Glucose (mg/dL) 277 H 289 H (75-99) mg/dL Hemoglobin A1c (0.0-6.0) % 03/22/22 03/22/22 03/22/22 Range/Units 06:03 07:23 11:45 WBC (4.50-10.00) X 10*3/uL RBC (4.10-5.20) X 10*6/uL Hgb (12.0-15.0) g/dL Hct (37.2-46.3) % MCHC (32.0-37.0) g/dL Immature Gran # (0.00-0.04) X 10*3/uL Neutrophils # (1.80-7.70) X 10*3/uL Eosinophils # (0.04-0.35) X 10*3/uL Carbon Dioxide (20.0-27.5) mmol/L BUN 33.0 H (9.0-27.0) mg/dL Creatinine 1.6 H (0.6-1.5) mg/dL Est GFR (CKD-EPI)AfAm 40.6 L (60.0-200.0) Est GFR (CKD-EPI)NonAf 35.0 L (60.0-200.0) BUN/Creatinine Ratio 21.15 H (12.00-20.00) Ratio Glucose 243 H (70-110) mg/dL POC Glucose (mg/dL) 230 H 232 H (75-99) mg/dL Hemoglobin A1c (0.0-6.0) % Assessment and Plan Assessment: Assessment: #1 asthma exacerbation #2 COVID-19 pneumonia #3 lactic acidosis resolved #4 acute kidney injury #5 hyperglycemia secondary to steroids induced #6 episodes of bradycardia #7 obesity class III Plan: -Admit to medicine for close monitoring -Aspiration/fall precaution -EKG, cardiology consulted pending further recommendations. Cardiac troponin negative 1 -Patient was given one-time dose of Xanax last night due to severe anxiety that helped. -Patient's glucose levels are controlled most likely secondary to IV methylpredn isolone. We'll start patient on 5 units Levemir at bedtime and continue with sliding scale -7.1 hemoglobin A1c - continue metformin on discharge. -DVT prophylaxis Lovenox
--- NOTE | 2022-03-22 13:08 | P.CRDCN ---
History of Present Illness Consult date: 03/22/22 History of present illness: CHIEF COMPLAINT: Bradycardia and hypertension HISTORY OF PRESENT ILLNESS: This is a 61-year-old female with a past medical history significant for hypertension, hyperlipidemia, diabetes, and hypothyroidism. 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 We have been asked to see the patient in c onsultation for bradycardia and hypertension. Patient examined at the bedside. Patient presented to the hospital for chief complaint of shortness of breath. Patient was found to be positive for Covid. The patient had an episode of chest discomfort this morning. EKG was obtained which was nonischemic. Troponin completed which was negative. Telemetry reveals sinus bradycardia with a heart rate in the 40s. Patient's blood pressure this morning is 137/65. * EKG reveals sinus mechanism with no signs of acute ischemia * Chest xray mild cardiac male without new suspicious acute pulmonary process. Left basilar findings favor scarring and/or atelectasis not significantly changed from most prior * Laboratory data: WBC 16.07. Hemoglobin 10.7. Platelet count 245. Sodium 138. Potassium 4.6. BUN 33. Creatinine 1.6. * Current home cardiac medications include Lipitor 10 mg daily, metoprolol t artrate 25 mg twice a day, losartan 50 mg twice a day, Lasix 80 mg daily * Most recent echocardiogram obtained in 2016 revealed ejection fraction 55-60% with trace TR * Cardiac catheterization history: 2017 revealing normal coronary arteries REVIEW OF SYSTEMS: Thorough review of systems not completed secondary to limited evaluation/examination due to Covid19 PHYSICAL EXAM: Thorough physical exam not completed secondary to limited evaluation/examination due to Covid19 ASSESSMENT: Shortness of breath Acute Covid 19 Chest pain, likely secondary to Covid 19, EKG negative for ischemic changes and troponin negative Asymptomatic bradycardia, secondary to beta krista therapy Hypertension Acute kidney injury Hypothyroidism Diabetes PLAN: Discontinue metoprolol in view of bradycardia Resume Cozaar at a lower dose of 25mg BID Monitor kidney function Monitor blood pressure Further adjustments of blood pressure medications may be managed by primary medicine We will sign off. Please reconsult if needed. Nurse practitioner note has been reviewed by physician. Signing provider agrees with the documented findings, assessment, and plan of care. Past Medical History Past Medical History: Asthma, Cancer, COPD, Diabetes Mellitus, Eye Disorder, Hyperlipidemia, Hypertension, Musculoskeletal Disorder, Osteoarthritis (OA), Pneumonia, Skin Disorder, Sleep Apnea/CPAP/BIPAP, Thyroid Disorder Additional Past Medical History / Comment(s): Migraine headache, glaucoma, obesity, severe persistent bronchial asthma, diverticular disease, environmental allergies,multiple bilat pulmonary nodules, psoriasis, edema BLE. Basal cell skin cancer. Pericarditis. Uses CPAP. Pneumonia 12/03/21 ongoing History of Any Multi-Drug Resistant Organisms: None Reported Past Surgical History: Appendectomy, Orthopedic Surgery, Tonsillectomy Additional Past Surgical History / Comment(s): D&C, colonoscopy 2015, bronchoscopy, Bilat Knee arthroscopy, skin cancer removal Past Anesthesia/Blood Transfusion Reactions: Motion Sickness, Postoperative Nausea & Vomiting (PONV) Smoking Status: Never smoker - Past Family History Brother(s) Family Medical History: Cancer Additional Family Medical History / Comment(s): blood cancer Father Family Medical History: Cancer Additional Family Medical History / Comment(s): Colon cancer. Skin cancer. Mother Family Medical History: Cancer, Diabetes Mellitus, Hypertension Additional Family Medical History / Comment(s): SKIN CA, Medications and Allergies Home Medications Medication Instructions Recorded Confirmed Type Levothyroxine Sodium [Synthroid] 25 mcg PO HS 05/27/15 03/19/22 History Losartan Potassium 50 mg PO BID 05/27/15 03/19/22 History Theophylline 24 Hour [Erick-24] 400 mg PO DAILY 12/12/16 03/19/22 History Baclofen 10 mg PO BID 09/28/17 03/19/22 History Ipratropium-Albuterol Nebulize 3 ml INHALATION RT-QID 09/28/17 03/19/22 History [Duoneb 0.5 mg-3 mg/3 ml Soln] Multivit with Calcium,Iron,Min 1 tab PO DAILY 04/02/19 03/19/22 History [Women's Multivitamin] Cholecalciferol [Vitamin D3 (25 50 mcg PO DAILY 12/16/21 03/19/22 History Mcg = 1000 Iu)] Diclofenac Sodium Gel [Voltaren 2 gm TOPICAL QID PRN 12/16/21 03/19/22 History Gel] Fluticasone Nasal [place] [Flonase 1 spr EA NOSTRIL BID 12/16/21 03/19/22 History Nasal [place]] Metoprolol Tartrate [Lopressor] 25 mg PO BID 12/16/21 03/19/22 History Tiotropium 2.5 Mcg/Puff [Spiriva 2 puff INHALATION RT-DAILY 12/16/21 03/19/22 History Respimat 2.5 Mcg] Albuterol Sulfate [Albuterol 1 puff INHALATION RT-QID PRN 03/19/22 03/19/22 History Sulfate Hfa] Ascorbic Acid [Vitamin C] 1,000 mg PO DAILY 03/19/22 03/19/22 History Atorvastatin [Lipitor] 10 mg PO HS 03/19/22 03/22/22 History Fluticasone Propion/Salmeterol 1 puff INHALATION RT-BID 03/19/22 03/19/22 History [Fluticasone-Salmeterol 250-50] Furosemide [Lasix] 80 mg PO DAILY 03/19/22 03/19/22 History Zinc 50 mg PO DAILY 03/19/22 03/19/22 History metFORMIN HCL [Glucophage] 500 mg PO BID 03/19/22 03/19/22 History Allergies Allergy/AdvReac Type Severity Reaction Status Date / Time cefaclor [From Ceclor] Allergy Anaphylaxis Verified 03/19/22 20:06 latex Allergy Rash/Hives Verified 03/19/22 20:06 levofloxacin [From Levaquin] Allergy Burning Verified 03/19/22 20:06 sensatin on feet sulfamethoxazole Allergy Anaphylaxis Verified 03/19/22 20:06 [From Bactrim] trimethoprim [From Bactrim] Allergy Anaphylaxis Verified 03/19/22 20:06 amlodipine AdvReac Angioedema Verified 03/19/22 20:06 amoxicillin trihydrate AdvReac Nausea & Verified 03/19/22 20:06 [From Augmentin] Vomiting celecoxib [From Celebrex] AdvReac weight gain Verified 03/19/22 20:06 doxycycline AdvReac Nausea & Verified 03/19/22 20:06 Vomiting ferrous sulfate AdvReac Nausea & Verified 03/19/22 20:06 Vomiting & Diarrhea montelukast [From Singulair] AdvReac hyperactivity, Verified 03/19/22 20:06 weight gain naproxen [From Aleve] AdvReac Angioedema Verified 03/19/22 20:06 potassium clavulanate AdvReac Nausea & Verified 03/19/22 20:06 [From Augmentin] Vomiting rofecoxib [From Vioxx] AdvReac weight gain Verified 03/19/22 20:06 Physical Exam Vitals: Vital Signs Temp Pulse Resp BP Pulse Ox 03/22/22 10:00 97.3 F L 44 L 18 145/78 98 03/22/22 09:00 98 03/22/22 08:26 97.5 F L 45 L 20 137/65 98 03/22/22 08:00 41 L 03/22/22 05:22 42 L 17 162/66 98 03/22/22 02:15 97.9 F 43 L 16 156/77 98 03/21/22 19:46 97.6 F 47 L 18 147/79 99 03/21/22 18:14 70 19 153/76 97 03/21/22 16:37 95 03/21/22 14:00 97.4 F L 49 L 19 182/75 97 Intake and Output 03/21/22 03/22/22 03/22/22 22:59 06:59 14:59 Intake Total 1080 480 Balance 1080 480 Intake: Oral 1080 480 Other: Voiding Method Toilet # Voids 4 1 2 # Bowel Movements 1 1 Results 03/22/22 06:03 03/22/22 06:03 Cardiac Enzymes 03/22/22 Range/Units 08:30 Troponin I <0.012 (0.000-0.034) ng/mL CBC 03/21/22 03/22/22 Range/Units 10:51 06:03 WBC 19.41 H 16.07 H (4.50-10.00) X 10*3/uL RBC 3.58 L 3.55 L (4.10-5.20) X 10*6/uL Hgb 10.6 L 10.7 L (12.0-15.0) g/dL Hct 34.7 L 34.0 L (37.2-46.3) % Plt Count 264 245 (140-440) X 10*3/uL Comprehensive Metabolic Panel 03/21/22 03/22/22 Range/Units 10:51 06:03 Sodium 138 138 (135-145) mmol/L Potassium 3.9 4.6 (3.5-5.5) mmol/L Chloride 106 105 (96-109) mmol/L Carbon Dioxide 16.6 L 21.1 (20.0-27.5) mmol/L BUN 32.4 H 33.0 H (9.0-27.0) mg/dL Creatinine 1.7 H 1.6 H (0.6-1.5) mg/dL Glucose 336 H 243 H (70-110) mg/dL Calcium 9.0 9.3 (8.7-10.3) mg/dL Current Medications Generic Name Dose Route Start Last Admin Trade Name Freq PRN Reason Stop Dose Admin Acetaminophen 650 mg 03/19/22 21:58 03/22/22 09:13 Acetaminophen Tab 325 Mg Tab PO 650 mg Q4HR PRN Administration Fever>101 Albuterol Sulfate 2 puff 03/20/22 08:00 03/22/22 11:57 Albuterol Hfa Inhaler INHALATION 2 puff RT-QID IBAN Administration Albuterol/Ipratropium 3 ml 03/19/22 22:58 Ipratropium-Albuterol 3 Ml Neb INHALATION RT-Q2H PRN Shortness Of Breath Or Wheezing Ascorbic Acid 1,000 mg 03/20/22 09:00 03/22/22 08:28 Ascorbic Acid 500 Mg Tab PO 1,000 mg DAILY IBAN Administration Atorvastatin Calcium 20 mg 03/19/22 22:00 03/21/22 20:21 Atorvastatin 20 Mg Tab PO 20 mg HS IBAN Administration Baclofen 10 mg 03/19/22 22:00 03/22/22 08:28 Baclofen 10 Mg Tab PO 10 mg BID IBAN Administration Benzonatate 100 mg 03/21/22 22:00 03/22/22 08:28 Benzonatate 100 Mg Cap PO 100 mg TID IBAN Administration Budesonide/Formoterol Fumarate 2 puff 03/21/22 20:00 03/22/22 08:09 Symbicort 160-4.5 Mcg Inhaler INHALATION 2 puff RT-BID IBAN Administration Enoxaparin Sodium 30 mg 03/21/22 09:00 03/22/22 08:28 Enoxaparin 30 Mg/0.3 Ml Syringe SQ 30 mg DAILY IBAN Administration Famotidine 20 mg 03/23/22 09:00 Famotidine 20 Mg Tab PO DAILY IBAN Fluticasone Propionate 1 spray 03/19/22 22:00 03/22/22 08:31 Fluticasone 50mcg/[place] Nasal 16gm EA NOSTRIL 1 spray BID IBAN Administration Guaifenesin 600 mg 03/21/22 21:00 03/22/22 08:28 Guaifenesin 600 Mg Tablet.Er PO 600 mg Q12HR IBAN Administration Sodium Chloride 1,000 mls @ 100 mls/hr 03/19/22 20:15 03/22/22 08:29 Saline 0.9% IV 100 mls/hr .Q10H IBAN Administration Insulin Aspart 0 unit 03/19/22 22:04 03/22/22 08:28 Insulin Aspart (Novolog) 100 Unit/Ml Vial SQ 5 unit ACHS IBAN Administration Protocol Insulin Detemir 5 unit 03/21/22 21:00 03/21/22 20:22 Insulin Detemir (Levemir) 100 Unit/Ml Syr SQ 5 unit HS IBAN Administration Levothyroxine Sodium 25 mcg 03/20/22 06:30 03/22/22 05:16 Levothyroxine 25 Mcg Tab PO 25 mcg DAILY@0630 IBAN Administration Loperamide HCl 2 mg 03/20/22 09:51 03/20/22 12:45 Loperamide 2 Mg Cap PO 2 mg QID PRN Administration Diarrhea Losartan Potassium 25 mg 03/22/22 10:00 03/22/22 11:05 Losartan 25 Mg Tab PO 25 mg BID IBAN Administration Methylprednisolone Sodium Succinate 60 mg 03/20/22 00:00 03/22/22 05:44 Methylprednisolone Sod Succi 125 Mg/2 Ml Vial IV 60 mg Q6HR IBAN Administration Naloxone HCl 0.2 mg 03/19/22 20:04 Naloxone 0.4 Mg/Ml 1 Ml Vial IV Q2M PRN Opioid Reversal Theophylline 400 mg 03/20/22 09:00 03/22/22 08:28 Theophylline 24 Hour 400 Mg Cap.Er.24h PO 400 mg DAILY IBAN Administration Tiotropium [place] 1 puff 03/20/22 08:00 03/22/22 08:09 Tiotropium 2.5 Mcg Inhaler INHALATION 1 puff RT-DAILY IBAN Administration Zinc Sulfate 220 mg 03/20/22 09:00 03/22/22 08:28 Zinc Sulfate 220 Mg Cap PO 220 mg DAILY IBAN Administration Intake and Output 03/21/22 03/22/22 03/22/22 22:59 06:59 14:59 Intake Total 1080 480 Balance 1080 480 Intake: Oral 1080 480 Other: Voiding Method Toilet # Voids 4 1 2 # Bowel Movements 1 1 03/22/22 06:03 03/22/22 06:03
[2022-03-22 16:55] LABS: Glucose,Whole Blood 267 mg/dL (75-99)
[2022-03-22] MEDS ORDERED: ALPRAZolam 0.25 MG TAB PO STA (19:05)
[2022-03-22 20:56] LABS: Glucose,Whole Blood 290 mg/dL (75-99)
[2022-03-22] MEDS: ATORVASTATIN 20 MG TAB PO SCH (21:59)
[2022-03-22] MEDS: INSULIN DETEMIR (LEVEMIR) 100 UNIT/ML SYR SQ SCH (22:00)
[2022-03-23] MEDS: methylPREDNISolone SOD SUCCI 125 MG/2 ML VIAL IV SCH ×5 (00:02→23:00)
[2022-03-23] MEDS: SODIUM CHLORIDE 0.9% 1,000 ML IV SCH ×2 (05:27→13:25)
[2022-03-23] MEDS: LEVOTHYROXINE 25 MCG TAB PO SCH (05:54)
[2022-03-23 07:54] LABS: Glucose,Whole Blood 275 mg/dL (75-99)
[2022-03-23 08:35] LABS: Basophils % (A) 0 %; Eosinophils % (A) 0 %; HCT 36.3 % (34.0-46.0); HGB 11.5 gm/dL (11.4-16.0); Lymphocytes # (A) 1.1 k/uL (1.0-4.8); Lymphocytes % (A) 10 %; MCH 30.3 pg (25.0-35.0); MCHC 31.6 g/dL (31.0-37.0); MCV 95.9 fL (80.0-100.0); Mean Platelet Volume 8.2; Monocytes # (A) 0.3 k/uL (0-1.0); Monocytes % (A) 3 %; Neutrophils # (A) 9.5 k/uL (1.3-7.7); Neutrophils % (A) 87 %; Platelet Count 261 k/uL (150-450); RBC 3.79 m/uL (3.80-5.40); RDW 13.6 % (11.5-15.5)
[2022-03-23 08:46] LABS: African American GFR (CKD) 41 (>60 ml/min/1.73 sqM); Anion Gap 8 mmol/L; Blood Urea Nitrogen 36 mg/dL (7-17); Calcium 8.9 mg/dL (8.4-10.2); Carbon Dioxide 20 mmol/L (22-30); Chloride 110 mmol/L (98-107); Glucose 251 mg/dL (74-99); Non-African American GFR(CKD) 35 (>60 ml/min/1.73 sqM); Potassium 4.2 mmol/L (3.5-5.1); Sodium 138 mmol/L (137-145)
[2022-03-23] MEDS: TIOTROPIUM 2.5 MCG INHALER INHALATION SCH (08:54)
[2022-03-23] MEDS: ALBUTEROL HFA INHALER INHALATION SCH ×4 (08:54→20:37)
[2022-03-23] MEDS: SYMBICORT 160-4.5 MCG INHALER INHALATION SCH ×2 (08:54→20:37)
[2022-03-23] MEDS ORDERED: FAMOTIDINE 20 MG TAB PO SCH (09:00)
[2022-03-23] MEDS: THEOPHYLLINE 24 HOUR 400 MG CAP.ER.24H PO SCH (09:40)
[2022-03-23] MEDS: LOSARTAN 25 MG TAB PO SCH ×2 (09:40→21:03)
[2022-03-23] MEDS: BACLOFEN 10 MG TAB PO SCH ×2 (09:40→21:03)
[2022-03-23] MEDS: INSULIN DETEMIR (LEVEMIR) 100 UNIT/ML SYR SQ SCH ×2 (09:40→21:02)
[2022-03-23] MEDS: ENOXAPARIN 30 MG/0.3 ML SYRINGE SQ SCH (09:40)
[2022-03-23] MEDS: ASCORBIC ACID 500 MG TAB PO SCH (09:40)
[2022-03-23] MEDS: guaiFENesin 600 MG TABLET.ER PO SCH ×2 (09:40→21:02)
[2022-03-23] MEDS: FAMOTIDINE 20 MG TAB PO SCH (09:41)
[2022-03-23] MEDS: FLUTICASONE 50MCG/SPRAY NASAL 16GM EA NOSTRIL SCH ×2 (09:41→21:03)
[2022-03-23] MEDS: BENZONATATE 100 MG CAP PO SCH ×3 (09:41→23:00)
[2022-03-23] MEDS: INSULIN ASPART (NovoLOG) 100 UNIT/ML VIAL SQ SCH ×4 (09:41→21:02)
[2022-03-23] MEDS: ZINC SULFATE 220 MG CAP PO SCH (09:41)
--- NOTE | 2022-03-23 10:33 | P.PN ---
Subjective Patient was examined at bedside today continues to some shortness of breath currently on 2 L nasal cannula. She also [place] Xanax overnight to help her sleep and relax. Continues to wheeze. Denies any active chest pain or palpitations today. Objective - Vital Signs Vital signs: Vital Signs Temp 97.6 F 03/23/22 10:15 Pulse 63 03/23/22 10:15 Resp 18 03/23/22 10:15 BP 163/70 03/23/22 10:15 Pulse Ox 99 03/23/22 10:15 Intake & Output 03/22/22 03/23/22 03/23/22 18:59 06:59 18:59 Intake Total 1560 Balance 1560 Intake: Oral 1560 Other: Voiding Method Toilet Toilet # Voids 3 2 # Bowel Movements 1 - Exam Constitutional: No acute distress, conversant, pleasant Eyes:Anicteric sclerae, moist conjunctiva, no lid-lag, PERRLA, Lungs: Bilateral wheezing, Clear to percussion, Normal respiratory effort, no accessory muscle use Cardiovascular: No murmurs, gallops, or rubs, No peripheral edema Abdominal: Soft, Nontender, no guarding, rebound or rigidity, Normoactive bowel sounds, No hepatomegaly, No splenomegaly, No palpable mass Skin: Normal temperature, tone, texture, turgor, no induration, No subcutaneous nodules, No rash, lesions, No ulcers Extremities: No digital cyanosis, No clubbing, Pedal pulses intact and symmetrical, Radial pulses intact and symmetrical, No calf tenderness Psychiatric: Alert and oriented to person, place and time, appropriate affect, i ntact judgement - Labs CBC & Chem 7: 03/23/22 08:00 03/23/22 08:00 Labs: Abnormal Lab Results - Last 24 Hours (Table) 03/22/22 03/22/22 03/22/22 Range/Units 11:45 16:53 20:55 WBC (3.8-10.6) k/uL RBC (3.80-5.40) m/uL Neutrophils # (1.3-7.7) k/uL Chloride (98-107) mmol/L Carbon Dioxide (22-30) mmol/L BUN (7-17) mg/dL Creatinine (0.52-1.04) mg/dL Glucose (74-99) mg/dL POC Glucose (mg/dL) 232 H 267 H 290 H (75-99) mg/dL 03/23/22 03/23/22 03/23/22 Range/Units 07:53 08:00 08:00 WBC 11.0 H (3.8-10.6) k/uL RBC 3.79 L (3.80-5.40) m/uL Neutrophils # 9.5 H (1.3-7.7) k/uL Chloride 110 H (98-107) mmol/L Carbon Dioxide 20 L (22-30) mmol/L BUN 36 H (7-17) mg/dL Creatinine 1.55 H (0.52-1.04) mg/dL Glucose 251 H (74-99) mg/dL POC Glucose (mg/dL) 275 H (75-99) mg/dL Assessment and Plan Assessment: Assessment: #1 asthma exacerbation #2 COVID-19 pneumonia #3 lactic acidosis resolved #4 acute kidney injury #5 hyperglycemia secondary to steroids induced #6 episodes of bradycardia - asymptomatic #7 obesity class III Plan: -Admit to medicine for close monitoring -Aspiration/fall precaution -Beta blockers have been discontinued continue to monitor heart rate patient's currently a symptomatic -Patient was given one-time dose of Xanax last night due to severe anxiety that helped. -Patient's glucose levels are controlled most likely secondary to IV methylprednisolone. We'll start patient on 5 units Levemir twice a day and continue with sliding scale -Continue with breathing treatments and steroids -7.1 hemoglobin A1c - continue metformin on discharge. -DVT prophylaxis Lovenox Disposition continue to monitor for another 24-48 hours pending clinical course. Currently on 2 L nasal cannula however wheezing.
--- NOTE | 2022-03-23 11:45 | P.PN ---
Subjective Progress Note Date: 03/23/22 Principal diagnosis: Shortness of breath A pleasant 61-year-old female patient is well-known to me. She is known to have severe persistent bronchial asthma/COPD along with obstructive sleep apnea. The patient is morbidly obese with a BMI 58.7. Around December of this current year, the patient was having increased symptoms of bronchitis and asthma exacerbation. At that point, I performed a bronchoscopy on her in the microbial cultures came back essentially negative. She was doing well and around 2 days ago, she started having increased dyspnea cough chest tightness and wheezing. She does have some loose diarrhea. No change in the taste or smell. She checked herself positive for COVID 19 on outpatient basis. This was confirmed after she came back to the hospital. Accordingly, the patient was hospitalized that the patient was found to have increased bronchospasm wheezing and shortness of breath. She is currently on IV Solu Medrol 60 mg every 6 hours. She is on room air oxygen. Her pulse ox is 94%. No altered mentation. No chest pain. No change in mental status. Outpatient medications have been resumed and the patient remains on Lovenox 30 mg subcu for DVT prophylaxis. Note that the patient has been vaccinated 2 for COVID 19 and she has not taken the booster shot. Other blood work the patient also comes at 6.37 with a hemoglobin of 11.1. Normal coagulation profile. D-dimer is at 0.46. The BUN 33 with a creatinine of 1.6 and the sodium level of 138. LFTs are normal. CRP level is at 1.1. LDH level is at 211. Detrol calcitonin LEVEL IS AT 0.1. CHEST X-RAY SHOWING SOME PLEURAL REACTION LEFT LUNG BASE OTHERWISE NO OTHER ACUTE ABNORM ALITIES NOTED. On 03/21/2022 patient seen in follow-up on medical surgical floor. She is awake and alert, in no acute distress, she is currently on room air with pulse ox of 94%, she sits up in the recliner, breathing seems to be nonlabored, she does get short of breath with exertion but no acute distress, with chest pain, she's been afebrile, vital signs have been stable overnight. Chest x-ray from admission showed mild pleural reaction at the left lung base, unchanged compared to previous chest x-ray from December 2021. Her labs from yesterday were reviewed showing white blood cell count is 6.3, hemoglobin was 11.1, electrolytes and renal profile were within normal limits, d-dimer was within normal limits, and so was a fibrinogen, electrolytes were within normal limits, renal profile was stable with BUN of 33.1, and creatinine of 1.6, ferritin LDH were within normal limits, troponin was negative, CRP was 1.1, pro calcitonin level was negative at 0.10. She has a very congested harsh cough, and she remains on IV Solu-Medrol at 60 mg every 6 hours, DuoNeb on an as-needed basis, she is on GI and DVT prophylaxis, multivitamins, she is on theophylline, and Spiriva. On 03/22/2022 patient seen in follow-up on medical surgical floor. Patient is awake and alert, still quite wheezy, was complaining of some chest tightness earlier, coughing. She was noted to be bradycardic earlier, her beta blockers are on hold. She continues on IV steroids with Solu-Medrol 60 mg every 6 hours, nebulized bronchodilators, Mucinex, she is on Symbicort, Spiriva and albuterol, she is on Tessalon pearls. She is on prophylactic dose of Lovenox 30 mg once a day, she had a negative pro calcitonin of 0.10. She tested positive for coarse with 19, she is being treated for acute exacerbation of severe persistent bronchial asthma, was possibly triggered by COVID-19 infection. On 03/23/2022 patient seen in follow-up on medical surgical floor. Patient states she feels a little improved, however still has a congested cough, but she is able to bring up some yellowish and greenish colored phlegm. No fever or chills, vital signs have been stable, she is currently on 2 L of oxygen, her pulse ox is 99%. There is better air entry noted bilaterally on today's exam. No complaints of chest discomfort. Vital signs have been stable. Patient continues on high-dose IV steroids Solu-Medrol 60 mg every 6 hours, continues on inhaled bronchodilators. No hemoptysis, no chest tightness. No altered mentation. Continues on multivitamins. Today's labs show improving with ethyl, which is down to 11, hemoglobin is 11.5, sodium is 138, potassium is 4.2, chloride is 110, CO2 is 20, BUN is 36, creatinine is 1.5. Objective - Vital Signs Vital signs: Vital Signs Temp 97.6 F 03/23/22 10:15 Pulse 63 03/23/22 10:15 Resp 18 03/23/22 10:15 BP 163/70 03/23/22 10:15 Pulse Ox 99 03/23/22 10:15 Intake & Output 03/22/22 03/23/22 03/23/22 18:59 06:59 18:59 Intake Total 1560 Balance 1560 Intake: Oral 1560 Other: Voiding Method Toilet Toilet # Voids 3 2 # Bowel Movements 1 - Exam GENERAL EXAM: Alert, very pleasant, 61-year-old white female, on 2 l/min with a pulse ox of 98%, sitting up in a recliner comfortable in no apparent distress. HEAD: Normocephalic/atraumatic. EYES: Normal reaction of pupils, equal size. Conjunctiva pink, sclera white. NOSE: Clear with pink turbinates. THROAT: No erythema or exudates. NECK: No masses, no JVD, no thyroid enlargement, no adenopathy. CHEST: No chest wall deformity. Symmetrical expansion. LUNGS: Equal air entry with diffuse wheezes, congestive cough, CVS: Regular rate and rhythm, normal S1 and S2, no gallops, no murmurs, no rubs ABDOMEN: Soft, nontender. No hepatosplenomegaly, normal bowel sounds, no guarding or rigidity. EXTREMITIES: No clubbing, no edema, no cyanosis, 2+ pulses and upper and lower extremities. MUSCULOSKELETAL: Muscle strength and tone normal. SPINE: No scoliosis or deformity SKIN: No rashes CENTRAL NERVOUS SYSTEM: Alert and oriented -3. No focal deficits, tone is normal in all 4 extremities. PSYCHIATRIC: Alert and oriented -3. Appropriate affect. Intact judgment and insight. - Labs CBC & Chem 7: 03/23/22 08:00 03/23/22 08:00 Labs: Abnormal Lab Results - Last 24 Hours (Table) 03/22/22 03/22/22 03/22/22 Range/Units 11:45 16:53 20:55 WBC (3.8-10.6) k/uL RBC (3.80-5.40) m/uL Neutrophils # (1.3-7.7) k/uL Chloride (98-107) mmol/L Carbon Dioxide (22-30) mmol/L BUN (7-17) mg/dL Creatinine (0.52-1.04) mg/dL Glucose (74-99) mg/dL POC Glucose (mg/dL) 232 H 267 H 290 H (75-99) mg/dL 03/23/22 03/23/22 03/23/22 Range/Units 07:53 08:00 08:00 WBC 11.0 H (3.8-10.6) k/uL RBC 3.79 L (3.80-5.40) m/uL Neutrophils # 9.5 H (1.3-7.7) k/uL Chloride 110 H (98-107) mmol/L Carbon Dioxide 20 L (22-30) mmol/L BUN 36 H (7-17) mg/dL Creatinine 1.55 H (0.52-1.04) mg/dL Glucose 251 H (74-99) mg/dL POC Glucose (mg/dL) 275 H (75-99) mg/dL Assessment and Plan Plan: Assessment: #1. Acute COVID-19 infection, patient was previously vaccinated for COVID-19 2 with Moderna, no boosters. Chest x-ray did not show acute pneumonia, patient is on room air, patient's inflammatory markers are not significantly elevated, d- dimer is negative #2. Acute exacerbation of severe persistent bronchial asthma #3. Shortness of breath, wheezing and chest tightness related to the above #4. History of multiple bilateral pulmonary nodules, all stable on computed tomography scan #5. Severe obstructive sleep apnea with AHI score of 63.8, and severe nocturnal oxygen desaturation awaiting CPAP titration #6. Psoriasis #7. Chronic lower extremity edema #8. The reticular disease #9. Hypertension #10. Hyperlipidemia #11. Borderline low IgG levels #12. Environmental ALLERGIES Plan: Patient is stable, still bronchospastic, and congested but improving We'll continue Solu-Medrol 60 mg every 6 hours, continue inhaled bronchodilators We'll send a sputum for culture GI and DVT prophylaxis Continue to follow her progress Not quite ready for discharge Continue current inpatient treatment I have personally seen and examined the patient, performed the documentation and the assessment and plan as written. Number of minutes spent on the visit: [10] Time with Patient: Less than 30
[2022-03-23 11:56] LABS: Glucose,Whole Blood 296 mg/dL (75-99)
[2022-03-23 16:52] LABS: Glucose,Whole Blood 233 mg/dL (75-99)
[2022-03-23 20:37] LABS: Glucose,Whole Blood 239 mg/dL (75-99)
[2022-03-23] MEDS: ACETAMINOPHEN TAB 325 MG TAB PO PRN (21:02)
[2022-03-23] MEDS: ATORVASTATIN 20 MG TAB PO SCH (21:02)
[2022-03-24] MEDS: SODIUM CHLORIDE 0.9% 1,000 ML IV SCH ×3 (02:42→21:18)
[2022-03-24] MEDS: methylPREDNISolone SOD SUCCI 125 MG/2 ML VIAL IV SCH ×3 (05:52→17:11)
[2022-03-24] MEDS: LEVOTHYROXINE 25 MCG TAB PO SCH (05:52)
[2022-03-24 07:20] LABS: Glucose,Whole Blood 240 mg/dL (75-99)
[2022-03-24] MEDS: FAMOTIDINE 20 MG TAB PO SCH (07:57)
[2022-03-24] MEDS: INSULIN ASPART (NovoLOG) 100 UNIT/ML VIAL SQ SCH ×4 (07:57→21:17)
[2022-03-24] MEDS: INSULIN DETEMIR (LEVEMIR) 100 UNIT/ML SYR SQ SCH ×2 (07:57→21:17)
[2022-03-24] MEDS: guaiFENesin 600 MG TABLET.ER PO SCH ×2 (07:57→21:17)
[2022-03-24] MEDS: BACLOFEN 10 MG TAB PO SCH ×2 (07:57→21:18)
[2022-03-24] MEDS: BENZONATATE 100 MG CAP PO SCH ×3 (07:57→21:18)
[2022-03-24] MEDS: ENOXAPARIN 30 MG/0.3 ML SYRINGE SQ SCH (07:57)
[2022-03-24] MEDS: ASCORBIC ACID 500 MG TAB PO SCH (07:57)
[2022-03-24] MEDS: THEOPHYLLINE 24 HOUR 400 MG CAP.ER.24H PO SCH (08:18)
[2022-03-24] MEDS: ZINC SULFATE 220 MG CAP PO SCH (08:18)
[2022-03-24] MEDS: LOSARTAN 25 MG TAB PO SCH ×2 (08:18→21:18)
[2022-03-24] MEDS: FLUTICASONE 50MCG/SPRAY NASAL 16GM EA NOSTRIL SCH ×2 (08:19→21:18)
[2022-03-24] MEDS: ALBUTEROL HFA INHALER INHALATION SCH ×4 (09:51→20:57)
[2022-03-24] MEDS: SYMBICORT 160-4.5 MCG INHALER INHALATION SCH ×2 (09:51→20:57)
[2022-03-24] MEDS: TIOTROPIUM 2.5 MCG INHALER INHALATION SCH (09:51)
[2022-03-24 10:25] LABS: Basophils # (A) 0.04 X 10*3/uL (0.00-0.10); Basophils % (A) 0.3 %; Eosinophils # (A) 0 X 10*3/uL (0.04-0.35); Eosinophils % (A) 0 %; HCT 37.4 % (37.2-46.3); HGB 12.2 g/dL (12.0-15.0); Immature Grans, Automated 2.1 %; Lymphocytes # (A) 1.27 X 10*3/uL (0.90-5.00); MCH 30.1 pg (27.0-32.0); MCHC 32.6 g/dL (32.0-37.0); MCV 92.3 fL (80.0-97.0); Mean Platelet Volume 10.9 fL (9.5-12.2); Monocytes # (A) 0.32 X 10*3/uL (0.20-1.00); NRBC Per 100 WBC 0 /100 WBCS (0.0-0.0); Neutrophils # (A) 13.96 X 10*3/uL (1.80-7.70); Neutrophils % (A) 87.6 %; Platelet Count 300 X 10*3/uL (140-440); RBC 4.05 X 10*6/uL (4.10-5.20); RDW 13.1 % (11.5-14.5); WBC 15.93 X 10*3/uL (4.50-10.00)
[2022-03-24 10:45] LABS: African American GFR (CKD) 38.2 (60.0-200.0); Anion Gap 12.1 mmol/L (10.00-18.00); BUN/Creat Ratio 23.48 Ratio (12.00-20.00); Blood Urea Nitrogen 38.5 mg/dL (9.0-27.0); Calcium 9.3 mg/dL (8.7-10.3); Carbon Dioxide 17.8 mmol/L (20.0-27.5); Non-African American GFR(CKD) 32.9 (60.0-200.0); Potassium 4.3 mmol/L (3.5-5.5)
[2022-03-24 11:48] LABS: Glucose,Whole Blood 228 mg/dL (75-99)
[2022-03-24] MEDS: ACETAMINOPHEN TAB 325 MG TAB PO PRN ×2 (11:55→18:32)
[2022-03-24] MEDS ORDERED: FUROSEMIDE 10 MG/ML 4 ML VIAL IV STA (12:39)
--- NOTE | 2022-03-24 15:26 | P.PN ---
Subjective Progress Note Date: 03/24/22 A pleasant 61-year-old female patient is well-known to me. She is known to have severe persistent bronchial asthma/COPD along with obstructive sleep apnea. The patient is morbidly obese with a BMI 58.7. Around December of this current year, the patient was having increased symptoms of bronchitis and asthma exacerbation. At that point, I performed a bronchoscopy on her in the microbial cultures came back essentially negative. She was doing well and around 2 days ago, she started having increased dyspnea cough chest tightness and wheezing. She does have some loose diarrhea. No change in the taste or smell. She checked herself positive for COVID 19 on outpatient basis. This was confirmed after she came back to the hospital. Accordingly, the patient was hospitalized that the patient was found to have increased bronchospasm wheezing and shortness of breath. She is currently on IV Solu Medrol 60 mg every 6 hours. She is on room air oxygen. Her pulse ox is 94%. No altered mentation. No chest pain. No change in mental status. Outpatient medications have been resumed and the patient remains on Lovenox 30 mg subcu for DVT prophylaxis. Note that the patient has been vaccinated 2 for COVID 19 and she has not taken the booster shot. Other blood work the patient also comes at 6.37 with a hemoglobin of 11.1. Normal coagulation profile. D-dimer is at 0.46. The BUN 33 with a cr eatinine of 1.6 and the sodium level of 138. LFTs are normal. CRP level is at 1.1. LDH level is at 211. Detrol calcitonin LEVEL IS AT 0.1. CHEST X-RAY SHOWING SOME PLEURAL REACTION LEFT LUNG BASE OTHERWISE NO OTHER ACUTE ABNORMALITIES NOTED. On 03/21/2022 patient seen in follow-up on medical surgical floor. She is awake and alert, in no acute distress, she is currently on room air with pulse ox of 94%, she sits up in the recliner, breathing seems to be nonlabored, she does get short of breath with exertion but no acute distress, with chest pain, she's been afebrile, vital signs have been stable overnight. Chest x-ray from admission showed mild pleural reaction at the left lung base, unchanged compared to previous chest x-ray from December 2021. Her labs from yesterday were reviewed showing white blood cell count is 6.3, hemoglobin was 11.1, electrolytes and renal profile were within normal limits, d-dimer was within normal limits, and so was a fibrinogen, electrolytes were within normal limits, renal profile was stable with BUN of 33.1, and creatinine of 1.6, ferritin LDH were within normal limits, troponin was negative, CRP was 1.1, pro calcitonin level was negative at 0.10. She has a very congested harsh cough, and she remains on IV Solu-Medrol at 60 mg every 6 hours, DuoNeb on an as-needed basis, she is on GI and DVT prophylaxis, multivitamins, she is on theophylline, and Spiriva. On 03/22/2022 patient seen in follow-up on medical surgical floor. Patient is awake and alert, still quite wheezy, was complaining of some chest tightness earlier, coughing. She was noted to be bradycardic earlier, her beta blockers are on hold. She continues on IV steroids with Solu-Medrol 60 mg every 6 hours, nebulized bronchodilators, Mucinex, she is on Symbicort, Spiriva and albuterol, she is on Tessalon pearls. She is on prophylactic dose of Lovenox 30 mg once a day, she had a negative pro calcitonin of 0.10. She tested positive for coarse with 19, she is being treated for acute exacerbation of severe persistent bronchial asthma, was possibly triggered by COVID-19 infection. On 03/23/2022 patient seen in follow-up on medical surgical floor. Patient states she feels a little improved, however still has a congested cough, but she is able to bring up some yellowish and greenish colored phlegm. No fever or chills, vital signs have been stable, she is currently on 2 L of oxygen, her pulse ox is 99%. There is better air entry noted bilaterally on today's exam. No complaints of chest discomfort. Vital signs have been stable. Patient continues on high-dose IV steroids Solu-Medrol 60 mg every 6 hours, continues on inhaled bronchodilators. No hemoptysis, no chest tightness. No altered mentation. Continues on multivitamins. Today's labs show improving with ethyl, which is down to 11, hemoglobin is 11.5, sodium is 138, potassium is 4.2, chloride is 110, CO2 is 20, BUN is 36, creatinine is 1.5. The patient is seen today 03/24/2022 in follow-up on the regular medical floor. She is currently sitting up in a chair at the bedside. Awake and alert in no acute distress. She still has a loose congested cough. Still dyspneic with minimal exertion. Maintaining O2 saturations up to 99% on 2 L/m per nasal cannula. Afebrile. White count 15.9. Hemoglobin 12.2. Sodium 139. Potassium 4.3. Appropriate BUN 38. Creatinine 1.6. Glucose 254. She is continued on DuoNeb inhalations, Symbicort, IV Solu-Medrol, Spiriva and theophylline. Lovenox for DVT prophylaxis. Vitamin supplements. Objective - Vital Signs Vital signs: Vital Signs Temp 97.6 F 03/24/22 14:00 Pulse 72 03/24/22 14:00 Resp 16 03/24/22 14:00 BP 169/79 03/24/22 14:00 Pulse Ox 99 03/24/22 14:00 Intake & Output 03/23/22 03/24/22 03/24/22 18:59 06:59 18:59 Intake Total 1200 592 Balance 1200 592 Intake: Intake, IV Titration 1200 Amount Sodium Chloride 0.9% 1, 1200 000 ml @ 100 mls/hr IV . Q10H [facility] Rx#:[id number] Oral 592 Other: Voiding Method Toilet Toilet # Voids 6 3 # Bowel Movements 3 - Exam GENERAL EXAM: Alert, morbidly obese 61-year-old female, on 2 l/min with a pulse ox of 99%, sitting up in a recliner comfortable in no apparent distress. HEAD: Normocephalic/atraumatic. EYES: Normal reaction of pupils, equal size. Conjunctiva pink, sclera white. NOSE: Clear with pink turbinates. THROAT: No erythema or exudates. NECK: No masses, no JVD, no thyroid enlargement, no adenopathy. CHEST: No chest wall deformity. Symmetrical expansion. LUNGS: Equal air entry with diffuse wheezes, bilateral scattered rhonchi CVS: Regular rate and rhythm, normal S1 and S2, no gallops, no murmurs, no rubs ABDOMEN: Soft, nontender. No hepatosplenomegaly, normal bowel sounds, no guarding or rigidity. EXTREMITIES: No clubbing, no edema, no cyanosis, 2+ pulses and upper and lower extremities. MUSCULOSKELETAL: Muscle strength and tone normal. SPINE: No scoliosis or deformity SKIN: No rashes CENTRAL NERVOUS SYSTEM: No focal deficits, tone is normal in all 4 extremities. PSYCHIATRIC: Alert and oriented -3. Appropriate affect. Intact judgment and insight. - Labs CBC & Chem 7: 03/24/22 07:47 03/24/22 07:47 Labs: Abnormal Lab Results - Last 24 Hours (Table) 03/23/22 03/23/22 03/24/22 Range/Units 16:49 20:35 07:18 WBC (4.50-10.00) X 10*3/uL RBC (4.10-5.20) X 10*6/uL Immature Gran # (0.00-0.04) X 10*3/uL Neutrophils # (1.80-7.70) X 10*3/uL Eosinophils # (0.04-0.35) X 10*3/uL Carbon Dioxide (20.0-27.5) mmol/L BUN (9.0-27.0) mg/dL Creatinine (0.6-1.5) mg/dL Est GFR (CKD-EPI)AfAm (60.0-200.0) Est GFR (CKD-EPI)NonAf (60.0-200.0) BUN/Creatinine Ratio (12.00-20.00) Ratio Glucose (70-110) mg/dL POC Glucose (mg/dL) 233 H 239 H 240 H (75-99) mg/dL 03/24/22 03/24/22 03/24/22 Range/Units 07:47 07:47 11:47 WBC 15.93 H (4.50-10.00) X 10*3/uL RBC 4.05 L (4.10-5.20) X 10*6/uL Immature Gran # 0.34 H (0.00-0.04) X 10*3/uL Neutrophils # 13.96 H (1.80-7.70) X 10*3/uL Eosinophils # 0 L (0.04-0.35) X 10*3/uL Carbon Dioxide 17.8 L (20.0-27.5) mmol/L BUN 38.5 H (9.0-27.0) mg/dL Creatinine 1.6 H (0.6-1.5) mg/dL Est GFR (CKD-EPI)AfAm 38.2 L (60.0-200.0) Est GFR (CKD-EPI)NonAf 32.9 L (60.0-200.0) BUN/Creatinine Ratio 23.48 H (12.00-20.00) Ratio Glucose 254 H (70-110) mg/dL POC Glucose (mg/dL) 228 H (75-99) mg/dL Assessment and Plan Assessment: 1 Acute COVID-19 infection, patient was previously vaccinated for COVID-19 2 with Moderna, no boosters. Chest x-ray did not show acute pneumonia 2 Acute exacerbation of severe persistent bronchial asthma 3 Shortness of breath, wheezing and chest tightness related to the above 4 History of multiple bilateral pulmonary nodules, all stable on computed tomography scan 5 Severe obstructive sleep apnea with AHI score of 63.8, and severe nocturnal oxygen desaturation awaiting CPAP titration 6 Psoriasis 7 Chronic lower extremity edema 8 The reticular disease 9 Hypertension 10 Hyperlipidemia 11 Borderline low IgG levels 12 Environmental ALLERGIES Plan: The patient was seen and evaluated Improved but not quite back to her baseline Continue the current treatment plan Titrate down the FiO2 as tolerated Increase her activity as tolerated We will continue to follow I have personally seen and examined the patient, performed the documentation and the assessment and plan as written. Number of minutes spent on the visit: 10.
[2022-03-24 16:47] LABS: Glucose,Whole Blood 251 mg/dL (75-99)
--- NOTE | 2022-03-24 16:59 | P.PN ---
Subjective Progress Note Date: 03/24/22 History of Present Illness H&P Date: 03/19/22 Chief Complaint: hypoxemia 61 year old female with hypertension , DM, COPD, WILSON patient comes in due to hypoxemia , she has been having URI symptoms for the past 4 days , she tested positive for covid at home, reporting fever, chills, sore throat, cough, diffuse muscle aches. she monitors her Oxygen and today was pretty low in the mid 80s% for which she decided to come in for evaluation , den ies any recent hospitalization, or history of blood clots. she uses CPAP at home, with setting of 16 cm H2O denies any smoking, illicit drugs. or heavy alcohol in the ED, upon evaluation she was not hypoxic, and satting well on room air, however, she was noted to be wheezing . blood work showed MARLYN, with lactic acidosis CXR no acute changes , she has pleural reaction unchanged Interval history: Patient wasn't examined at the bedside. She is s complaining of hort of breath with minimal exertion. and complaining of cough. She is currently on 2 L nasal cannula. Physical examination: GENERAL EXAM: Alert, morbidly obese 61-year-old female, on 2 l/min with a pulse ox of 99%, sitting up in a recliner comfortable in no apparent distress. HEAD: Normocephalic/atraumatic. EYES: Normal reaction of pupils, equal size. Conjunctiva pink, sclera white. NOSE: Clear with pink turbinates. THROAT: No erythema or exudates. NECK: No masses, no JVD, no thyroid enlargement, no adenopathy. CHEST: No chest wall deformity. Symmetrical expansion. LUNGS: Equal air entry with diffuse wheezes, bilateral scattered rhonchi CVS: Regular rate and rhythm, normal S1 and S2, no gallops, no murmurs, no rubs ABDOMEN: Soft, nontender. No hepatosplenomegaly, normal bowel sounds, no guarding or rigidity. EXTREMITIES: No clubbing, no edema, no cyanosis, 2+ pulses and upper and lower extremities. MUSCULOSKELETAL: Muscle strength and tone normal. SPINE: No scoliosis or deformity SKIN: No rashes CENTRAL NERVOUS SYSTEM: No focal deficits, tone is normal in all 4 extremities. PSYCHIATRIC: Alert and oriented -3. Appropriate affect. Intact judgment and insight. Assessment and plan: #Acute exacerbation of severe persistent bronchial asthma #Acute COVID-19 infection, patient was previously vaccinated for COVID-19 2 with Moderna, no boosters. Chest x-ray did not show acute pneumonia -Resume DuoNeb inhalations, Symbicort, IV Solu-Medrol, Spiriva and theophylline. -Pulmonary following. #Asystematic bradycardia secondary to beta krista -Cardiology consulted -Cardiology held beta krista. #History of multiple bilateral pulmonary nodules, -Stable on CAT scan per pulmonary #Super morbid Obesity BMI is 58 with Obstructive sleep apnea -We'll need outpatient sleep study #Chest pain secondary to -Acute coronary syndrome has been ruled out -Negative D-dimer -Cardiology evaluated the patient -History of normal left heart catheterization 2016 #Type II diabetes mellitus -Check A1c -Resume Scale insulin and Levemir -Metformin on hold #Psoriasis #Chronic lower extremity edema -Check 2-D echo -Check venous Dopplers -Etiology was consulted #Acute kidney injury Versus chronic kidney disease -Consult nephrology #Hypertension #Hyperlipidemia #Borderline low IgG level #Environmental ALLERGIES #Lovenox for DVT prophylaxis. Objective - Vital Signs Vital signs: Vital Signs Temp 97.6 F 03/24/22 14:00 Pulse 72 03/24/22 14:00 Resp 16 03/24/22 14:00 BP 169/79 03/24/22 14:00 Pulse Ox 99 03/24/22 14:00 Intake & Output 03/23/22 03/24/22 03/24/22 18:59 06:59 18:59 Intake Total 1200 592 Balance 1200 592 Intake: Intake, IV Titration 1200 Amount Sodium Chloride 0.9% 1, 1200 000 ml @ 100 mls/hr IV . Q10H [facility] Rx#:[id number] Oral 592 Other: Voiding Method Toilet Toilet # Voids 6 3 # Bowel Movements 3 - Labs CBC & Chem 7: 03/24/22 07:47 03/24/22 07:47 Labs: Abnormal Lab Results - Last 24 Hours (Table) 03/23/22 03/23/22 03/24/22 Range/Units 16:49 20:35 07:18 WBC (4.50-10.00) X 10*3/uL RBC (4.10-5.20) X 10*6/uL Immature Gran # (0.00-0.04) X 10*3/uL Neutrophils # (1.80-7.70) X 10*3/uL Eosinophils # (0.04-0.35) X 10*3/uL Carbon Dioxide (20.0-27.5) mmol/L BUN (9.0-27.0) mg/dL Creatinine (0.6-1.5) mg/dL Est GFR (CKD-EPI)AfAm (60.0-200.0) Est GFR (CKD-EPI)NonAf (60.0-200.0) BUN/Creatinine Ratio (12.00-20.00) Ratio Glucose (70-110) mg/dL POC Glucose (mg/dL) 233 H 239 H 240 H (75-99) mg/dL 03/24/22 03/24/22 03/24/22 Range/Units 07:47 07:47 11:47 WBC 15.93 H (4.50-10.00) X 10*3/uL RBC 4.05 L (4.10-5.20) X 10*6/uL Immature Gran # 0.34 H (0.00-0.04) X 10*3/uL Neutrophils # 13.96 H (1.80-7.70) X 10*3/uL Eosinophils # 0 L (0.04-0.35) X 10*3/uL Carbon Dioxide 17.8 L (20.0-27.5) mmol/L BUN 38.5 H (9.0-27.0) mg/dL Creatinine 1.6 H (0.6-1.5) mg/dL Est GFR (CKD-EPI)AfAm 38.2 L (60.0-200.0) Est GFR (CKD-EPI)NonAf 32.9 L (60.0-200.0) BUN/Creatinine Ratio 23.48 H (12.00-20.00) Ratio Glucose 254 H (70-110) mg/dL POC Glucose (mg/dL) 228 H (75-99) mg/dL
--- NOTE | 2022-03-24 17:41 | US ---
EXAMINATION TYPE: US venous doppler duplex LE DATE OF EXAM: 03/24/2022 5:25 PM COMPARISON: NONE CLINICAL HISTORY: Rule out DVT. COVID patient, leg edema SIDE PERFORMED: Bilateral TECHNIQUE: The lower extremity deep venous system is examined utilizing real time linear array sonog anastasia with graded compression, doppler sonography and color-flow sonography. VESSELS IMAGED: Common Femoral Vein Deep Femoral Vein Greater Saphenous Vein * Femoral Vein Popliteal Vein Small Saphenous Vein * Proximal Calf Veins (* superficial vessels) Right Leg: Negative for DVT; limited visualization, visualized portions of the common femoral vein, femoral vein up to vein demonstrate color Doppler flow. Subcutaneous edema is present. Left Leg: Negative for DVT; limited visualization, visualized portions of the common femoral vein, f emoral vein up to vein demonstrate color Doppler flow. Subcutaneous edema is present. Difficult exam due to large patient body habitus IMPRESSION: 1. Limited exam with no evidence of DVT in either lower extremity. 2. Bilateral lower extremity subcutaneous edema.
[2022-03-24 20:31] LABS: Glucose,Whole Blood 261 mg/dL (75-99)
[2022-03-24] MEDS: ATORVASTATIN 20 MG TAB PO SCH (21:17)
[2022-03-24] MEDS: ALPRAZolam 0.25 MG TAB PO PRN (21:18)
[2022-03-25] MEDS: methylPREDNISolone SOD SUCCI 125 MG/2 ML VIAL IV SCH ×5 (00:10→23:33)
[2022-03-25] MEDS: LEVOTHYROXINE 25 MCG TAB PO SCH (05:43)
[2022-03-25] MEDS: SODIUM CHLORIDE 0.9% 1,000 ML IV SCH (05:44)
[2022-03-25] MEDS: ACETAMINOPHEN TAB 325 MG TAB PO PRN ×3 (05:48→23:33)
[2022-03-25 07:21] LABS: Glucose,Whole Blood 251 mg/dL (75-99)
[2022-03-25] MEDS: SYMBICORT 160-4.5 MCG INHALER INHALATION SCH ×2 (08:00→19:56)
[2022-03-25] MEDS: TIOTROPIUM 2.5 MCG INHALER INHALATION SCH (08:00)
[2022-03-25] MEDS: ALBUTEROL HFA INHALER INHALATION SCH ×4 (08:00→19:56)
[2022-03-25] MEDS: ZINC SULFATE 220 MG CAP PO SCH (08:15)
[2022-03-25] MEDS: LOSARTAN 25 MG TAB PO SCH ×2 (08:15→20:21)
[2022-03-25] MEDS: ASCORBIC ACID 500 MG TAB PO SCH (08:15)
[2022-03-25] MEDS: BACLOFEN 10 MG TAB PO SCH ×2 (08:15→20:21)
[2022-03-25] MEDS: FAMOTIDINE 20 MG TAB PO SCH (08:15)
[2022-03-25] MEDS: guaiFENesin 600 MG TABLET.ER PO SCH ×2 (08:15→20:21)
[2022-03-25] MEDS: INSULIN ASPART (NovoLOG) 100 UNIT/ML VIAL SQ SCH ×4 (08:16→20:20)
[2022-03-25] MEDS: BENZONATATE 100 MG CAP PO SCH ×3 (08:16→21:23)
[2022-03-25] MEDS: INSULIN DETEMIR (LEVEMIR) 100 UNIT/ML SYR SQ SCH ×2 (08:17→21:30)
[2022-03-25] MEDS: THEOPHYLLINE 24 HOUR 400 MG CAP.ER.24H PO SCH (08:17)
[2022-03-25] MEDS: ENOXAPARIN 30 MG/0.3 ML SYRINGE SQ SCH (08:17)
[2022-03-25] MEDS: FLUTICASONE 50MCG/SPRAY NASAL 16GM EA NOSTRIL SCH ×2 (08:19→20:23)
[2022-03-25 09:23] LABS: Basophils # (A) 0.03 X 10*3/uL (0.00-0.10); Basophils % (A) 0.2 %; Eosinophils # (A) 0 X 10*3/uL (0.04-0.35); Eosinophils % (A) 0 %; HCT 33.5 % (37.2-46.3); HGB 10.8 g/dL (12.0-15.0); Immature Grans, Automated 2.6 %; Lymphocytes # (A) 1.01 X 10*3/uL (0.90-5.00); Lymphocytes % (A) 8.3 %; MCH 29.6 pg (27.0-32.0); MCHC 32.2 g/dL (32.0-37.0); MCV 91.8 fL (80.0-97.0); Mean Platelet Volume 10.8 fL (9.5-12.2); Monocytes # (A) 0.29 X 10*3/uL (0.20-1.00); Monocytes % (A) 2.4 %; NRBC Per 100 WBC 0 /100 WBCS (0.0-0.0); Neutrophils # (A) 10.46 X 10*3/uL (1.80-7.70); Neutrophils % (A) 86.5 %; Platelet Count 268 X 10*3/uL (140-440); RBC 3.65 X 10*6/uL (4.10-5.20); RDW 13.3 % (11.5-14.5)
--- NOTE | 2022-03-25 09:28 | US ---
EXAMINATION TYPE: US renals and bladder DATE OF EXAM: 03/25/2022 COMPARISON: CT CLINICAL HISTORY: RENAL FAILURE. Abnormal renal function EXAM MEASUREMENTS: Right Kidney: 11.5 x 5.7 x 5.6 cm Left Kidney: 11.1 x 5.8 x 5.2 cm Right Kidney: Appeared wnl, lower pole gassed out Left Kidney: Appeared wnl, lower pole gassed out Bladder: Unable to visualize due to pt's size Bilateral Jets seen: No There is no evidence for hydronephrosis at this point in time. No nephrolithiasis is seen. No breanna s are identified. IMPRESSION: Examination is within normal limits.
[2022-03-25 09:30] LABS: African American GFR (CKD) 33.4 (60.0-200.0); Anion Gap 12.6 mmol/L (10.00-18.00); BUN/Creat Ratio 23.55 Ratio (12.00-20.00); Blood Urea Nitrogen 43.1 mg/dL (9.0-27.0); Calcium 9.1 mg/dL (8.7-10.3); Carbon Dioxide 19.4 mmol/L (20.0-27.5); Non-African American GFR(CKD) 28.9 (60.0-200.0); Potassium 4.1 mmol/L (3.5-5.5)
[2022-03-25 09:34] VITALS: BMI 58.7
--- NOTE | 2022-03-25 09:35 | CA ---
Transthoracic Echo Report Name: Nupur Pacheco Age: 61 Gender: F : 1960 Exam Date: 03/25/2022 07:42 Exam Location: [facility] Ht (in): 62 Wt (lb): 321 Ordering Physician: Blanche Caceres MD Attending/Referring Phys: Electro Mechanic Monica Casanova RDCS Procedure CPT: Indications: lower extremity edema Cardiac Hx: Technical Quality: Technically difficult study Contrast 1: Lumason Total Dose (mL): 1 Contrast 2: Total Dose (mL): MEASUREMENTS (Male / Female) Normal Values 2D ECHO LV Diastolic Diameter PLAX 3.8 cm 4.2 - 5.9 / 3.9 - 5.3 cm LV Systolic Diameter PLAX 1.9 cm IVS Diastolic Thickness 1.3 cm 0.6 - 1.0 / 0.6 - 0.9 cm LVPW Diastolic Thickness 1.4 cm 0.6 - 1.0 / 0.6 - 0.9 cm LV Relative Wall Thickness 0.7 RV Internal Dim ED PLAX 2.4 cm M-MODE Aortic Root Diameter MM 3.6 cm LA Systolic Diameter MM 2.9 cm LA Ao Ratio MM 0.8 MV E Point Septal Separation 1.1 cm DOPPLER AV Peak Velocity 143.1 cm/s AV Peak Gradient 8.2 mmHg MV Area PHT 3.8 cm??? Mitral E Point Velocity 48.3 cm/s Mitral A Point Velocity 78.1 cm/s Mitral E to A Ratio 0.6 MV Deceleration Time 199.6 ms TR Peak Velocity 254.4 cm/s TR Peak Gradient 25.9 mmHg Right Ventricular Systolic Press 28.6 mmHg FINDINGS Left Ventricle Moderately increased septal wall thickness. Moderately increased posterior wall thickness. Left ventricular ejection fraction is estimated at 55-60% Right Ventricle The right ventricle is normal in size and function. Right Atrium The right atrium is normal in size. Left Atrium The left atrium is normal in size. Mitral Valve Structurally normal mitral valve without significant stenosis or prolapse. There is a trace mitral regurgitation. Aortic Valve Structurally normal aortic valve without significant sclerosis or stenosis. There is no aortic regurgitation. Tricuspid Valve Structurally normal tricuspid valve without significant stenosis. Pulmonary artery systolic pressure is normal. Trace tricuspid regurgitation. Pulmonic Valve Structurally normal pulmonic valve without significant stenosis. There is no pulmonic regurgitation. Pericardium Normal pericardium without effusion. Aorta Normal aortic root dimension. CONCLUSIONS Left ventricular hypertrophy with preserved LV systolic function, a technically difficult study despite Definity contrast Previewed by: Dr. Boo Sales MD (Electronically Signed) Final Date: 25 Mar 2022 09:34
[2022-03-25 12:04] LABS: Glucose,Whole Blood 250 mg/dL (75-99)
--- NOTE | 2022-03-25 12:19 | P.NPCON ---
History of Present Illness - Reason for Consult acute renal failure, chronic renal failure - History of Present Illness Reason for consultation: Acute kidney injury History of present illness: Patient is a 61-year-old female seen in consultation for acute kidney injury. Patient's creatinine is a 12/21/2021 was 0.93. Patient states in early January 2022 she was diagnosed with diabetes mellitus and was started on metformin. She was told that at that time her creatinine was near 1.3. Patient states since she has started metformin her stomach has been upset and she's been having quite a bit of diarrhea. She is also been taking diuretics for several years and was taking Lasix 80 mg once daily prior to this admission. Patient states last Monday she developed fever and chills and did a home Covid test which came back positive twice. Due to worsening shortness of breath she came to the hospital. Patient also has history of COPD. She was also bradycardic with heart rate in the 40s and beta krista has been held. She is complaining of edema in her lower as well as upper extremities. Creatinine today is 1.8. She has also been receiving IV fluids this admission. She denies regular use of nonsteroidals. Denies chest pain. Denies family history of renal disease. No hematuria or dysuria. Oral intake is fair. No vomiting. Vital signs are stable. General: Awake. No acute distress. HEENT: Head exam is unremarkable. LUNGS: Breath sounds decreased. HEART: Rate and Rhythm are regular. ABDOMEN: Soft, obese. EXTREMITITES: 1+ edema. Past Medical History Past Medical History: Asthma, Cancer, COPD, Diabetes Mellitus, Eye Disorder, Hyperlipidemia, Hypertension, Musculoskeletal Disorder, Osteoarthritis (OA), Pneumonia, Skin Disorder, Sleep Apnea/CPAP/BIPAP, Thyroid Disorder Additional Past Medical History / Comment(s): Migraine headache, glaucoma, obesity, severe persistent bronchial asthma, diverticular disease, environmental allergies,multiple bilat pulmonary nodules, psoriasis, edema BLE. Basal cell skin cancer. Pericarditis. Uses CPAP. Pneumonia 12/03/21 ongoing History of Any Multi-Drug Resistant Organisms: None Reported Past Surgical History: Appendectomy, Orthopedic Surgery, Tonsillectomy Additional Past Surgical History / Comment(s): D&C, colonoscopy 2015, bronchoscopy, Bilat Knee arthroscopy, skin cancer removal Past Anesthesia/Blood Transfusion Reactions: Motion Sickness, Postoperative Nausea & Vomiting (PONV) Smoking Status: Never smoker - Past Family History Brother(s) Family Medical History: Cancer Additional Family Medical History / Comment(s): blood cancer Father Family Medical History: Cancer Additional Family Medical History / Comment(s): Colon cancer. Skin cancer. Mother Family Medical History: Cancer, Diabetes Mellitus, Hypertension Additional Family Medical History / Comment(s): SKIN CA, Medications and Allergies Home Medications Medication Instructions Recorded Confirmed Type Levothyroxine Sodium [Synthroid] 25 mcg PO HS 05/27/15 03/19/22 History Losartan Potassium 50 mg PO BID 05/27/15 03/19/22 History Theophylline 24 Hour [Erick-24] 400 mg PO DAILY 12/12/16 03/19/22 History Baclofen 10 mg PO BID 09/28/17 03/19/22 History Ipratropium-Albuterol Nebulize 3 ml INHALATION RT-QID 09/28/17 03/19/22 History [Duoneb 0.5 mg-3 mg/3 ml Soln] Multivit with Calcium,Iron,Min 1 tab PO DAILY 04/02/19 03/19/22 History [Women's Multivitamin] Cholecalciferol [Vitamin D3 (25 50 mcg PO DAILY 12/16/21 03/19/22 History Mcg = 1000 Iu)] Diclofenac Sodium Gel [Voltaren 2 gm TOPICAL QID PRN 12/16/21 03/19/22 History Gel] Fluticasone Nasal Fifield [Flonase 1 spr EA NOSTRIL BID 12/16/21 03/19/22 History Nasal Fifield] Metoprolol Tartrate [Lopressor] 25 mg PO BID 12/16/21 03/19/22 History Tiotropium 2.5 Mcg/Puff [Spiriva 2 puff INHALATION RT-DAILY 12/16/21 03/19/22 History Respimat 2.5 Mcg] Albuterol Sulfate [Albuterol 1 puff INHALATION RT-QID PRN 03/19/22 03/19/22 History Sulfate Hfa] Ascorbic Acid [Vitamin C] 1,000 mg PO DAILY 03/19/22 03/19/22 History Atorvastatin [Lipitor] 10 mg PO HS 03/19/22 03/22/22 History Fluticasone Propion/Salmeterol 1 puff INHALATION RT-BID 03/19/22 03/19/22 History [Fluticasone-Salmeterol 250-50] Furosemide [Lasix] 80 mg PO DAILY 03/19/22 03/19/22 History Zinc 50 mg PO DAILY 03/19/22 03/19/22 History metFORMIN HCL [Glucophage] 500 mg PO BID 03/19/22 03/19/22 History Allergies Allergy/AdvReac Type Severity Reaction Status Date / Time cefaclor [From Ceclor] Allergy Anaphylaxis Verified 03/19/22 20:06 latex Allergy Rash/Hives Verified 03/19/22 20:06 levofloxacin [From Levaquin] Allergy Burning Verified 03/19/22 20:06 sensatin on feet sulfamethoxazole Allergy Anaphylaxis Verified 03/19/22 20:06 [From Bactrim] trimethoprim [From Bactrim] Allergy Anaphylaxis Verified 03/19/22 20:06 amlodipine AdvReac Angioedema Verified 03/19/22 20:06 amoxicillin trihydrate AdvReac Nausea & Verified 03/19/22 20:06 [From Augmentin] Vomiting celecoxib [From Celebrex] AdvReac weight gain Verified 03/19/22 20:06 doxycycline AdvReac Nausea & Verified 03/19/22 20:06 Vomiting ferrous sulfate AdvReac Nausea & Verified 03/19/22 20:06 Vomiting & Diarrhea montelukast [From Singulair] AdvReac hyperactivity, Verified 03/19/22 20:06 weight gain naproxen [From Aleve] AdvReac Angioedema Verified 03/19/22 20:06 potassium clavulanate AdvReac Nausea & Verified 03/19/22 20:06 [From Augmentin] Vomiting rofecoxib [From Vioxx] AdvReac weight gain Verified 03/19/22 20:06 Physical Exam Vitals: Vital Signs Temp Pulse Resp BP Pulse Ox 03/25/22 10:00 97.8 F 74 20 156/70 99 03/25/22 08:01 96 03/25/22 07:30 18 03/25/22 06:03 97.8 F 61 18 162/81 98 03/25/22 02:08 97.4 F L 60 18 137/69 97 03/24/22 18:00 97.5 F L 69 16 161/77 99 03/24/22 14:00 97.6 F 72 16 169/79 99 Intake and Output 03/24/22 03/25/22 03/25/22 22:59 06:59 14:59 Intake Total 296 Balance 296 Intake: Oral 296 Other: Voiding Method Toilet # Voids 2 2 Weight 145.603 kg Results - Lab Results Most recent lab results Calcium 9.1 mg/dL (8.7-10.3) 03/25/22 05:25 Magnesium 1.7 mg/dL (1.5-2.4) 03/20/22 05:06 03/25/22 05:25 03/25/22 05:25 Assessment and Plan Plan: Assessment: 1. Acute kidney injury secondary to ATN secondary to coughing 19 infection. Creatinine stable in the range of 1.6-1.8 this admission. Creatinine on 12/21/2021 was 0.93. Renal ultrasound showed no evidence of hydronephrosis. 2. Acute hypoxia respiratory failure secondary to acute COVID-19 infection and exacerbation. 3. Diabetes mellitus. 4. Metabolic acidosis secondary to acute kidney injury and diarrhea. 5. Hypertension with chronic disease. Exacerbated by steroids. 6. Volume overload. 7. Acute on chronic diastolic CHF. Plan: Hep-Lock IV fluids. Add oral Lasix 40 mg once daily. Encouraged oral intake. Add oral bicarb. Check UA. Continue with losartan for now as blood pressure not low. Add low-dose hydralazine. Hold for systolic blood pressure less than 120. Continue to monitor renal function and urine output. Thank you for the consultation. I'll continue to follow the patient with you during her hospital stay.
[2022-03-25] MEDS: FUROSEMIDE 40 MG TAB PO SCH (12:23)
[2022-03-25] MEDS: SODIUM BICARBONATE TAB 650 MG TAB PO SCH ×2 (12:23→20:21)
--- NOTE | 2022-03-25 12:45 | P.PN ---
Subjective History of Present Illness H&P Date: 03/19/22 Chief Complaint: hypoxemia 61 year old female with hypertension , DM, COPD, WILSON patient comes in due to hypoxemia , she has been having URI symptoms for the past 4 days , she tested positive for covid at home, reporting fever, chills, sore throat, cough, diffuse muscle aches. she monitors her Oxygen and today was pretty low in the mid 80s% for which she decided to come in for evaluation , denies any recent hospitalization, or history of blood clots. she uses CPAP at home, with setting of 16 cm H2O denies any smoking, illicit drugs. or heavy alcohol in the ED, upon evaluation she was not hypoxic, and satting well on room air, however, she was noted to be wheezing . blood work showed MARLYN, with lactic acidosis CXR no acute changes , she has pleural reaction unchanged Interval history: Patient wasn't examined at the bedside. She is s complaining of shortness of breath with minimal exertion with dry cough. She is currently on 2 L nasal cannula. Physical examination: GENERAL EXAM: Alert, morbidly obese 61-year-old female, on 2 l/min with a pulse ox of 99%, sitting up in a recliner comfortable in no apparent distress. HEAD: Normocephalic/atraumatic. EYES: Normal reaction of pupils, equal size. Conjunctiva pink, sclera white. NOSE: Clear with pink turbinates. THROAT: No erythema or exudates. NECK: No masses, no JVD, no thyroid enlargement, no adenopathy. CHEST: No chest wall deformity. Symmetrical expansion. LUNGS: Equal air entry with diffuse wheezes, bilateral scattered rhonchi CVS: Regular rate and rhythm, normal S1 and S2, no gallops, no murmurs, no rubs ABDOMEN: Soft, nontender. No hepatosplenomegaly, normal bowel sounds, no guarding or rigidity. EXTREMITIES: No clubbing, no edema, no cyanosis, 2+ pulses and upper and lower extremities. MUSCULOSKELETAL: Muscle strength and tone normal. SPINE: No scoliosis or deformity SKIN: No rashes CENTRAL NERVOUS SYSTEM: No focal deficits, tone is normal in all 4 extremities. PSYCHIATRIC: Alert and oriented -3. Appropriate affect. Intact judgment and insight. Assessment and plan: #Acute exacerbation of severe persistent bronchial asthma #Acute COVID-19 infection, patient was previously vaccinated for COVID-19 2 with Moderna, no boosters. Chest x-ray did not show acute pneumonia -Resume DuoNeb inhalations, Symbicort, IV Solu-Medrol, Spiriva and theophylline. -Pulmonary following. #Asystematic bradycardia secondary to beta krista -Cardiology consulted -Cardiology held beta krista. #History of multiple bilateral pulmonary nodules, -Stable on CAT scan per pulmonary #Super morbid Obesity BMI is 58 with Obstructive sleep apnea -We'll need outpatient sleep study #Chest pain secondary to above -Acute coronary syndrome has been ruled out -Negative D-dimer -Lower extremity Doppler negative for DVT -Cardiology evaluated the patient -History of normal left heart catheterization 2016 #Type II diabetes mellitus - A1c 7.1 -Resume Scale insulin and Levemir -Metformin on hold #Psoriasis #Chronic lower extremity edema -2-D echo showed left ventricular hypertrophy with preserved LV systolic function. Technically difficult study despite Definity contrast -Lower Extremity Doppler negative for DVT -Nephrology restarted Lasix #Acute kidney injury Versus chronic kidney disease -Consult nephrology #Hypertension -Resume losartan -Nephrology added hydralazine #Hyperlipidemia #Borderline low IgG level #Environmental ALLERGIES #Lovenox for DVT prophylaxis. Objective - Vital Signs Vital signs: Vital Signs Temp 97.8 F 03/25/22 10:00 Pulse 74 03/25/22 10:00 Resp 20 03/25/22 10:00 BP 156/70 03/25/22 10:00 Pulse Ox 99 03/25/22 10:00 Intake & Output 03/24/22 03/25/22 03/25/22 18:59 06:59 18:59 Intake Total 888 Balance 888 Weight 145.603 kg Intake: Oral 888 Other: Voiding Method Toilet Toilet # Voids 2 2 - Labs CBC & Chem 7: 03/25/22 05:25 03/25/22 05:25 Labs: Abnormal Lab Results - Last 24 Hours (Table) 03/24/22 03/24/22 03/25/22 Range/Units 16:44 20:30 05:25 WBC 12.10 H (4.50-10.00) X 10*3/uL RBC 3.65 L (4.10-5.20) X 10*6/uL Hgb 10.8 L (12.0-15.0) g/dL Hct 33.5 L (37.2-46.3) % Immature Gran # 0.31 H (0.00-0.04) X 10*3/uL Neutrophils # 10.46 H (1.80-7.70) X 10*3/uL Eosinophils # 0 L (0.04-0.35) X 10*3/uL Carbon Dioxide (20.0-27.5) mmol/L BUN (9.0-27.0) mg/dL Creatinine (0.6-1.5) mg/dL Est GFR (CKD-EPI)AfAm (60.0-200.0) Est GFR (CKD-EPI)NonAf (60.0-200.0) BUN/Creatinine Ratio (12.00-20.00) Ratio Glucose (70-110) mg/dL POC Glucose (mg/dL) 251 H 261 H (75-99) mg/dL 03/25/22 03/25/22 03/25/22 Range/Units 05:25 07:20 12:02 WBC (4.50-10.00) X 10*3/uL RBC (4.10-5.20) X 10*6/uL Hgb (12.0-15.0) g/dL Hct (37.2-46.3) % Immature Gran # (0.00-0.04) X 10*3/uL Neutrophils # (1.80-7.70) X 10*3/uL Eosinophils # (0.04-0.35) X 10*3/uL Carbon Dioxide 19.4 L (20.0-27.5) mmol/L BUN 43.1 H (9.0-27.0) mg/dL Creatinine 1.8 H (0.6-1.5) mg/dL Est GFR (CKD-EPI)AfAm 33.4 L (60.0-200.0) Est GFR (CKD-EPI)NonAf 28.9 L (60.0-200.0) BUN/Creatinine Ratio 23.55 H (12.00-20.00) Ratio Glucose 242 H (70-110) mg/dL POC Glucose (mg/dL) 251 H 250 H (75-99) mg/dL
[2022-03-25] MEDS: ALPRAZolam 0.25 MG TAB PO PRN ×2 (13:35→23:33)
[2022-03-25 14:01] LABS: Appearance,Urine Cloudy (Clear); Bacteria,Urine Rare /hpf; Bilirubin,Urine Negative (Negative); Blood,Urine Negative (Negative); Color,Urine Yellow; Glucose,Urine (UA) 3+ (Negative); Ketones,Urine Negative (Negative); Leukocyte Esterase,Urine Small (Negative); Nitrite,Urine Negative (Negative); Protein,Urine Trace (Negative); RBC,Urine <1 /hpf (0-5); Specific Gravity,Urine 1.023 (1.001-1.035); Squamous Epithelial Cell,Urine 8 /hpf (0-4); Urobilinogen,Urine <2.0 mg/dL (<2.0); WBC,Urine 2 /hpf (0-5)
--- NOTE | 2022-03-25 15:38 | P.PN ---
Subjective Progress Note Date: 03/25/22 Principal diagnosis: Acute COVID-19 infection and acute asthma exacerbation/severe persistent asthma with acute exacerbation A pleasant 61-year-old female patient is well-known to me. She is known to have severe persistent bronchial asthma/COPD along with obstructive sleep apnea. The patient is morbidly obese with a BMI 58.7. Around December of this current year, the patient was having increased symptoms of bronchitis and asthma exacerbation. At that point, I performed a bronchoscopy on her in the microbial cultures came back essentially negative. She was doing well and around 2 days ago, she started having increased dyspnea cough chest tightness and wheezing. She does have some loose diarrhea. No change in the taste or smell. She checked herself positive for COVID 19 on outpatient basis. This was confirmed after she came back to the hospital. Accordingly, the patient was hospitalized that the patient was found to have increased bronchospasm wheezing and shortness of breath. She is currently on IV Solu Medrol 60 mg every 6 hours. She is on room air oxygen. Her pulse ox is 94%. No altered mentation. No chest pain. No change in mental status. Outpatient medications have been resumed and the patient remains on Lovenox 30 mg subcu for DVT prophylaxis. Note that the patient has been vaccinated 2 for COVID 19 and she has not taken the booster s hot. Other blood work the patient also comes at 6.37 with a hemoglobin of 11.1. Normal coagulation profile. D-dimer is at 0.46. The BUN 33 with a creatinine of 1.6 and the sodium level of 138. LFTs are normal. CRP level is at 1.1. LDH level is at 211. Detrol calcitonin LEVEL IS AT 0.1. CHEST X-RAY SHOWING SOME PLEURAL REACTION LEFT LUNG BASE OTHERWISE NO OTHER ACUTE ABNORMALITIES NOTED. On 03/21/2022 patient seen in follow-up on medical surgical floor. She is awake and alert, in no acute distress, she is currently on room air with pulse ox of 94%, she sits up in the recliner, breathing seems to be nonlabored, she does get short of breath with exertion but no acute distress, with chest pain, she's been afebrile, vital signs have been stable overnight. Chest x-ray from admission showed mild pleural reaction at the left lung base, unchanged compared to previous chest x-ray from December 2021. Her labs from yesterday were reviewed showing white blood cell count is 6.3, hemoglobin was 11.1, electrolytes and renal profile were within normal limits, d-dimer was within normal limits, and so was a fibrinogen, electrolytes were within normal limits, renal profile was stable with BUN of 33.1, and creatinine of 1.6, ferritin LDH were within normal limits, troponin was negative, CRP was 1.1, pro calcitonin level was negative at 0.10. She has a very congested harsh cough, and she remains on IV Solu-Medrol at 60 mg every 6 hours, DuoNeb on an as-needed basis, she is on GI and DVT prophylaxis, multivitamins, she is on theophylline, and Spiriva. On 03/22/2022 patient seen in follow-up on medical surgical floor. Patient is awake and alert, still quite wheezy, was complaining of some chest tightness earlier, coughing. She was noted to be bradycardic earlier, her beta blockers are on hold. She continues on IV steroids with Solu-Medrol 60 mg every 6 hours, nebulized bronchodilators, Mucinex, she is on Symbicort, Spiriva and albuterol, she is on Tessalon pearls. She is on prophylactic dose of Lovenox 30 mg once a day, she had a negative pro calcitonin of 0.10. She tested positive for coarse with 19, she is being treated for acute exacerbation of severe persistent bronchial asthma, was possibly triggered by COVID-19 infection. On 03/23/2022 patient seen in follow-up on medical surgical floor. Patient states she feels a little improved, however still has a congested cough, but she is able to bring up some yellowish and greenish colored phlegm. No fever or c hills, vital signs have been stable, she is currently on 2 L of oxygen, her pulse ox is 99%. There is better air entry noted bilaterally on today's exam. No complaints of chest discomfort. Vital signs have been stable. Patient continues on high-dose IV steroids Solu-Medrol 60 mg every 6 hours, continues on inhaled bronchodilators. No hemoptysis, no chest tightness. No altered mentation. Continues on multivitamins. Today's labs show improving with ethyl, which is down to 11, hemoglobin is 11.5, sodium is 138, potassium is 4.2, chloride is 110, CO2 is 20, BUN is 36, creatinine is 1.5. The patient is seen today 03/24/2022 in follow-up on the regular medical floor. She is currently sitting up in a chair at the bedside. Awake and alert in no acute distress. She still has a loose congested cough. Still dyspneic with minimal exertion. Maintaining O2 saturations up to 99% on 2 L/m per nasal cannula. Afebrile. White count 15.9. Hemoglobin 12.2. Sodium 139. Potassium 4.3. Appropriate BUN 38. Creatinine 1.6. Glucose 254. She is continued on DuoNeb inhalations, Symbicort, IV Solu-Medrol, Spiriva and theophylline. Lovenox for DVT prophylaxis. Vitamin supplements. Reevaluated today on 03/25/2022, patient continues to have intermittent episodes cough and wheezing, shortness of breath, she is on 2 L nasal cannula and her O2 saturations 97%. Renal functioning is abnormal, and nephrology was consulted. However the patient came in with a creatinine of 1.69 and has been ranging between 1.69 and 1.8 over the last few days. Pulmonary-marin the patient continues to cough wheezing and continues to have shortness of breath. Objective - Vital Signs Vital signs: Vital Signs Temp 97.7 F 03/25/22 14:00 Pulse 113 H 03/25/22 14:00 Resp 20 03/25/22 14:00 BP 142/84 03/25/22 14:00 Pulse Ox 97 03/25/22 14:00 Intake & Output 03/24/22 03/25/22 03/25/22 18:59 06:59 18:59 Intake Total 888 Balance 888 Weight 145.603 kg Intake: Oral 888 Other: Voiding Method Toilet Toilet # Voids 2 2 - Exam GENERAL EXAM: Alert, morbidly obese 61-year-old female, on room air during my evaluation. Sitting in chair, and eating HEAD: Normocephalic/atraumatic. EYES: Normal reaction of pupils, equal size. Conjunctiva pink, sclera white. NOSE: Clear with pink turbinates. THROAT: No erythema or exudates. NECK: No masses, no JVD, no thyroid enlargement, no adenopathy. CHEST: No chest wall deformity. Symmetrical expansion. LUNGS: Diffuse rhonchi and wheezes bilaterally more so on forced expiratory maneuver. CVS: Regular rate and rhythm, normal S1 and S2, no gallops, no murmurs, no rubs ABDOMEN: Obese, Soft, nontender. No hepatosplenomegaly, normal bowel sounds, no guarding or rigidity. EXTREMITIES: No clubbing, no edema, no cyanosis, 2+ pulses and upper and lower extremities. CENTRAL NERVOUS SYSTEM: Alert oriented 3 no gross focal deficits. PSYCHIATRIC: Normal mood affect and normal mental status examination. Skin: No rashes - Labs CBC & Chem 7: 03/25/22 05:25 03/25/22 05:25 Labs: Abnormal Lab Results - Last 24 Hours (Table) 03/24/22 03/24/22 03/25/22 Range/Units 16:44 20:30 05:25 WBC 12.10 H (4.50-10.00) X 10*3/uL RBC 3.65 L (4.10-5.20) X 10*6/uL Hgb 10.8 L (12.0-15.0) g/dL Hct 33.5 L (37.2-46.3) % Immature Gran # 0.31 H (0.00-0.04) X 10*3/uL Neutrophils # 10.46 H (1.80-7.70) X 10*3/uL Eosinophils # 0 L (0.04-0.35) X 10*3/uL Carbon Dioxide (20.0-27.5) mmol/L BUN (9.0-27.0) mg/dL Creatinine (0.6-1.5) mg/dL Est GFR (CKD-EPI)AfAm (60.0-200.0) Est GFR (CKD-EPI)NonAf (60.0-200.0) BUN/Creatinine Ratio (12.00-20.00) Ratio Glucose (70-110) mg/dL POC Glucose (mg/dL) 251 H 261 H (75-99) mg/dL Urine Appearance (Clear) Urine Protein (Negative) Urine Glucose (UA) (Negative) Ur Leukocyte Esterase (Negative) Ur Squamous Epith Cells (0-4) /hpf Urine Bacteria (None) /hpf 03/25/22 03/25/22 03/25/22 Range/Units 05:25 07:20 12:02 WBC (4.50-10.00) X 10*3/uL RBC (4.10-5.20) X 10*6/uL Hgb (12.0-15.0) g/dL Hct (37.2-46.3) % Immature Gran # (0.00-0.04) X 10*3/uL Neutrophils # (1.80-7.70) X 10*3/uL Eosinophils # (0.04-0.35) X 10*3/uL Carbon Dioxide 19.4 L (20.0-27.5) mmol/L BUN 43.1 H (9.0-27.0) mg/dL Creatinine 1.8 H (0.6-1.5) mg/dL Est GFR (CKD-EPI)AfAm 33.4 L (60.0-200.0) Est GFR (CKD-EPI)NonAf 28.9 L (60.0-200.0) BUN/Creatinine Ratio 23.55 H (12.00-20.00) Ratio Glucose 242 H (70-110) mg/dL POC Glucose (mg/dL) 251 H 250 H (75-99) mg/dL Urine Appearance (Clear) Urine Protein (Negative) Urine Glucose (UA) (Negative) Ur Leukocyte Esterase (Negative) Ur Squamous Epith Cells (0-4) /hpf Urine Bacteria (None) /hpf 03/25/22 Range/Units 13:30 WBC (4.50-10.00) X 10*3/uL RBC (4.10-5.20) X 10*6/uL Hgb (12.0-15.0) g/dL Hct (37.2-46.3) % Immature Gran # (0.00-0.04) X 10*3/uL Neutrophils # (1.80-7.70) X 10*3/uL Eosinophils # (0.04-0.35) X 10*3/uL Carbon Dioxide (20.0-27.5) mmol/L BUN (9.0-27.0) mg/dL Creatinine (0.6-1.5) mg/dL Est GFR (CKD-EPI)AfAm (60.0-200.0) Est GFR (CKD-EPI)NonAf (60.0-200.0) BUN/Creatinine Ratio (12.00-20.00) Ratio Glucose (70-110) mg/dL POC Glucose (mg/dL) (75-99) mg/dL Urine Appearance Cloudy H (Clear) Urine Protein Trace H (Negative) Urine Glucose (UA) 3+ H (Negative) Ur Leukocyte Esterase Small H (Negative) Ur Squamous Epith Cells 8 H (0-4) /hpf Urine Bacteria Rare H (None) /hpf Assessment and Plan Assessment: 1 Acute COVID-19 infection, patient was previously vaccinated for COVID-19 2 with Moderna, no boosters. Chest x-ray did not show acute pneumonia 2 Acute exacerbation of severe persistent bronchial asthma 3 Shortness of breath, wheezing and chest tightness related to the above 4 History of multiple bilateral pulmonary nodules, all stable on computed tomography scan 5 Severe obstructive sleep apnea with AHI score of 63.8, and severe nocturnal oxygen desaturation awaiting CPAP titration 6 Psoriasis 7 Chronic lower extremity edema 8 history of diverticular disease 9 Hypertension 10 Hyperlipidemia 11 Borderline low IgG levels 12 Environmental ALLERGIES Plan: Continue present course of treatment Continue bronchodilators Continue IV steroids Titrate and possibly discontinue oxygen We'll continue to follow. Increase activity as tolerated Time with Patient: Less than 30
[2022-03-25 16:41] LABS: Glucose,Whole Blood 251 mg/dL (75-99)
[2022-03-25] MEDS: hydrALAZINE HCL 25 MG TAB PO SCH ×2 (17:04→21:23)
[2022-03-25] MEDS: ATORVASTATIN 20 MG TAB PO SCH (20:21)
[2022-03-25 20:26] LABS: Glucose,Whole Blood 298 mg/dL (75-99)
[2022-03-25] MEDS ORDERED: CALCIUM CARBONATE 500 MG CHEWABLE PO PRN (21:37)
[2022-03-26 02:31] LABS: African American GFR (CKD) 39 (>60 ml/min/1.73 sqM); Anion Gap 8 mmol/L; Blood Urea Nitrogen 48 mg/dL (7-17); Calcium 8.8 mg/dL (8.4-10.2); Carbon Dioxide 19 mmol/L (22-30); Chloride 107 mmol/L (98-107); Glucose 264 mg/dL (74-99); Magnesium 2.2 mg/dL (1.6-2.3); Non-African American GFR(CKD) 34 (>60 ml/min/1.73 sqM); Potassium 4.2 mmol/L (3.5-5.1); Sodium 134 mmol/L (137-145)
[2022-03-26] MEDS: methylPREDNISolone SOD SUCCI 125 MG/2 ML VIAL IV SCH ×2 (06:40→13:36)
[2022-03-26] MEDS: LEVOTHYROXINE 25 MCG TAB PO SCH (06:40)
[2022-03-26 07:09] LABS: Glucose,Whole Blood 253 mg/dL (75-99)
[2022-03-26] MEDS: BENZONATATE 100 MG CAP PO SCH ×3 (07:52→20:54)
[2022-03-26] MEDS: ACETAMINOPHEN TAB 325 MG TAB PO PRN ×3 (07:52→20:53)
[2022-03-26] MEDS: FUROSEMIDE 40 MG TAB PO SCH (07:52)
[2022-03-26] MEDS: BACLOFEN 10 MG TAB PO SCH ×2 (07:52→20:53)
[2022-03-26] MEDS: THEOPHYLLINE 24 HOUR 400 MG CAP.ER.24H PO SCH (07:53)
[2022-03-26] MEDS: ZINC SULFATE 220 MG CAP PO SCH (07:53)
[2022-03-26] MEDS: ASCORBIC ACID 500 MG TAB PO SCH (07:53)
[2022-03-26] MEDS: hydrALAZINE HCL 25 MG TAB PO SCH ×3 (07:53→20:53)
[2022-03-26] MEDS: LOSARTAN 25 MG TAB PO SCH ×2 (07:53→20:53)
[2022-03-26] MEDS: ALPRAZolam 0.25 MG TAB PO PRN ×2 (07:53→20:53)
[2022-03-26] MEDS: FAMOTIDINE 20 MG TAB PO SCH (07:53)
[2022-03-26] MEDS: guaiFENesin 600 MG TABLET.ER PO SCH ×2 (07:53→20:53)
[2022-03-26] MEDS: ENOXAPARIN 30 MG/0.3 ML SYRINGE SQ SCH (07:54)
[2022-03-26] MEDS: INSULIN DETEMIR (LEVEMIR) 100 UNIT/ML SYR SQ SCH ×2 (07:54→20:55)
[2022-03-26] MEDS: INSULIN ASPART (NovoLOG) 100 UNIT/ML VIAL SQ SCH ×4 (07:54→20:54)
[2022-03-26] MEDS: SODIUM BICARBONATE TAB 650 MG TAB PO SCH ×2 (07:54→20:53)
--- NOTE | 2022-03-26 08:21 | P.PN ---
Subjective Progress Note Date: 03/26/22 Principal diagnosis: This is a 61-year-old female seen in consultation because of acute kidney injury secondary to COVID-19, She came in because of shortness of breath cough. She's recently diagnosed with diabetes mellitus. Known also with chronic obstructive lung disease obstructive sleep apnea, on CPAP at home but on room air. She also had loose stools on admission which have resolved. Cough remains with some white to yellowish green sputum. Appetite is good. Her creatinine on admission was 1.69 had peaked to 1.8 as of yesterday and is down to 1.6 today. While signs are stable. Blood pressure is somewhat high in the 170s over 80-90 diastolic heart rate in the 50s to 70s afebrile. She is awake alert oriented comfortable on nasal cannula oxygen Objective - Vital Signs Vital signs: Vital Signs Temp 97.6 F 03/26/22 08:00 Pulse 55 L 03/26/22 08:00 Resp 19 03/26/22 08:00 BP 171/85 03/26/22 08:00 Pulse Ox 98 03/26/22 08:00 Intake & Output 03/25/22 03/26/22 03/26/22 18:59 06:59 18:59 Intake Total 1080 Output Total 3 Balance 1080 -3 Weight 145.603 kg Intake: Oral 1080 Output: Stool 3 Other: Voiding Method Toilet Toilet # Voids 4 3 On examination awake alert oriented comfortable on nasal cannula oxygen HEENT exam no JVP neck is supple no facial asymmetry Lungs are with an occasional end expiratory wheeze and occasional coarse crackle at bases. Heart sounds unremarkable for any murmur rub gallop abdomen is obese non-tender Extremities exam was mild edema of both her upper and lower extremities. Neurologically awake alert oriented - Labs CBC & Chem 7: 03/25/22 05:25 03/26/22 01:50 Labs: Abnormal Lab Results - Last 24 Hours (Table) 03/25/22 03/25/22 03/25/22 Range/Units 05:25 05:25 12:02 WBC 12.10 H (4.50-10.00) X 10*3/uL RBC 3.65 L (4.10-5.20) X 10*6/uL Hgb 10.8 L (12.0-15.0) g/dL Hct 33.5 L (37.2-46.3) % Immature Gran # 0.31 H (0.00-0.04) X 10*3/uL Neutrophils # 10.46 H (1.80-7.70) X 10*3/uL Eosinophils # 0 L (0.04-0.35) X 10*3/uL Sodium (137-145) mmol/L Carbon Dioxide 19.4 L (20.0-27.5) mmol/L BUN 43.1 H (9.0-27.0) mg/dL Creatinine 1.8 H (0.6-1.5) mg/dL Est GFR (CKD-EPI)AfAm 33.4 L (60.0-200.0) Est GFR (CKD-EPI)NonAf 28.9 L (60.0-200.0) BUN/Creatinine Ratio 23.55 H (12.00-20.00) Ratio Glucose 242 H (70-110) mg/dL POC Glucose (mg/dL) 250 H (75-99) mg/dL Urine Appearance (Clear) Urine Protein (Negative) Urine Glucose (UA) (Negative) Ur Leukocyte Esterase (Negative) Ur Squamous Epith Cells (0-4) /hpf Urine Bacteria (None) /hpf 03/25/22 03/25/22 03/25/22 Range/Units 13:30 16:39 20:14 WBC (4.50-10.00) X 10*3/uL RBC (4.10-5.20) X 10*6/uL Hgb (12.0-15.0) g/dL Hct (37.2-46.3) % Immature Gran # (0.00-0.04) X 10*3/uL Neutrophils # (1.80-7.70) X 10*3/uL Eosinophils # (0.04-0.35) X 10*3/uL Sodium (137-145) mmol/L Carbon Dioxide (20.0-27.5) mmol/L BUN (9.0-27.0) mg/dL Creatinine (0.6-1.5) mg/dL Est GFR (CKD-EPI)AfAm (60.0-200.0) Est GFR (CKD-EPI)NonAf (60.0-200.0) BUN/Creatinine Ratio (12.00-20.00) Ratio Glucose (70-110) mg/dL POC Glucose (mg/dL) 251 H 298 H (75-99) mg/dL Urine Appearance Cloudy H (Clear) Urine Protein Trace H (Negative) Urine Glucose (UA) 3+ H (Negative) Ur Leukocyte Esterase Small H (Negative) Ur Squamous Epith Cells 8 H (0-4) /hpf Urine Bacteria Rare H (None) /hpf 03/26/22 03/26/22 Range/Units 01:50 07:07 WBC (4.50-10.00) X 10*3/uL RBC (4.10-5.20) X 10*6/uL Hgb (12.0-15.0) g/dL Hct (37.2-46.3) % Immature Gran # (0.00-0.04) X 10*3/uL Neutrophils # (1.80-7.70) X 10*3/uL Eosinophils # (0.04-0.35) X 10*3/uL Sodium 134 L (137-145) mmol/L Carbon Dioxide 19 L (20.0-27.5) mmol/L BUN 48 H (9.0-27.0) mg/dL Creatinine 1.60 H (0.6-1.5) mg/dL Est GFR (CKD-EPI)AfAm (60.0-200.0) Est GFR (CKD-EPI)NonAf (60.0-200.0) BUN/Creatinine Ratio (12.00-20.00) Ratio Glucose 264 H (70-110) mg/dL POC Glucose (mg/dL) 253 H (75-99) mg/dL Urine Appearance (Clear) Urine Protein (Negative) Urine Glucose (UA) (Negative) Ur Leukocyte Esterase (Negative) Ur Squamous Epith Cells (0-4) /hpf Urine Bacteria (None) /hpf Assessment and Plan Assessment: Impression 1. Acute kidney injury, ATN secondary to call with COVID-19 pneumonia. Creatinine peaked from 1.69 on admission to 1.8 yesterday and improved to 1.6 this morning. Baseline creatinine 0.93 date 12/21/2021 2. Mild degree of non-gap acidosis secondary to acute kidney injury and diarrhea. Bicarb is stable at 19 3. Recent diagnosis of diabetes mellitus 4. Obstructive sleep apnea, edema, 5. Hypertension slightly about target Recommendation 1. Currently on Lasix 40 daily Will continue and watch. 2. Watch blood pressure. Expect the diuresis and increase medications will control her blood pressure 3. Continue sodium bicarbonate oral 4. Watch renal profile acidosis.
[2022-03-26 08:24] LABS: African American GFR (CKD) 38 (>60 ml/min/1.73 sqM); Anion Gap 12 mmol/L; Blood Urea Nitrogen 47 mg/dL (7-17); Calcium 9.1 mg/dL (8.4-10.2); Carbon Dioxide 20 mmol/L (22-30); Chloride 106 mmol/L (98-107); Glucose 270 mg/dL (74-99); Magnesium 2.3 mg/dL (1.6-2.3); Non-African American GFR(CKD) 33 (>60 ml/min/1.73 sqM); Potassium 4.6 mmol/L (3.5-5.1); Sodium 138 mmol/L (137-145)
[2022-03-26 08:37] LABS: Basophils # (A) 0.1 k/uL (0-0.2); Basophils % (A) 1 %; Eosinophils % (A) 0 %; HCT 39.7 % (34.0-46.0); HGB 12.8 gm/dL (11.4-16.0); Lymphocytes % (A) 7 %; MCH 30.3 pg (25.0-35.0); MCHC 32.1 g/dL (31.0-37.0); MCV 94.4 fL (80.0-100.0); Mean Platelet Volume 8.5; Monocytes # (A) 0.4 k/uL (0-1.0); Monocytes % (A) 3 %; Neutrophils # (A) 12.9 k/uL (1.3-7.7); Neutrophils % (A) 89 %; Platelet Count 375 k/uL (150-450); RBC 4.21 m/uL (3.80-5.40); RDW 13.9 % (11.5-15.5); WBC 14.5 k/uL (3.8-10.6)
[2022-03-26] MEDS: SYMBICORT 160-4.5 MCG INHALER INHALATION SCH ×2 (08:49→20:16)
[2022-03-26] MEDS: TIOTROPIUM 2.5 MCG INHALER INHALATION SCH (08:49)
[2022-03-26] MEDS: ALBUTEROL HFA INHALER INHALATION SCH ×4 (08:49→20:16)
[2022-03-26 11:38] LABS: Glucose,Whole Blood 281 mg/dL (75-99)
--- NOTE | 2022-03-26 14:09 | P.PN ---
Subjective Progress Note Date: 03/26/22 A pleasant 61-year-old female patient is well-known to me. She is known to have severe persistent bronchial asthma/COPD along with obstructive sleep apnea. The patient is morbidly obese with a BMI 58.7. Around December of this current year, the patient was having increased symptoms of bronchitis and asthma exacerbation. At that point, I performed a bronchoscopy on her in the microbial cultures came back essentially negative. She was doing well and around 2 days ago, she started having increased dyspnea cough chest tightness and wheezing. She does have some loose diarrhea. No change in the taste or smell. She checked herself positive for COVID 19 on outpatient basis. This was confirmed after she came back to the hospital. Accordingly, the patient was hospitalized that the patient was found to have increased bronchospasm wheezing and shortness of breath. She is currently on IV Solu Medrol 60 mg every 6 hours. She is on room air oxygen. Her pulse ox is 94%. No altered mentation. No chest pain. No change in mental status. Outpatient medications have been resumed and the patient remains on Lovenox 30 mg subcu for DVT prophylaxis. Note that the patient has been vaccinated 2 for COVID 19 and she has not taken the booster shot. Other blood work the patient also comes at 6.37 with a hemoglobin of 11.1. Normal coagulation profile. D-dimer is at 0.46. The BUN 33 with a cr eatinine of 1.6 and the sodium level of 138. LFTs are normal. CRP level is at 1.1. LDH level is at 211. Detrol calcitonin LEVEL IS AT 0.1. CHEST X-RAY SHOWING SOME PLEURAL REACTION LEFT LUNG BASE OTHERWISE NO OTHER ACUTE ABNORMALITIES NOTED. On 03/21/2022 patient seen in follow-up on medical surgical floor. She is awake and alert, in no acute distress, she is currently on room air with pulse ox of 94%, she sits up in the recliner, breathing seems to be nonlabored, she does get short of breath with exertion but no acute distress, with chest pain, she's been afebrile, vital signs have been stable overnight. Chest x-ray from admission showed mild pleural reaction at the left lung base, unchanged compared to previous chest x-ray from December 2021. Her labs from yesterday were reviewed showing white blood cell count is 6.3, hemoglobin was 11.1, electrolytes and renal profile were within normal limits, d-dimer was within normal limits, and so was a fibrinogen, electrolytes were within normal limits, renal profile was stable with BUN of 33.1, and creatinine of 1.6, ferritin LDH were within normal limits, troponin was negative, CRP was 1.1, pro calcitonin level was negative at 0.10. She has a very congested harsh cough, and she remains on IV Solu-Medrol at 60 mg every 6 hours, DuoNeb on an as-needed basis, she is on GI and DVT prophylaxis, multivitamins, she is on theophylline, and Spiriva. On 03/22/2022 patient seen in follow-up on medical surgical floor. Patient is awake and alert, still quite wheezy, was complaining of some chest tightness earlier, coughing. She was noted to be bradycardic earlier, her beta blockers are on hold. She continues on IV steroids with Solu-Medrol 60 mg every 6 hours, nebulized bronchodilators, Mucinex, she is on Symbicort, Spiriva and albuterol, she is on Tessalon pearls. She is on prophylactic dose of Lovenox 30 mg once a day, she had a negative pro calcitonin of 0.10. She tested positive for coarse with 19, she is being treated for acute exacerbation of severe persistent bronchial asthma, was possibly triggered by COVID-19 infection. On 03/23/2022 patient seen in follow-up on medical surgical floor. Patient states she feels a little improved, however still has a congested cough, but she is able to bring up some yellowish and greenish colored phlegm. No fever or chills, vital signs have been stable, she is currently on 2 L of oxygen, her pulse ox is 99%. There is better air entry noted bilaterally on today's exam. No complaints of chest discomfort. Vital signs have been stable. Patient continues on high-dose IV steroids Solu-Medrol 60 mg every 6 hours, continues on inhaled bronchodilators. No hemoptysis, no chest tightness. No altered mentation. Continues on multivitamins. Today's labs show improving with ethyl, which is down to 11, hemoglobin is 11.5, sodium is 138, potassium is 4.2, chloride is 110, CO2 is 20, BUN is 36, creatinine is 1.5. The patient is seen today 03/24/2022 in follow-up on the regular medical floor. She is currently sitting up in a chair at the bedside. Awake and alert in no acute distress. She still has a loose congested cough. Still dyspneic with minimal exertion. Maintaining O2 saturations up to 99% on 2 L/m per nasal cannula. Afebrile. White count 15.9. Hemoglobin 12.2. Sodium 139. Potassium 4.3. Appropriate BUN 38. Creatinine 1.6. Glucose 254. She is continued on DuoNeb inhalations, Symbicort, IV Solu-Medrol, Spiriva and theophylline. Lovenox for DVT prophylaxis. Vitamin supplements. The patient is seen today 03/26/2022 in follow-up on the regular medical floor. She is awake and alert in no acute distress. Sitting up in a chair at the bedside. She is better. She still has some end expiratory wheeze. She is on oxygen at 2 L/m per nasal cannula with O2 saturations up to 99%. She is utilizing CPAP at night. She's afebrile. White count 14.5. Hemoglobin 12.8. Sodium 138. Potassium 4.6. Bicarb 20. BUN 47. Creatinine 1.66. Glucose 270. Troponin negative. She remains on Symbicort, albuterol, theophylline, Spiriva, prednisone. Lovenox for DVT prophylaxis. Vitamin supplements. Levemir and Humalog for glucose control. Objective - Vital Signs Vital signs: Vital Signs Temp 97.8 F 03/26/22 14:00 Pulse 73 03/26/22 14:00 Resp 18 03/26/22 14:00 BP 169/95 03/26/22 14:00 Pulse Ox 99 03/26/22 14:00 Intake & Output 03/25/22 03/26/22 03/26/22 18:59 06:59 18:59 Intake Total 1080 Output Total 3 Balance 1080 -3 Weight 145.603 kg Intake: Oral 1080 Output: Stool 3 Other: Voiding Method Toilet Toilet Toilet # Voids 4 3 - Exam GENERAL EXAM: Alert, morbidly obese 61-year-old female, on 2 l/min with a pulse ox of 99%, sitting up in a recliner, comfortable in no apparent distress. HEAD: Normocephalic/atraumatic. EYES: Normal reaction of pupils, equal size. Conjunctiva pink, sclera white. NOSE: Clear with pink turbinates. THROAT: No erythema or exudates. NECK: No masses, no JVD, no thyroid enlargement, no adenopathy. CHEST: No chest wall deformity. Symmetrical expansion. LUNGS: Equal air entry with end expiratory wheezes, bilateral scattered rhonchi CVS: Regular rate and rhythm, normal S1 and S2, no gallops, no murmurs, no rubs ABDOMEN: Soft, nontender. No hepatosplenomegaly, normal bowel sounds, no guarding or rigidity. EXTREMITIES: No clubbing, no edema, no cyanosis, 2+ pulses and upper and lower extremities. MUSCULOSKELETAL: Muscle strength and tone normal. SPINE: No scoliosis or deformity SKIN: No rashes CENTRAL NERVOUS SYSTEM: No focal deficits, tone is normal in all 4 extremities. PSYCHIATRIC: Alert and oriented -3. Appropriate affect. Intact judgment and insight. - Labs CBC & Chem 7: 03/26/22 08:03 03/26/22 08:03 Labs: Abnormal Lab Results - Last 24 Hours (Table) 03/25/22 03/25/22 03/26/22 Range/Units 16:39 20:14 01:50 WBC (3.8-10.6) k/uL Neutrophils # (1.3-7.7) k/uL Sodium 134 L (137-145) mmol/L Carbon Dioxide 19 L (22-30) mmol/L BUN 48 H (7-17) mg/dL Creatinine 1.60 H (0.52-1.04) mg/dL Glucose 264 H (74-99) mg/dL POC Glucose (mg/dL) 251 H 298 H (75-99) mg/dL 03/26/22 03/26/22 03/26/22 Range/Units 07:07 08:03 08:03 WBC 14.5 H (3.8-10.6) k/uL Neutrophils # 12.9 H (1.3-7.7) k/uL Sodium (137-145) mmol/L Carbon Dioxide 20 L (22-30) mmol/L BUN 47 H (7-17) mg/dL Creatinine 1.66 H (0.52-1.04) mg/dL Glucose 270 H (74-99) mg/dL POC Glucose (mg/dL) 253 H (75-99) mg/dL 03/26/22 Range/Units 11:37 WBC (3.8-10.6) k/uL Neutrophils # (1.3-7.7) k/uL Sodium (137-145) mmol/L Carbon Dioxide (22-30) mmol/L BUN (7-17) mg/dL Creatinine (0.52-1.04) mg/dL Glucose (74-99) mg/dL POC Glucose (mg/dL) 281 H (75-99) mg/dL Assessment and Plan Assessment: 1 Acute COVID-19 infection, patient was previously vaccinated for COVID-19 2 with Moderna, no boosters. Chest x-ray did not show acute pneumonia 2 Acute exacerbation of severe persistent chronic bronchial asthma 3 Shortness of breath, wheezing and chest tightness related to the above 4 History of multiple bilateral pulmonary nodules, all stable on computed tomography scan 5 Severe obstructive sleep apnea with AHI score of 63.8, and severe nocturnal oxygen desaturation awaiting CPAP titration 6 Psoriasis 7 Chronic lower extremity edema 8 The reticular disease 9 Hypertension 10 Hyperlipidemia 11 Borderline low IgG levels 12 Environmental ALLERGIES Plan: The patient was seen and evaluated Improved but not quite back to her baseline Continue the current treatment plan Titrate down the FiO2 as tolerated Increase her activity as tolerated Probable home in the next 24-48 hours We will continue to follow I have personally seen and examined the patient, performed the documentation and the assessment and plan as written. Number of minutes spent on the visit: 10.
--- NOTE | 2022-03-26 14:10 | P.PN ---
Subjective History of Present Illness H&P Date: 03/19/22 Chief Complaint: hypoxemia 61 year old female with hypertension , DM, COPD, WILSON patient comes in due to hypoxemia , she has been having URI symptoms for the past 4 days , she tested positive for covid at home, reporting fever, chills, s ore throat, cough, diffuse muscle aches. she monitors her Oxygen and today was pretty low in the mid 80s% for which she decided to come in for evaluation , denies any recent hospitalization, or history of blood clots. she uses CPAP at home, with setting of 16 cm H2O denies any smoking, illicit drugs. or heavy alcohol in the ED, upon evaluation she was not hypoxic, and satting well on room air, however, she was noted to be wheezing . blood work showed MARLYN, with lactic acidosis CXR no acute changes , she has pleural reaction unchanged Interval history: Patient wasn't examined at the bedside. She is s complaining of shortness of breath with minimal exertion with dry cough. She is currently on 2 L nasal cannula. Physical examination: GENERAL EXAM: Alert, morbidly obese 61-year-old female, on 2 l/min with a pulse ox of 99%, sitting up in a recliner comfortable in no apparent distress. HEAD: Normocephalic/atraumatic. EYES: Normal reaction of pupils, equal size. Conjunctiva pink, sclera white. NOSE: Clear with pink turbinates. THROAT: No erythema or exudates. NECK: No masses, no JVD, no thyroid enlargement, no adenopathy. CHEST: No chest wall deformity. Symmetrical expansion. LUNGS: Equal air entry with diffuse wheezes, bilateral scattered rhonchi CVS: Regular rate and rhythm, normal S1 and S2, no gallops, no murmurs, no rubs ABDOMEN: Soft, nontender. No hepatosplenomegaly, normal bowel sounds, no guarding or rigidity. EXTREMITIES: No clubbing, no edema, no cyanosis, 2+ pulses and upper and lower extremities. MUSCULOSKELETAL: Muscle strength and tone normal. SPINE: No scoliosis or deformity SKIN: No rashes CENTRAL NERVOUS SYSTEM: No focal deficits, tone is normal in all 4 extremities. PSYCHIATRIC: Alert and oriented -3. Appropriate affect. Intact judgment and insight. Assessment and plan: #Acute exacerbation of severe persistent bronchial asthma #Acute COVID-19 infection, patient was previously vaccinated for COVID-19 2 with Moderna, no boosters. Chest x-ray did not show acute pneumonia -Resume DuoNeb inhalations, Symbicort, Spiriva and theophylline. - Change IV steroids to prednisone 40 mg daily for 5 days -Pulmonary following. #Asystematic bradycardia secondary to beta krista -Cardiology consulted. -Cardiology held beta krista. #History of multiple bilateral pulmonary nodules, -Stable on CAT scan per pulmonary #Super morbid Obesity BMI is 58 with Obstructive sleep apnea -We'll need outpatient sleep study #Chest pain secondary to above -Acute coronary syndrome has been ruled out -Negative D-dimer -Lower extremity Doppler negative for DVT -Cardiology evaluated the patient -History of normal left heart catheterization 2016 #Type II diabetes mellitus -A1c 7.1 -Resume Scale insulin and Levemir -Metformin on hold #Psoriasis #Chronic lower extremity edema -2-D echo showed left ventricular hypertrophy with preserved LV systolic function. Technically difficult study despite Definity contrast -Lower Extremity Doppler negative for DVT -Nephrology restarted Lasix #Acute kidney injury Versus chronic kidney disease -Consult nephrology #Uncontrolled Hypertension -Resume losartan -Increase hydralazine to 75 daily #Hyperlipidemia #Borderline low IgG level #Environmental ALLERGIES #Lovenox for DVT prophylaxis. Objective - Vital Signs Vital signs: Vital Signs Temp 97.6 F 03/26/22 08:00 Pulse 55 L 03/26/22 08:00 Resp 19 03/26/22 08:00 BP 171/85 03/26/22 08:00 Pulse Ox 99 03/26/22 08:51 Intake & Output 03/25/22 03/26/22 03/26/22 18:59 06:59 18:59 Intake Total 1080 Output Total 3 Balance 1080 -3 Weight 145.603 kg Intake: Oral 1080 Output: Stool 3 Other: Voiding Method Toilet Toilet Toilet # Voids 4 3 - Labs CBC & Chem 7: 03/26/22 08:03 03/26/22 08:03 Labs: Abnormal Lab Results - Last 24 Hours (Table) 03/25/22 03/25/22 03/25/22 Range/Units 13:30 16:39 20:14 WBC (3.8-10.6) k/uL Neutrophils # (1.3-7.7) k/uL Sodium (137-145) mmol/L Carbon Dioxide (22-30) mmol/L BUN (7-17) mg/dL Creatinine (0.52-1.04) mg/dL Glucose (74-99) mg/dL POC Glucose (mg/dL) 251 H 298 H (75-99) mg/dL Urine Appearance Cloudy H (Clear) Urine Protein Trace H (Negative) Urine Glucose (UA) 3+ H (Negative) Ur Leukocyte Esterase Small H (Negative) Ur Squamous Epith Cells 8 H (0-4) /hpf Urine Bacteria Rare H (None) /hpf 03/26/22 03/26/22 03/26/22 Range/Units 01:50 07:07 08:03 WBC 14.5 H (3.8-10.6) k/uL Neutrophils # 12.9 H (1.3-7.7) k/uL Sodium 134 L (137-145) mmol/L Carbon Dioxide 19 L (22-30) mmol/L BUN 48 H (7-17) mg/dL Creatinine 1.60 H (0.52-1.04) mg/dL Glucose 264 H (74-99) mg/dL POC Glucose (mg/dL) 253 H (75-99) mg/dL Urine Appearance (Clear) Urine Protein (Negative) Urine Glucose (UA) (Negative) Ur Leukocyte Esterase (Negative) Ur Squamous Epith Cells (0-4) /hpf Urine Bacteria (None) /hpf 03/26/22 03/26/22 Range/Units 08:03 11:37 WBC (3.8-10.6) k/uL Neutrophils # (1.3-7.7) k/uL Sodium (137-145) mmol/L Carbon Dioxide 20 L (22-30) mmol/L BUN 47 H (7-17) mg/dL Creatinine 1.66 H (0.52-1.04) mg/dL Glucose 270 H (74-99) mg/dL POC Glucose (mg/dL) 281 H (75-99) mg/dL Urine Appearance (Clear) Urine Protein (Negative) Urine Glucose (UA) (Negative) Ur Leukocyte Esterase (Negative) Ur Squamous Epith Cells (0-4) /hpf Urine Bacteria (None) /hpf
[2022-03-26] MEDS: predniSONE 20 MG TAB PO SCH (15:39)
[2022-03-26] MEDS: FLUTICASONE 50MCG/SPRAY NASAL 16GM EA NOSTRIL SCH ×2 (15:39→20:55)
[2022-03-26 16:28] LABS: Glucose,Whole Blood 276 mg/dL (75-99)
[2022-03-26 20:45] LABS: Glucose,Whole Blood 266 mg/dL (75-99)
[2022-03-26] MEDS: ATORVASTATIN 20 MG TAB PO SCH (20:54)
[2022-03-26] MEDS: CALCIUM CARBONATE 500 MG CHEWABLE PO PRN (21:09)
[2022-03-26] MEDS ORDERED: diphenhydrAMINE 25 MG CAP PO STA (23:14)
[2022-03-27] MEDS: ALPRAZolam 0.25 MG TAB PO PRN ×2 (04:52→13:06)
[2022-03-27] MEDS: ACETAMINOPHEN TAB 325 MG TAB PO PRN ×2 (04:52→21:06)
[2022-03-27] MEDS: LEVOTHYROXINE 25 MCG TAB PO SCH (05:52)
[2022-03-27 07:40] LABS: Glucose,Whole Blood 160 mg/dL (75-99)
[2022-03-27] MEDS: SODIUM BICARBONATE TAB 650 MG TAB PO SCH ×2 (07:51→21:07)
[2022-03-27] MEDS: hydrALAZINE HCL 25 MG TAB PO SCH ×3 (07:51→21:06)
[2022-03-27] MEDS: ZINC SULFATE 220 MG CAP PO SCH (07:51)
[2022-03-27] MEDS: CALCIUM CARBONATE 500 MG CHEWABLE PO PRN ×2 (07:51→17:50)
[2022-03-27] MEDS: predniSONE 20 MG TAB PO SCH (07:51)
[2022-03-27] MEDS: BENZONATATE 100 MG CAP PO SCH ×3 (07:51→21:07)
[2022-03-27] MEDS: guaiFENesin 600 MG TABLET.ER PO SCH ×2 (07:51→21:07)
[2022-03-27] MEDS: FUROSEMIDE 40 MG TAB PO SCH ×3 (07:51→17:50)
[2022-03-27] MEDS: INSULIN DETEMIR (LEVEMIR) 100 UNIT/ML SYR SQ SCH ×2 (07:52→21:06)
[2022-03-27] MEDS: FAMOTIDINE 20 MG TAB PO SCH (07:52)
[2022-03-27] MEDS: LOSARTAN 25 MG TAB PO SCH ×2 (07:52→21:07)
[2022-03-27] MEDS: ENOXAPARIN 30 MG/0.3 ML SYRINGE SQ SCH (07:52)
[2022-03-27] MEDS: THEOPHYLLINE 24 HOUR 400 MG CAP.ER.24H PO SCH (07:52)
[2022-03-27] MEDS: ASCORBIC ACID 500 MG TAB PO SCH (07:52)
[2022-03-27] MEDS: BACLOFEN 10 MG TAB PO SCH ×2 (07:52→21:07)
[2022-03-27] MEDS: INSULIN ASPART (NovoLOG) 100 UNIT/ML VIAL SQ SCH ×4 (07:52→21:05)
--- NOTE | 2022-03-27 07:59 | P.PN ---
Subjective Progress Note Date: 03/27/22 Principal diagnosis: This is a 61-year-old female seen in consultation because of acute kidney injury secondary to COVID-19, She came in because of shortness of breath cough. She's recently diagnosed with diabetes mellitus. Known also with chronic obstructive lung disease obstructive sleep apnea, on CPAP at home but on room air. She also had loose stools on admission which have resolved. Cough remains with some white to yellowish green sputum. Appetite is good. Remains on oxygen. Her creatinine on admission was 1.69 had peaked to 1.8 and is down to 1.6 yesterday. Last today are pending. Blood pressure is in the 145 systolic to 163 systolic with diastolics in the 70s to 80s. Afebrile. 24-hour intake is 1080 output is none documented well Objective - Vital Signs Vital signs: Vital Signs Temp 97.7 F 03/27/22 06:27 Pulse 74 03/27/22 06:27 Resp 18 03/27/22 06:27 BP 163/89 03/27/22 06:27 Pulse Ox 100 03/27/22 06:27 Intake & Output 03/26/22 03/27/22 03/27/22 18:59 06:59 18:59 Other: Voiding Method Toilet Toilet # Voids 3 3 Patient was examined from the doorway, because of the COVID . she has edema this both in upper extremities as well as lower extremities. She is on room air comfortable eating her breakfast - Labs CBC & Chem 7: 03/26/22 08:03 03/26/22 08:03 Labs: Abnormal Lab Results - Last 24 Hours (Table) 03/26/22 03/26/22 03/26/22 Range/Units 08:03 08:03 11:37 WBC 14.5 H (3.8-10.6) k/uL Neutrophils # 12.9 H (1.3-7.7) k/uL Carbon Dioxide 20 L (22-30) mmol/L BUN 47 H (7-17) mg/dL Creatinine 1.66 H (0.52-1.04) mg/dL Glucose 270 H (74-99) mg/dL POC Glucose (mg/dL) 281 H (75-99) mg/dL 05/07/22 05/07/22 05/08/22 Range/Units 16:27 20:41 07:39 WBC (3.8-10.6) k/uL Neutrophils # (1.3-7.7) k/uL Carbon Dioxide (22-30) mmol/L BUN (7-17) mg/dL Creatinine (0.52-1.04) mg/dL Glucose (74-99) mg/dL POC Glucose (mg/dL) 276 H 266 H 160 H (75-99) mg/dL Assessment and Plan Assessment: Impression 1. Acute kidney injury, ATN secondary secondary to COVID-19 pneumonia. Creatinine peaked from 1.69 on admission to 1.8 and improved to 1.6, labs today are pending. Baseline creatinine 0.93 date 12/21/2021 2. Mild degree of non-gap acidosis secondary to acute kidney injury and diarrhea. Bicarb is stable improved to 20 3. Recent diagnosis of diabetes mellitus 4. Obstructive sleep apnea, edema, 5. Hypertension slightly about target Recommendation 1. Currently on Lasix 40 daily, she was taking at home 40 twice a day we will resume 40 twice a day because of the edema and high blood pressure. 2. Watch blood pressure. Expect the diuresis and increase medications will control her blood pressure 3. Continue sodium bicarbonate oral 4. Watch renal profile acidosis.
--- NOTE | 2022-03-27 08:33 | P.PN ---
Subjective History of Present Illness H&P Date: 03/19/22 Chief Complaint: hypoxemia 61 year old female with hypertension , DM, COPD, WIL[facility] patient comes in due to hypoxemia , she has been having URI symptoms for the past 4 days , she tested positive for covid at home, reporting fever, chills, s ore throat, cough, diffuse muscle aches. she monitors her Oxygen and today was pretty low in the mid 80s% for which she decided to come in for evaluation , denies any recent hospitalization, or history of blood clots. she uses CPAP at home, with setting of 16 cm H2O denies any smoking, illicit drugs. or heavy alcohol in the ED, upon evaluation she was not hypoxic, and satting well on room air, however, she was noted to be wheezing . blood work showed MARLYN, with lactic acidosis CXR no acute changes , she has pleural reaction unchanged Interval history: Patient was seen and examined at the bedside. She is reporting improvement with her shortness of breath.. She is currently on 2 L nasal cannula. Physical examination: GENERAL EXAM: Alert, morbidly obese 61-year-old female, on 2 l/min with a pulse ox of 99%, sitting up in a recliner comfortable in no apparent distress. HEAD: Normocephalic/atraumatic. EYES: Normal reaction of pupils, equal size. Conjunctiva pink, sclera white. NOSE: Clear with pink turbinates. THROAT: No erythema or exudates. NECK: No masses, no JVD, no thyroid enlargement, no adenopathy. CHEST: No chest wall deformity. Symmetrical expansion. LUNGS: Equal air entry with diffuse wheezes, bilateral scattered rhonchi CVS: Regular rate and rhythm, normal S1 and S2, no gallops, no murmurs, no rubs ABDOMEN: Soft, nontender. No hepatosplenomegaly, normal bowel sounds, no guarding or rigidity. EXTREMITIES: No clubbing, no edema, no cyanosis, 2+ pulses and upper and lower extremities. MUSCULOSKELETAL: Muscle strength and tone normal. SPINE: No scoliosis or deformity SKIN: No rashes CENTRAL NERVOUS SYSTEM: No focal deficits, tone is normal in all 4 extremities. PSYCHIATRIC: Alert and oriented -3. Appropriate affect. Intact judgment and insight. Assessment and plan: #Acute exacerbation of severe persistent bronchial asthma #Acute COVID-19 infection, patient was previously vaccinated for COVID-19 2 with Moderna, no boosters. Chest x-ray did not show acute pneumonia -Resume DuoNeb inhalations, Symbicort, Spiriva and theophylline. - Change IV steroids to prednisone 40 mg daily for 5 days -Pulmonary following. #Asymptomatic bradycardia secondary to beta krista -Cardiology consulted. -Cardiology held beta krista. #History of multiple bilateral pulmonary nodules, -Stable on CAT scan per pulmonary #Super morbid Obesity BMI is 58 with Obstructive sleep apnea -Patient was counseled regarding diet and weight loss -We'll need outpatient sleep study #Chest pain secondary to above -Acute coronary syndrome has been ruled out -Negative D-dimer -Lower extremity Doppler negative for DVT -Cardiology evaluated the patient -Beta krista held by cardiology due to bradycardia -History of normal left heart catheterization 2016 #Type II diabetes mellitus -A1c 7.1 -Resume Scale insulin and Levemir -Metformin on hold #Psoriasis #Chronic lower extremity edema -2-D echo showed left ventricular hypertrophy with preserved LV systolic function. Technically difficult study despite Definity contrast -Lower Extremity Doppler negative for DVT -Nephrology restarted Lasix #Acute kidney injury -Improving -Appreciate nephrology input #Uncontrolled Hypertension -Resume losartan -Increased hydralazine to 75 daily #Hyperlipidemia #Borderline low IgG level #Environmental ALLERGIES #Lovenox for DVT prophylaxis. Anticipated discharge March 28 Objective - Vital Signs Vital signs: Vital Signs Temp 97.7 F 03/27/22 06:27 Pulse 74 03/27/22 06:27 Resp 18 03/27/22 06:27 BP 163/89 03/27/22 06:27 Pulse Ox 100 03/27/22 06:27 Intake & Output 03/26/22 03/27/22 03/27/22 18:59 06:59 18:59 Other: Voiding Method Toilet Toilet # Voids 3 3 - Labs CBC & Chem 7: 03/26/22 08:03 03/26/22 08:03 Labs: Abnormal Lab Results - Last 24 Hours (Table) 03/26/22 03/26/22 03/26/22 Range/Units 08:03 11:37 16:27 WBC 14.5 H (3.8-10.6) k/uL Neutrophils # 12.9 H (1.3-7.7) k/uL POC Glucose (mg/dL) 281 H 276 H (75-99) mg/dL 03/26/22 03/27/22 Range/Units 20:41 07:39 WBC (3.8-10.6) k/uL Neutrophils # (1.3-7.7) k/uL POC Glucose (mg/dL) 266 H 160 H (75-99) mg/dL
[2022-03-27] MEDS: SYMBICORT 160-4.5 MCG INHALER INHALATION SCH ×2 (09:08→20:43)
[2022-03-27] MEDS: ALBUTEROL HFA INHALER INHALATION SCH ×4 (09:08→20:43)
[2022-03-27] MEDS: TIOTROPIUM 2.5 MCG INHALER INHALATION SCH (09:08)
[2022-03-27] MEDS: FLUTICASONE 50MCG/SPRAY NASAL 16GM EA NOSTRIL SCH ×2 (11:13→21:08)
[2022-03-27 11:25] LABS: Glucose,Whole Blood 206 mg/dL (75-99)
[2022-03-27 11:42] LABS: African American GFR (CKD) 35.1 (60.0-200.0); Anion Gap 10.9 mmol/L (10.00-18.00); BUN/Creat Ratio 23.75 Ratio (12.00-20.00); Blood Urea Nitrogen 41.8 mg/dL (9.0-27.0); Calcium 9.2 mg/dL (8.7-10.3); Carbon Dioxide 21.7 mmol/L (20.0-27.5); Non-African American GFR(CKD) 30.3 (60.0-200.0); Potassium 4.2 mmol/L (3.5-5.5)
[2022-03-27 12:45] LABS: Acanthocytes 2+; Basophils # (A) 0.03 X 10*3/uL (0.00-0.10); Basophils % (A) 0.2 %; Eosinophils # (A) 0.01 X 10*3/uL (0.04-0.35); Eosinophils % (A) 0.1 %; HCT 34.5 % (37.2-46.3); HGB 11.2 g/dL (12.0-15.0); Immature Grans, Automated 4.4 %; Lymphocytes # (A) 1.74 X 10*3/uL (0.90-5.00); MCH 29.5 pg (27.0-32.0); MCHC 32.5 g/dL (32.0-37.0); MCV 90.8 fL (80.0-97.0); Mean Platelet Volume 11.3 fL (9.5-12.2); Monocytes # (A) 1.08 X 10*3/uL (0.20-1.00); Monocytes % (A) 6.2 %; NRBC Per 100 WBC 0.1 /100 WBCS (0.0-0.0); Neutrophils # (A) 13.84 X 10*3/uL (1.80-7.70); Neutrophils % (A) 79.1 %; Platelet Count 300 X 10*3/uL (140-440); RDW 13.7 % (11.5-14.5); WBC 17.47 X 10*3/uL (4.50-10.00)
[2022-03-27 16:36] LABS: Glucose,Whole Blood 231 mg/dL (75-99)
[2022-03-27 20:26] LABS: Glucose,Whole Blood 198 mg/dL (75-99)
[2022-03-27] MEDS: ATORVASTATIN 20 MG TAB PO SCH (21:08)
[2022-03-28] MEDS: ALPRAZolam 0.25 MG TAB PO PRN ×3 (00:14→17:49)
[2022-03-28] MEDS: ACETAMINOPHEN TAB 325 MG TAB PO PRN ×2 (03:58→22:32)
[2022-03-28] MEDS: LEVOTHYROXINE 25 MCG TAB PO SCH (05:49)
[2022-03-28 07:22] LABS: Glucose,Whole Blood 107 mg/dL (75-99)
[2022-03-28] MEDS: INSULIN ASPART (NovoLOG) 100 UNIT/ML VIAL SQ SCH ×4 (08:26→20:52)
[2022-03-28] MEDS: hydrALAZINE HCL 25 MG TAB PO SCH ×3 (08:27→20:52)
[2022-03-28] MEDS: THEOPHYLLINE 24 HOUR 400 MG CAP.ER.24H PO SCH (08:27)
[2022-03-28] MEDS: predniSONE 20 MG TAB PO SCH (08:27)
[2022-03-28] MEDS: SODIUM BICARBONATE TAB 650 MG TAB PO SCH ×2 (08:27→20:53)
[2022-03-28] MEDS: FAMOTIDINE 20 MG TAB PO SCH (08:27)
[2022-03-28] MEDS: INSULIN DETEMIR (LEVEMIR) 100 UNIT/ML SYR SQ SCH ×2 (08:27→20:53)
[2022-03-28] MEDS: FUROSEMIDE 40 MG TAB PO SCH ×2 (08:28→16:23)
[2022-03-28] MEDS: ZINC SULFATE 220 MG CAP PO SCH (08:28)
[2022-03-28] MEDS: guaiFENesin 600 MG TABLET.ER PO SCH ×2 (08:28→20:53)
[2022-03-28] MEDS: LOSARTAN 25 MG TAB PO SCH ×2 (08:28→20:53)
[2022-03-28] MEDS: FLUTICASONE 50MCG/SPRAY NASAL 16GM EA NOSTRIL SCH ×2 (08:28→20:53)
[2022-03-28] MEDS: ASCORBIC ACID 500 MG TAB PO SCH (08:28)
[2022-03-28] MEDS: BENZONATATE 100 MG CAP PO SCH ×3 (08:28→20:52)
[2022-03-28] MEDS: BACLOFEN 10 MG TAB PO SCH ×2 (08:28→20:53)
[2022-03-28] MEDS: ENOXAPARIN 30 MG/0.3 ML SYRINGE SQ SCH (08:28)
[2022-03-28] MEDS ORDERED: VANCOMYCIN IV PER PHARMACY 1 EACH MISC MISCELLANE PRN (09:17)
[2022-03-28] MEDS: ALBUTEROL HFA INHALER INHALATION SCH ×4 (09:19→19:24)
[2022-03-28] MEDS: TIOTROPIUM 2.5 MCG INHALER INHALATION SCH (09:20)
[2022-03-28] MEDS: SYMBICORT 160-4.5 MCG INHALER INHALATION SCH ×2 (09:20→19:25)
[2022-03-28 09:24] LABS: African American GFR (CKD) 34.1 (60.0-200.0); Albumin 3.9 g/dL (3.8-4.9); Albumin/Globulin Ratio 1.95 (1.60-3.17); Anion Gap 12.9 mmol/L (10.00-18.00); BUN/Creat Ratio 22.94 Ratio (12.00-20.00); Blood Urea Nitrogen 41.3 mg/dL (9.0-27.0); Calcium 9.2 mg/dL (8.7-10.3); Carbon Dioxide 23.1 mmol/L (20.0-27.5); Non-African American GFR(CKD) 29.4 (60.0-200.0); Potassium 3.7 mmol/L (3.5-5.5); Total Bilirubin 0.8 mg/dL (0.30-1.20); Total Protein 5.9 g/dL (6.2-8.2)
[2022-03-28] MEDS ORDERED: CIPROFLOXACIN/DEXTROSE PMX 400 MG in DEXTROSE/WATER 1 200ML.BAG IVPB SCH (09:30)
--- NOTE | 2022-03-28 09:32 | P.PN ---
Subjective Progress Note Date: 03/28/22 Pt still feeling run down and fatigued. Short of breath on exertion. Increasing sputum production. Able to give sample today, growing GPCs, GPRs, GNRs. WBC increasing as of yesterday, today's labs pending. Gen: awake, alert HEENT: normocephalic, atraumatic, good hearing acuity, moist mucous membranes Resp: good air exchange, breathing comfortably with no accessory muscle use, end-expiratory wheezing CVS: good distal perfusion x 4, RRR, no murmurs GI: soft, NTTP, ND : no SPT, no CVAT, vela catheter not present MSK: no pitting edema, no clubbing Neuro: non-focal, moving all extremities Psych: cooperative, euthymic mood Assessment/plan: #Acute exacerbation of severe persistent bronchial asthma #Acute COVID-19 infection, patient was previously vaccinated for COVID-19 2 with Moderna, no boosters. Chest x-ray did not show acute pneumonia #Community Acquired Pneumonia in patient with multiple abx allergies -Resume DuoNeb inhalations, Symbicort, Spiriva and theophylline. - Change IV steroids to prednisone 40 mg daily for 5 days -Pulmonary following. - ID consulted - empirically started on vancomycin, ciprofloxacin #Asymptomatic bradycardia secondary to beta krista -Cardiology consulted. -Cardiology held beta krista. #History of multiple bilateral pulmonary nodules, -Stable on CAT scan per pulmonary #Super morbid Obesity BMI is 58 with Obstructive sleep apnea -Patient was counseled regarding diet and weight loss -We'll need outpatient sleep study #Chest pain secondary to above -Acute coronary syndrome has been ruled out -Negative D-dimer -Lower extremity Doppler negative for DVT -Cardiology evaluated the patient -Beta krista held by cardiology due to bradycardia -History of normal left heart catheterization 2017 #Type II diabetes mellitus -A1c 7.1 -Resume Scale insulin and Levemir -Metformin on hold #Psoriasis #Chronic lower extremity edema -2-D echo showed left ventricular hypertrophy with preserved LV systolic function. Technically difficult study despite Definity contrast -Lower Extremity Doppler negative for DVT -Nephrology restarted Lasix #Acute kidney injury -Improving -Appreciate nephrology input #Uncontrolled Hypertension -Resume losartan -Increased hydralazine to 75 daily #Hyperlipidemia #Environmental ALLERGIES - resume statin - theophylline - benadryl PRN #Lovenox for DVT prophylaxis. Objective - Vital Signs Vital signs: Vital Signs Temp 97.3 F L 03/28/22 08:00 Pulse 86 03/28/22 08:00 Resp 18 03/28/22 08:00 BP 144/80 03/28/22 08:00 Pulse Ox 99 03/28/22 08:00 Intake & Output 03/27/22 03/28/22 03/28/22 18:59 06:59 18:59 Output Total 1 Balance -1 Output: Stool 1 Other: Voiding Method Toilet Toilet # Voids 3 5 # Bowel Movements 1 - Labs CBC & Chem 7: 03/27/22 06:54 03/28/22 04:09 Labs: Abnormal Lab Results - Last 24 Hours (Table) 03/27/22 03/27/22 03/27/22 Range/Units 06:54 06:54 11:24 WBC 17.47 H (4.50-10.00) X 10*3/uL RBC 3.80 L (4.10-5.20) X 10*6/uL Hgb 11.2 L (12.0-15.0) g/dL Hct 34.5 L (37.2-46.3) % Absolute Nucleated RBC 0.02 H (0.00-0.00) X 10*3/uL Immature Gran # 0.77 H (0.00-0.04) X 10*3/uL Neutrophils # 13.84 H (1.80-7.70) X 10*3/uL Monocytes # 1.08 H (0.20-1.00) X 10*3/uL Eosinophils # 0.01 L (0.04-0.35) X 10*3/uL NRBC/100 WBC Diff 0.1 H (0.0-0.0) /100 WBCS BUN 41.8 H (9.0-27.0) mg/dL Creatinine 1.8 H (0.6-1.5) mg/dL Est GFR (CKD-EPI)AfAm 35.1 L (60.0-200.0) Est GFR (CKD-EPI)NonAf 30.3 L (60.0-200.0) BUN/Creatinine Ratio 23.75 H (12.00-20.00) Ratio Glucose 186 H (70-110) mg/dL POC Glucose (mg/dL) 206 H (75-99) mg/dL Total Protein (6.2-8.2) g/dL 03/27/22 03/27/22 03/28/22 Range/Units 16:34 20:22 04:09 WBC (4.50-10.00) X 10*3/uL RBC (4.10-5.20) X 10*6/uL Hgb (12.0-15.0) g/dL Hct (37.2-46.3) % Absolute Nucleated RBC (0.00-0.00) X 10*3/uL Immature Gran # (0.00-0.04) X 10*3/uL Neutrophils # (1.80-7.70) X 10*3/uL Monocytes # (0.20-1.00) X 10*3/uL Eosinophils # (0.04-0.35) X 10*3/uL NRBC/100 WBC Diff (0.0-0.0) /100 WBCS BUN 41.3 H (9.0-27.0) mg/dL Creatinine 1.8 H (0.6-1.5) mg/dL Est GFR (CKD-EPI)AfAm 34.1 L (60.0-200.0) Est GFR (CKD-EPI)NonAf 29.4 L (60.0-200.0) BUN/Creatinine Ratio 22.94 H (12.00-20.00) Ratio Glucose 114 H (70-110) mg/dL POC Glucose (mg/dL) 231 H 198 H (75-99) mg/dL Total Protein 5.9 L (6.2-8.2) g/dL 03/28/22 Range/Units 07:20 WBC (4.50-10.00) X 10*3/uL RBC (4.10-5.20) X 10*6/uL Hgb (12.0-15.0) g/dL Hct (37.2-46.3) % Absolute Nucleated RBC (0.00-0.00) X 10*3/uL Immature Gran # (0.00-0.04) X 10*3/uL Neutrophils # (1.80-7.70) X 10*3/uL Monocytes # (0.20-1.00) X 10*3/uL Eosinophils # (0.04-0.35) X 10*3/uL NRBC/100 WBC Diff (0.0-0.0) /100 WBCS BUN (9.0-27.0) mg/dL Creatinine (0.6-1.5) mg/dL Est GFR (CKD-EPI)AfAm (60.0-200.0) Est GFR (CKD-EPI)NonAf (60.0-200.0) BUN/Creatinine Ratio (12.00-20.00) Ratio Glucose (70-110) mg/dL POC Glucose (mg/dL) 107 H (75-99) mg/dL Total Protein (6.2-8.2) g/dL Microbiology - Last 24 Hours (Table) 03/27/22 12:40 Gram Stain - Preliminary Sputum Sputum Culture - Preliminary
[2022-03-28 09:35] LABS: HCT 38.5 % (37.2-46.3); HGB 12.2 g/dL (12.0-15.0); MCH 29.5 pg (27.0-32.0); MCHC 31.7 g/dL (32.0-37.0); Mean Platelet Volume 10.6 fL (9.5-12.2); NRBC Per 100 WBC 0 /100 WBCS (0.0-0.0); Platelet Count 308 X 10*3/uL (140-440); RBC 4.14 X 10*6/uL (4.10-5.20); WBC 20.45 X 10*3/uL (4.50-10.00)
[2022-03-28] MEDS ORDERED: VANCOMYCIN 2,000 MG in SODIUM CHLORIDE 0.9% 500 ML 500 ML IVPB ONE (10:00)
[2022-03-28 10:36] LABS: Basophils # (A) 0.09 X 10*3/uL (0.00-0.10); Basophils % (A) 0.4 %; Eosinophils # (A) 0.02 X 10*3/uL (0.04-0.35); Eosinophils % (A) 0.1 %; Immature Grans, Automated 3.3 %; Lymphocytes # (A) 3.67 X 10*3/uL (0.90-5.00); Lymphocytes % (A) 17.9 %; Monocytes # (A) 1.75 X 10*3/uL (0.20-1.00); Monocytes % (A) 8.6 %; Neutrophils # (A) 14.24 X 10*3/uL (1.80-7.70); Neutrophils % (A) 69.7 %; RBC Morphology NORMAL
[2022-03-28] MEDS ORDERED: POTASSIUM CHLORIDE ER 20 MEQ TAB.ER PO STA (11:13)
--- NOTE | 2022-03-28 11:14 | P.PN ---
Subjective Patient is seen in follow-up for acute kidney injury. Renal function stable. Coughing up yellow phlegm. On 2 L nasal cannula. Blood pressure stable. Good urine output. Vital signs are stable. General: Awake and alert. No acute distress. HEENT: Head exam is unremarkable. LUNGS: Breath sounds decreased. HEART: Rate and Rhythm are regular. ABDOMEN: Soft, obese. EXTREMITITES: 1+ edema. Objective - Vital Signs Vital signs: Vital Signs Temp 97.3 F L 03/28/22 08:00 Pulse 86 03/28/22 08:00 Resp 18 03/28/22 08:00 BP 144/80 03/28/22 08:00 Pulse Ox 99 03/28/22 08:00 Intake & Output 03/27/22 03/28/22 03/28/22 18:59 06:59 18:59 Output Total 1 Balance -1 Output: Stool 1 Other: Voiding Method Toilet Toilet # Voids 3 5 # Bowel Movements 1 - Labs CBC & Chem 7: 03/28/22 04:09 03/28/22 04:09 Labs: Abnormal Lab Results - Last 24 Hours (Table) 03/27/22 03/27/22 03/27/22 Range/Units 06:54 06:54 11:24 WBC 17.47 H (4.50-10.00) X 10*3/uL RBC 3.80 L (4.10-5.20) X 10*6/uL Hgb 11.2 L (12.0-15.0) g/dL Hct 34.5 L (37.2-46.3) % MCHC (32.0-37.0) g/dL Absolute Nucleated RBC 0.02 H (0.00-0.00) X 10*3/uL Immature Gran # 0.77 H (0.00-0.04) X 10*3/uL Neutrophils # 13.84 H (1.80-7.70) X 10*3/uL Monocytes # 1.08 H (0.20-1.00) X 10*3/uL Eosinophils # 0.01 L (0.04-0.35) X 10*3/uL NRBC/100 WBC Diff 0.1 H (0.0-0.0) /100 WBCS BUN 41.8 H (9.0-27.0) mg/dL Creatinine 1.8 H (0.6-1.5) mg/dL Est GFR (CKD-EPI)AfAm 35.1 L (60.0-200.0) Est GFR (CKD-EPI)NonAf 30.3 L (60.0-200.0) BUN/Creatinine Ratio 23.75 H (12.00-20.00) Ratio Glucose 186 H (70-110) mg/dL POC Glucose (mg/dL) 206 H (75-99) mg/dL Total Protein (6.2-8.2) g/dL 03/27/22 03/27/22 03/28/22 Range/Units 16:34 20:22 04:09 WBC 20.45 H (4.50-10.00) X 10*3/uL RBC (4.10-5.20) X 10*6/uL Hgb (12.0-15.0) g/dL Hct (37.2-46.3) % MCHC 31.7 L (32.0-37.0) g/dL Absolute Nucleated RBC (0.00-0.00) X 10*3/uL Immature Gran # 0.68 H (0.00-0.04) X 10*3/uL Neutrophils # 14.24 H (1.80-7.70) X 10*3/uL Monocytes # 1.75 H (0.20-1.00) X 10*3/uL Eosinophils # 0.02 L (0.04-0.35) X 10*3/uL NRBC/100 WBC Diff (0.0-0.0) /100 WBCS BUN (9.0-27.0) mg/dL Creatinine (0.6-1.5) mg/dL Est GFR (CKD-EPI)AfAm (60.0-200.0) Est GFR (CKD-EPI)NonAf (60.0-200.0) BUN/Creatinine Ratio (12.00-20.00) Ratio Glucose (70-110) mg/dL POC Glucose (mg/dL) 231 H 198 H (75-99) mg/dL Total Protein (6.2-8.2) g/dL 03/28/22 03/28/22 Range/Units 04:09 07:20 WBC (4.50-10.00) X 10*3/uL RBC (4.10-5.20) X 10*6/uL Hgb (12.0-15.0) g/dL Hct (37.2-46.3) % MCHC (32.0-37.0) g/dL Absolute Nucleated RBC (0.00-0.00) X 10*3/uL Immature Gran # (0.00-0.04) X 10*3/uL Neutrophils # (1.80-7.70) X 10*3/uL Monocytes # (0.20-1.00) X 10*3/uL Eosinophils # (0.04-0.35) X 10*3/uL NRBC/100 WBC Diff (0.0-0.0) /100 WBCS BUN 41.3 H (9.0-27.0) mg/dL Creatinine 1.8 H (0.6-1.5) mg/dL Est GFR (CKD-EPI)AfAm 34.1 L (60.0-200.0) Est GFR (CKD-EPI)NonAf 29.4 L (60.0-200.0) BUN/Creatinine Ratio 22.94 H (12.00-20.00) Ratio Glucose 114 H (70-110) mg/dL POC Glucose (mg/dL) 107 H (75-99) mg/dL Total Protein 5.9 L (6.2-8.2) g/dL Microbiology - Last 24 Hours (Table) 03/27/22 12:40 Gram Stain - Preliminary Sputum Sputum Culture - Preliminary Assessment and Plan Plan: Assessment: 1. Acute kidney injury secondary to ATN secondary to covid-19 infection. Creatinine stable in the range of 1.6-1.8 this admission. Creatinine on 12/21/2021 was 0.93. Renal ultrasound showed no evidence of hydronephrosis. 2. Acute hypoxic respiratory failure secondary to acute COVID-19 infection and exacerbation. 3. Diabetes mellitus. 4. Metabolic acidosis secondary to acute kidney injury and diarrhea. On oral bicarb. Better. 5. Hypertension with chronic disease. Exacerbated by steroids. Stable. 6. Volume overload. 7. Acute on chronic diastolic CHF. Plan: Maintain oral Lasix 40 mg twice daily. For today's evening dose, will give Lasix IV. Encouraged oral intake. Continue with losartan for now as blood pressure not low. Continue to monitor renal function and urine output. Monitor vancomycin levels. Dose to be adjusted for renal function. Replace potassium.
[2022-03-28 11:51] LABS: Glucose,Whole Blood 203 mg/dL (75-99)
[2022-03-28] MEDS: CALCIUM CARBONATE 500 MG CHEWABLE PO PRN ×2 (12:34→18:05)
--- NOTE | 2022-03-28 13:04 | XR ---
EXAMINATION TYPE: XR chest 1V portable DATE OF EXAM: 03/28/2022 CLINICAL HISTORY: Difficulty breathing positive COVID. TECHNIQUE: Single AP portable upright view of the chest is obtained. COMPARISON: Chest x-ray from 6 days earlier FINDINGS: No suspicious focal airspace opacity, pleural effusion, or pneumothorax seen bilaterally. Cardiac silhouette size is stable and mildly enlarged. Overlying EKG leads. IMPRESSION: Mild cardiomegaly without acute pulmonary process.
--- NOTE | 2022-03-28 14:11 | P.PN ---
Subjective Progress Note Date: 03/28/22 Principal diagnosis: Shortness of breath A pleasant 61-year-old female patient is well-known to me. She is known to have severe persistent bronchial asthma/COPD along with obstructive sleep apnea. The patient is morbidly obese with a BMI 58.7. Around December of this current year, the patient was having increased symptoms of bronchitis and asthma exacerbation. At that point, I performed a bronchoscopy on her in the microbial cultures came back essentially negative. She was doing well and around 2 days ago, she started having increased dyspnea cough chest tightness and wheezing. She does have some loose diarrhea. No change in the taste or smell. She checked herself positive for COVID 19 on outpatient basis. This was confirmed after she came back to the hospital. Accordingly, the patient was hospitalized that the patient was found to have increased bronchospasm wheezing and shortness of breath. She is currently on IV Solu Medrol 60 mg every 6 hours. She is on room air oxygen. Her pulse ox is 94%. No altered mentation. No chest pain. No change in mental status. Outpatient medications have been resumed and the patient remains on Lovenox 30 mg subcu for DVT prophylaxis. Note that the patient has been vaccinated 2 for COVID 19 and she has not taken the booster shot. Other blood work the patient also comes at 6.37 with a hemoglobin of 11.1. Normal coagulation profile. D-dimer is at 0.46. The BUN 33 with a creatinine of 1.6 and the sodium level of 138. LFTs are normal. CRP level is at 1.1. LDH level is at 211. Detrol calcitonin LEVEL IS AT 0.1. CHEST X-RAY SHOWING SOME PLEURAL REACTION LEFT LUNG BASE OTHERWISE NO OTHER ACUTE ABNORM ALITIES NOTED. On 03/21/2022 patient seen in follow-up on medical surgical floor. She is awake and alert, in no acute distress, she is currently on room air with pulse ox of 94%, she sits up in the recliner, breathing seems to be nonlabored, she does get short of breath with exertion but no acute distress, with chest pain, she's been afebrile, vital signs have been stable overnight. Chest x-ray from admission showed mild pleural reaction at the left lung base, unchanged compared to previous chest x-ray from December 2021. Her labs from yesterday were reviewed showing white blood cell count is 6.3, hemoglobin was 11.1, electrolytes and renal profile were within normal limits, d-dimer was within normal limits, and so was a fibrinogen, electrolytes were within normal limits, renal profile was stable with BUN of 33.1, and creatinine of 1.6, ferritin LDH were within normal limits, troponin was negative, CRP was 1.1, pro calcitonin level was negative at 0.10. She has a very congested harsh cough, and she remains on IV Solu-Medrol at 60 mg every 6 hours, DuoNeb on an as-needed basis, she is on GI and DVT prophylaxis, multivitamins, she is on theophylline, and Spiriva. On 03/22/2022 patient seen in follow-up on medical surgical floor. Patient is awake and alert, still quite wheezy, was complaining of some chest tightness earlier, coughing. She was noted to be bradycardic earlier, her beta blockers are on hold. She continues on IV steroids with Solu-Medrol 60 mg every 6 hours, nebulized bronchodilators, Mucinex, she is on Symbicort, Spiriva and albuterol, she is on Tessalon pearls. She is on prophylactic dose of Lovenox 30 mg once a day, she had a negative pro calcitonin of 0.10. She tested positive for coarse with 19, she is being treated for acute exacerbation of severe persistent bronchial asthma, was possibly triggered by COVID-19 infection. On 03/23/2022 patient seen in follow-up on medical surgical floor. Patient states she feels a little improved, however still has a congested cough, but she is able to bring up some yellowish and greenish colored phlegm. No fever or chills, vital signs have been stable, she is currently on 2 L of oxygen, her pulse ox is 99%. There is better air entry noted bilaterally on today's exam. No complaints of chest discomfort. Vital signs have been stable. Patient continues on high-dose IV steroids Solu-Medrol 60 mg every 6 hours, continues on inhaled bronchodilators. No hemoptysis, no chest tightness. No altered mentation. Continues on multivitamins. Today's labs show improving with ethyl, which is down to 11, hemoglobin is 11.5, sodium is 138, potassium is 4.2, chloride is 110, CO2 is 20, BUN is 36, creatinine is 1.5. On 03/28/2022 patient seen in follow-up on medical surgical floor. Patient is still congested, vital signs have been stable, she has been slow to improve, patient is being treated for acute exacerbation of severe persistent chronic bronchial asthma. Patient has been tolerating ambulation in the room and to the bathroom. Patient was started on ciprofloxacin and vancomycin. Sputum culture Gram stain showed moderate PMNs, moderate gram-positive bacilli and few gram- negative bacilli and few gram-positive cocci. These labs have been reviewed, white blood cell count 20, hemoglobin is 12.2, electrolytes are unremarkable, BUN is 41, and creatinine is 1.8. Patient continues on Symbicort, prophylactic anticoagulation, GI and DVT prophylaxis, oral Lasix has been added, she is in multivitamins, she is on Symbicort and Spiriva. Nephrology is following, patient is on oral sodium bicarb. No nausea vomiting or diarrhea. Tolerating oral intake. Objective - Vital Signs Vital signs: Vital Signs Temp 97.3 F L 03/28/22 08:00 Pulse 86 03/28/22 08:00 Resp 18 03/28/22 08:00 BP 144/80 03/28/22 08:00 Pulse Ox 99 03/28/22 08:00 Intake & Output 03/27/22 03/28/22 03/28/22 18:59 06:59 18:59 Output Total 1 Balance -1 Output: Stool 1 Other: Voiding Method Toilet Toilet # Voids 3 5 # Bowel Movements 1 - Exam GENERAL EXAM: Alert, very pleasant, 61-year-old white female, on 2 l/min with a pulse ox of 98%, sitting up in a recliner comfortable in no apparent distress. HEAD: Normocephalic/atraumatic. EYES: Normal reaction of pupils, equal size. Conjunctiva pink, sclera white. NOSE: Clear with pink turbinates. THROAT: No erythema or exudates. NECK: No masses, no JVD, no thyroid enlargement, no adenopathy. CHEST: No chest wall deformity. Symmetrical expansion. LUNGS: Equal air entry with diffuse wheezes, congestive cough, CVS: Regular rate and rhythm, normal S1 and S2, no gallops, no murmurs, no rubs ABDOMEN: Soft, nontender. No hepatosplenomegaly, normal bowel sounds, no guarding or rigidity. EXTREMITIES: No clubbing, no edema, no cyanosis, 2+ pulses and upper and lower extremities. MUSCULOSKELETAL: Muscle strength and tone normal. SPINE: No scoliosis or deformity SKIN: No rashes CENTRAL NERVOUS SYSTEM: Alert and oriented -3. No focal deficits, tone is normal in all 4 extremities. PSYCHIATRIC: Alert and oriented -3. Appropriate affect. Intact judgment and insight. - Labs CBC & Chem 7: 03/28/22 04:09 03/28/22 04:09 Labs: Abnormal Lab Results - Last 24 Hours (Table) 03/27/22 03/27/22 03/28/22 Range/Units 16:34 20:22 04:09 WBC 20.45 H (4.50-10.00) X 10*3/uL MCHC 31.7 L (32.0-37.0) g/dL Immature Gran # 0.68 H (0.00-0.04) X 10*3/uL Neutrophils # 14.24 H (1.80-7.70) X 10*3/uL Monocytes # 1.75 H (0.20-1.00) X 10*3/uL Eosinophils # 0.02 L (0.04-0.35) X 10*3/uL BUN (9.0-27.0) mg/dL Creatinine (0.6-1.5) mg/dL Est GFR (CKD-EPI)AfAm (60.0-200.0) Est GFR (CKD-EPI)NonAf (60.0-200.0) BUN/Creatinine Ratio (12.00-20.00) Ratio Glucose (70-110) mg/dL POC Glucose (mg/dL) 231 H 198 H (75-99) mg/dL Total Protein (6.2-8.2) g/dL 03/28/22 03/28/22 03/28/22 Range/Units 04:09 07:20 11:50 WBC (4.50-10.00) X 10*3/uL MCHC (32.0-37.0) g/dL Immature Gran # (0.00-0.04) X 10*3/uL Neutrophils # (1.80-7.70) X 10*3/uL Monocytes # (0.20-1.00) X 10*3/uL Eosinophils # (0.04-0.35) X 10*3/uL BUN 41.3 H (9.0-27.0) mg/dL Creatinine 1.8 H (0.6-1.5) mg/dL Est GFR (CKD-EPI)AfAm 34.1 L (60.0-200.0) Est GFR (CKD-EPI)NonAf 29.4 L (60.0-200.0) BUN/Creatinine Ratio 22.94 H (12.00-20.00) Ratio Glucose 114 H (70-110) mg/dL POC Glucose (mg/dL) 107 H 203 H (75-99) mg/dL Total Protein 5.9 L (6.2-8.2) g/dL Microbiology - Last 24 Hours (Table) 03/27/22 12:40 Gram Stain - Preliminary Sputum Sputum Culture - Preliminary Assessment and Plan Plan: Assessment: #1. Acute COVID-19 infection, patient was previously vaccinated for COVID-19 2 with Moderna, no boosters. Chest x-ray did not show acute pneumonia, patient is on room air, patient's inflammatory markers are not significantly elevated, d- dimer is negative #2. Acute exacerbation of severe persistent bronchial asthma #3. Shortness of breath, wheezing and chest tightness related to the above #4. History of multiple bilateral pulmonary nodules, all stable on computed tomography scan #5. Severe obstructive sleep apnea with AHI score of 63.8, and severe nocturnal oxygen desaturation awaiting CPAP titration #6. Psoriasis #7. Chronic lower extremity edema #8. The reticular disease #9. Hypertension #10. Hyperlipidemia #11. Borderline low IgG levels #12. Environmental ALLERGIES Plan: Patient has been slow to improve Vital signs have been stable,, afebrile Still congestive bronchospastic Continue prednisone, inhaled bronchodilators, antibiotics per ID service re commendations Today's chest x-ray has been reviewed showing no suspicious focal airspace opacity We'll continue to follow and make further recommendations Continue prophylactic anticoagulation Obtain follow-up pro-calcitonin I have personally seen and examined the patient, performed the documentation and the assessment and plan as written. Number of minutes spent on the visit: [10] Time with Patient: Less than 30
[2022-03-28] MEDS ORDERED: FLUCONAZOLE 100 MG TAB PO ONE (15:42)
[2022-03-28] MEDS ORDERED: FUROSEMIDE 10 MG/ML 4 ML VIAL IV ONE (16:00)
[2022-03-28] MEDS: FLUCONAZOLE 100 MG TAB PO SCH (16:22)
[2022-03-28 16:47] LABS: Glucose,Whole Blood 267 mg/dL (75-99)
[2022-03-28 20:19] LABS: Glucose,Whole Blood 219 mg/dL (75-99)
[2022-03-28] MEDS: ATORVASTATIN 20 MG TAB PO SCH (20:53)
--- NOTE | 2022-03-28 23:03 | P.CONS ---
History of Present Illness - Reason for Consult Consult date: 03/28/22 Pneumonia and multiple antibiotic ALLERGIES Requesting physician: Cecy Singletary - Chief Complaint Shortness of breath and cough x few days - History of Present Illness Patient is a 61-year-old female with multiple comorbidities including COPD presented to hospital on 03/19/2022 for evaluation of increasing shortness of breath and fatigue and this patient apparently tested positive for COVID on 03/16/2022 but did have symptoms of for few days prior to that patient on presentation to the hospital was afebrile and she did not have any fever over the last 9 days patient COVID test was positive patient did have a normal white count on presentation to the hospital subsequently her white count has been trending up with a white count of 20,000 today and a left shift patient did have a elevated BUN and creatinine, patient did have a negative UA patient chest x- ray on admission mild pleural reaction to left lung base, patient has been complaining of shortness of breath, currently on a 2 L nasal cannula patient also have a cough moderate intensity and is bringing up some greenish sputum no hemoptysis denies any pleuritic chest pain no nausea no vomiting no abdominal pain or any diarrhea, patient did have multiple antibiotic allergies has been empirically started on IV Cipro and vancomycin infectious disease was consulted for further management of antibiotics Review of Systems Positive point has been mentioned in the HPI rest of the systems are negative Past Medical History Past Medical History: Asthma, Cancer, COPD, Diabetes Mellitus, Eye Disorder, Hyperlipidemia, Hypertension, Musculoskeletal Disorder, Osteoarthritis (OA), Pneumonia, Skin Disorder, Sleep Apnea/CPAP/BIPAP, Thyroid Disorder Additional Past Medical History / Comment(s): Migraine headache, glaucoma, obesity, severe persistent bronchial asthma, diverticular disease, environmental allergies,multiple bilat pulmonary nodules, psoriasis, edema BLE. Basal cell skin cancer. Pericarditis. Uses CPAP. Pneumonia 12/03/21 ongoing History of Any Multi-Drug Resistant Organisms: None Reported Past Surgical History: Appendectomy, Orthopedic Surgery, Tonsillectomy Additional Past Surgical History / Comment(s): D&C, colonoscopy 2015, bronchoscopy, Bilat Knee arthroscopy, skin cancer removal Past Anesthesia/Blood Transfusion Reactions: Motion Sickness, Postoperative Nausea & Vomiting (PONV) Smoking Status: Never smoker - Past Family History Brother(s) Family Medical History: Cancer Additional Family Medical History / Comment(s): blood cancer Father Family Medical History: Cancer Additional Family Medical History / Comment(s): Colon cancer. Skin cancer. Mother Family Medical History: Cancer, Diabetes Mellitus, Hypertension Additional Family Medical History / Comment(s): SKIN CA, Medications and Allergies Home Medications Medication Instructions Recorded Confirmed Type Levothyroxine Sodium [Synthroid] 25 mcg PO HS 05/27/15 03/19/22 History Losartan Potassium 50 mg PO BID 05/27/15 03/19/22 History Theophylline 24 Hour [Erick-24] 400 mg PO DAILY 12/12/16 03/19/22 History Baclofen 10 mg PO BID 09/28/17 03/19/22 History Ipratropium-Albuterol Nebulize 3 ml INHALATION RT-QID 09/28/17 03/19/22 History [Duoneb 0.5 mg-3 mg/3 ml Soln] Multivit with Calcium,Iron,Min 1 tab PO DAILY 04/02/19 03/19/22 History [Women's Multivitamin] Cholecalciferol [Vitamin D3 (25 50 mcg PO DAILY 12/16/21 03/19/22 History Mcg = 1000 Iu)] Diclofenac Sodium Gel [Voltaren 2 gm TOPICAL QID PRN 12/16/21 03/19/22 History Gel] Fluticasone Nasal [place] [Flonase 1 spr EA NOSTRIL BID 12/16/21 03/19/22 History Nasal [place]] Metoprolol Tartrate [Lopressor] 25 mg PO BID 12/16/21 03/19/22 History Tiotropium 2.5 Mcg/Puff [Spiriva 2 puff INHALATION RT-DAILY 12/16/21 03/19/22 History Respimat 2.5 Mcg] Albuterol Sulfate [Albuterol 1 puff INHALATION RT-QID PRN 03/19/22 03/19/22 History Sulfate Hfa] Ascorbic Acid [Vitamin C] 1,000 mg PO DAILY 03/19/22 03/19/22 History Atorvastatin [Lipitor] 10 mg PO HS 03/19/22 03/22/22 History Fluticasone Propion/Salmeterol 1 puff INHALATION RT-BID 03/19/22 03/19/22 History [Fluticasone-Salmeterol 250-50] Furosemide [Lasix] 80 mg PO DAILY 03/19/22 03/19/22 History Zinc 50 mg PO DAILY 03/19/22 03/19/22 History metFORMIN HCL [Glucophage] 500 mg PO BID 03/19/22 03/19/22 History Allergies Allergy/AdvReac Type Severity Reaction Status Date / Time cefaclor [From Ceclor] Allergy Anaphylaxis Verified 03/19/22 20:06 latex Allergy Rash/Hives Verified 03/19/22 20:06 levofloxacin [From Levaquin] Allergy Burning Verified 03/19/22 20:06 sensatin on feet sulfamethoxazole Allergy Anaphylaxis Verified 03/19/22 20:06 [From Bactrim] trimethoprim [From Bactrim] Allergy Anaphylaxis Verified 03/19/22 20:06 amlodipine AdvReac Angioedema Verified 03/19/22 20:06 amoxicillin trihydrate AdvReac Nausea & Verified 03/19/22 20:06 [From Augmentin] Vomiting celecoxib [From Celebrex] AdvReac weight gain Verified 03/19/22 20:06 doxycycline AdvReac Nausea & Verified 03/19/22 20:06 Vomiting ferrous sulfate AdvReac Nausea & Verified 03/19/22 20:06 Vomiting & Diarrhea montelukast [From Singulair] AdvReac hyperactivity, Verified 03/19/22 20:06 weight gain naproxen [From Aleve] AdvReac Angioedema Verified 03/19/22 20:06 potassium clavulanate AdvReac Nausea & Verified 03/19/22 20:06 [From Augmentin] Vomiting rofecoxib [From Vioxx] AdvReac weight gain Verified 03/19/22 20:06 Physical Exam Vitals: Vital Signs Temp Pulse Resp BP Pulse Ox 03/28/22 08:00 97.3 F L 86 18 144/80 99 03/28/22 01:44 97.5 F L 86 17 133/77 99 03/27/22 20:24 97.7 F 95 16 144/77 99 03/27/22 20:00 95 16 03/27/22 14:00 97.6 F 107 H 19 143/78 98 Intake and Output 03/27/22 03/28/22 03/28/22 22:59 06:59 14:59 Output Total 1 Balance -1 Output: Stool 1 Other: Voiding Method Toilet # Voids 3 5 # Bowel Movements 1 GENERAL DESCRIPTION: Middle-aged female lying in bed, no distress. No tachypnea or accessory muscle of respiration use. HEENT: Shows Pallor , no scleral icterus. Oral mucous membrane is dry. No pharyngeal erythema or thrush NECK: Trachea central, no thyromegaly. LUNGS: Unlabored breathing. Coarse breath sounds bilaterally. No wheeze or crackle. HEART: S1, S2, regular rate and rhythm. No loud murmur ABDOMEN: Soft, no tenderness , guarding or rigidity, no organomegaly EXTREMITIES: No edema of feet. SKIN: No rash, no masses palpable. NEUROLOGICAL: The patient is awake, alert, oriented x3, mood and affect normal. Results CBC & Chem 7: 03/28/22 04:09 03/28/22 04:09 Labs: Abnormal Lab Results - Last 24 Hours (Table) 03/27/22 03/27/22 03/27/22 Range/Units 06:54 06:54 11:24 WBC 17.47 H (4.50-10.00) X 10*3/uL RBC 3.80 L (4.10-5.20) X 10*6/uL Hgb 11.2 L (12.0-15.0) g/dL Hct 34.5 L (37.2-46.3) % MCHC (32.0-37.0) g/dL Absolute Nucleated RBC 0.02 H (0.00-0.00) X 10*3/uL Immature Gran # 0.77 H (0.00-0.04) X 10*3/uL Neutrophils # 13.84 H (1.80-7.70) X 10*3/uL Monocytes # 1.08 H (0.20-1.00) X 10*3/uL Eosinophils # 0.01 L (0.04-0.35) X 10*3/uL NRBC/100 WBC Diff 0.1 H (0.0-0.0) /100 WBCS BUN 41.8 H (9.0-27.0) mg/dL Creatinine 1.8 H (0.6-1.5) mg/dL Est GFR (CKD-EPI)AfAm 35.1 L (60.0-200.0) Est GFR (CKD-EPI)NonAf 30.3 L (60.0-200.0) BUN/Creatinine Ratio 23.75 H (12.00-20.00) Ratio Glucose 186 H (70-110) mg/dL POC Glucose (mg/dL) 206 H (75-99) mg/dL Total Protein (6.2-8.2) g/dL 03/27/22 03/27/22 03/28/22 Range/Units 16:34 20:22 04:09 WBC 20.45 H (4.50-10.00) X 10*3/uL RBC (4.10-5.20) X 10*6/uL Hgb (12.0-15.0) g/dL Hct (37.2-46.3) % MCHC 31.7 L (32.0-37.0) g/dL Absolute Nucleated RBC (0.00-0.00) X 10*3/uL Immature Gran # 0.68 H (0.00-0.04) X 10*3/uL Neutrophils # 14.24 H (1.80-7.70) X 10*3/uL Monocytes # 1.75 H (0.20-1.00) X 10*3/uL Eosinophils # 0.02 L (0.04-0.35) X 10*3/uL NRBC/100 WBC Diff (0.0-0.0) /100 WBCS BUN (9.0-27.0) mg/dL Creatinine (0.6-1.5) mg/dL Est GFR (CKD-EPI)AfAm (60.0-200.0) Est GFR (CKD-EPI)NonAf (60.0-200.0) BUN/Creatinine Ratio (12.00-20.00) Ratio Glucose (70-110) mg/dL POC Glucose (mg/dL) 231 H 198 H (75-99) mg/dL Total Protein (6.2-8.2) g/dL 03/28/22 03/28/22 Range/Units 04:09 07:20 WBC (4.50-10.00) X 10*3/uL RBC (4.10-5.20) X 10*6/uL Hgb (12.0-15.0) g/dL Hct (37.2-46.3) % MCHC (32.0-37.0) g/dL Absolute Nucleated RBC (0.00-0.00) X 10*3/uL Immature Gran # (0.00-0.04) X 10*3/uL Neutrophils # (1.80-7.70) X 10*3/uL Monocytes # (0.20-1.00) X 10*3/uL Eosinophils # (0.04-0.35) X 10*3/uL NRBC/100 WBC Diff (0.0-0.0) /100 WBCS BUN 41.3 H (9.0-27.0) mg/dL Creatinine 1.8 H (0.6-1.5) mg/dL Est GFR (CKD-EPI)AfAm 34.1 L (60.0-200.0) Est GFR (CKD-EPI)NonAf 29.4 L (60.0-200.0) BUN/Creatinine Ratio 22.94 H (12.00-20.00) Ratio Glucose 114 H (70-110) mg/dL POC Glucose (mg/dL) 107 H (75-99) mg/dL Total Protein 5.9 L (6.2-8.2) g/dL Microbiology - Last 24 Hours (Table) 03/27/22 12:40 Gram Stain - Preliminary Sputum Sputum Culture - Preliminary Assessment and Plan (1) Leukocytosis Current Visit: Yes Status: Acute Code(s): D72.829 - ELEVATED WHITE BLOOD CELL COUNT, UNSPECIFIED SNOMED Code(s): 387106785 Plan: 1patient presented to hospital with increasing shortness of breath which is likely multifactorial in this patient likely COPD exacerbation and did have a complicating factor of COVID-19 infection, patient is clinically not behaving as a secondary bacterial pneumonia patient with no fever chest x-ray completed this morning did not show any acute infiltrate. 2elevated white count more likely steroid effect plus minus a component of oropharyngeal candidiasis. 3renal insufficiency and high risk of nephrotoxicity from vancomycin. 4patient with multiple antibiotic allergies that would limit the number of antibiotics safe to use. 5we will check a procalcitonin level CRP. 6discontinue vancomycin and Cipro. 7add Diflucan 200 mg p.o. daily. We will follow on clinical condition and cultures to further adjust medication if needed Thank you for this consultation will follow this patient along with you Time with Patient: Less than 30
[2022-03-29] MEDS: ALPRAZolam 0.25 MG TAB PO PRN ×3 (02:32→22:34)
[2022-03-29 04:54] LABS: ALT 30 U/L (4-34); AST 23 U/L (14-36); African American GFR (CKD) 44 (>60 ml/min/1.73 sqM); Albumin 3.2 g/dL (3.5-5.0); Albumin/Globulin Ratio 1.4; Alkaline Phosphatase 68 U/L (38-126); Anion Gap 5 mmol/L; Blood Urea Nitrogen 44 mg/dL (7-17); Calcium 8.1 mg/dL (8.4-10.2); Carbon Dioxide 27 mmol/L (22-30); Chloride 100 mmol/L (98-107); Globulin 2.3 g/dL; Glucose 154 mg/dL (74-99); Non-African American GFR(CKD) 38 (>60 ml/min/1.73 sqM); Potassium 3.7 mmol/L (3.5-5.1); Sodium 132 mmol/L (137-145); Total Bilirubin 1.1 mg/dL (0.2-1.3); Total Protein 5.5 g/dL (6.3-8.2)
[2022-03-29] MEDS: LEVOTHYROXINE 25 MCG TAB PO SCH (05:09)
[2022-03-29] MEDS: ACETAMINOPHEN TAB 325 MG TAB PO PRN ×3 (05:09→22:33)
[2022-03-29] MEDS: CALCIUM CARBONATE 500 MG CHEWABLE PO PRN ×2 (05:09→13:21)
[2022-03-29 05:23] LABS: C Reactive Protein <0.5 mg/dL (<1.0); Magnesium 2.5 mg/dL (1.6-2.3)
[2022-03-29 07:37] LABS: Glucose,Whole Blood 117 mg/dL (75-99)
[2022-03-29] MEDS: FLUCONAZOLE 100 MG TAB PO SCH (08:18)
[2022-03-29] MEDS: predniSONE 20 MG TAB PO SCH (08:18)
[2022-03-29] MEDS: FUROSEMIDE 40 MG TAB PO SCH (08:19)
[2022-03-29] MEDS: FAMOTIDINE 20 MG TAB PO SCH (08:19)
[2022-03-29] MEDS: INSULIN DETEMIR (LEVEMIR) 100 UNIT/ML SYR SQ SCH ×2 (08:19→22:23)
[2022-03-29] MEDS: hydrALAZINE HCL 25 MG TAB PO SCH ×3 (08:19→22:17)
[2022-03-29] MEDS: guaiFENesin 600 MG TABLET.ER PO SCH ×2 (08:19→22:17)
[2022-03-29] MEDS: BACLOFEN 10 MG TAB PO SCH ×2 (08:19→22:17)
[2022-03-29] MEDS: FLUTICASONE 50MCG/SPRAY NASAL 16GM EA NOSTRIL SCH ×2 (08:19→22:18)
[2022-03-29] MEDS: SODIUM BICARBONATE TAB 650 MG TAB PO SCH ×2 (08:19→22:17)
[2022-03-29] MEDS: BENZONATATE 100 MG CAP PO SCH ×3 (08:19→22:17)
[2022-03-29] MEDS: LOSARTAN 25 MG TAB PO SCH ×2 (08:19→22:17)
[2022-03-29] MEDS: ZINC SULFATE 220 MG CAP PO SCH (08:19)
[2022-03-29] MEDS: ENOXAPARIN 30 MG/0.3 ML SYRINGE SQ SCH (08:19)
[2022-03-29] MEDS: ASCORBIC ACID 500 MG TAB PO SCH (08:19)
[2022-03-29] MEDS: THEOPHYLLINE 24 HOUR 400 MG CAP.ER.24H PO SCH (08:20)
[2022-03-29] MEDS: INSULIN ASPART (NovoLOG) 100 UNIT/ML VIAL SQ SCH ×4 (08:20→22:19)
[2022-03-29] MEDS: TIOTROPIUM 2.5 MCG INHALER INHALATION SCH (08:32)
[2022-03-29] MEDS: SYMBICORT 160-4.5 MCG INHALER INHALATION SCH ×2 (08:32→19:46)
[2022-03-29] MEDS: ALBUTEROL HFA INHALER INHALATION SCH ×4 (08:32→19:46)
[2022-03-29] MEDS ORDERED: CIPROFLOXACIN/DEXTROSE PMX 400 MG in DEXTROSE/WATER 1 200ML.BAG IVPB SCH (09:00)
[2022-03-29] MEDS ORDERED: VANCOMYCIN 2,000 MG in SODIUM CHLORIDE 0.9% 500 ML 500 ML IVPB ONE (09:00)
[2022-03-29 09:35] LABS: Basophils # (A) 0.06 X 10*3/uL (0.00-0.10); Basophils % (A) 0.4 %; Eosinophils # (A) 0.07 X 10*3/uL (0.04-0.35); Eosinophils % (A) 0.5 %; HCT 33.5 % (37.2-46.3); HGB 10.9 g/dL (12.0-15.0); Immature Grans, Automated 3.7 %; Lymphocytes % (A) 19.3 %; MCHC 32.5 g/dL (32.0-37.0); MCV 92.3 fL (80.0-97.0); Mean Platelet Volume 10.9 fL (9.5-12.2); Monocytes # (A) 1.64 X 10*3/uL (0.20-1.00); Monocytes % (A) 10.5 %; NRBC Per 100 WBC 0 /100 WBCS (0.0-0.0); Neutrophils # (A) 10.21 X 10*3/uL (1.80-7.70); Neutrophils % (A) 65.6 %; Platelet Count 297 X 10*3/uL (140-440); RBC 3.63 X 10*6/uL (4.10-5.20); RDW 14.2 % (11.5-14.5); WBC 15.55 X 10*3/uL (4.50-10.00)
--- NOTE | 2022-03-29 10:21 | P.PN ---
Subjective Progress Note Date: 03/29/22 Pt still feeling fatigued, still with cough, but feels less congested now that she is producing sputum. Short of breath on exertion. PC was normal, low likelihood of bacterial secondary infection, and abx were d/c'd by ID, appreciate their recs. Pt started on fluconazole. Gen: awake, alert HEENT: normocephalic, atraumatic, good hearing acuity, moist mucous membranes Resp: good air exchange, breathing comfortably with no accessory muscle use, end-expiratory wheezing CVS: good distal perfusion x 4, RRR, no murmurs GI: soft, NTTP, ND : no SPT, no CVAT, vela catheter not present MSK: no pitting edema, no clubbing Neuro: non-focal, moving all extremities Psych: cooperative, euthymic mood Assessment/plan: #Acute exacerbation of severe persistent bronchial asthma #Acute COVID-19 infection, patient was previously vaccinated for COVID-19 2 with Moderna, no boosters. Chest x-ray did not show acute pneumonia -Resume DuoNeb inhalations, Symbicort, Spiriva and theophylline. - Change IV steroids to prednisone 40 mg daily for 5 days -Pulmonary following. - ID consulted - empirically started on vancomycin, ciprofloxacin, then d/c'd after low PC value and no other s/s of infx #Asymptomatic bradycardia secondary to beta krista -Cardiology consulted. -Cardiology held beta krista. #History of multiple bilateral pulmonary nodules, -Stable on CAT scan per pulmonary #Super morbid Obesity BMI is 58 with Obstructive sleep apnea -Patient was counseled regarding diet and weight loss -We'll need outpatient sleep study #Chest pain secondary to above -Acute coronary syndrome has been ruled out -Negative D-dimer -Lower extremity Doppler negative for DVT -Cardiology evaluated the patient -Beta krista held by cardiology due to bradycardia -History of normal left heart catheterization 2017 #Type II diabetes mellitus -A1c 7.1 -Resume Scale insulin and Levemir -Metformin on hold #Psoriasis #Chronic lower extremity edema -2-D echo showed left ventricular hypertrophy with preserved LV systolic function. Technically difficult study despite Definity contrast -Lower Extremity Doppler negative for DVT -Nephrology restarted Lasix #Acute kidney injury -Improving -Appreciate nephrology input #Uncontrolled Hypertension -Resume losartan -Increased hydralazine to 75 daily #Hyperlipidemia #Environmental ALLERGIES - resume statin - theophylline - benadryl PRN #Lovenox for DVT prophylaxis. Objective - Vital Signs Vital signs: Vital Signs Temp 97.5 F L 03/29/22 09:34 Pulse 91 03/29/22 09:34 Resp 18 03/29/22 09:34 BP 146/72 03/29/22 09:34 Pulse Ox 98 03/29/22 09:34 Intake & Output 03/28/22 03/29/22 03/29/22 18:59 06:59 18:59 Intake Total 480 Output Total 500 Balance -500 480 Intake: Oral 480 Output: Urine 500 Other: # Voids 2 2 - Labs CBC & Chem 7: 03/29/22 03:29 03/29/22 03:29 Labs: Abnormal Lab Results - Last 24 Hours (Table) 03/28/22 03/28/22 03/28/22 Range/Units 04:09 11:50 16:45 WBC (4.50-10.00) X 10*3/uL RBC (4.10-5.20) X 10*6/uL Hgb (12.0-15.0) g/dL Hct (37.2-46.3) % Immature Gran # 0.68 H (0.00-0.04) X 10*3/uL Neutrophils # 14.24 H (1.80-7.70) X 10*3/uL Monocytes # 1.75 H (0.20-1.00) X 10*3/uL Eosinophils # 0.02 L (0.04-0.35) X 10*3/uL Sodium (137-145) mmol/L BUN (7-17) mg/dL Creatinine (0.52-1.04) mg/dL Glucose (74-99) mg/dL POC Glucose (mg/dL) 203 H 267 H (75-99) mg/dL Calcium (8.4-10.2) mg/dL Magnesium (1.6-2.3) mg/dL Total Protein (6.3-8.2) g/dL Albumin (3.5-5.0) g/dL 03/28/22 03/29/22 03/29/22 Range/Units 20:17 03:29 03:29 WBC 15.55 H (4.50-10.00) X 10*3/uL RBC 3.63 L (4.10-5.20) X 10*6/uL Hgb 10.9 L (12.0-15.0) g/dL Hct 33.5 L (37.2-46.3) % Immature Gran # 0.57 H (0.00-0.04) X 10*3/uL Neutrophils # 10.21 H (1.80-7.70) X 10*3/uL Monocytes # 1.64 H (0.20-1.00) X 10*3/uL Eosinophils # (0.04-0.35) X 10*3/uL Sodium 132 L (137-145) mmol/L BUN 44 H (7-17) mg/dL Creatinine 1.46 H (0.52-1.04) mg/dL Glucose 154 H (74-99) mg/dL POC Glucose (mg/dL) 219 H (75-99) mg/dL Calcium 8.1 L (8.4-10.2) mg/dL Magnesium 2.5 H (1.6-2.3) mg/dL Total Protein 5.5 L (6.3-8.2) g/dL Albumin 3.2 L (3.5-5.0) g/dL 03/29/22 Range/Units 07:36 WBC (4.50-10.00) X 10*3/uL RBC (4.10-5.20) X 10*6/uL Hgb (12.0-15.0) g/dL Hct (37.2-46.3) % Immature Gran # (0.00-0.04) X 10*3/uL Neutrophils # (1.80-7.70) X 10*3/uL Monocytes # (0.20-1.00) X 10*3/uL Eosinophils # (0.04-0.35) X 10*3/uL Sodium (137-145) mmol/L BUN (7-17) mg/dL Creatinine (0.52-1.04) mg/dL Glucose (74-99) mg/dL POC Glucose (mg/dL) 117 H (75-99) mg/dL Calcium (8.4-10.2) mg/dL Magnesium (1.6-2.3) mg/dL Total Protein (6.3-8.2) g/dL Albumin (3.5-5.0) g/dL Microbiology - Last 24 Hours (Table) 03/27/22 12:40 Gram Stain - Final Sputum Sputum Culture - Final
[2022-03-29] MEDS ORDERED: POTASSIUM CHLORIDE ER 20 MEQ TAB.ER PO STA (10:22)
--- NOTE | 2022-03-29 10:23 | P.PN ---
Subjective Patient is seen in follow-up for acute kidney injury. Renal function improved. On 2 L nasal cannula. Blood pressure stable. Good urine output. Feels edematous. Vital signs are stable. General: Awake and alert. No acute distress. HEENT: Head exam is unremarkable. LUNGS: Breath sounds decreased. HEART: Rate and Rhythm are regular. ABDOMEN: Soft, obese. EXTREMITITES: 1+ edema. Objective - Vital Signs Vital signs: Vital Signs Temp 97.5 F L 03/29/22 09:34 Pulse 91 03/29/22 09:34 Resp 18 03/29/22 09:34 BP 146/72 03/29/22 09:34 Pulse Ox 98 03/29/22 09:34 Intake & Output 03/28/22 03/29/22 03/29/22 18:59 06:59 18:59 Intake Total 480 Output Total 500 Balance -500 480 Intake: Oral 480 Output: Urine 500 Other: # Voids 2 2 - Labs CBC & Chem 7: 03/29/22 03:29 03/29/22 03:29 Labs: Abnormal Lab Results - Last 24 Hours (Table) 03/28/22 03/28/22 03/28/22 Range/Units 04:09 11:50 16:45 WBC (4.50-10.00) X 10*3/uL RBC (4.10-5.20) X 10*6/uL Hgb (12.0-15.0) g/dL Hct (37.2-46.3) % Immature Gran # 0.68 H (0.00-0.04) X 10*3/uL Neutrophils # 14.24 H (1.80-7.70) X 10*3/uL Monocytes # 1.75 H (0.20-1.00) X 10*3/uL Eosinophils # 0.02 L (0.04-0.35) X 10*3/uL Sodium (137-145) mmol/L BUN (7-17) mg/dL Creatinine (0.52-1.04) mg/dL Glucose (74-99) mg/dL POC Glucose (mg/dL) 203 H 267 H (75-99) mg/dL Calcium (8.4-10.2) mg/dL Magnesium (1.6-2.3) mg/dL Total Protein (6.3-8.2) g/dL Albumin (3.5-5.0) g/dL 03/28/22 03/29/22 03/29/22 Range/Units 20:17 03:29 03:29 WBC 15.55 H (4.50-10.00) X 10*3/uL RBC 3.63 L (4.10-5.20) X 10*6/uL Hgb 10.9 L (12.0-15.0) g/dL Hct 33.5 L (37.2-46.3) % Immature Gran # 0.57 H (0.00-0.04) X 10*3/uL Neutrophils # 10.21 H (1.80-7.70) X 10*3/uL Monocytes # 1.64 H (0.20-1.00) X 10*3/uL Eosinophils # (0.04-0.35) X 10*3/uL Sodium 132 L (137-145) mmol/L BUN 44 H (7-17) mg/dL Creatinine 1.46 H (0.52-1.04) mg/dL Glucose 154 H (74-99) mg/dL POC Glucose (mg/dL) 219 H (75-99) mg/dL Calcium 8.1 L (8.4-10.2) mg/dL Magnesium 2.5 H (1.6-2.3) mg/dL Total Protein 5.5 L (6.3-8.2) g/dL Albumin 3.2 L (3.5-5.0) g/dL 03/29/22 Range/Units 07:36 WBC (4.50-10.00) X 10*3/uL RBC (4.10-5.20) X 10*6/uL Hgb (12.0-15.0) g/dL Hct (37.2-46.3) % Immature Gran # (0.00-0.04) X 10*3/uL Neutrophils # (1.80-7.70) X 10*3/uL Monocytes # (0.20-1.00) X 10*3/uL Eosinophils # (0.04-0.35) X 10*3/uL Sodium (137-145) mmol/L BUN (7-17) mg/dL Creatinine (0.52-1.04) mg/dL Glucose (74-99) mg/dL POC Glucose (mg/dL) 117 H (75-99) mg/dL Calcium (8.4-10.2) mg/dL Magnesium (1.6-2.3) mg/dL Total Protein (6.3-8.2) g/dL Albumin (3.5-5.0) g/dL Microbiology - Last 24 Hours (Table) 03/27/22 12:40 Gram Stain - Final Sputum Sputum Culture - Final Assessment and Plan Plan: Assessment: 1. Acute kidney injury secondary to ATN secondary to covid-19 infection. Creatinine stable in the range of 1.6-1.8 this admission - 1.46 today. Creatinine on 12/21/2021 was 0.93. Renal ultrasound showed no evidence of hydronephrosis. 2. Acute hypoxic respiratory failure secondary to acute COVID-19 infection and exacerbation. 3. Diabetes mellitus. 4. Metabolic acidosis secondary to acute kidney injury and diarrhea. On oral bicarb. Better. 5. Hypertension with chronic disease. Exacerbated by steroids. Stable. 6. Volume overload. 7. Acute on chronic diastolic CHF. Plan: Change Lasix to 40 mg IV twice daily. 1200 mL fluid restriction. Encourage oral intake. Continue with losartan for now as blood pressure not low and GFR stable. Continue to monitor renal function and urine output. Replace potassium.
[2022-03-29] MEDS: METOPROLOL TARTRATE 12.5 MG TAB PO SCH ×2 (10:51→22:17)
--- NOTE | 2022-03-29 11:07 | P.PN ---
Subjective Progress Note Date: 03/29/22 Principal diagnosis: Leukocytosis possible oropharyngeal candidiasis Patient is a 61-year-old female with a past medical history significant for COPD presented to hospital with increasing shortness of breath has been diagnosed and treated for covid pneumonia or, in this patient did have significantly elevated white count and concern for possible secondary bacterial pneumonia versus oropharyngeal candidiasis. Patient did have multiple antibiotic ALLERGIES On today's evaluation that is 03/29/2022, the patient denies having any fever or any chills, the patient is breathing slightly comfortably and is currently on room air. Denies having any chest pain she can have a cough and is bringing up some sputum and hemoptysis and no nausea no vomiting no abdominal pain and no diarrhea Objective - Vital Signs Vital signs: Vital Signs Temp 97.5 F L 03/29/22 09:34 Pulse 91 03/29/22 09:34 Resp 18 03/29/22 09:34 BP 146/72 03/29/22 09:34 Pulse Ox 98 03/29/22 09:34 Intake & Output 03/28/22 03/29/22 03/29/22 18:59 06:59 18:59 Intake Total 480 Output Total 500 Balance -500 480 Intake: Oral 480 Output: Urine 500 Other: # Voids 2 2 - Exam GENERAL DESCRIPTION: Middle-aged female lying in bed in no distress RESPIRATORY SYSTEM: Unlabored breathing , coarse breath sounds bilaterally with occasional wheeze HEART: S1 S2 regular rate and rhythm , ABDOMEN: Soft , no tenderness EXTREMITIES: No edema feet - Labs CBC & Chem 7: 03/29/22 03:29 03/29/22 03:29 Labs: Abnormal Lab Results - Last 24 Hours (Table) 03/28/22 03/28/22 03/28/22 Range/Units 11:50 16:45 20:17 WBC (4.50-10.00) X 10*3/uL RBC (4.10-5.20) X 10*6/uL Hgb (12.0-15.0) g/dL Hct (37.2-46.3) % Immature Gran # (0.00-0.04) X 10*3/uL Neutrophils # (1.80-7.70) X 10*3/uL Monocytes # (0.20-1.00) X 10*3/uL Sodium (137-145) mmol/L BUN (7-17) mg/dL Creatinine (0.52-1.04) mg/dL Glucose (74-99) mg/dL POC Glucose (mg/dL) 203 H 267 H 219 H (75-99) mg/dL Calcium (8.4-10.2) mg/dL Magnesium (1.6-2.3) mg/dL Total Protein (6.3-8.2) g/dL Albumin (3.5-5.0) g/dL 03/29/22 03/29/22 03/29/22 Range/Units 03:29 03:29 07:36 WBC 15.55 H (4.50-10.00) X 10*3/uL RBC 3.63 L (4.10-5.20) X 10*6/uL Hgb 10.9 L (12.0-15.0) g/dL Hct 33.5 L (37.2-46.3) % Immature Gran # 0.57 H (0.00-0.04) X 10*3/uL Neutrophils # 10.21 H (1.80-7.70) X 10*3/uL Monocytes # 1.64 H (0.20-1.00) X 10*3/uL Sodium 132 L (137-145) mmol/L BUN 44 H (7-17) mg/dL Creatinine 1.46 H (0.52-1.04) mg/dL Glucose 154 H (74-99) mg/dL POC Glucose (mg/dL) 117 H (75-99) mg/dL Calcium 8.1 L (8.4-10.2) mg/dL Magnesium 2.5 H (1.6-2.3) mg/dL Total Protein 5.5 L (6.3-8.2) g/dL Albumin 3.2 L (3.5-5.0) g/dL Microbiology - Last 24 Hours (Table) 03/27/22 12:40 Gram Stain - Final Sputum Sputum Culture - Final Assessment and Plan (1) Leukocytosis Current Visit: Yes Status: Acute Code(s): D72.829 - ELEVATED WHITE BLOOD CELL COUNT, UNSPECIFIED SNOMED Code(s): 883720243 Plan: 1patient presented to hospital with increasing shortness of breath which is likely multifactorial in this patient likely COPD exacerbation and did have a complicating factor of COVID-19 infection, patient is clinically not behaving as a secondary bacterial pneumonia patient with no fever chest x-ray completed this morning did not show any acute infiltrate. 2elevated white count more likely steroid effect plus minus a component of oropharyngeal candidiasis. 3renal insufficiency and high risk of nephrotoxicity from vancomycin. 4patient with multiple antibiotic allergies that would limit the number of anti biotics safe to use. 5 patient procalcitonin level was normal as sputum culture has been negative 6patient to continue with Diflucan 200 mg p.o. daily as the white count showing a downward trend. Time with Patient: Less than 30
[2022-03-29 11:33] LABS: Glucose,Whole Blood 176 mg/dL (75-99)
--- NOTE | 2022-03-29 13:48 | P.PN ---
Subjective Progress Note Date: 03/29/22 Principal diagnosis: Shortness of breath A pleasant 61-year-old female patient is well-known to me. She is known to have severe persistent bronchial asthma/COPD along with obstructive sleep apnea. The patient is morbidly obese with a BMI 58.7. Around December of this current year, the patient was having increased symptoms of bronchitis and asthma exacerbation. At that point, I performed a bronchoscopy on her in the microbial cultures came back essentially negative. She was doing well and around 2 days ago, she started having increased dyspnea cough chest tightness and wheezing. She does have some loose diarrhea. No change in the taste or smell. She checked herself positive for COVID 19 on outpatient basis. This was confirmed after she came back to the hospital. Accordingly, the patient was hospitalized that the patient was found to have increased bronchospasm wheezing and shortness of breath. She is currently on IV Solu Medrol 60 mg every 6 hours. She is on room air oxygen. Her pulse ox is 94%. No altered mentation. No chest pain. No change in mental status. Outpatient medications have been resumed and the patient remains on Lovenox 30 mg subcu for DVT prophylaxis. Note that the patient has been vaccinated 2 for COVID 19 and she has not taken the booster shot. Other blood work the patient also comes at 6.37 with a hemoglobin of 11.1. Normal coagulation profile. D-dimer is at 0.46. The BUN 33 with a creatinine of 1.6 and the sodium level of 138. LFTs are normal. CRP level is at 1.1. LDH level is at 211. Detrol calcitonin LEVEL IS AT 0.1. CHEST X-RAY SHOWING SOME PLEURAL REACTION LEFT LUNG BASE OTHERWISE NO OTHER ACUTE ABNORM ALITIES NOTED. On 03/21/2022 patient seen in follow-up on medical surgical floor. She is awake and alert, in no acute distress, she is currently on room air with pulse ox of 94%, she sits up in the recliner, breathing seems to be nonlabored, she does get short of breath with exertion but no acute distress, with chest pain, she's been afebrile, vital signs have been stable overnight. Chest x-ray from admission showed mild pleural reaction at the left lung base, unchanged compared to previous chest x-ray from December 2021. Her labs from yesterday were reviewed showing white blood cell count is 6.3, hemoglobin was 11.1, electrolytes and renal profile were within normal limits, d-dimer was within normal limits, and so was a fibrinogen, electrolytes were within normal limits, renal profile was stable with BUN of 33.1, and creatinine of 1.6, ferritin LDH were within normal limits, troponin was negative, CRP was 1.1, pro calcitonin level was negative at 0.10. She has a very congested harsh cough, and she remains on IV Solu-Medrol at 60 mg every 6 hours, DuoNeb on an as-needed basis, she is on GI and DVT prophylaxis, multivitamins, she is on theophylline, and Spiriva. On 03/22/2022 patient seen in follow-up on medical surgical floor. Patient is awake and alert, still quite wheezy, was complaining of some chest tightness earlier, coughing. She was noted to be bradycardic earlier, her beta blockers are on hold. She continues on IV steroids with Solu-Medrol 60 mg every 6 hours, nebulized bronchodilators, Mucinex, she is on Symbicort, Spiriva and albuterol, she is on Tessalon pearls. She is on prophylactic dose of Lovenox 30 mg once a day, she had a negative pro calcitonin of 0.10. She tested positive for coarse with 19, she is being treated for acute exacerbation of severe persistent bronchial asthma, was possibly triggered by COVID-19 infection. On 03/23/2022 patient seen in follow-up on medical surgical floor. Patient states she feels a little improved, however still has a congested cough, but she is able to bring up some yellowish and greenish colored phlegm. No fever or chills, vital signs have been stable, she is currently on 2 L of oxygen, her pulse ox is 99%. There is better air entry noted bilaterally on today's exam. No complaints of chest discomfort. Vital signs have been stable. Patient continues on high-dose IV steroids Solu-Medrol 60 mg every 6 hours, continues on inhaled bronchodilators. No hemoptysis, no chest tightness. No altered mentation. Continues on multivitamins. Today's labs show improving with ethyl, which is down to 11, hemoglobin is 11.5, sodium is 138, potassium is 4.2, chloride is 110, CO2 is 20, BUN is 36, creatinine is 1.5. On 03/28/2022 patient seen in follow-up on medical surgical floor. Patient is still congested, vital signs have been stable, she has been slow to improve, patient is being treated for acute exacerbation of severe persistent chronic bronchial asthma. Patient has been tolerating ambulation in the room and to the bathroom. Patient was started on ciprofloxacin and vancomycin. Sputum culture Gram stain showed moderate PMNs, moderate gram-positive bacilli and few gram- negative bacilli and few gram-positive cocci. These labs have been reviewed, white blood cell count 20, hemoglobin is 12.2, electrolytes are unremarkable, BUN is 41, and creatinine is 1.8. Patient continues on Symbicort, prophylactic anticoagulation, GI and DVT prophylaxis, oral Lasix has been added, she is in multivitamins, she is on Symbicort and Spiriva. Nephrology is following, patient is on oral sodium bicarb. No nausea vomiting or diarrhea. Tolerating oral intake. On 03/29/2022 patient seen in follow-up on medical surgical floor. Patient is improving, still congested, although the congestion and coughing is better. She remains on 2 L of oxygen, pulse ox is 98%. She is ambulating in the room and to the bathroom, tolerating activity well. Remains on IV diuretics with Lasix 40 mg every 12 hours IV push, she remains on inhaled bronchodilators and IV steroids. She did receive vancomycin, ID service is on the case. No acute events overnight, no nausea vomiting or diarrhea. No chest discomfort. Objective - Vital Signs Vital signs: Vital Signs Temp 97.5 F L 03/29/22 09:34 Pulse 91 03/29/22 09:34 Resp 18 03/29/22 09:34 BP 146/72 03/29/22 09:34 Pulse Ox 98 03/29/22 09:34 Intake & Output 03/28/22 03/29/22 03/29/22 18:59 06:59 18:59 Intake Total 480 Output Total 500 Balance -500 480 Intake: Oral 480 Output: Urine 500 Other: # Voids 2 2 - Exam GENERAL EXAM: Alert, very pleasant, 61-year-old white female, on 2 l/min with a pulse ox of 98%, sitting up in a recliner comfortable in no apparent distress. HEAD: Normocephalic/atraumatic. EYES: Normal reaction of pupils, equal size. Conjunctiva pink, sclera white. NOSE: Clear with pink turbinates. THROAT: No erythema or exudates. NECK: No masses, no JVD, no thyroid enlargement, no adenopathy. CHEST: No chest wall deformity. Symmetrical expansion. LUNGS: Equal air entry with diffuse wheezes, congestive cough, CVS: Regular rate and rhythm, normal S1 and S2, no gallops, no murmurs, no rubs ABDOMEN: Soft, nontender. No hepatosplenomegaly, normal bowel sounds, no guarding or rigidity. EXTREMITIES: No clubbing, no edema, no cyanosis, 2+ pulses and upper and lower extremities. MUSCULOSKELETAL: Muscle strength and tone normal. SPINE: No scoliosis or deformity SKIN: No rashes CENTRAL NERVOUS SYSTEM: Alert and oriented -3. No focal deficits, tone is nor mal in all 4 extremities. PSYCHIATRIC: Alert and oriented -3. Appropriate affect. Intact judgment and insight. - Labs CBC & Chem 7: 03/29/22 03:29 03/29/22 03:29 Labs: Abnormal Lab Results - Last 24 Hours (Table) 03/28/22 03/28/22 03/29/22 Range/Units 16:45 20:17 03:29 WBC (4.50-10.00) X 10*3/uL RBC (4.10-5.20) X 10*6/uL Hgb (12.0-15.0) g/dL Hct (37.2-46.3) % Immature Gran # (0.00-0.04) X 10*3/uL Neutrophils # (1.80-7.70) X 10*3/uL Monocytes # (0.20-1.00) X 10*3/uL Sodium 132 L (137-145) mmol/L BUN 44 H (7-17) mg/dL Creatinine 1.46 H (0.52-1.04) mg/dL Glucose 154 H (74-99) mg/dL POC Glucose (mg/dL) 267 H 219 H (75-99) mg/dL Calcium 8.1 L (8.4-10.2) mg/dL Magnesium 2.5 H (1.6-2.3) mg/dL Total Protein 5.5 L (6.3-8.2) g/dL Albumin 3.2 L (3.5-5.0) g/dL 03/29/22 03/29/22 03/29/22 Range/Units 03:29 07:36 11:32 WBC 15.55 H (4.50-10.00) X 10*3/uL RBC 3.63 L (4.10-5.20) X 10*6/uL Hgb 10.9 L (12.0-15.0) g/dL Hct 33.5 L (37.2-46.3) % Immature Gran # 0.57 H (0.00-0.04) X 10*3/uL Neutrophils # 10.21 H (1.80-7.70) X 10*3/uL Monocytes # 1.64 H (0.20-1.00) X 10*3/uL Sodium (137-145) mmol/L BUN (7-17) mg/dL Creatinine (0.52-1.04) mg/dL Glucose (74-99) mg/dL POC Glucose (mg/dL) 117 H 176 H (75-99) mg/dL Calcium (8.4-10.2) mg/dL Magnesium (1.6-2.3) mg/dL Total Protein (6.3-8.2) g/dL Albumin (3.5-5.0) g/dL Microbiology - Last 24 Hours (Table) 03/27/22 12:40 Gram Stain - Final Sputum Sputum Culture - Final Assessment and Plan Plan: Assessment: #1. Acute COVID-19 infection, patient was previously vaccinated for COVID-19 2 with Moderna, no boosters. Chest x-ray did not show acute pneumonia, patient is on room air, patient's inflammatory markers are not significantly elevated, d- dimer is negative #2. Acute exacerbation of severe persistent bronchial asthma #3. Shortness of breath, wheezing and chest tightness related to the above #4. History of multiple bilateral pulmonary nodules, all stable on computed tomography scan #5. Severe obstructive sleep apnea with AHI score of 63.8, and severe nocturnal oxygen desaturation awaiting CPAP titration #6. Psoriasis #7. Chronic lower extremity edema #8. The reticular disease #9. Hypertension #10. Hyperlipidemia #11. Borderline low IgG levels #12. Environmental ALLERGIES Plan: Patient is slowly improving Continue current medical treatment Weaning FiO2 obtain home oxygen assessment The cough and congestion are improving She's had no fever or chills Continue inhaled bronchodilators, continue steroids, continue prophylactic anticoagulation Diuretics per nephrology service I have personally seen and examined the patient, performed the documentation and the assessment and plan as written. Number of minutes spent on the visit: [10] Time with Patient: Less than 30
[2022-03-29 16:11] LABS: Glucose,Whole Blood 261 mg/dL (75-99)
[2022-03-29] MEDS: FUROSEMIDE 10 MG/ML 4 ML VIAL IV SCH (21:29)
[2022-03-29 21:58] LABS: Glucose,Whole Blood 158 mg/dL (75-99)
[2022-03-29] MEDS: ATORVASTATIN 20 MG TAB PO SCH (22:16)
[2022-03-30] MEDS: CALCIUM CARBONATE 500 MG CHEWABLE PO PRN ×2 (04:19→18:06)
[2022-03-30] MEDS: LEVOTHYROXINE 25 MCG TAB PO SCH (04:19)
[2022-03-30] MEDS: ACETAMINOPHEN TAB 325 MG TAB PO PRN ×3 (04:19→18:06)
[2022-03-30 07:18] LABS: Glucose,Whole Blood 121 mg/dL (75-99)
[2022-03-30] MEDS: INSULIN ASPART (NovoLOG) 100 UNIT/ML VIAL SQ SCH ×4 (07:22→21:37)
[2022-03-30 07:52] LABS: African American GFR (CKD) 39 (>60 ml/min/1.73 sqM); Anion Gap 6 mmol/L; Blood Urea Nitrogen 43 mg/dL (7-17); Carbon Dioxide 28 mmol/L (22-30); Chloride 101 mmol/L (98-107); Glucose 114 mg/dL (74-99); Magnesium 2.6 mg/dL (1.6-2.3); Non-African American GFR(CKD) 34 (>60 ml/min/1.73 sqM); Potassium 3.7 mmol/L (3.5-5.1); Sodium 135 mmol/L (137-145)
[2022-03-30] MEDS: TIOTROPIUM 2.5 MCG INHALER INHALATION SCH (07:55)
[2022-03-30] MEDS: SYMBICORT 160-4.5 MCG INHALER INHALATION SCH ×2 (07:55→20:14)
[2022-03-30] MEDS: ALBUTEROL HFA INHALER INHALATION SCH ×4 (07:55→20:14)
[2022-03-30] MEDS: ENOXAPARIN 40 MG/0.4 ML SYRINGE SQ SCH (07:58)
[2022-03-30] MEDS: predniSONE 20 MG TAB PO SCH (07:58)
[2022-03-30] MEDS: THEOPHYLLINE 24 HOUR 400 MG CAP.ER.24H PO SCH (07:58)
[2022-03-30] MEDS: hydrALAZINE HCL 25 MG TAB PO SCH (07:58)
[2022-03-30] MEDS: guaiFENesin 600 MG TABLET.ER PO SCH ×2 (07:59→21:13)
[2022-03-30] MEDS: INSULIN DETEMIR (LEVEMIR) 100 UNIT/ML SYR SQ SCH ×2 (07:59→21:38)
[2022-03-30] MEDS: METOPROLOL TARTRATE 12.5 MG TAB PO SCH ×2 (07:59→21:13)
[2022-03-30] MEDS: ZINC SULFATE 220 MG CAP PO SCH (07:59)
[2022-03-30] MEDS: LOSARTAN 25 MG TAB PO SCH ×2 (07:59→21:13)
[2022-03-30] MEDS: FLUCONAZOLE 100 MG TAB PO SCH (07:59)
[2022-03-30] MEDS: FAMOTIDINE 20 MG TAB PO SCH (07:59)
[2022-03-30] MEDS: ASCORBIC ACID 500 MG TAB PO SCH (07:59)
[2022-03-30] MEDS: FLUTICASONE 50MCG/SPRAY NASAL 16GM EA NOSTRIL SCH ×2 (07:59→21:13)
[2022-03-30] MEDS: BACLOFEN 10 MG TAB PO SCH ×2 (07:59→21:13)
[2022-03-30] MEDS: SODIUM BICARBONATE TAB 650 MG TAB PO SCH (07:59)
[2022-03-30] MEDS: BENZONATATE 100 MG CAP PO SCH ×3 (07:59→21:37)
[2022-03-30] MEDS: ALPRAZolam 0.25 MG TAB PO PRN ×2 (08:11→18:06)
--- NOTE | 2022-03-30 08:50 | P.PN ---
Subjective Progress Note Date: 03/30/22 Pt had episode of asthma today, but back to 97+% on room air. Still bronchospastic. Continue monitoring. Gen: awake, alert HEENT: normocephalic, atraumatic, good hearing acuity, moist mucous membranes Resp: good air exchange, breathing comfortably with no accessory muscle use, end-expiratory wheezing CVS: good distal perfusion x 4, RRR, no murmurs GI: soft, NTTP, ND : no SPT, no CVAT, vela catheter not present MSK: no pitting edema, no clubbing Neuro: non-focal, moving all extremities Psych: cooperative, euthymic mood Assessment/plan: #Acute exacerbation of severe persistent bronchial asthma #Acute COVID-19 infection, patient was previously vaccinated for COVID-19 2 with Moderna, no boosters. Chest x-ray did not show acute pneumonia -Resume DuoNeb inhalations, Symbicort, Spiriva and theophylline. - Change IV steroids to prednisone 40 mg daily for 5 days -Pulmonary following. - ID consulted - empirically started on vancomycin, ciprofloxacin, then d/c'd after low PC value and no other s/s of infx #Asymptomatic bradycardia secondary to beta krista -Cardiology consulted. -Cardiology held beta krista. #History of multiple bilateral pulmonary nodules, -Stable on CAT scan per pulmonary #Super morbid Obesity BMI is 58 with Obstructive sleep apnea -Patient was counseled regarding diet and weight loss -We'll need outpatient sleep study #Chest pain secondary to above -Acute coronary syndrome has been ruled out -Negative D-dimer -Lower extremity Doppler negative for DVT -Cardiology evaluated the patient -Beta krista held by cardiology due to bradycardia -History of normal left heart catheterization 2017 #Type II diabetes mellitus -A1c 7.1 -Resume Scale insulin and Levemir -Metformin on hold #Psoriasis #Chronic lower extremity edema -2-D echo showed left ventricular hypertrophy with preserved LV systolic function. Technically difficult study despite Definity contrast -Lower Extremity Doppler negative for DVT -Nephrology restarted Lasix #Acute kidney injury -Improving -Appreciate nephrology input #Uncontrolled Hypertension -Resume losartan -Increased hydralazine to 75 daily #Hyperlipidemia #Environmental ALLERGIES - resume statin - theophylline - benadryl PRN #Lovenox for DVT prophylaxis. Objective - Vital Signs Vital signs: Vital Signs Temp 97.9 F 03/30/22 05:57 Pulse 73 05/11/22 05:57 Resp 18 03/30/22 05:57 BP 135/70 03/30/22 05:57 Pulse Ox 98 03/30/22 05:57 Intake & Output 03/29/22 03/30/22 03/30/22 18:59 06:59 18:59 Intake Total 960 Output Total 2200 Balance 960 -2200 Intake: Oral 960 Output: Urine 2200 Other: # Voids 3 # Bowel Movements 1 - Labs CBC & Chem 7: 03/29/22 03:29 03/30/22 07:13 Labs: Abnormal Lab Results - Last 24 Hours (Table) 03/29/22 03/29/22 03/29/22 Range/Units 03:29 11:32 16:09 WBC 15.55 H (4.50-10.00) X 10*3/uL RBC 3.63 L (4.10-5.20) X 10*6/uL Hgb 10.9 L (12.0-15.0) g/dL Hct 33.5 L (37.2-46.3) % Immature Gran # 0.57 H (0.00-0.04) X 10*3/uL Neutrophils # 10.21 H (1.80-7.70) X 10*3/uL Monocytes # 1.64 H (0.20-1.00) X 10*3/uL Sodium (137-145) mmol/L BUN (7-17) mg/dL Creatinine (0.52-1.04) mg/dL Glucose (74-99) mg/dL POC Glucose (mg/dL) 176 H 261 H (75-99) mg/dL Magnesium (1.6-2.3) mg/dL 03/29/22 03/30/22 03/30/22 Range/Units 21:57 07:13 07:15 WBC (4.50-10.00) X 10*3/uL RBC (4.10-5.20) X 10*6/uL Hgb (12.0-15.0) g/dL Hct (37.2-46.3) % Immature Gran # (0.00-0.04) X 10*3/uL Neutrophils # (1.80-7.70) X 10*3/uL Monocytes # (0.20-1.00) X 10*3/uL Sodium 135 L (137-145) mmol/L BUN 43 H (7-17) mg/dL Creatinine 1.61 H (0.52-1.04) mg/dL Glucose 114 H (74-99) mg/dL POC Glucose (mg/dL) 158 H 121 H (75-99) mg/dL Magnesium 2.6 H (1.6-2.3) mg/dL Microbiology - Last 24 Hours (Table) 03/28/22 16:05 Blood Culture - Preliminary Blood No Growth after 24 hours 03/27/22 12:40 Gram Stain - Final Sputum Sputum Culture - Final
[2022-03-30] MEDS ORDERED: POTASSIUM CHLORIDE ER 20 MEQ TAB.ER PO STA (09:19)
--- NOTE | 2022-03-30 09:22 | P.PN ---
Subjective Patient is seen in follow-up for acute kidney injury. Renal function fairly stable. On IV Lasix. Urine output documented as 2.2 L in the last 24 hours. Blood pressure stable. On room air. Vital signs are stable. General: Awake and alert. No acute distress. HEENT: Head exam is unremarkable. LUNGS: Breath sounds decreased. HEART: Rate and Rhythm are regular. ABDOMEN: Soft, obese. EXTREMITITES: 2+ edema. Objective - Vital Signs Vital signs: Vital Signs Temp 97.9 F 03/30/22 05:57 Pulse 73 03/30/22 05:57 Resp 18 03/30/22 05:57 BP 135/70 03/30/22 05:57 Pulse Ox 98 03/30/22 05:57 Intake & Output 03/29/22 03/30/22 03/30/22 18:59 06:59 18:59 Intake Total 960 Output Total 2200 Balance 960 -2200 Intake: Oral 960 Output: Urine 2200 Other: # Voids 3 # Bowel Movements 1 - Labs CBC & Chem 7: 03/29/22 03:29 03/30/22 07:13 Labs: Abnormal Lab Results - Last 24 Hours (Table) 03/29/22 03/29/22 03/29/22 Range/Units 03:29 11:32 16:09 WBC 15.55 H (4.50-10.00) X 10*3/uL RBC 3.63 L (4.10-5.20) X 10*6/uL Hgb 10.9 L (12.0-15.0) g/dL Hct 33.5 L (37.2-46.3) % Immature Gran # 0.57 H (0.00-0.04) X 10*3/uL Neutrophils # 10.21 H (1.80-7.70) X 10*3/uL Monocytes # 1.64 H (0.20-1.00) X 10*3/uL Sodium (137-145) mmol/L BUN (7-17) mg/dL Creatinine (0.52-1.04) mg/dL Glucose (74-99) mg/dL POC Glucose (mg/dL) 176 H 261 H (75-99) mg/dL Magnesium (1.6-2.3) mg/dL 03/29/22 03/30/22 03/30/22 Range/Units 21:57 07:13 07:15 WBC (4.50-10.00) X 10*3/uL RBC (4.10-5.20) X 10*6/uL Hgb (12.0-15.0) g/dL Hct (37.2-46.3) % Immature Gran # (0.00-0.04) X 10*3/uL Neutrophils # (1.80-7.70) X 10*3/uL Monocytes # (0.20-1.00) X 10*3/uL Sodium 135 L (137-145) mmol/L BUN 43 H (7-17) mg/dL Creatinine 1.61 H (0.52-1.04) mg/dL Glucose 114 H (74-99) mg/dL POC Glucose (mg/dL) 158 H 121 H (75-99) mg/dL Magnesium 2.6 H (1.6-2.3) mg/dL Microbiology - Last 24 Hours (Table) 03/28/22 16:05 Blood Culture - Preliminary Blood No Growth after 24 hours 03/27/22 12:40 Gram Stain - Final Sputum Sputum Culture - Final Assessment and Plan Plan: Assessment: 1. Acute kidney injury secondary to ATN secondary to covid-19 infection. Creatinine stable in the range of 1.6-1.8 this admission - 1.61 today. Creatinine on 12/21/2021 was 0.93. Renal ultrasound showed no evidence of hydronephrosis. 2. Acute hypoxic respiratory failure secondary to acute COVID-19 infection and exacerbation. 3. Diabetes mellitus. 4. Metabolic acidosis secondary to acute kidney injury and diarrhea. On oral bicarb. Resolved. 5. Hypertension with chronic disease. Exacerbated by steroids. Stable. 6. Volume overload. Improving with diuresis. 7. Acute on chronic diastolic CHF. Plan: Maintain IV Lasix. 1200 mL fluid restriction. Encouraged oral intake. Continue with losartan for now as blood pressure not low and GFR stable. Continue to monitor renal function and urine output. Replace potassium. Stop bicarb. Stop hydralazine as it can cause lower extremity edema. Increase dose of metoprolol if blood pressure staying high.
[2022-03-30] MEDS: FUROSEMIDE 10 MG/ML 4 ML VIAL IV SCH ×2 (09:59→20:45)
[2022-03-30 11:35] LABS: Glucose,Whole Blood 188 mg/dL (75-99)
--- NOTE | 2022-03-30 14:41 | P.PN ---
Subjective Progress Note Date: 03/30/22 Principal diagnosis: Shortness of breath A pleasant 61-year-old female patient is well-known to me. She is known to have severe persistent bronchial asthma/COPD along with obstructive sleep apnea. The patient is morbidly obese with a BMI 58.7. Around December of this current year, the patient was having increased symptoms of bronchitis and asthma exacerbation. At that point, I performed a bronchoscopy on her in the microbial cultures came back essentially negative. She was doing well and around 2 days ago, she started having increased dyspnea cough chest tightness and wheezing. She does have some loose diarrhea. No change in the taste or smell. She checked herself positive for COVID 19 on outpatient basis. This was confirmed after she came back to the hospital. Accordingly, the patient was hospitalized that the patient was found to have increased bronchospasm wheezing and shortness of breath. She is currently on IV Solu Medrol 60 mg every 6 hours. She is on room air oxygen. Her pulse ox is 94%. No altered mentation. No chest pain. No change in mental status. Outpatient medications have been resumed and the patient remains on Lovenox 30 mg subcu for DVT prophylaxis. Note that the patient has been vaccinated 2 for COVID 19 and she has not taken the booster shot. Other blood work the patient also comes at 6.37 with a hemoglobin of 11.1. Normal coagulation profile. D-dimer is at 0.46. The BUN 33 with a creatinine of 1.6 and the sodium level of 138. LFTs are normal. CRP level is at 1.1. LDH level is at 211. Detrol calcitonin LEVEL IS AT 0.1. CHEST X-RAY SHOWING SOME PLEURAL REACTION LEFT LUNG BASE OTHERWISE NO OTHER ACUTE ABNORM ALITIES NOTED. On 03/21/2022 patient seen in follow-up on medical surgical floor. She is awake and alert, in no acute distress, she is currently on room air with pulse ox of 94%, she sits up in the recliner, breathing seems to be nonlabored, she does get short of breath with exertion but no acute distress, with chest pain, she's been afebrile, vital signs have been stable overnight. Chest x-ray from admission showed mild pleural reaction at the left lung base, unchanged compared to previous chest x-ray from December 2021. Her labs from yesterday were reviewed showing white blood cell count is 6.3, hemoglobin was 11.1, electrolytes and renal profile were within normal limits, d-dimer was within normal limits, and so was a fibrinogen, electrolytes were within normal limits, renal profile was stable with BUN of 33.1, and creatinine of 1.6, ferritin LDH were within normal limits, troponin was negative, CRP was 1.1, pro calcitonin level was negative at 0.10. She has a very congested harsh cough, and she remains on IV Solu-Medrol at 60 mg every 6 hours, DuoNeb on an as-needed basis, she is on GI and DVT prophylaxis, multivitamins, she is on theophylline, and Spiriva. On 03/22/2022 patient seen in follow-up on medical surgical floor. Patient is awake and alert, still quite wheezy, was complaining of some chest tightness earlier, coughing. She was noted to be bradycardic earlier, her beta blockers are on hold. She continues on IV steroids with Solu-Medrol 60 mg every 6 hours, nebulized bronchodilators, Mucinex, she is on Symbicort, Spiriva and albuterol, she is on Tessalon pearls. She is on prophylactic dose of Lovenox 30 mg once a day, she had a negative pro calcitonin of 0.10. She tested positive for coarse with 19, she is being treated for acute exacerbation of severe persistent bronchial asthma, was possibly triggered by COVID-19 infection. On 03/23/2022 patient seen in follow-up on medical surgical floor. Patient states she feels a little improved, however still has a congested cough, but she is able to bring up some yellowish and greenish colored phlegm. No fever or chills, vital signs have been stable, she is currently on 2 L of oxygen, her pulse ox is 99%. There is better air entry noted bilaterally on today's exam. No complaints of chest discomfort. Vital signs have been stable. Patient continues on high-dose IV steroids Solu-Medrol 60 mg every 6 hours, continues on inhaled bronchodilators. No hemoptysis, no chest tightness. No altered mentation. Continues on multivitamins. Today's labs show improving with ethyl, which is down to 11, hemoglobin is 11.5, sodium is 138, potassium is 4.2, chloride is 110, CO2 is 20, BUN is 36, creatinine is 1.5. On 03/28/2022 patient seen in follow-up on medical surgical floor. Patient is still congested, vital signs have been stable, she has been slow to improve, patient is being treated for acute exacerbation of severe persistent chronic bronchial asthma. Patient has been tolerating ambulation in the room and to the bathroom. Patient was started on ciprofloxacin and vancomycin. Sputum culture Gram stain showed moderate PMNs, moderate gram-positive bacilli and few gram- negative bacilli and few gram-positive cocci. These labs have been reviewed, white blood cell count 20, hemoglobin is 12.2, electrolytes are unremarkable, BUN is 41, and creatinine is 1.8. Patient continues on Symbicort, prophylactic anticoagulation, GI and DVT prophylaxis, oral Lasix has been added, she is in multivitamins, she is on Symbicort and Spiriva. Nephrology is following, patient is on oral sodium bicarb. No nausea vomiting or diarrhea. Tolerating oral intake. On 03/29/2022 patient seen in follow-up on medical surgical floor. Patient is improving, still congested, although the congestion and coughing is better. She remains on 2 L of oxygen, pulse ox is 98%. She is ambulating in the room and to the bathroom, tolerating activity well. Remains on IV diuretics with Lasix 40 mg every 12 hours IV push, she remains on inhaled bronchodilators and IV steroids. She did receive vancomycin, ID service is on the case. No acute events overnight, no nausea vomiting or diarrhea. No chest discomfort. On 03/30/2022 patient seen in follow-up on medical surgical floor. She is awake and alert, in no acute distress, sitting up in a recliner, she states this morning she had episode of worsening shortness of breath, chest tightness, patient continues on breathing treatments, she is on IV Lasix 40 mg every 12 hours, she remains on oral prednisone 40 mg daily. Currently breathing much more comfortably. Room air pulse ox is 96% she is afebrile. All her cultures remain negative. Her last CBC from 03/29/2022 showed improving white count which was down to 15.5, hemoglobin was 10.9, today's BMP shows sodium of 135, potassium is 3.7, B1 of 43, creatinine is 1.61. Pro calcitonin level has been negative, antibiotics have been discontinued. Objective - Vital Signs Vital signs: Vital Signs Temp 97.4 F L 03/30/22 14:06 Pulse 80 03/30/22 14:06 Resp 20 03/30/22 14:06 BP 128/73 03/30/22 14:06 Pulse Ox 96 03/30/22 14:06 Intake & Output 03/29/22 03/30/22 03/30/22 18:59 06:59 18:59 Intake Total 960 180 Output Total 2200 750 Balance 960 -2200 -570 Intake: Oral 960 180 Output: Urine 2200 750 Other: # Voids 3 # Bowel Movements 1 - Exam GENERAL EXAM: Alert, very pleasant, 61-year-old white female, on 2 l/min with a pulse ox of 98%, sitting up in a recliner comfortable in no apparent distress. HEAD: Normocephalic/atraumatic. EYES: Normal reaction of pupils, equal size. Conjunctiva pink, sclera white. NOSE: Clear with pink turbinates. THROAT: No erythema or exudates. NECK: No masses, no JVD, no thyroid enlargement, no adenopathy. CHEST: No chest wall deformity. Symmetrical expansion. LUNGS: Equal air entry with diffuse wheezes, congestive cough, CVS: Regular rate and rhythm, normal S1 and S2, no gallops, no murmurs, no rubs ABDOMEN: Soft, nontender. No hepatosplenomegaly, normal bowel sounds, no guar ding or rigidity. EXTREMITIES: No clubbing, no edema, no cyanosis, 2+ pulses and upper and lower extremities. MUSCULOSKELETAL: Muscle strength and tone normal. SPINE: No scoliosis or deformity SKIN: No rashes CENTRAL NERVOUS SYSTEM: Alert and oriented -3. No focal deficits, tone is normal in all 4 extremities. PSYCHIATRIC: Alert and oriented -3. Appropriate affect. Intact judgment and insight. - Labs CBC & Chem 7: 03/29/22 03:29 03/30/22 07:13 Labs: Abnormal Lab Results - Last 24 Hours (Table) 03/29/22 03/29/22 03/30/22 Range/Units 16:09 21:57 07:13 Sodium 135 L (137-145) mmol/L BUN 43 H (7-17) mg/dL Creatinine 1.61 H (0.52-1.04) mg/dL Glucose 114 H (74-99) mg/dL POC Glucose (mg/dL) 261 H 158 H (75-99) mg/dL Magnesium 2.6 H (1.6-2.3) mg/dL 03/30/22 03/30/22 Range/Units 07:15 11:34 Sodium (137-145) mmol/L BUN (7-17) mg/dL Creatinine (0.52-1.04) mg/dL Glucose (74-99) mg/dL POC Glucose (mg/dL) 121 H 188 H (75-99) mg/dL Magnesium (1.6-2.3) mg/dL Microbiology - Last 24 Hours (Table) 03/28/22 16:05 Blood Culture - Preliminary Blood No Growth after 24 hours Assessment and Plan Plan: Assessment: #1. Acute COVID-19 infection, patient was previously vaccinated for COVID-19 2 with Moderna, no boosters. Chest x-ray did not show acute pneumonia, patient is on room air, patient's inflammatory markers are not significantly elevated, d- dimer is negative #2. Acute exacerbation of severe persistent bronchial asthma #3. Shortness of breath, wheezing and chest tightness related to the above #4. History of multiple bilateral pulmonary nodules, all stable on computed tomography scan #5. Severe obstructive sleep apnea with AHI score of 63.8, and severe nocturnal oxygen desaturation awaiting CPAP titration #6. Psoriasis #7. Chronic lower extremity edema #8. The reticular disease #9. Hypertension #10. Hyperlipidemia #11. Borderline low IgG levels #12. Environmental ALLERGIES Plan: Continue current medical treatment Continue prednisone Continue Inhaled bronchodilators Continue prophylactic anticoagulation Patient had a episode of acute bronchospasm this morning, which has improved patient is feeling better We'll continue to follow her clinical course I have personally seen and examined the patient, performed the documentation and the assessment and plan as written. Number of minutes spent on the visit: [10] Time with Patient: Less than 30
[2022-03-30 16:46] LABS: Glucose,Whole Blood 265 mg/dL (75-99)
[2022-03-30] MEDS: diphenhydrAMINE 50 MG/ML 1 ML VIAL IVP PRN (20:45)
[2022-03-30] MEDS: ATORVASTATIN 20 MG TAB PO SCH (21:13)
[2022-03-30 21:30] LABS: Glucose,Whole Blood 183 mg/dL (75-99)
[2022-03-31] MEDS: ALPRAZolam 0.25 MG TAB PO PRN ×3 (03:00→19:10)
[2022-03-31] MEDS: LEVOTHYROXINE 25 MCG TAB PO SCH (05:12)
[2022-03-31] MEDS: ACETAMINOPHEN TAB 325 MG TAB PO PRN ×2 (05:14→12:11)
[2022-03-31 07:19] LABS: Glucose,Whole Blood 126 mg/dL (75-99)
--- NOTE | 2022-03-31 07:23 | P.PN ---
Subjective Progress Note Date: 03/30/22 Principal diagnosis: Leukocytosis possible oropharyngeal candidiasis Patient is a 61-year-old female with a past medical history significant for COPD presented to hospital with increasing shortness of breath has been diagnosed and treated for covid pneumonia or, in this patient did have significantly elevated white count and concern for possible secondary bacterial pneumonia versus oropharyngeal candidiasis. Patient did have multiple antibiotic ALLERGIES On today's evaluation that is 03/30/2022, the patient remains to be afebrile, the patient is breathing slightly comfortably on nasal cannula oxygen, the patient denies having any chest pain she can have a cough and is bringing up some sputum denies hemoptysis and no nausea no vomiting no abdominal pain and no diarrhea Objective - Vital Signs Vital signs: Vital Signs Temp 97.5 F L 03/30/22 10:27 Pulse 75 03/30/22 10:27 Resp 21 03/30/22 10:27 BP 117/61 03/30/22 10:27 Pulse Ox 98 03/30/22 10:27 Intake & Output 03/29/22 03/30/22 03/30/22 18:59 06:59 18:59 Intake Total 960 180 Output Total 2200 750 Balance 960 -2200 -570 Intake: Oral 960 180 Output: Urine 2200 750 Other: # Voids 3 # Bowel Movements 1 - Exam GENERAL DESCRIPTION: Middle-aged female lying in bed in no distress RESPIRATORY SYSTEM: Unlabored breathing , coarse breath sounds bilaterally with occasional wheeze HEART: S1 S2 regular rate and rhythm , ABDOMEN: Soft , no tenderness EXTREMITIES: No edema feet - Labs CBC & Chem 7: 03/29/22 03:29 03/30/22 07:13 Labs: Abnormal Lab Results - Last 24 Hours (Table) 03/29/22 03/29/22 03/30/22 Range/Units 16:09 21:57 07:13 Sodium 135 L (137-145) mmol/L BUN 43 H (7-17) mg/dL Creatinine 1.61 H (0.52-1.04) mg/dL Glucose 114 H (74-99) mg/dL POC Glucose (mg/dL) 261 H 158 H (75-99) mg/dL Magnesium 2.6 H (1.6-2.3) mg/dL 03/30/22 03/30/22 Range/Units 07:15 11:34 Sodium (137-145) mmol/L BUN (7-17) mg/dL Creatinine (0.52-1.04) mg/dL Glucose (74-99) mg/dL POC Glucose (mg/dL) 121 H 188 H (75-99) mg/dL Magnesium (1.6-2.3) mg/dL Microbiology - Last 24 Hours (Table) 03/28/22 16:05 Blood Culture - Preliminary Blood No Growth after 24 hours 03/27/22 12:40 Gram Stain - Final Sputum Sputum Culture - Final Assessment and Plan (1) Leukocytosis Current Visit: Yes Status: Acute Code(s): D72.829 - ELEVATED WHITE BLOOD CELL COUNT, UNSPECIFIED SNOMED Code(s): 572890646 Plan: 1patient presented to hospital with increasing shortness of breath which is l ikely multifactorial in this patient likely COPD exacerbation and did have a complicating factor of COVID-19 infection, patient is clinically not behaving as a secondary bacterial pneumonia patient with no fever chest x-ray completed this morning did not show any acute infiltrate. 2elevated white count more likely steroid effect plus minus a component of oropharyngeal candidiasis. 3renal insufficiency and high risk of nephrotoxicity from vancomycin. 4patient with multiple antibiotic allergies that would limit the number of antibiotics safe to use. 5 patient procalcitonin level was normal as sputum culture has been negative 6patient white count was trending down and will continue with Diflucan 200 mg p.o. daily and monitor clinical course closely Time with Patient: Less than 30
[2022-03-31] MEDS: diphenhydrAMINE 50 MG/ML 1 ML VIAL IVP PRN (07:52)
[2022-03-31] MEDS: ZINC SULFATE 220 MG CAP PO SCH (07:54)
[2022-03-31] MEDS: predniSONE 20 MG TAB PO SCH (07:54)
[2022-03-31] MEDS: guaiFENesin 600 MG TABLET.ER PO SCH ×2 (07:54→20:54)
[2022-03-31] MEDS: BENZONATATE 100 MG CAP PO SCH ×3 (07:54→20:53)
[2022-03-31] MEDS: METOPROLOL TARTRATE 12.5 MG TAB PO SCH ×2 (07:54→20:53)
[2022-03-31] MEDS: ASCORBIC ACID 500 MG TAB PO SCH (07:54)
[2022-03-31] MEDS: FLUCONAZOLE 100 MG TAB PO SCH (07:54)
[2022-03-31] MEDS: FAMOTIDINE 20 MG TAB PO SCH (07:55)
[2022-03-31] MEDS: INSULIN DETEMIR (LEVEMIR) 100 UNIT/ML SYR SQ SCH ×2 (07:55→21:07)
[2022-03-31] MEDS: INSULIN ASPART (NovoLOG) 100 UNIT/ML VIAL SQ SCH ×4 (07:55→21:07)
[2022-03-31] MEDS: ENOXAPARIN 40 MG/0.4 ML SYRINGE SQ SCH (07:55)
[2022-03-31] MEDS: LOSARTAN 25 MG TAB PO SCH ×2 (07:55→20:53)
[2022-03-31] MEDS: BACLOFEN 10 MG TAB PO SCH ×2 (07:55→20:54)
[2022-03-31] MEDS: FUROSEMIDE 10 MG/ML 4 ML VIAL IV SCH ×2 (07:56→20:53)
[2022-03-31] MEDS: THEOPHYLLINE 24 HOUR 400 MG CAP.ER.24H PO SCH (07:56)
[2022-03-31] MEDS: FLUTICASONE 50MCG/SPRAY NASAL 16GM EA NOSTRIL SCH ×2 (07:56→20:54)
[2022-03-31] MEDS: CALCIUM CARBONATE 500 MG CHEWABLE PO PRN ×2 (08:16→17:09)
[2022-03-31] MEDS: SYMBICORT 160-4.5 MCG INHALER INHALATION SCH ×2 (08:55→21:32)
[2022-03-31] MEDS: ALBUTEROL HFA INHALER INHALATION SCH ×4 (08:55→21:31)
[2022-03-31] MEDS: TIOTROPIUM 2.5 MCG INHALER INHALATION SCH (08:55)
[2022-03-31 09:54] LABS: African American GFR (CKD) 36.6 (60.0-200.0); Anion Gap 11.7 mmol/L (10.00-18.00); BUN/Creat Ratio 24.29 Ratio (12.00-20.00); Blood Urea Nitrogen 41.3 mg/dL (9.0-27.0); Calcium 9.3 mg/dL (8.7-10.3); Carbon Dioxide 30.3 mmol/L (20.0-27.5); Magnesium 2.9 mg/dL (1.5-2.4); Non-African American GFR(CKD) 31.5 (60.0-200.0); Potassium 3.9 mmol/L (3.5-5.5)
[2022-03-31 12:07] LABS: Glucose,Whole Blood 198 mg/dL (75-99)
--- NOTE | 2022-03-31 12:57 | P.PN ---
Subjective Progress Note Date: 03/31/22 Principal diagnosis: Shortness of breath A pleasant 61-year-old female patient is well-known to me. She is known to have severe persistent bronchial asthma/COPD along with obstructive sleep apnea. The patient is morbidly obese with a BMI 58.7. Around December of this current year, the patient was having increased symptoms of bronchitis and asthma exacerbation. At that point, I performed a bronchoscopy on her in the microbial cultures came back essentially negative. She was doing well and around 2 days ago, she started having increased dyspnea cough chest tightness and wheezing. She does have some loose diarrhea. No change in the taste or smell. She checked herself positive for COVID 19 on outpatient basis. This was confirmed after she came back to the hospital. Accordingly, the patient was hospitalized that the patient was found to have increased bronchospasm wheezing and shortness of breath. She is currently on IV Solu Medrol 60 mg every 6 hours. She is on room air oxygen. Her pulse ox is 94%. No altered mentation. No chest pain. No change in mental status. Outpatient medications have been resumed and the patient remains on Lovenox 30 mg subcu for DVT prophylaxis. Note that the patient has been vaccinated 2 for COVID 19 and she has not taken the booster shot. Other blood work the patient also comes at 6.37 with a hemoglobin of 11.1. Normal coagulation profile. D-dimer is at 0.46. The BUN 33 with a creatinine of 1.6 and the sodium level of 138. LFTs are normal. CRP level is at 1.1. LDH level is at 211. Detrol calcitonin LEVEL IS AT 0.1. CHEST X-RAY SHOWING SOME PLEURAL REACTION LEFT LUNG BASE OTHERWISE NO OTHER ACUTE ABNORM ALITIES NOTED. On 03/21/2022 patient seen in follow-up on medical surgical floor. She is awake and alert, in no acute distress, she is currently on room air with pulse ox of 94%, she sits up in the recliner, breathing seems to be nonlabored, she does get short of breath with exertion but no acute distress, with chest pain, she's been afebrile, vital signs have been stable overnight. Chest x-ray from admission showed mild pleural reaction at the left lung base, unchanged compared to previous chest x-ray from December 2021. Her labs from yesterday were reviewed showing white blood cell count is 6.3, hemoglobin was 11.1, electrolytes and renal profile were within normal limits, d-dimer was within normal limits, and so was a fibrinogen, electrolytes were within normal limits, renal profile was stable with BUN of 33.1, and creatinine of 1.6, ferritin LDH were within normal limits, troponin was negative, CRP was 1.1, pro calcitonin level was negative at 0.10. She has a very congested harsh cough, and she remains on IV Solu-Medrol at 60 mg every 6 hours, DuoNeb on an as-needed basis, she is on GI and DVT prophylaxis, multivitamins, she is on theophylline, and Spiriva. On 03/22/2022 patient seen in follow-up on medical surgical floor. Patient is awake and alert, still quite wheezy, was complaining of some chest tightness earlier, coughing. She was noted to be bradycardic earlier, her beta blockers are on hold. She continues on IV steroids with Solu-Medrol 60 mg every 6 hours, nebulized bronchodilators, Mucinex, she is on Symbicort, Spiriva and albuterol, she is on Tessalon pearls. She is on prophylactic dose of Lovenox 30 mg once a day, she had a negative pro calcitonin of 0.10. She tested positive for coarse with 19, she is being treated for acute exacerbation of severe persistent bronchial asthma, was possibly triggered by COVID-19 infection. On 03/23/2022 patient seen in follow-up on medical surgical floor. Patient states she feels a little improved, however still has a congested cough, but she is able to bring up some yellowish and greenish colored phlegm. No fever or chills, vital signs have been stable, she is currently on 2 L of oxygen, her pulse ox is 99%. There is better air entry noted bilaterally on today's exam. No complaints of chest discomfort. Vital signs have been stable. Patient continues on high-dose IV steroids Solu-Medrol 60 mg every 6 hours, continues on inhaled bronchodilators. No hemoptysis, no chest tightness. No altered mentation. Continues on multivitamins. Today's labs show improving with ethyl, which is down to 11, hemoglobin is 11.5, sodium is 138, potassium is 4.2, chloride is 110, CO2 is 20, BUN is 36, creatinine is 1.5. On 03/28/2022 patient seen in follow-up on medical surgical floor. Patient is still congested, vital signs have been stable, she has been slow to improve, patient is being treated for acute exacerbation of severe persistent chronic bronchial asthma. Patient has been tolerating ambulation in the room and to the bathroom. Patient was started on ciprofloxacin and vancomycin. Sputum culture Gram stain showed moderate PMNs, moderate gram-positive bacilli and few gram- negative bacilli and few gram-positive cocci. These labs have been reviewed, white blood cell count 20, hemoglobin is 12.2, electrolytes are unremarkable, BUN is 41, and creatinine is 1.8. Patient continues on Symbicort, prophylactic anticoagulation, GI and DVT prophylaxis, oral Lasix has been added, she is in multivitamins, she is on Symbicort and Spiriva. Nephrology is following, patient is on oral sodium bicarb. No nausea vomiting or diarrhea. Tolerating oral intake. On 03/29/2022 patient seen in follow-up on medical surgical floor. Patient is improving, still congested, although the congestion and coughing is better. She remains on 2 L of oxygen, pulse ox is 98%. She is ambulating in the room and to the bathroom, tolerating activity well. Remains on IV diuretics with Lasix 40 mg every 12 hours IV push, she remains on inhaled bronchodilators and IV steroids. She did receive vancomycin, ID service is on the case. No acute events overnight, no nausea vomiting or diarrhea. No chest discomfort. On 03/30/2022 patient seen in follow-up on medical surgical floor. She is awake and alert, in no acute distress, sitting up in a recliner, she states this morning she had episode of worsening shortness of breath, chest tightness, patient continues on breathing treatments, she is on IV Lasix 40 mg every 12 hours, she remains on oral prednisone 40 mg daily. Currently breathing much more comfortably. Room air pulse ox is 96% she is afebrile. All her cultures remain negative. Her last CBC from 03/29/2022 showed improving white count which was down to 15.5, hemoglobin was 10.9, today's BMP shows sodium of 135, potassium is 3.7, B1 of 43, creatinine is 1.61. Pro calcitonin level has been negative, antibiotics have been discontinued. On 03/31/2022 patient seen in follow-up on medical surgical floor. She states she is feeling better, she sounds better, less bronchospastic, and wheezing is heard only with forced exhalation. No chest discomfort, there is equal air entry bilaterally, room air pulse ox is 97%, she is improving. His been ambulating in the room into the bathroom, tolerates activity well, she continues on IV Lasix at 40 mg every 12 hours, she is in -3.4 L net fluid balance over the last 24 hours, still has significant lower extremity edema, nephrology is foll owing and dosing the diuretics and monitoring renal function. Today's labs have been reviewed, her CO2 is 30.3, here BUN is 41, creatinine is 1.7. Patient continues on multivitamins, she is on Diflucan, she is on prophylactic Lovenox, she is on inhaled bronchodilators, IV Lasix, and oral prednisone 40 mg daily Objective - Vital Signs Vital signs: Vital Signs Temp 98 F 03/31/22 07:37 Pulse 97 03/31/22 07:37 Resp 17 03/31/22 08:00 BP 132/77 03/31/22 07:37 Pulse Ox 97 03/31/22 07:37 Intake & Output 03/30/22 03/31/22 03/31/22 18:59 06:59 18:59 Intake Total 660 100 180 Output Total 1900 2350 595 Balance -1240 -2250 -415 Intake: Oral 660 100 180 Output: Urine 1900 2350 595 Other: Voiding Method Toilet - Exam GENERAL EXAM: Alert, very pleasant, 61-year-old white female, on room air with pulse ox of 97%, sitting up in a recliner comfortable in no apparent distress. HEAD: Normocephalic/atraumatic. EYES: Normal reaction of pupils, equal size. Conjunctiva pink, sclera white. NOSE: Clear with pink turbinates. THROAT: No erythema or exudates. NECK: No masses, no JVD, no thyroid enlargement, no adenopathy. CHEST: No chest wall deformity. Symmetrical expansion. LUNGS: Equal air entry with diffuse wheezes on forced exhalation CVS: Regular rate and rhythm, normal S1 and S2, no gallops, no murmurs, no rubs ABDOMEN: Soft, nontender. No hepatosplenomegaly, normal bowel sounds, no guarding or rigidity. EXTREMITIES: No clubbing, no edema, no cyanosis, 2+ pulses and upper and lower extremities. MUSCULOSKELETAL: Muscle strength and tone normal. SPINE: No scoliosis or deformity SKIN: No rashes CENTRAL NERVOUS SYSTEM: Alert and oriented -3. No focal deficits, tone is normal in all 4 extremities. PSYCHIATRIC: Alert and oriented -3. Appropriate affect. Intact judgment and insight. - Labs CBC & Chem 7: 03/29/22 03:29 03/31/22 06:15 Labs: Abnormal Lab Results - Last 24 Hours (Table) 03/30/22 03/30/22 03/31/22 Range/Units 16:45 21:29 06:15 Carbon Dioxide 30.3 H (20.0-27.5) mmol/L BUN 41.3 H (9.0-27.0) mg/dL Creatinine 1.7 H (0.6-1.5) mg/dL Est GFR (CKD-EPI)AfAm 36.6 L (60.0-200.0) Est GFR (CKD-EPI)NonAf 31.5 L (60.0-200.0) BUN/Creatinine Ratio 24.29 H (12.00-20.00) Ratio Glucose 139 H (70-110) mg/dL POC Glucose (mg/dL) 265 H 183 H (75-99) mg/dL Magnesium 2.9 H (1.5-2.4) mg/dL 03/31/22 03/31/22 Range/Units 07:15 12:02 Carbon Dioxide (20.0-27.5) mmol/L BUN (9.0-27.0) mg/dL Creatinine (0.6-1.5) mg/dL Est GFR (CKD-EPI)AfAm (60.0-200.0) Est GFR (CKD-EPI)NonAf (60.0-200.0) BUN/Creatinine Ratio (12.00-20.00) Ratio Glucose (70-110) mg/dL POC Glucose (mg/dL) 126 H 198 H (75-99) mg/dL Magnesium (1.5-2.4) mg/dL Microbiology - Last 24 Hours (Table) 03/28/22 16:05 Blood Culture - Preliminary Blood No Growth after 48 hours Assessment and Plan Plan: Assessment: #1. Acute COVID-19 infection, patient was previously vaccinated for COVID-19 2 with Moderna, no boosters. Chest x-ray did not show acute pneumonia, patient is on room air, patient's inflammatory markers are not significantly elevated, d- dimer is negative #2. Acute exacerbation of severe persistent bronchial asthma #3. Shortness of breath, wheezing and chest tightness related to the above #4. History of multiple bilateral pulmonary nodules, all stable on computed tomography scan #5. Severe obstructive sleep apnea with AHI score of 63.8, and severe nocturnal oxygen desaturation awaiting CPAP titration #6. Psoriasis #7. Chronic lower extremity edema #8. The reticular disease #9. Hypertension #10. Hyperlipidemia #11. Borderline low IgG levels #12. Environmental ALLERGIES Plan: Patient is improving He is maintaining stable oxygenation on room air Continue prednisone, inhaled bronchodilators, multivitamins, and prophylactic anti-coagulation Encourage ambulation, Patient still has significant lower extremity edema, continues on diuretics per nephrology We'll continue to follow Daily weights, follow up renal profile and electrolytes No acute events overnight She could be considered for discharge home when cleared by nephrology and medicine I have personally seen and examined the patient, performed the documentation and the assessment and plan as written. Number of minutes spent on the visit: [10] Time with Patient: Less than 30
--- NOTE | 2022-03-31 13:33 | P.PN ---
Subjective Progress Note Date: 03/31/22 Pt had another episode of asthma today, but back to 97+% on room air. Continue monitoring. Gen: awake, alert HEENT: normocephalic, atraumatic, good hearing acuity, moist mucous membranes Resp: good air exchange, breathing comfortably with no accessory muscle use, end-expiratory wheezing CVS: good distal perfusion x 4, RRR, no murmurs GI: soft, NTTP, ND : no SPT, no CVAT, vela catheter not present MSK: no pitting edema, no clubbing Neuro: non-focal, moving all extremities Psych: cooperative, euthymic mood Assessment/plan: #Acute exacerbation of severe persistent bronchial asthma #Acute COVID-19 infection, patient was previously vaccinated for COVID-19 2 with Moderna, no boosters. Chest x-ray did not show acute pneumonia -Resume DuoNeb inhalations, Symbicort, Spiriva and theophylline. - Change IV steroids to prednisone 40 mg daily for 5 days -Pulmonary following. - ID consulted - empirically started on vancomycin, ciprofloxacin, then d/c'd after low PC value and no other s/s of infx #Asymptomatic bradycardia secondary to beta krista -Cardiology consulted. -Cardiology held beta krista. #History of multiple bilateral pulmonary nodules, -Stable on CAT scan per pulmonary #Super morbid Obesity BMI is 58 with Obstructive sleep apnea -Patient was counseled regarding diet and weight loss -We'll need outpatient sleep study #Chest pain secondary to above -Acute coronary syndrome has been ruled out -Negative D-dimer -Lower extremity Doppler negative for DVT -Cardiology evaluated the patient -Beta krista held by cardiology due to bradycardia -History of normal left heart catheterization 2017 #Type II diabetes mellitus -A1c 7.1 -Resume Scale insulin and Levemir -Metformin on hold #Psoriasis #Chronic lower extremity edema -2-D echo showed left ventricular hypertrophy with preserved LV systolic function. Technically difficult study despite Definity contrast -Lower Extremity Doppler negative for DVT -Nephrology restarted Lasix #Acute kidney injury -Improving -Appreciate nephrology input #Uncontrolled Hypertension -Resume losartan -Increased hydralazine to 75 daily #Hyperlipidemia #Environmental ALLERGIES - resume statin - theophylline - benadryl PRN #Lovenox for DVT prophylaxis. Objective - Vital Signs Vital signs: Vital Signs Temp 98 F 03/31/22 07:37 Pulse 97 03/31/22 07:37 Resp 17 03/31/22 08:00 BP 132/77 03/31/22 07:37 Pulse Ox 97 03/31/22 07:37 Intake & Output 03/30/22 03/31/22 03/31/22 18:59 06:59 18:59 Intake Total 660 100 180 Output Total 1900 2350 595 Balance -6900 -8180 -415 Intake: Oral 660 100 180 Output: Urine 1900 2350 595 Other: Voiding Method Toilet - Labs CBC & Chem 7: 03/29/22 03:29 03/31/22 06:15 Labs: Abnormal Lab Results - Last 24 Hours (Table) 03/30/22 03/30/22 03/31/22 Range/Units 16:45 21:29 06:15 Carbon Dioxide 30.3 H (20.0-27.5) mmol/L BUN 41.3 H (9.0-27.0) mg/dL Creatinine 1.7 H (0.6-1.5) mg/dL Est GFR (CKD-EPI)AfAm 36.6 L (60.0-200.0) Est GFR (CKD-EPI)NonAf 31.5 L (60.0-200.0) BUN/Creatinine Ratio 24.29 H (12.00-20.00) Ratio Glucose 139 H (70-110) mg/dL POC Glucose (mg/dL) 265 H 183 H (75-99) mg/dL Magnesium 2.9 H (1.5-2.4) mg/dL 03/31/22 03/31/22 Range/Units 07:15 12:02 Carbon Dioxide (20.0-27.5) mmol/L BUN (9.0-27.0) mg/dL Creatinine (0.6-1.5) mg/dL Est GFR (CKD-EPI)AfAm (60.0-200.0) Est GFR (CKD-EPI)NonAf (60.0-200.0) BUN/Creatinine Ratio (12.00-20.00) Ratio Glucose (70-110) mg/dL POC Glucose (mg/dL) 126 H 198 H (75-99) mg/dL Magnesium (1.5-2.4) mg/dL Microbiology - Last 24 Hours (Table) 03/28/22 16:05 Blood Culture - Preliminary Blood No Growth after 48 hours
--- NOTE | 2022-03-31 15:18 | P.PN ---
Subjective Patient is seen for follow-up for acute kidney injury. She is currently being diuresed. Urine output documented at 4.2 L. Patient states overall she is feeling better. She continues to have significant edema in the lower extremities. Weight is not charted Objective - Vital Signs Vital signs: Vital Signs Temp 98 F 03/31/22 07:37 Pulse 97 03/31/22 07:37 Resp 17 03/31/22 08:00 BP 132/77 03/31/22 07:37 Pulse Ox 97 03/31/22 07:37 Intake & Output 03/30/22 03/31/22 03/31/22 18:59 06:59 18:59 Intake Total 660 100 180 Output Total 1900 2350 595 Balance -6781 -4080 -247 Intake: Oral 660 100 180 Output: Urine 1900 2350 595 Other: Voiding Method Toilet - Exam Patient is awake, comfortable, not in any acute distress Examination of the heart S1 and S2 Examination lungs bilateral breath sounds are heard Abdomen is soft obese nontender Exertion lower extremities shows edema 2+ bilaterally [employer] exam grossly intact - Labs CBC & Chem 7: 03/29/22 03:29 03/31/22 06:15 Labs: Abnormal Lab Results - Last 24 Hours (Table) 03/30/22 03/30/22 03/31/22 Range/Units 16:45 21:29 06:15 Carbon Dioxide 30.3 H (20.0-27.5) mmol/L BUN 41.3 H (9.0-27.0) mg/dL Creatinine 1.7 H (0.6-1.5) mg/dL Est GFR (CKD-EPI)AfAm 36.6 L (60.0-200.0) Est GFR (CKD-EPI)NonAf 31.5 L (60.0-200.0) BUN/Creatinine Ratio 24.29 H (12.00-20.00) Ratio Glucose 139 H (70-110) mg/dL POC Glucose (mg/dL) 265 H 183 H (75-99) mg/dL Magnesium 2.9 H (1.5-2.4) mg/dL 03/31/22 03/31/22 Range/Units 07:15 12:02 Carbon Dioxide (20.0-27.5) mmol/L BUN (9.0-27.0) mg/dL Creatinine (0.6-1.5) mg/dL Est GFR (CKD-EPI)AfAm (60.0-200.0) Est GFR (CKD-EPI)NonAf (60.0-200.0) BUN/Creatinine Ratio (12.00-20.00) Ratio Glucose (70-110) mg/dL POC Glucose (mg/dL) 126 H 198 H (75-99) mg/dL Magnesium (1.5-2.4) mg/dL Microbiology - Last 24 Hours (Table) 03/28/22 16:05 Blood Culture - Preliminary Blood No Growth after 48 hours Assessment and Plan Assessment: 1. Acute kidney injury secondary to ATN associated with COVID-19 infection. Currently improving serum creatinine staying at about 1.6 with grams per deciliter. Previous creatinine 0.9 on 12/21/2019 to No evidence of obstruction on ultrasound. UA shows no blood and trace protein 2. Acute hypoxic respiratory failure associated with COVID-19 infection 3. Metabolic acidosis associated with acute kidney injury and diarrhea currently improved. Maintained on oral sodium bicarb 4. Hypertension exacerbated by steroids. 5. Volume overload, currently being diuresed 6. Acute on chronic diastolic CHF Plan: Continue with IV Lasix Continue with fluid restriction Check daily weights Repeat labs in a.m.
[2022-03-31 16:34] LABS: Glucose,Whole Blood 193 mg/dL (75-99)
[2022-03-31] MEDS: ATORVASTATIN 20 MG TAB PO SCH (20:53)
[2022-03-31 21:02] LABS: Glucose,Whole Blood 185 mg/dL (75-99)
--- NOTE | 2022-03-31 22:29 | P.PN ---
Subjective Progress Note Date: 03/31/22 Principal diagnosis: Leukocytosis possible oropharyngeal candidiasis Patient is a 61-year-old female with a past medical history significant for COPD presented to hospital with increasing shortness of breath has been diagnosed and treated for covid pneumonia or, in this patient did have significantly elevated white count and concern for possible secondary bacterial pneumonia versus oropharyngeal candidiasis. Patient did have multiple antibiotic ALLERGIES On today's evaluation that is 03/31/2022, the patient denies any fever or any chills, the patient is breathing slightly comfortably on nasal cannula oxygen, the patient denies chest pain , the patient did have a cough and is bringing up some sputum , the patient denies hemoptysis and no nausea no vomiting no abdominal pain and no diarrhea Objective - Vital Signs Vital signs: Vital Signs Temp 98 F 03/31/22 07:37 Pulse 97 03/31/22 07:37 Resp 17 03/31/22 08:00 BP 132/77 03/31/22 07:37 Pulse Ox 97 03/31/22 07:37 Intake & Output 03/30/22 03/31/22 03/31/22 18:59 06:59 18:59 Intake Total 660 100 180 Output Total 1900 2350 595 Balance -2692 -2250 -415 Intake: Oral 660 100 180 Output: Urine 1900 2350 595 Other: Voiding Method Toilet - Exam GENERAL DESCRIPTION: Middle-aged female lying in bed in no distress RESPIRATORY SYSTEM: Unlabored breathing , coarse breath sounds bilaterally with occasional wheeze HEART: S1 S2 regular rate and rhythm , ABDOMEN: Soft , no tenderness EXTREMITIES: No edema feet - Labs CBC & Chem 7: 03/29/22 03:29 03/31/22 06:15 Labs: Abnormal Lab Results - Last 24 Hours (Table) 03/30/22 03/30/22 03/31/22 Range/Units 16:45 21:29 06:15 Carbon Dioxide 30.3 H (20.0-27.5) mmol/L BUN 41.3 H (9.0-27.0) mg/dL Creatinine 1.7 H (0.6-1.5) mg/dL Est GFR (CKD-EPI)AfAm 36.6 L (60.0-200.0) Est GFR (CKD-EPI)NonAf 31.5 L (60.0-200.0) BUN/Creatinine Ratio 24.29 H (12.00-20.00) Ratio Glucose 139 H (70-110) mg/dL POC Glucose (mg/dL) 265 H 183 H (75-99) mg/dL Magnesium 2.9 H (1.5-2.4) mg/dL 03/31/22 03/31/22 Range/Units 07:15 12:02 Carbon Dioxide (20.0-27.5) mmol/L BUN (9.0-27.0) mg/dL Creatinine (0.6-1.5) mg/dL Est GFR (CKD-EPI)AfAm (60.0-200.0) Est GFR (CKD-EPI)NonAf (60.0-200.0) BUN/Creatinine Ratio (12.00-20.00) Ratio Glucose (70-110) mg/dL POC Glucose (mg/dL) 126 H 198 H (75-99) mg/dL Magnesium (1.5-2.4) mg/dL Microbiology - Last 24 Hours (Table) 03/28/22 16:05 Blood Culture - Preliminary Blood No Growth after 48 hours Assessment and Plan (1) Leukocytosis Current Visit: Yes Status: Acute Code(s): D72.829 - ELEVATED WHITE BLOOD CELL COUNT, UNSPECIFIED SNOMED Code(s): 237155569 Plan: 1patient presented to hospital with increasing shortness of breath which is likely multifactorial in this patient likely COPD exacerbation and did have a complicating factor of COVID-19 infection, patient is clinically not behaving as a secondary bacterial pneumonia patient with no fever chest x-ray completed this morning did not show any acute infiltrate. 2elevated white count more likely steroid effect plus minus a component of oropharyngeal candidiasis. 3renal insufficiency and high risk of nephrotoxicity from vancomycin. 4patient with multiple antibiotic allergies that would limit the number of antibiotics safe to use. 5 patient procalcitonin level was normal as sputum culture has been negative 6patient white count was trending down and will be repeated in am, pt to continue with Diflucan 200 mg p.o. daily and monitor clinical course closely Time with Patient: Less than 30
[2022-04-01] MEDS ORDERED: ALPRAZolam 0.25 MG TAB ONE (01:10)
[2022-04-01] MEDS ORDERED: ACETAMINOPHEN TAB 325 MG TAB ONE (01:10)
[2022-04-01] MEDS: LEVOTHYROXINE 25 MCG TAB PO SCH (05:54)
[2022-04-01 07:13] LABS: Glucose,Whole Blood 129 mg/dL (75-99)
[2022-04-01] MEDS: INSULIN ASPART (NovoLOG) 100 UNIT/ML VIAL SQ SCH ×4 (07:19→21:10)
[2022-04-01] MEDS: INSULIN DETEMIR (LEVEMIR) 100 UNIT/ML SYR SQ SCH ×2 (07:38→21:10)
[2022-04-01] MEDS: ACETAMINOPHEN TAB 325 MG TAB PO PRN ×3 (07:39→21:10)
[2022-04-01] MEDS: CALCIUM CARBONATE 500 MG CHEWABLE PO PRN ×2 (07:49→21:11)
[2022-04-01] MEDS: FAMOTIDINE 20 MG TAB PO SCH (07:51)
[2022-04-01] MEDS: ASCORBIC ACID 500 MG TAB PO SCH (07:51)
[2022-04-01] MEDS: ENOXAPARIN 30 MG/0.3 ML SYRINGE SQ SCH (07:51)
[2022-04-01] MEDS: FUROSEMIDE 10 MG/ML 4 ML VIAL IV SCH (07:51)
[2022-04-01] MEDS: BENZONATATE 100 MG CAP PO SCH ×3 (07:52→21:10)
[2022-04-01] MEDS: THEOPHYLLINE 24 HOUR 400 MG CAP.ER.24H PO SCH (07:52)
[2022-04-01] MEDS: guaiFENesin 600 MG TABLET.ER PO SCH ×2 (07:52→21:10)
[2022-04-01] MEDS: ZINC SULFATE 220 MG CAP PO SCH (07:52)
[2022-04-01] MEDS: FLUCONAZOLE 100 MG TAB PO SCH (07:52)
[2022-04-01] MEDS: METOPROLOL TARTRATE 12.5 MG TAB PO SCH ×2 (07:55→21:10)
[2022-04-01] MEDS: LOSARTAN 25 MG TAB PO SCH ×2 (07:55→21:10)
[2022-04-01] MEDS: FLUTICASONE 50MCG/SPRAY NASAL 16GM EA NOSTRIL SCH ×2 (07:55→22:10)
[2022-04-01] MEDS: BACLOFEN 10 MG TAB PO SCH ×2 (07:55→21:10)
[2022-04-01] MEDS: ALBUTEROL HFA INHALER INHALATION SCH ×4 (08:49→21:17)
[2022-04-01] MEDS: SYMBICORT 160-4.5 MCG INHALER INHALATION SCH ×2 (08:50→21:18)
[2022-04-01] MEDS: TIOTROPIUM 2.5 MCG INHALER INHALATION SCH (08:50)
[2022-04-01 09:12] LABS: Basophils # (A) 0.04 X 10*3/uL (0.00-0.10); Basophils % (A) 0.2 %; Eosinophils # (A) 0.08 X 10*3/uL (0.04-0.35); Eosinophils % (A) 0.4 %; HCT 36.2 % (37.2-46.3); HGB 11.7 g/dL (12.0-15.0); Immature Grans, Automated 0.9 %; Lymphocytes # (A) 4.33 X 10*3/uL (0.90-5.00); Lymphocytes % (A) 23.6 %; MCH 29.9 pg (27.0-32.0); MCHC 32.3 g/dL (32.0-37.0); MCV 92.6 fL (80.0-97.0); Mean Platelet Volume 10.8 fL (9.5-12.2); Monocytes # (A) 1.75 X 10*3/uL (0.20-1.00); Monocytes % (A) 9.5 %; NRBC Per 100 WBC 0 /100 WBCS (0.0-0.0); Neutrophils # (A) 11.99 X 10*3/uL (1.80-7.70); Neutrophils % (A) 65.4 %; Platelet Count 282 X 10*3/uL (140-440); RBC 3.91 X 10*6/uL (4.10-5.20); RDW 14.3 % (11.5-14.5); WBC 18.36 X 10*3/uL (4.50-10.00)
[2022-04-01 09:37] LABS: African American GFR (CKD) 34.1 (60.0-200.0); BUN/Creat Ratio 24.78 Ratio (12.00-20.00); Blood Urea Nitrogen 44.6 mg/dL (9.0-27.0); C Reactive Protein <0.30 mg/dL (0.00-0.80); Calcium 9.4 mg/dL (8.7-10.3); Carbon Dioxide 31.8 mmol/L (20.0-27.5); Chloride 95 mmol/L (96-109); Glucose 130 mg/dL (70-110); Non-African American GFR(CKD) 29.4 (60.0-200.0); Sodium 139 mmol/L (135-145)
--- NOTE | 2022-04-01 10:52 | P.PN ---
Subjective Patient is seen for follow-up for acute kidney injury. She is currently being diuresed. Urine output documented at 2.6 L. Patient states overall she is feeling better. She continues to have significant edema in the lower extremities but this has i mproved serum creatinine at 1.8 mg/dL today Objective - Vital Signs Vital signs: Vital Signs Temp 97.9 F 04/01/22 08:13 Pulse 78 04/01/22 08:13 Resp 19 04/01/22 08:13 BP 99/56 04/01/22 08:13 Pulse Ox 97 04/01/22 08:13 Intake & Output 03/31/22 04/01/22 04/01/22 18:59 06:59 18:59 Intake Total 180 350 Output Total 735 1900 Balance -555 -1550 Weight 145.5 kg Intake: Oral 180 350 Output: Urine 735 1900 Other: Voiding Method Toilet Toilet # Voids 6 - Exam Patient is awake, comfortable, not in any acute distress Abdomen is soft obese nontender Exertion lower extremities shows edema 2+ bilaterally ONCOLOGIST exam grossly intact - Labs CBC & Chem 7: 04/01/22 06:38 04/01/22 06:38 Labs: Abnormal Lab Results - Last 24 Hours (Table) 03/31/22 03/31/22 03/31/22 Range/Units 12:02 16:30 21:01 WBC (4.50-10.00) X 10*3/uL RBC (4.10-5.20) X 10*6/uL Hgb (12.0-15.0) g/dL Hct (37.2-46.3) % Immature Gran # (0.00-0.04) X 10*3/uL Neutrophils # (1.80-7.70) X 10*3/uL Monocytes # (0.20-1.00) X 10*3/uL Chloride (96-109) mmol/L Carbon Dioxide (20.0-27.5) mmol/L BUN (9.0-27.0) mg/dL Creatinine (0.6-1.5) mg/dL Est GFR (CKD-EPI)AfAm (60.0-200.0) Est GFR (CKD-EPI)NonAf (60.0-200.0) BUN/Creatinine Ratio (12.00-20.00) Ratio Glucose (70-110) mg/dL POC Glucose (mg/dL) 198 H 193 H 185 H (75-99) mg/dL 04/01/22 04/01/22 04/01/22 Range/Units 06:38 06:38 07:12 WBC 18.36 H (4.50-10.00) X 10*3/uL RBC 3.91 L (4.10-5.20) X 10*6/uL Hgb 11.7 L (12.0-15.0) g/dL Hct 36.2 L (37.2-46.3) % Immature Gran # 0.17 H (0.00-0.04) X 10*3/uL Neutrophils # 11.99 H (1.80-7.70) X 10*3/uL Monocytes # 1.75 H (0.20-1.00) X 10*3/uL Chloride 95 L (96-109) mmol/L Carbon Dioxide 31.8 H (20.0-27.5) mmol/L BUN 44.6 H (9.0-27.0) mg/dL Creatinine 1.8 H (0.6-1.5) mg/dL Est GFR (CKD-EPI)AfAm 34.1 L (60.0-200.0) Est GFR (CKD-EPI)NonAf 29.4 L (60.0-200.0) BUN/Creatinine Ratio 24.78 H (12.00-20.00) Ratio Glucose 130 H (70-110) mg/dL POC Glucose (mg/dL) 129 H (75-99) mg/dL Microbiology - Last 24 Hours (Table) 03/28/22 16:05 Blood Culture - Preliminary Blood No Growth after 72 hours Assessment and Plan Assessment: 1. Acute kidney injury secondary to ATN associated with COVID-19 infection. Currently improving serum creatinine slightly higher at 1.8 mg/dL today. It had gone down to about 1.5. Previous creatinine 0.9 on 12/21/2019 to No evidence of obstruction on ultrasound. UA shows no blood and trace protein 2. Acute hypoxic respiratory failure associated with COVID-19 infection 3. Metabolic acidosis associated with acute kidney injury and diarrhea curr ently improved. Maintained on oral sodium bicarb 4. Hypertension exacerbated by steroids. 5. Volume overload, currently being diuresed 6. Acute on chronic diastolic CHF Plan: Continue with IV Lasix Decrease dose to daily Continue with fluid restriction Check daily weights Repeat labs in a.m.
[2022-04-01 11:51] LABS: Glucose,Whole Blood 131 mg/dL (75-99)
--- NOTE | 2022-04-01 12:21 | P.PN ---
Subjective Progress Note Date: 04/01/22 A pleasant 61-year-old female patient is well-known to me. She is known to have severe persistent bronchial asthma/COPD along with obstructive sleep apnea. The patient is morbidly obese with a BMI 58.7. Around December of this current year, the patient was having increased symptoms of bronchitis and asthma exacerbation. At that point, I performed a bronchoscopy on her in the microbial cultures came back essentially negative. She was doing well and around 2 days ago, she started having increased dyspnea cough chest tightness and wheezing. She does have some loose diarrhea. No change in the taste or smell. She checked herself positive for COVID 19 on outpatient basis. This was confirmed after she came back to the hospital. Accordingly, the patient was hospitalized that the patient was found to have increased bronchospasm wheezing and shortness of breath. She is currently on IV Solu Medrol 60 mg every 6 hours. She is on room air oxygen. Her pulse ox is 94%. No altered mentation. No chest pain. No change in mental status. Outpatient medications have been resumed and the patient remains on Lovenox 30 mg subcu for DVT prophylaxis. Note that the patient has been vaccinated 2 for COVID 19 and she has not taken the booster shot. Other blood work the patient also comes at 6.37 with a hemoglobin of 11.1. Normal coagulation profile. D-dimer is at 0.46. The BUN 33 with a cr eatinine of 1.6 and the sodium level of 138. LFTs are normal. CRP level is at 1.1. LDH level is at 211. Detrol calcitonin LEVEL IS AT 0.1. CHEST X-RAY SHOWING SOME PLEURAL REACTION LEFT LUNG BASE OTHERWISE NO OTHER ACUTE ABNORMALITIES NOTED. On 03/21/2022 patient seen in follow-up on medical surgical floor. She is awake and alert, in no acute distress, she is currently on room air with pulse ox of 94%, she sits up in the recliner, breathing seems to be nonlabored, she does get short of breath with exertion but no acute distress, with chest pain, she's been afebrile, vital signs have been stable overnight. Chest x-ray from admission showed mild pleural reaction at the left lung base, unchanged compared to previous chest x-ray from December 2021. Her labs from yesterday were reviewed showing white blood cell count is 6.3, hemoglobin was 11.1, electrolytes and renal profile were within normal limits, d-dimer was within normal limits, and so was a fibrinogen, electrolytes were within normal limits, renal profile was stable with BUN of 33.1, and creatinine of 1.6, ferritin LDH were within normal limits, troponin was negative, CRP was 1.1, pro calcitonin level was negative at 0.10. She has a very congested harsh cough, and she remains on IV Solu-Medrol at 60 mg every 6 hours, DuoNeb on an as-needed basis, she is on GI and DVT prophylaxis, multivitamins, she is on theophylline, and Spiriva. On 03/22/2022 patient seen in follow-up on medical surgical floor. Patient is awake and alert, still quite wheezy, was complaining of some chest tightness earlier, coughing. She was noted to be bradycardic earlier, her beta blockers are on hold. She continues on IV steroids with Solu-Medrol 60 mg every 6 hours, nebulized bronchodilators, Mucinex, she is on Symbicort, Spiriva and albuterol, she is on Tessalon pearls. She is on prophylactic dose of Lovenox 30 mg once a day, she had a negative pro calcitonin of 0.10. She tested positive for coarse with 19, she is being treated for acute exacerbation of severe persistent bronchial asthma, was possibly triggered by COVID-19 infection. On 03/23/2022 patient seen in follow-up on medical surgical floor. Patient states she feels a little improved, however still has a congested cough, but she is able to bring up some yellowish and greenish colored phlegm. No fever or chills, vital signs have been stable, she is currently on 2 L of oxygen, her pulse ox is 99%. There is better air entry noted bilaterally on today's exam. No complaints of chest discomfort. Vital signs have been stable. Patient continues on high-dose IV steroids Solu-Medrol 60 mg every 6 hours, continues on inhaled bronchodilators. No hemoptysis, no chest tightness. No altered mentation. Continues on multivitamins. Today's labs show improving with ethyl, which is down to 11, hemoglobin is 11.5, sodium is 138, potassium is 4.2, chloride is 110, CO2 is 20, BUN is 36, creatinine is 1.5. The patient is seen today 03/24/2022 in follow-up on the regular medical floor. She is currently sitting up in a chair at the bedside. Awake and alert in no acute distress. She still has a loose congested cough. Still dyspneic with minimal exertion. Maintaining O2 saturations up to 99% on 2 L/m per nasal cannula. Afebrile. White count 15.9. Hemoglobin 12.2. Sodium 139. Potassium 4.3. Appropriate BUN 38. Creatinine 1.6. Glucose 254. She is continued on DuoNeb inhalations, Symbicort, IV Solu-Medrol, Spiriva and theophylline. Lovenox for DVT prophylaxis. Vitamin supplements. The patient is seen today 03/26/2022 in follow-up on the regular medical floor. She is awake and alert in no acute distress. Sitting up in a chair at the bedside. She is better. She still has some end expiratory wheeze. She is on oxygen at 2 L/m per nasal cannula with O2 saturations up to 99%. She is utilizing CPAP at night. She's afebrile. White count 14.5. Hemoglobin 12.8. Sodium 138. Potassium 4.6. Bicarb 20. BUN 47. Creatinine 1.66. Glucose 270. Troponin negative. She remains on Symbicort, albuterol, theophylline, Spiriva, prednisone. Lovenox for DVT prophylaxis. Vitamin supplements. Levemir and Humalog for glucose control. The patient is seen today 04/01/2022 in follow-up still on the regular medical floor. Sitting up in a chair at the bedside. Awake and alert in no acute distress. She is maintaining good O2 saturations in the 90s on room air. She's afebrile. Hemodynamically stable. She's been having issues with renal failure which has delayed her discharge. Cultures reveal no growth. White count 18.3. Hemoglobin 11.7. Sodium 139. Potassium 4.0. BUN 45. Creatinine 1.8. Glucose 130. She remains on Symbicort, albuterol, theophylline, Spiriva. Continue Mucinex and Tessalon Perles for her cough. Lovenox for DVT prophylaxis. Diflucan for oral thrush. Objective - Vital Signs Vital signs: Vital Signs Temp 97.9 F 04/01/22 08:13 Pulse 78 04/01/22 08:13 Resp 19 04/01/22 08:13 BP 99/56 04/01/22 08:13 Pulse Ox 97 04/01/22 08:13 Intake & Output 03/31/22 04/01/22 04/01/22 18:59 06:59 18:59 Intake Total 180 350 Output Total 735 1900 Balance -555 -1550 Weight 145.5 kg Intake: Oral 180 350 Output: Urine 735 1900 Other: Voiding Method Toilet Toilet # Voids 6 - Exam GENERAL EXAM: Alert, morbidly obese 61-year-old female, on room air with a pulse ox of 97%, sitting up in a recliner, comfortable in no apparent distress. HEAD: Normocephalic/atraumatic. EYES: Normal reaction of pupils, equal size. Conjunctiva pink, sclera white. NOSE: Clear with pink turbinates. THROAT: No erythema or exudates. NECK: No masses, no JVD, no thyroid enlargement, no adenopathy. CHEST: No chest wall deformity. Symmetrical expansion. LUNGS: Equal air entry with end expiratory wheezes, bilateral scattered rhonchi CVS: Regular rate and rhythm, normal S1 and S2, no gallops, no murmurs, no rubs ABDOMEN: Soft, nontender. No hepatosplenomegaly, normal bowel sounds, no guarding or rigidity. EXTREMITIES: No clubbing, no edema, no cyanosis, 2+ pulses and upper and lower extremities. MUSCULOSKELETAL: Muscle strength and tone normal. SPINE: No scoliosis or deformity SKIN: No rashes CENTRAL NERVOUS SYSTEM: No focal deficits, tone is normal in all 4 extremities. PSYCHIATRIC: Alert and oriented -3. Appropriate affect. Intact judgment and insight. - Labs CBC & Chem 7: 04/01/22 06:38 04/01/22 06:38 Labs: Abnormal Lab Results - Last 24 Hours (Table) 03/31/22 03/31/22 04/01/22 Range/Units 16:30 21:01 06:38 WBC 18.36 H (4.50-10.00) X 10*3/uL RBC 3.91 L (4.10-5.20) X 10*6/uL Hgb 11.7 L (12.0-15.0) g/dL Hct 36.2 L (37.2-46.3) % Immature Gran # 0.17 H (0.00-0.04) X 10*3/uL Neutrophils # 11.99 H (1.80-7.70) X 10*3/uL Monocytes # 1.75 H (0.20-1.00) X 10*3/uL Chloride (96-109) mmol/L Carbon Dioxide (20.0-27.5) mmol/L BUN (9.0-27.0) mg/dL Creatinine (0.6-1.5) mg/dL Est GFR (CKD-EPI)AfAm (60.0-200.0) Est GFR (CKD-EPI)NonAf (60.0-200.0) BUN/Creatinine Ratio (12.00-20.00) Ratio Glucose (70-110) mg/dL POC Glucose (mg/dL) 193 H 185 H (75-99) mg/dL 04/01/22 04/01/22 04/01/22 Range/Units 06:38 07:12 11:50 WBC (4.50-10.00) X 10*3/uL RBC (4.10-5.20) X 10*6/uL Hgb (12.0-15.0) g/dL Hct (37.2-46.3) % Immature Gran # (0.00-0.04) X 10*3/uL Neutrophils # (1.80-7.70) X 10*3/uL Monocytes # (0.20-1.00) X 10*3/uL Chloride 95 L (96-109) mmol/L Carbon Dioxide 31.8 H (20.0-27.5) mmol/L BUN 44.6 H (9.0-27.0) mg/dL Creatinine 1.8 H (0.6-1.5) mg/dL Est GFR (CKD-EPI)AfAm 34.1 L (60.0-200.0) Est GFR (CKD-EPI)NonAf 29.4 L (60.0-200.0) BUN/Creatinine Ratio 24.78 H (12.00-20.00) Ratio Glucose 130 H (70-110) mg/dL POC Glucose (mg/dL) 129 H 131 H (75-99) mg/dL Microbiology - Last 24 Hours (Table) 03/28/22 16:05 Blood Culture - Preliminary Blood No Growth after 72 hours Assessment and Plan Assessment: 1 Acute COVID-19 infection, patient was previously vaccinated for COVID-19 2 with Moderna, no boosters. Chest x-ray did not show acute pneumonia. Stable and on room air 2 Acute exacerbation of severe persistent chronic bronchial asthma. Stable on room air 3 Shortness of breath, wheezing and chest tightness related to the above 4 History of multiple bilateral pulmonary nodules, all stable on computed tomography scan 5 Severe obstructive sleep apnea with AHI score of 63.8, and severe nocturnal oxygen desaturation awaiting CPAP titration 6 Psoriasis 7 Chronic lower extremity edema 8 The reticular disease 9 Hypertension 10 Hyperlipidemia 11 Borderline low IgG levels 12 Environmental ALLERGIES Plan: The patient was seen and evaluated Stable and on room air Continue the current treatment plan Home once cleared by medicine I have personally seen and examined the patient, performed the documentation and the assessment and plan as written. Number of minutes spent on the visit: 10.
[2022-04-01] MEDS: ALPRAZolam 0.25 MG TAB PO PRN ×2 (13:31→22:22)
[2022-04-01 16:36] LABS: Glucose,Whole Blood 135 mg/dL (75-99)
--- NOTE | 2022-04-01 17:11 | P.PN ---
Subjective Progress Note Date: 04/01/22 Stable from a pulmonary standpoint, nephrology would like to continue IV diuretics. Gen: awake, alert HEENT: normocephalic, atraumatic, good hearing acuity, moist mucous membranes Resp: good air exchange, breathing comfortably with no accessory muscle use, end-expiratory wheezing CVS: good distal perfusion x 4, RRR, no murmurs GI: soft, NTTP, ND : no SPT, no CVAT, vela catheter not present MSK: no pitting edema, no clubbing Neuro: non-focal, moving all extremities Psych: cooperative, euthymic mood Assessment/plan: #Acute exacerbation of severe persistent bronchial asthma #Acute COVID-19 infection, patient was previously vaccinated for COVID-19 2 with Moderna, no boosters. Chest x-ray did not show acute pneumonia -Resume DuoNeb inhalations, Symbicort, Spiriva and theophylline. - Change IV steroids to prednisone 40 mg daily for 5 days -Pulmonary following. - ID consulted - empirically started on vancomycin, ciprofloxacin, then d/c'd after low PC value and no other s/s of infx #Asymptomatic bradycardia secondary to beta krista -Cardiology consulted. -Cardiology held beta krista. #History of multiple bilateral pulmonary nodules, -Stable on CAT scan per pulmonary #Super morbid Obesity BMI is 58 with Obstructive sleep apnea -Patient was counseled regarding diet and weight loss -We'll need outpatient sleep study #Chest pain secondary to above -Acute coronary syndrome has been ruled out -Negative D-dimer -Lower extremity Doppler negative for DVT -Cardiology evaluated the patient -Beta krista held by cardiology due to bradycardia -History of normal left heart catheterization 2016 #Type II diabetes mellitus -A1c 7.1 -Resume Scale insulin and Levemir -Metformin on hold #Psoriasis #Chronic lower extremity edema -2-D echo showed left ventricular hypertrophy with preserved LV systolic function. Technically difficult study despite Definity contrast -Lower Extremity Doppler negative for DVT -Nephrology restarted Lasix #Acute kidney injury -Improving -Appreciate nephrology input #Uncontrolled Hypertension -Resume losartan -Increased hydralazine to 75 daily #Hyperlipidemia #Environmental ALLERGIES - resume statin - theophylline - benadryl PRN #Lovenox for DVT prophylaxis. Objective - Vital Signs Vital signs: Vital Signs Temp 97.5 F L 04/01/22 14:00 Pulse 80 04/01/22 14:00 Resp 18 04/01/22 14:00 BP 121/74 04/01/22 14:00 Pulse Ox 97 04/01/22 14:00 Intake & Output 03/31/22 04/01/22 04/01/22 18:59 06:59 18:59 Intake Total 180 350 Output Total 735 1900 800 Balance -189 -3946 -829 Weight 145.5 kg Intake: Oral 180 350 Output: Urine 735 1900 800 Other: Voiding Method Toilet Toilet # Voids 6 # Bowel Movements 1 - Labs CBC & Chem 7: 04/01/22 06:38 04/01/22 06:38 Labs: Abnormal Lab Results - Last 24 Hours (Table) 03/31/22 04/01/22 04/01/22 Range/Units 21:01 06:38 06:38 WBC 18.36 H (4.50-10.00) X 10*3/uL RBC 3.91 L (4.10-5.20) X 10*6/uL Hgb 11.7 L (12.0-15.0) g/dL Hct 36.2 L (37.2-46.3) % Immature Gran # 0.17 H (0.00-0.04) X 10*3/uL Neutrophils # 11.99 H (1.80-7.70) X 10*3/uL Monocytes # 1.75 H (0.20-1.00) X 10*3/uL Chloride 95 L (96-109) mmol/L Carbon Dioxide 31.8 H (20.0-27.5) mmol/L BUN 44.6 H (9.0-27.0) mg/dL Creatinine 1.8 H (0.6-1.5) mg/dL Est GFR (CKD-EPI)AfAm 34.1 L (60.0-200.0) Est GFR (CKD-EPI)NonAf 29.4 L (60.0-200.0) BUN/Creatinine Ratio 24.78 H (12.00-20.00) Ratio Glucose 130 H (70-110) mg/dL POC Glucose (mg/dL) 185 H (75-99) mg/dL 04/01/22 04/01/22 04/01/22 Range/Units 07:12 11:50 16:34 WBC (4.50-10.00) X 10*3/uL RBC (4.10-5.20) X 10*6/uL Hgb (12.0-15.0) g/dL Hct (37.2-46.3) % Immature Gran # (0.00-0.04) X 10*3/uL Neutrophils # (1.80-7.70) X 10*3/uL Monocytes # (0.20-1.00) X 10*3/uL Chloride (96-109) mmol/L Carbon Dioxide (20.0-27.5) mmol/L BUN (9.0-27.0) mg/dL Creatinine (0.6-1.5) mg/dL Est GFR (CKD-EPI)AfAm (60.0-200.0) Est GFR (CKD-EPI)NonAf (60.0-200.0) BUN/Creatinine Ratio (12.00-20.00) Ratio Glucose (70-110) mg/dL POC Glucose (mg/dL) 129 H 131 H 135 H (75-99) mg/dL Microbiology - Last 24 Hours (Table) 03/28/22 16:05 Blood Culture - Preliminary Blood No Growth after 72 hours
[2022-04-01 17:24] LABS: Glucose,Whole Blood 167 mg/dL (75-99)
[2022-04-01 20:56] LABS: Glucose,Whole Blood 170 mg/dL (75-99)
[2022-04-01] MEDS: ATORVASTATIN 20 MG TAB PO SCH (21:10)
[2022-04-02] MEDS: LEVOTHYROXINE 25 MCG TAB PO SCH (05:37)
[2022-04-02] MEDS: ACETAMINOPHEN TAB 325 MG TAB PO PRN ×2 (05:44→21:01)
[2022-04-02] MEDS: ALBUTEROL HFA INHALER INHALATION SCH ×4 (06:01→20:55)
[2022-04-02] MEDS: SYMBICORT 160-4.5 MCG INHALER INHALATION SCH ×2 (06:01→20:55)
[2022-04-02] MEDS: TIOTROPIUM 2.5 MCG INHALER INHALATION SCH (06:02)
[2022-04-02 07:31] LABS: Glucose,Whole Blood 119 mg/dL (75-99)
[2022-04-02] MEDS: INSULIN ASPART (NovoLOG) 100 UNIT/ML VIAL SQ SCH ×4 (07:46→21:00)
[2022-04-02] MEDS: guaiFENesin 600 MG TABLET.ER PO SCH ×2 (08:17→21:01)
[2022-04-02] MEDS: BENZONATATE 100 MG CAP PO SCH ×3 (08:17→21:01)
[2022-04-02] MEDS: ENOXAPARIN 30 MG/0.3 ML SYRINGE SQ SCH (08:17)
[2022-04-02] MEDS: INSULIN DETEMIR (LEVEMIR) 100 UNIT/ML SYR SQ SCH ×2 (08:17→21:00)
[2022-04-02] MEDS: FUROSEMIDE 10 MG/ML 4 ML VIAL IV SCH (08:17)
[2022-04-02] MEDS: ASCORBIC ACID 500 MG TAB PO SCH (08:18)
[2022-04-02] MEDS: THEOPHYLLINE 24 HOUR 400 MG CAP.ER.24H PO SCH (08:18)
[2022-04-02] MEDS: LOSARTAN 25 MG TAB PO SCH ×2 (08:18→21:01)
[2022-04-02] MEDS: ZINC SULFATE 220 MG CAP PO SCH (08:18)
[2022-04-02] MEDS: FAMOTIDINE 20 MG TAB PO SCH (08:18)
[2022-04-02] MEDS: BACLOFEN 10 MG TAB PO SCH ×2 (08:18→21:01)
[2022-04-02] MEDS: METOPROLOL TARTRATE 12.5 MG TAB PO SCH ×2 (08:18→21:01)
[2022-04-02] MEDS: FLUCONAZOLE 100 MG TAB PO SCH (08:18)
[2022-04-02] MEDS: ALPRAZolam 0.25 MG TAB PO PRN ×2 (08:24→17:42)
[2022-04-02 11:47] LABS: Glucose,Whole Blood 151 mg/dL (75-99)
[2022-04-02 11:59] LABS: African American GFR (CKD) 42 (>60 ml/min/1.73 sqM); Anion Gap 5 mmol/L; Blood Urea Nitrogen 47 mg/dL (7-17); Calcium 8.9 mg/dL (8.4-10.2); Carbon Dioxide 35 mmol/L (22-30); Chloride 94 mmol/L (98-107); Glucose 151 mg/dL (74-99); Non-African American GFR(CKD) 36 (>60 ml/min/1.73 sqM); Potassium 3.9 mmol/L (3.5-5.1); Sodium 134 mmol/L (137-145)
--- NOTE | 2022-04-02 13:58 | P.PN ---
Subjective Progress Note Date: 04/01/22 Principal diagnosis: Leukocytosis possible oropharyngeal candidiasis Patient is a 61-year-old female with a past medical history significant for COPD presented to hospital with increasing shortness of breath has been diagnosed and treated for covid pneumonia or, in this patient did have significantly elevated white count and concern for possible secondary bacterial pneumonia versus oropharyngeal candidiasis. Patient did have multiple antibiotic ALLERGIES On today's evaluation that is 04/01/2022, the patient is afebrile, the patient is breathing slightly comfortably on room air, the patient denies chest pain , the patient did have moderate cough and is bringing up some sputum , the patient denies hemoptysis and no nausea no vomiting no abdominal pain and no d iarrhea Objective - Vital Signs Vital signs: Vital Signs Temp 97.9 F 04/01/22 08:13 Pulse 78 04/01/22 08:13 Resp 19 04/01/22 08:13 BP 99/56 04/01/22 08:13 Pulse Ox 97 04/01/22 08:13 Intake & Output 03/31/22 04/01/22 04/01/22 18:59 06:59 18:59 Intake Total 180 350 Output Total 735 1900 Balance -555 -1550 Weight 145.5 kg Intake: Oral 180 350 Output: Urine 735 1900 Other: Voiding Method Toilet Toilet # Voids 6 - Exam GENERAL DESCRIPTION: Middle-aged female lying in bed in no distress RESPIRATORY SYSTEM: Unlabored breathing , coarse breath sounds bilaterally with occasional wheeze HEART: S1 S2 regular rate and rhythm , ABDOMEN: Soft , no tenderness EXTREMITIES: No edema feet - Labs CBC & Chem 7: 04/01/22 06:38 04/02/22 11:35 Labs: Abnormal Lab Results - Last 24 Hours (Table) 03/31/22 03/31/22 03/31/22 Range/Units 06:15 12:02 16:30 WBC (4.50-10.00) X 10*3/uL RBC (4.10-5.20) X 10*6/uL Hgb (12.0-15.0) g/dL Hct (37.2-46.3) % Immature Gran # (0.00-0.04) X 10*3/uL Neutrophils # (1.80-7.70) X 10*3/uL Monocytes # (0.20-1.00) X 10*3/uL Chloride (96-109) mmol/L Carbon Dioxide 30.3 H (20.0-27.5) mmol/L BUN 41.3 H (9.0-27.0) mg/dL Creatinine 1.7 H (0.6-1.5) mg/dL Est GFR (CKD-EPI)AfAm 36.6 L (60.0-200.0) Est GFR (CKD-EPI)NonAf 31.5 L (60.0-200.0) BUN/Creatinine Ratio 24.29 H (12.00-20.00) Ratio Glucose 139 H (70-110) mg/dL POC Glucose (mg/dL) 198 H 193 H (75-99) mg/dL Magnesium 2.9 H (1.5-2.4) mg/dL 03/31/22 04/01/22 04/01/22 Range/Units 21:01 06:38 06:38 WBC 18.36 H (4.50-10.00) X 10*3/uL RBC 3.91 L (4.10-5.20) X 10*6/uL Hgb 11.7 L (12.0-15.0) g/dL Hct 36.2 L (37.2-46.3) % Immature Gran # 0.17 H (0.00-0.04) X 10*3/uL Neutrophils # 11.99 H (1.80-7.70) X 10*3/uL Monocytes # 1.75 H (0.20-1.00) X 10*3/uL Chloride 95 L (96-109) mmol/L Carbon Dioxide 31.8 H (20.0-27.5) mmol/L BUN 44.6 H (9.0-27.0) mg/dL Creatinine 1.8 H (0.6-1.5) mg/dL Est GFR (CKD-EPI)AfAm 34.1 L (60.0-200.0) Est GFR (CKD-EPI)NonAf 29.4 L (60.0-200.0) BUN/Creatinine Ratio 24.78 H (12.00-20.00) Ratio Glucose 130 H (70-110) mg/dL POC Glucose (mg/dL) 185 H (75-99) mg/dL Magnesium (1.5-2.4) mg/dL 04/01/22 Range/Units 07:12 WBC (4.50-10.00) X 10*3/uL RBC (4.10-5.20) X 10*6/uL Hgb (12.0-15.0) g/dL Hct (37.2-46.3) % Immature Gran # (0.00-0.04) X 10*3/uL Neutrophils # (1.80-7.70) X 10*3/uL Monocytes # (0.20-1.00) X 10*3/uL Chloride (96-109) mmol/L Carbon Dioxide (20.0-27.5) mmol/L BUN (9.0-27.0) mg/dL Creatinine (0.6-1.5) mg/dL Est GFR (CKD-EPI)AfAm (60.0-200.0) Est GFR (CKD-EPI)NonAf (60.0-200.0) BUN/Creatinine Ratio (12.00-20.00) Ratio Glucose (70-110) mg/dL POC Glucose (mg/dL) 129 H (75-99) mg/dL Magnesium (1.5-2.4) mg/dL Microbiology - Last 24 Hours (Table) 03/28/22 16:05 Blood Culture - Preliminary Blood No Growth after 72 hours Assessment and Plan (1) Leukocytosis Current Visit: Yes Status: Acute Code(s): D72.829 - ELEVATED WHITE BLOOD C ELL COUNT, UNSPECIFIED SNOMED Code(s): 364256384 Plan: 1patient presented to hospital with increasing shortness of breath which is likely multifactorial in this patient likely COPD exacerbation and did have a complicating factor of COVID-19 infection, patient is clinically not behaving as a secondary bacterial pneumonia patient with no fever chest x-ray completed this morning did not show any acute infiltrate. 2elevated white count more likely steroid effect plus minus a component of oropharyngeal candidiasis. 3renal insufficiency and high risk of nephrotoxicity from vancomycin. 4patient with multiple antibiotic allergies that would limit the number of antibiotics safe to use. 5 patient procalcitonin level was normal as sputum culture has been negative 6patient white count was trending down and no clinical evidence of secondary bacterial pneumonia, patient to continue with Diflucan 200 mg p.o. daily and monitor clinical course closely Time with Patient: Less than 30
--- NOTE | 2022-04-02 13:58 | P.PN ---
Subjective Progress Note Date: 04/02/22 Stable from a pulmonary standpoint, nephrology would like to continue IV diuretics. Gen: awake, alert HEENT: normocephalic, atraumatic, good hearing acuity, moist mucous membranes Resp: good air exchange, breathing comfortably with no accessory muscle use, end-expiratory wheezing CVS: good distal perfusion x 4, RRR, no murmurs GI: soft, NTTP, ND : no SPT, no CVAT, vela catheter not present MSK: no pitting edema, no clubbing Neuro: non-focal, moving all extremities Psych: cooperative, euthymic mood Assessment/plan: #Acute exacerbation of severe persistent bronchial asthma #Acute COVID-19 infection, patient was previously vaccinated for COVID-19 2 with Moderna, no boosters. Chest x-ray did not show acute pneumonia -Resume DuoNeb inhalations, Symbicort, Spiriva and theophylline. - Change IV steroids to prednisone 40 mg daily for 5 days -Pulmonary following. - ID consulted - empirically started on vancomycin, ciprofloxacin, then d/c'd after low PC value and no other s/s of infx #Asymptomatic bradycardia secondary to beta krista -Cardiology consulted. -Cardiology held beta krista. #History of multiple bilateral pulmonary nodules, -Stable on CAT scan per pulmonary #Super morbid Obesity BMI is 58 with Obstructive sleep apnea -Patient was counseled regarding diet and weight loss -We'll need outpatient sleep study #Chest pain secondary to above -Acute coronary syndrome has been ruled out -Negative D-dimer -Lower extremity Doppler negative for DVT -Cardiology evaluated the patient -Beta krista held by cardiology due to bradycardia -History of normal left heart catheterization 2016 #Type II diabetes mellitus -A1c 7.1 -Resume Scale insulin and Levemir -Metformin on hold #Psoriasis #Chronic lower extremity edema -2-D echo showed left ventricular hypertrophy with preserved LV systolic function. Technically difficult study despite Definity contrast -Lower Extremity Doppler negative for DVT -Nephrology restarted Lasix #Acute kidney injury -Improving -Appreciate nephrology input #Uncontrolled Hypertension -Resume losartan -Increased hydralazine to 75 daily #Hyperlipidemia #Environmental ALLERGIES - resume statin - theophylline - benadryl PRN #Lovenox for DVT prophylaxis. Objective - Vital Signs Vital signs: Vital Signs Temp 98.3 F 04/02/22 08:00 Pulse 85 04/02/22 08:00 Resp 20 05/14/22 08:00 BP 134/84 04/02/22 08:00 Pulse Ox 98 04/02/22 08:00 Intake & Output 04/01/22 04/02/22 04/02/22 18:59 06:59 18:59 Intake Total 240 Output Total 800 1050 1150 Balance -800 -810 -1150 Weight 145 kg Intake: Oral 240 Output: Urine 800 1050 1150 Other: Voiding Method Toilet # Bowel Movements 1 - Labs CBC & Chem 7: 04/01/22 06:38 04/02/22 11:35 Labs: Abnormal Lab Results - Last 24 Hours (Table) 04/01/22 04/01/22 04/01/22 Range/Units 16:34 17:23 20:54 Sodium (137-145) mmol/L Chloride (98-107) mmol/L Carbon Dioxide (22-30) mmol/L BUN (7-17) mg/dL Creatinine (0.52-1.04) mg/dL Glucose (74-99) mg/dL POC Glucose (mg/dL) 135 H 167 H 170 H (75-99) mg/dL 04/02/22 04/02/22 04/02/22 Range/Units 07:30 11:35 11:45 Sodium 134 L (137-145) mmol/L Chloride 94 L (98-107) mmol/L Carbon Dioxide 35 H (22-30) mmol/L BUN 47 H (7-17) mg/dL Creatinine 1.53 H (0.52-1.04) mg/dL Glucose 151 H (74-99) mg/dL POC Glucose (mg/dL) 119 H 151 H (75-99) mg/dL Microbiology - Last 24 Hours (Table) 03/28/22 16:05 Blood Culture - Preliminary Blood No Growth after 96 hours
[2022-04-02 16:36] LABS: Glucose,Whole Blood 185 mg/dL (75-99)
[2022-04-02] MEDS: CALCIUM CARBONATE 500 MG CHEWABLE PO PRN (17:42)
[2022-04-02] MEDS: FLUTICASONE 50MCG/SPRAY NASAL 16GM EA NOSTRIL SCH ×2 (18:51→21:02)
[2022-04-02 19:52] LABS: Glucose,Whole Blood 159 mg/dL (75-99)
[2022-04-02] MEDS: ATORVASTATIN 20 MG TAB PO SCH (21:01)
[2022-04-03] MEDS: ALPRAZolam 0.25 MG TAB PO PRN ×3 (01:53→22:38)
[2022-04-03] MEDS ORDERED: ONDANSETRON 4 MG/2 ML VIAL IVP PRN (02:39)
[2022-04-03] MEDS: LEVOTHYROXINE 25 MCG TAB PO SCH (06:27)
[2022-04-03 07:32] LABS: Glucose,Whole Blood 143 mg/dL (75-99)
[2022-04-03] MEDS: FAMOTIDINE 20 MG TAB PO SCH (07:40)
[2022-04-03] MEDS: ASCORBIC ACID 500 MG TAB PO SCH (07:40)
[2022-04-03] MEDS: BACLOFEN 10 MG TAB PO SCH ×2 (07:40→22:27)
[2022-04-03] MEDS: LOSARTAN 25 MG TAB PO SCH ×2 (07:40→22:28)
[2022-04-03] MEDS: FLUCONAZOLE 100 MG TAB PO SCH (07:40)
[2022-04-03] MEDS: FUROSEMIDE 10 MG/ML 4 ML VIAL IV SCH ×2 (07:41→22:27)
[2022-04-03] MEDS: guaiFENesin 600 MG TABLET.ER PO SCH ×2 (07:41→22:29)
[2022-04-03] MEDS: BENZONATATE 100 MG CAP PO SCH ×3 (07:41→22:29)
[2022-04-03] MEDS: METOPROLOL TARTRATE 12.5 MG TAB PO SCH (07:41)
[2022-04-03] MEDS: INSULIN DETEMIR (LEVEMIR) 100 UNIT/ML SYR SQ SCH ×2 (07:41→22:30)
[2022-04-03] MEDS: ENOXAPARIN 30 MG/0.3 ML SYRINGE SQ SCH (07:41)
[2022-04-03] MEDS: ZINC SULFATE 220 MG CAP PO SCH (07:41)
[2022-04-03] MEDS: INSULIN ASPART (NovoLOG) 100 UNIT/ML VIAL SQ SCH ×4 (07:42→22:29)
[2022-04-03] MEDS: ACETAMINOPHEN TAB 325 MG TAB PO PRN ×3 (07:51→22:27)
[2022-04-03] MEDS: FLUTICASONE 50MCG/SPRAY NASAL 16GM EA NOSTRIL SCH ×2 (07:51→22:30)
[2022-04-03] MEDS: THEOPHYLLINE 24 HOUR 400 MG CAP.ER.24H PO SCH (07:51)
[2022-04-03] MEDS: CALCIUM CARBONATE 500 MG CHEWABLE PO PRN (07:57)
[2022-04-03] MEDS: ALBUTEROL HFA INHALER INHALATION SCH ×4 (08:34→21:00)
[2022-04-03] MEDS: TIOTROPIUM 2.5 MCG INHALER INHALATION SCH (08:35)
[2022-04-03] MEDS: SYMBICORT 160-4.5 MCG INHALER INHALATION SCH ×2 (08:35→21:00)
--- NOTE | 2022-04-03 09:38 | P.PN ---
Subjective Patient is seen for follow-up for acute kidney injury. She is currently being diuresed. Urine output documented at 3.0 L. Patient states overall she is feeling better. She continues to have significant edema in the lower extremities but this has i mproved serum creatinine at 1.5 mg/dL today Objective - Vital Signs Vital signs: Vital Signs Temp 98.5 F 04/03/22 09:26 Pulse 74 04/03/22 09:26 Resp 19 04/03/22 09:26 BP 134/83 04/03/22 09:26 Pulse Ox 98 04/03/22 09:26 Intake & Output 04/02/22 04/03/22 04/03/22 18:59 06:59 18:59 Intake Total 960 480 Output Total 2350 700 Balance -1390 -220 Intake: Oral 960 Other 480 Output: Urine 2350 700 Other: Voiding Method Toilet # Voids 1 # Bowel Movements 1 - Exam Patient is awake, comfortable, not in any acute distress Abdomen is soft obese nontender Exertion lower extremities shows edema 2+ bilaterally 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 - Labs CBC & Chem 7: 04/01/22 06:38 04/02/22 11:35 Labs: Abnormal Lab Results - Last 24 Hours (Table) 04/02/22 04/02/22 04/02/22 Range/Units 11:35 11:45 16:35 Sodium 134 L (137-145) mmol/L Chloride 94 L (98-107) mmol/L Carbon Dioxide 35 H (22-30) mmol/L BUN 47 H (7-17) mg/dL Creatinine 1.53 H (0.52-1.04) mg/dL Glucose 151 H (74-99) mg/dL POC Glucose (mg/dL) 151 H 185 H (75-99) mg/dL 04/02/22 04/03/22 Range/Units 19:51 07:31 Sodium (137-145) mmol/L Chloride (98-107) mmol/L Carbon Dioxide (22-30) mmol/L BUN (7-17) mg/dL Creatinine (0.52-1.04) mg/dL Glucose (74-99) mg/dL POC Glucose (mg/dL) 159 H 143 H (75-99) mg/dL Microbiology - Last 24 Hours (Table) 03/28/22 16:05 Blood Culture - Preliminary Blood No Growth after 120 hours Assessment and Plan Assessment: 1. Acute kidney injury secondary to ATN associated with COVID-19 infection. Currently improving serum creatinine slightly higher at 1.8 mg/dL today. It had gone down to about 1.5. Previous creatinine 0.9 on 12/21/2019 to No evidence of obstruction on ultrasound. UA shows no blood and trace protein 2. Acute hypoxic respiratory failure associated with COVID-19 infection 3. Metabolic acidosis associated with acute kidney injury and diarrhea curre ntly improved. Maintained on oral sodium bicarb 4. Hypertension exacerbated by steroids. 5. Volume overload, currently being diuresed 6. Acute on chronic diastolic CHF Plan: Continue with IV Lasix Given extra dose today DC sodium bicarb as metabolic acidosis has improved and it is adding sodium load Continue with fluid restriction Check daily weights Repeat labs in a.m.
[2022-04-03 12:19] LABS: Glucose,Whole Blood 152 mg/dL (75-99)
--- NOTE | 2022-04-03 13:49 | P.PN ---
Subjective Progress Note Date: 04/03/22 Stable from a pulmonary standpoint, nephrology would like to continue IV diuretics. Gen: awake, alert HEENT: normocephalic, atraumatic, good hearing acuity, moist mucous membranes Resp: good air exchange, breathing comfortably with no accessory muscle use, end-expiratory wheezing CVS: good distal perfusion x 4, RRR, no murmurs GI: soft, NTTP, ND : no SPT, no CVAT, vela catheter not present MSK: no pitting edema, no clubbing Neuro: non-focal, moving all extremities Psych: cooperative, euthymic mood Assessment/plan: #Acute exacerbation of severe persistent bronchial asthma #Acute COVID-19 infection, patient was previously vaccinated for COVID-19 2 with Moderna, no boosters. Chest x-ray did not show acute pneumonia -Resume DuoNeb inhalations, Symbicort, Spiriva and theophylline. - Change IV steroids to prednisone 40 mg daily for 5 days -Pulmonary following. - ID consulted - empirically started on vancomycin, ciprofloxacin, then d/c'd after low PC value and no other s/s of infx #Asymptomatic bradycardia secondary to beta krista -Cardiology consulted. -Cardiology held beta krista. #History of multiple bilateral pulmonary nodules, -Stable on CAT scan per pulmonary #Super morbid Obesity BMI is 58 with Obstructive sleep apnea -Patient was counseled regarding diet and weight loss -We'll need outpatient sleep study #Chest pain secondary to above -Acute coronary syndrome has been ruled out -Negative D-dimer -Lower extremity Doppler negative for DVT -Cardiology evaluated the patient -Beta krista held by cardiology due to bradycardia -History of normal left heart catheterization 2016 #Type II diabetes mellitus -A1c 7.1 -Resume Scale insulin and Levemir -Metformin on hold #Psoriasis #Chronic lower extremity edema -2-D echo showed left ventricular hypertrophy with preserved LV systolic function. Technically difficult study despite Definity contrast -Lower Extremity Doppler negative for DVT -Nephrology restarted Lasix #Acute kidney injury -Improving -Appreciate nephrology input #Uncontrolled Hypertension -Resume losartan -Increased hydralazine to 75 daily #Hyperlipidemia #Environmental ALLERGIES - resume statin - theophylline - benadryl PRN #Lovenox for DVT prophylaxis. Objective - Vital Signs Vital signs: Vital Signs Temp 98.5 F 04/03/22 09:26 Pulse 74 04/03/22 09:26 Resp 19 05/15/22 09:26 BP 134/83 04/03/22 09:26 Pulse Ox 98 04/03/22 09:26 Intake & Output 04/02/22 04/03/22 04/03/22 18:59 06:59 18:59 Intake Total 960 480 Output Total 2350 700 Balance -1390 -220 Intake: Oral 960 Other 480 Output: Urine 2350 700 Other: Voiding Method Toilet # Voids 1 # Bowel Movements 1 - Labs CBC & Chem 7: 04/01/22 06:38 04/02/22 11:35 Labs: Abnormal Lab Results - Last 24 Hours (Table) 04/02/22 04/02/22 04/03/22 Range/Units 16:35 19:51 07:31 POC Glucose (mg/dL) 185 H 159 H 143 H (75-99) mg/dL 04/03/22 Range/Units 12:18 POC Glucose (mg/dL) 152 H (75-99) mg/dL Microbiology - Last 24 Hours (Table) 03/28/22 16:05 Blood Culture - Preliminary Blood No Growth after 120 hours
[2022-04-03 16:28] LABS: Glucose,Whole Blood 140 mg/dL (75-99)
[2022-04-03 20:21] LABS: Glucose,Whole Blood 200 mg/dL (75-99)
[2022-04-03] MEDS: ATORVASTATIN 20 MG TAB PO SCH (22:29)
[2022-04-04] MEDS: ALPRAZolam 0.25 MG TAB PO PRN ×2 (03:25→20:38)
[2022-04-04] MEDS: ACETAMINOPHEN TAB 325 MG TAB PO PRN ×3 (03:25→16:39)
[2022-04-04] MEDS: LEVOTHYROXINE 25 MCG TAB PO SCH (06:02)
[2022-04-04 07:08] LABS: Glucose,Whole Blood 125 mg/dL (75-99)
[2022-04-04] MEDS: INSULIN ASPART (NovoLOG) 100 UNIT/ML VIAL SQ SCH ×4 (07:19→21:02)
[2022-04-04] MEDS: SYMBICORT 160-4.5 MCG INHALER INHALATION SCH ×2 (07:51→21:20)
[2022-04-04] MEDS: ALBUTEROL HFA INHALER INHALATION SCH ×4 (07:51→21:20)
[2022-04-04] MEDS: TIOTROPIUM 2.5 MCG INHALER INHALATION SCH (07:51)
[2022-04-04] MEDS: FLUCONAZOLE 100 MG TAB PO SCH (11:08)
[2022-04-04] MEDS: ASCORBIC ACID 500 MG TAB PO SCH (11:08)
[2022-04-04] MEDS: guaiFENesin 600 MG TABLET.ER PO SCH ×2 (11:08→20:39)
[2022-04-04] MEDS: ENOXAPARIN 30 MG/0.3 ML SYRINGE SQ SCH (11:09)
[2022-04-04] MEDS: FAMOTIDINE 20 MG TAB PO SCH (11:09)
[2022-04-04] MEDS: BACLOFEN 10 MG TAB PO SCH ×2 (11:09→20:38)
[2022-04-04] MEDS: BENZONATATE 100 MG CAP PO SCH ×3 (11:09→20:39)
[2022-04-04] MEDS: METOPROLOL TARTRATE 12.5 MG TAB PO SCH ×2 (11:09→20:37)
[2022-04-04] MEDS: ZINC SULFATE 220 MG CAP PO SCH (11:09)
[2022-04-04] MEDS: LOSARTAN 25 MG TAB PO SCH ×2 (11:10→20:39)
[2022-04-04] MEDS: INSULIN DETEMIR (LEVEMIR) 100 UNIT/ML SYR SQ SCH ×2 (11:10→20:39)
[2022-04-04] MEDS: FUROSEMIDE 10 MG/ML 4 ML VIAL IV SCH ×2 (11:10→20:37)
[2022-04-04] MEDS: FLUTICASONE 50MCG/SPRAY NASAL 16GM EA NOSTRIL SCH ×2 (11:11→20:39)
[2022-04-04] MEDS: THEOPHYLLINE 24 HOUR 400 MG CAP.ER.24H PO SCH (11:12)
[2022-04-04 12:05] LABS: Glucose,Whole Blood 145 mg/dL (75-99)
--- NOTE | 2022-04-04 13:18 | P.PN ---
Subjective Patient is seen for follow-up for acute kidney injury. She is currently being diuresed. Urine output documented at 3.0 L. Patient states overall she is feeling better. She continues to have significant edema in the lower extremities but this has i mproved serum creatinine at 1.5 mg/dL on 04/02/22 C/o back pain today. 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 Acute kidney injury secondary to ATN associated with COVID-19 infection. Currently improving serum creatinine at 1.5 on 04/02/22. Previous creatinine 0.9 on 12/21/2019 No evidence of obstruction on ultrasound. UA shows no blood and trace protein 2. Acute hypoxic respiratory failure associated with COVID-19 infection 3. Metabolic acidosis associated with acute kidney injury and diarrhea currently improved. Maintained on oral sodium bicarb 4. Hypertension exacerbated by steroids. 5. Volume overload, currently being diuresed 6. Acute on chronic diastolic CHF Plan: Continue with IV Lasix Continue off of sodium bicatbonate. Continue with fluid restriction Check daily weights Repeat labs today and in a.m.
--- NOTE | 2022-04-04 14:01 | P.PN ---
Subjective Progress Note Date: 04/04/22 Stable from a pulmonary standpoint, nephrology would like to continue IV diuretics. Gen: awake, alert HEENT: normocephalic, atraumatic, good hearing acuity, moist mucous membranes Resp: good air exchange, breathing comfortably with no accessory muscle use, end-expiratory wheezing CVS: good distal perfusion x 4, RRR, no murmurs GI: soft, NTTP, ND : no SPT, no CVAT, vela catheter not present MSK: no pitting edema, no clubbing Neuro: non-focal, moving all extremities Psych: cooperative, euthymic mood Assessment/plan: #Acute exacerbation of severe persistent bronchial asthma #Acute COVID-19 infection, patient was previously vaccinated for COVID-19 2 with Moderna, no boosters. Chest x-ray did not show acute pneumonia -Resume DuoNeb inhalations, Symbicort, Spiriva and theophylline. - Change IV steroids to prednisone 40 mg daily for 5 days -Pulmonary following. - ID consulted - empirically started on vancomycin, ciprofloxacin, then d/c'd after low PC value and no other s/s of infx #Asymptomatic bradycardia secondary to beta krista -Cardiology consulted. -Cardiology held beta krista. #History of multiple bilateral pulmonary nodules, -Stable on CAT scan per pulmonary #Super morbid Obesity BMI is 58 with Obstructive sleep apnea -Patient was counseled regarding diet and weight loss -We'll need outpatient sleep study #Chest pain secondary to above -Acute coronary syndrome has been ruled out -Negative D-dimer -Lower extremity Doppler negative for DVT -Cardiology evaluated the patient -Beta krista held by cardiology due to bradycardia -History of normal left heart catheterization 2016 #Type II diabetes mellitus -A1c 7.1 -Resume Scale insulin and Levemir -Metformin on hold #Psoriasis #Chronic lower extremity edema -2-D echo showed left ventricular hypertrophy with preserved LV systolic function. Technically difficult study despite Definity contrast -Lower Extremity Doppler negative for DVT -Nephrology restarted Lasix #Acute kidney injury -Improving -Appreciate nephrology input #Uncontrolled Hypertension -Resume losartan -Increased hydralazine to 75 daily #Hyperlipidemia #Environmental ALLERGIES - resume statin - theophylline - benadryl PRN #Lovenox for DVT prophylaxis. Objective - Vital Signs Vital signs: Vital Signs Temp 98.7 F 04/04/22 08:00 Pulse 105 H 04/04/22 08:00 Resp 18 04/04/22 08:00 BP 149/84 04/04/22 08:00 Pulse Ox 93 L 04/04/22 08:00 Intake & Output 04/03/22 04/04/22 04/04/22 18:59 06:59 18:59 Intake Total 960 150 Output Total 800 340 Balance 160 -190 Intake: Oral 960 150 Output: Urine 800 340 Other: Voiding Method Toilet Toilet # Voids 1 - Labs CBC & Chem 7: 04/01/22 06:38 04/02/22 11:35 Labs: Abnormal Lab Results - Last 24 Hours (Table) 04/03/22 04/03/22 04/04/22 Range/Units 16:26 20:19 07:07 POC Glucose (mg/dL) 140 H 200 H 125 H (75-99) mg/dL 04/04/22 Range/Units 12:04 POC Glucose (mg/dL) 145 H (75-99) mg/dL Microbiology - Last 24 Hours (Table) 03/28/22 16:05 Blood Culture - Final Blood No Growth after 144 hours
[2022-04-04 14:26] LABS: African American GFR (CKD) 37 (>60 ml/min/1.73 sqM); Anion Gap 6 mmol/L; Blood Urea Nitrogen 41 mg/dL (7-17); Calcium 9.2 mg/dL (8.4-10.2); Carbon Dioxide 33 mmol/L (22-30); Chloride 97 mmol/L (98-107); Glucose 152 mg/dL (74-99); Non-African American GFR(CKD) 32 (>60 ml/min/1.73 sqM); Potassium 4.3 mmol/L (3.5-5.1); Sodium 136 mmol/L (137-145)
[2022-04-04 16:44] LABS: Glucose,Whole Blood 102 mg/dL (75-99)
[2022-04-04] MEDS: HYDROcodone/APAP 5-325MG 1 EACH TAB PO PRN (20:37)
[2022-04-04] MEDS: ATORVASTATIN 20 MG TAB PO SCH (20:39)
[2022-04-04 20:48] LABS: Glucose,Whole Blood 187 mg/dL (75-99)
--- NOTE | 2022-04-04 21:18 | P.PN ---
Subjective Progress Note Date: 04/04/22 Principal diagnosis: Leukocytosis possible oropharyngeal candidiasis Patient is a 61-year-old female with a past medical history significant for COPD presented to hospital with increasing shortness of breath has been diagnosed and treated for covid pneumonia or, in this patient did have significantly elevated white count and concern for possible secondary bacterial pneumonia versus oropharyngeal candidiasis. Patient did have multiple antibiotic ALLERGIES On today's evaluation that is 04/04/2022, the patient remains to be afebrile, the patient is breathing comfortably on room air, the patient denies chest pain , the patient did have occasional cough and is bringing up some sputum , the patient denies nausea no vomiting no abdominal pain and no diarrhea, patient is complaining of flareup of low back pain Objective - Vital Signs Vital signs: Vital Signs Temp 98.8 F 04/04/22 18:44 Pulse 102 H 04/04/22 18:44 Resp 18 04/04/22 18:44 BP 122/71 04/04/22 18:44 Pulse Ox 95 04/04/22 18:44 Intake & Output 04/04/22 04/04/22 04/05/22 06:59 18:59 06:59 Intake Total 150 480 Output Total 340 2000 Balance -190 -1520 Intake: Oral 150 480 Output: Urine 340 2000 Other: Voiding Method Toilet Toilet # Voids 1 - Exam GENERAL DESCRIPTION: Middle-aged female lying in bed in no distress RESPIRATORY SYSTEM: Unlabored breathing , coarse breath sounds bilaterally with occasional wheeze HEART: S1 S2 regular rate and rhythm , ABDOMEN: Soft , no tenderness EXTREMITIES: No edema feet - Labs CBC & Chem 7: 04/01/22 06:38 04/04/22 13:55 Labs: Abnormal Lab Results - Last 24 Hours (Table) 04/03/22 04/04/22 04/04/22 Range/Units 20:19 07:07 12:04 Sodium (137-145) mmol/L Chloride (98-107) mmol/L Carbon Dioxide (22-30) mmol/L BUN (7-17) mg/dL Creatinine (0.52-1.04) mg/dL Glucose (74-99) mg/dL POC Glucose (mg/dL) 200 H 125 H 145 H (75-99) mg/dL 04/04/22 04/04/22 Range/Units 13:55 16:43 Sodium 136 L (137-145) mmol/L Chloride 97 L (98-107) mmol/L Carbon Dioxide 33 H (22-30) mmol/L BUN 41 H (7-17) mg/dL Creatinine 1.69 H (0.52-1.04) mg/dL Glucose 152 H (74-99) mg/dL POC Glucose (mg/dL) 102 H (75-99) mg/dL Microbiology - Last 24 Hours (Table) 03/28/22 16:05 Blood Culture - Final Blood No Growth after 144 hours Assessment and Plan (1) Leukocytosis Current Visit: Yes Status: Acute Code(s): D72.829 - ELEVATED WHITE BLOOD CELL COUNT, UNSPECIFIED SNOMED Code(s): 127016777 Plan: 1patient presented to hospital with increasing shortness of breath which is likely multifactorial in this patient likely COPD exacerbation and did have a complicating factor of COVID-19 infection, patient is clinically not behaving as a secondary bacterial pneumonia patient with no fever chest x-ray completed this morning did not show any acute infiltrate. 2elevated white count more likely steroid effect plus minus a component of oropharyngeal candidiasis. 3patient procalcitonin level was normal as sputum culture has been negative 4patient to continue with Diflucan 200 mg p.o. daily and will repeat a CBC inflammation markers with a.m. lab Time with Patient: Less than 30
[2022-04-05] MEDS: ACETAMINOPHEN TAB 325 MG TAB PO PRN (02:36)
[2022-04-05 03:00] VITALS: BP 135/80; PULSE 82; RESP 16; TEMP 98.5
[2022-04-05] MEDS: HYDROcodone/APAP 5-325MG 1 EACH TAB PO PRN ×2 (05:39→12:24)
[2022-04-05] MEDS: LEVOTHYROXINE 25 MCG TAB PO SCH (05:39)
[2022-04-05] MEDS: ALPRAZolam 0.25 MG TAB PO PRN (05:40)
[2022-04-05] MEDS: FAMOTIDINE 20 MG TAB PO SCH (07:02)
[2022-04-05] MEDS: THEOPHYLLINE 24 HOUR 400 MG CAP.ER.24H PO SCH (07:03)
[2022-04-05] MEDS: ASCORBIC ACID 500 MG TAB PO SCH (07:03)
[2022-04-05] MEDS: ZINC SULFATE 220 MG CAP PO SCH (07:03)
[2022-04-05] MEDS: BACLOFEN 10 MG TAB PO SCH (07:03)
[2022-04-05] MEDS: FLUCONAZOLE 100 MG TAB PO SCH (07:03)
[2022-04-05] MEDS: METOPROLOL TARTRATE 12.5 MG TAB PO SCH (07:03)
[2022-04-05] MEDS: guaiFENesin 600 MG TABLET.ER PO SCH (07:03)
[2022-04-05] MEDS: LOSARTAN 25 MG TAB PO SCH (07:03)
[2022-04-05] MEDS: INSULIN DETEMIR (LEVEMIR) 100 UNIT/ML SYR SQ SCH (07:04)
[2022-04-05] MEDS: BENZONATATE 100 MG CAP PO SCH ×2 (07:04→17:23)
[2022-04-05] MEDS: FLUTICASONE 50MCG/SPRAY NASAL 16GM EA NOSTRIL SCH (07:04)
[2022-04-05] MEDS: ENOXAPARIN 30 MG/0.3 ML SYRINGE SQ SCH (07:04)
[2022-04-05 07:08] LABS: Glucose,Whole Blood 146 mg/dL (75-99)
[2022-04-05] MEDS: INSULIN ASPART (NovoLOG) 100 UNIT/ML VIAL SQ SCH ×3 (07:10→17:23)
[2022-04-05] MEDS: ALBUTEROL HFA INHALER INHALATION SCH ×2 (07:44→11:07)
[2022-04-05] MEDS: SYMBICORT 160-4.5 MCG INHALER INHALATION SCH (07:44)
[2022-04-05] MEDS: TIOTROPIUM 2.5 MCG INHALER INHALATION SCH (07:44)
[2022-04-05] MEDS: FUROSEMIDE 10 MG/ML 4 ML VIAL IV SCH (07:47)
[2022-04-05 09:13] LABS: Basophils # (A) 0.03 X 10*3/uL (0.00-0.10); Basophils % (A) 0.2 %; Eosinophils # (A) 0.17 X 10*3/uL (0.04-0.35); Eosinophils % (A) 0.9 %; HCT 33.2 % (37.2-46.3); HGB 10.4 g/dL (12.0-15.0); Immature Grans, Automated 0.6 %; Lymphocytes # (A) 2.97 X 10*3/uL (0.90-5.00); Lymphocytes % (A) 16.5 %; MCH 29.9 pg (27.0-32.0); MCHC 31.3 g/dL (32.0-37.0); MCV 95.4 fL (80.0-97.0); Mean Platelet Volume 10.6 fL (9.5-12.2); Monocytes # (A) 2.07 X 10*3/uL (0.20-1.00); Monocytes % (A) 11.5 %; NRBC Per 100 WBC 0 /100 WBCS (0.0-0.0); Neutrophils # (A) 12.63 X 10*3/uL (1.80-7.70); Neutrophils % (A) 70.3 %; Platelet Count 214 X 10*3/uL (140-440); RBC 3.48 X 10*6/uL (4.10-5.20); RDW 14.6 % (11.5-14.5); WBC 17.98 X 10*3/uL (4.50-10.00)
[2022-04-05 09:44] LABS: African American GFR (CKD) 36.6 (60.0-200.0); Albumin/Globulin Ratio 1.82 (1.60-3.17); BUN/Creat Ratio 20.24 Ratio (12.00-20.00); Blood Urea Nitrogen 34.4 mg/dL (9.0-27.0); Calcium 9.2 mg/dL (8.7-10.3); Globulin 2.2 g/dL (1.6-3.3); Non-African American GFR(CKD) 31.5 (60.0-200.0); Potassium 4.2 mmol/L (3.5-5.5); Total Protein 6.2 g/dL (6.2-8.2)
[2022-04-05 11:37] LABS: Glucose,Whole Blood 163 mg/dL (75-99)
--- NOTE | 2022-04-05 12:35 | P.PN ---
Subjective Patient is seen for follow-up for acute kidney injury. She is currently being diuresed. Urine output documented at 3.0 L. Patient states overall she is feeling better. She continues to have significant edema in the lower extremities but this has i mproved serum creatinine at 1.5 to 1.7 mg/dL Back pain is improved Swelling has improved as well Objective - Vital Signs Vital signs: Vital Signs Temp 98.5 F 04/05/22 02:00 Pulse 82 04/05/22 02:00 Resp 16 04/05/22 02:00 BP 135/80 04/05/22 02:00 Pulse Ox 100 04/05/22 02:00 Intake & Output 04/04/22 04/05/22 04/05/22 18:59 06:59 18:59 Intake Total 480 Output Total 1999 Balance -1520 Intake: Oral 480 Output: Urine 2000 Other: Voiding Method Toilet Toilet - Exam Patient is awake, comfortable, not in any acute distress Abdomen is soft obese nontender Exertion lower extremities shows edema 2+ 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 - Labs CBC & Chem 7: 04/05/22 03:46 04/05/22 03:46 Labs: Abnormal Lab Results - Last 24 Hours (Table) 04/04/22 04/04/22 04/04/22 Range/Units 13:55 16:43 20:47 WBC (4.50-10.00) X 10*3/uL RBC (4.10-5.20) X 10*6/uL Hgb (12.0-15.0) g/dL Hct (37.2-46.3) % MCHC (32.0-37.0) g/dL RDW (11.5-14.5) % Immature Gran # (0.00-0.04) X 10*3/uL Neutrophils # (1.80-7.70) X 10*3/uL Monocytes # (0.20-1.00) X 10*3/uL Sodium 136 L (137-145) mmol/L Chloride 97 L (98-107) mmol/L Carbon Dioxide 33 H (22-30) mmol/L BUN 41 H (7-17) mg/dL Creatinine 1.69 H (0.52-1.04) mg/dL Est GFR (CKD-EPI)AfAm (60.0-200.0) Est GFR (CKD-EPI)NonAf (60.0-200.0) BUN/Creatinine Ratio (12.00-20.00) Ratio Glucose 152 H (74-99) mg/dL POC Glucose (mg/dL) 102 H 187 H (75-99) mg/dL C-Reactive Protein (0.00-0.80) mg/dL Procalcitonin (0.02-0.09) ng/mL 04/05/22 04/05/22 04/05/22 Range/Units 03:46 03:46 03:46 WBC 17.98 H (4.50-10.00) X 10*3/uL RBC 3.48 L (4.10-5.20) X 10*6/uL Hgb 10.4 L (12.0-15.0) g/dL Hct 33.2 L (37.2-46.3) % MCHC 31.3 L (32.0-37.0) g/dL RDW 14.6 H (11.5-14.5) % Immature Gran # 0.11 H (0.00-0.04) X 10*3/uL Neutrophils # 12.63 H (1.80-7.70) X 10*3/uL Monocytes # 2.07 H (0.20-1.00) X 10*3/uL Sodium (137-145) mmol/L Chloride (98-107) mmol/L Carbon Dioxide 29.0 H (22-30) mmol/L BUN 34.4 H (7-17) mg/dL Creatinine 1.7 H (0.52-1.04) mg/dL Est GFR (CKD-EPI)AfAm 36.6 L (60.0-200.0) Est GFR (CKD-EPI)NonAf 31.5 L (60.0-200.0) BUN/Creatinine Ratio 20.24 H (12.00-20.00) Ratio Glucose 138 H (74-99) mg/dL POC Glucose (mg/dL) (75-99) mg/dL C-Reactive Protein 12.00 H (0.00-0.80) mg/dL Procalcitonin 0.18 H (0.02-0.09) ng/mL 04/05/22 04/05/22 Range/Units 07:07 11:36 WBC (4.50-10.00) X 10*3/uL RBC (4.10-5.20) X 10*6/uL Hgb (12.0-15.0) g/dL Hct (37.2-46.3) % MCHC (32.0-37.0) g/dL RDW (11.5-14.5) % Immature Gran # (0.00-0.04) X 10*3/uL Neutrophils # (1.80-7.70) X 10*3/uL Monocytes # (0.20-1.00) X 10*3/uL Sodium (137-145) mmol/L Chloride (98-107) mmol/L Carbon Dioxide (22-30) mmol/L BUN (7-17) mg/dL Creatinine (0.52-1.04) mg/dL Est GFR (CKD-EPI)AfAm (60.0-200.0) Est GFR (CKD-EPI)NonAf (60.0-200.0) BUN/Creatinine Ratio (12.00-20.00) Ratio Glucose (74-99) mg/dL POC Glucose (mg/dL) 146 H 163 H (75-99) mg/dL C-Reactive Protein (0.00-0.80) mg/dL Procalcitonin (0.02-0.09) ng/mL Assessment and Plan Assessment: 1. Acute kidney injury secondary to ATN associated with COVID-19 infection. Currently improving serum creatinine at 1.5 on 04/02/22. Previous creatinine 0.9 on 12/21/2019 No evidence of obstruction on ultrasound. UA shows no blood and trace protein 2. Acute hypoxic respiratory failure associated with COVID-19 infection 3. Metabolic acidosis associated with acute kidney injury and diarrhea currently improved. Maintained on oral sodium bicarb 4. Hypertension exacerbated by steroids. 5. Volume overload, currently being diuresed 6. Acute on chronic diastolic CHF, improved Plan: Decrease Cozaar to once a day Okay to be discharged on Lasix 60 a.m. and 40 mg p.m. Patient was taking 40 mg twice a day at home prior to admission
--- NOTE | 2022-04-05 13:18 | P.DS ---
Providers Date of admission: 03/19/22 20:01 Expected date of discharge: 04/05/22 Attending physician: Colleen Moore MD Consults: 03/19/22 22:01 Consult Physician Routine Consulting Provider: Earlene Coto Consult Reason/Comments: covid Do you want consulting provider notified?: Yes, Notify in am 03/24/22 16:52 Consult Physician Routine Consulting Provider: Gaurav Bello Consult Reason/Comments: Renal failure Do you want consulting provider notified?: Yes 03/28/22 09:24 Consult Physician Routine Consulting Provider: Oliver Seymour Consult Reason/Comments: multiple abx allergies Do you want consulting provider notified?: Yes Primary care physician: [facility] Hospital Course: Discharge Diagnosis: Acute exacerbation of severe persistent bronchial asthma/COPD Acute COVID-19 infection Acute kidney injury asymptomatically bradycardia secondary to beta krista: Discontinue beta krista on discharge History of multiple pulmonary nodules: Follow-up pulmonology outpatient Morbid obesity Chest pain: ACS ruled out Diabetes type 2 mellitus Psoriasis Chronic lower extremity edema Hypertension Hyperlipidemia Environmental ALLERGIES Hospital Course: Patient is a 61-year-old female with a past medical history of hypertension diabetes mellitus COPD and WILSON who comes into the ED due to hypoxemia. In the ED patient was found to have COVID-19 with COPD exacerbation. She was also found to have acute kidney injury. Patient is being followed by pulmonology. She was treated for COPD exacerbation with breathing treatments and steroids. During hospital course patient completed her steroid course. At the time of discharge patient was satting well on room air. Patient was also being followed by nephrology for acute kidney injury. Patient did appear volume overloaded as she had lower extremity edema. Nephrology started the patient on diuretics. At the time of discharge patient's creatinine was stable around 1.7. I discussed the case with nephrology who said patient is stable for discharge from their standpoint and can be discharged on Lasix 60 mg in a.m. and 40 mg in p.m. Patient's Cozaar dose was decreased to once a day. Patient instructed to follow-up with nephrology outpatient. Patient also had some oropharyngeal candidiasis. Infectious disease started the patient on Diflucan. Patient will be discharged on Diflucan to complete the course. Patient was cleared for discharge by all specialties. However patient was hesitant to go home because she wanted to continue to receive diuresing until her lower extremity edema had resolved. Patient was told that she can continue diuresing at home. Patient was also counseled on fluid intake restriction Due to patient's acute kidney injury I discontinued her home dose of metformin. I see discharge her glipizide. Patient instructed to follow-up with her PCP to manage her diabetes. Her hemoglobin A1c was 7.1. Patient worked with physical therapy who deemed stable to go home with home care. associate sales manager arranged for home care. Patient seen and examined at bedside.[] Vital signs reviewed and stable. General: no acute distress, appears chronically debilitated Derm: [warm], [dry] Head: [atraumatic], [normocephalic], [symmetric] Eyes: [EOMI], [no lid lag], [anicteric sclera] Mouth: [no lip lesion], [mucus membranes moist] Cardiovascular: [S1S2 reg], [no murmur], [positive posterior tibial pulse bilateral], Lungs: [CTA bilateral], [no rhonchi, no rales] , [no accessory muscle use] Abdominal: [soft], [ nontender to palpation], [no guarding], [no appreciable organomegaly] Ext: [no gross muscle atrophy], [bilateral lower extremity non-pitting edema], [no contractures] Neuro: [ CN II-XI grossly intact], [no focal neuro deficits] Psych: [Alert], [oriented], [appropriate affect] A total of [35] minutes of time were spent preparing this complex discharge summary . Patient Condition at Discharge: Good Plan - Discharge Summary Discharge Rx Participant: Yes New Discharge Prescriptions: New Losartan [Cozaar] 25 mg PO DAILY #30 tab glipiZIDE XL [Glucotrol XL] 5 mg PO DAILY #30 tab Fluconazole [Diflucan] 200 mg PO DAILY #5 tab Furosemide [Lasix] 20 mg PO DAILY #150 tab Metoprolol Tartrate [Lopressor] 12.5 mg PO BID 30 Days #60 tab Continue Levothyroxine Sodium [Synthroid] 25 mcg PO HS Theophylline 24 Hour [Erick-24] 400 mg PO DAILY Baclofen 10 mg PO BID Ipratropium-Albuterol Nebulize [Duoneb 0.5 mg-3 mg/3 ml Soln] 3 ml INHALATION RT-QID Multivit with Calcium,Iron,Min [Women's Multivitamin] 1 tab PO DAILY Cholecalciferol [Vitamin D3 (25 Mcg = 1000 Iu)] 50 mcg PO DAILY Fluticasone Nasal [place] [Flonase Nasal [place]] 1 spr EA NOSTRIL BID Albuterol Sulfate [Albuterol Sulfate Hfa] 1 puff INHALATION RT-QID PRN PRN Reason: Shortness Of Breath Diclofenac Sodium Gel [Voltaren Gel] 2 gm TOPICAL QID PRN PRN Reason: Pain Tiotropium 2.5 Mcg/Puff [Spiriva Respimat 2.5 Mcg] 2 puff INHALATION RT-DAILY Atorvastatin [Lipitor] 10 mg PO HS Zinc 50 mg PO DAILY Ascorbic Acid [Vitamin C] 1,000 mg PO DAILY Fluticasone Propion/Salmeterol [Fluticasone-Salmeterol 250-50] 1 puff INHALATION RT-BID Discontinued Losartan Potassium 50 mg PO BID Furosemide [Lasix] 80 mg PO DAILY Metoprolol Tartrate [Lopressor] 25 mg PO BID metFORMIN HCL [Glucophage] 500 mg PO BID Discharge Medication List Levothyroxine Sodium [Synthroid] 25 mcg PO HS 05/27/15 [History] Theophylline 24 Hour [Erick-24] 400 mg PO DAILY 12/12/16 [History] Baclofen 10 mg PO BID 09/28/17 [History] Ipratropium-Albuterol Nebulize [Duoneb 0.5 mg-3 mg/3 ml Soln] 3 ml INHALATION RT-QID 09/28/17 [History] Multivit with Calcium,Iron,Min [Women's Multivitamin] 1 tab PO DAILY 04/02/19 [History] Cholecalciferol [Vitamin D3 (25 Mcg = 1000 Iu)] 50 mcg PO DAILY 12/16/21 [History] Diclofenac Sodium Gel [Voltaren Gel] 2 gm TOPICAL QID PRN 12/16/21 [History] Fluticasone Nasal [place] [Flonase Nasal [place]] 1 spr EA NOSTRIL BID 12/16/21 [History] Tiotropium 2.5 Mcg/Puff [Spiriva Respimat 2.5 Mcg] 2 puff INHALATION RT-DAILY 12/16/21 [History] Albuterol Sulfate [Albuterol Sulfate Hfa] 1 puff INHALATION RT-QID PRN 03/19/22 [History] Ascorbic Acid [Vitamin C] 1,000 mg PO DAILY 03/19/22 [History] Atorvastatin [Lipitor] 10 mg PO HS 03/19/22 [History] Fluticasone Propion/Salmeterol [Fluticasone-Salmeterol 250-50] 1 puff INHALATION RT-BID 03/19/22 [History] Zinc 50 mg PO DAILY 03/19/22 [History] Fluconazole [Diflucan] 200 mg PO DAILY #5 tab 04/05/22 [Rx] Furosemide [Lasix] 20 mg PO DAILY #150 tab 04/05/22 [Rx] Losartan [Cozaar] 25 mg PO DAILY #30 tab 04/05/22 [Rx] Metoprolol Tartrate [Lopressor] 12.5 mg PO BID 30 Days #60 tab 04/05/22 [Rx] glipiZIDE XL [Glucotrol XL] 5 mg PO DAILY #30 tab 04/05/22 [Rx] Follow up Appointment(s)/Referral(s): Natalie Schumacher MD [STAFF PHYSICIAN] - 1 Week Jessica Smith PAC [REFERRING] - 1-2 days Earlene Coto MD [STAFF PHYSICIAN] - 10 Days Activity/Diet/Wound Care/Special Instructions: *Discharging RN - patient will need indigent funds at discharge - see resident care manager [facility] is setting up home care services. Please call the [facility] at [phone] if you do not hear from a home care agency within 48 hours of discharge. Discharge Disposition: HOME WITH HOME HEALTH SERVICES
[2022-04-05 16:45] LABS: Glucose,Whole Blood 200 mg/dL (75-99)
[2022-04-06] MEDS ORDERED: LOSARTAN 25 MG TAB PO SCH (09:00)
== END 2022-04-05 18:03 | disposition home health service (06) | DRG 177 ==
LOC: EC 17:26 → 4SSUR 20:01
PROVIDERS: ADMIT Internal Medicine; ATTEND Internal Medicine
DX: U07.1 COVID-19 (principal); N17.0 Acute kidney failure with tubular necrosis; J96.01 Acute respiratory failure with hypoxia; I50.33 Acute on chronic diastolic (congestive) heart failure; J12.82 Pneumonia due to coronavirus disease 2019; B37.0 Candidal stomatitis; Z68.43 Body mass index [BMI] 50.0-59.9, adult; E87.2 Acidosis; I13.0 Hypertensive heart and chronic kidney disease with heart failure and stage 1 through stage 4 chronic kidney disease, or unspecified chronic kidney disease; J44.0 Chronic obstructive pulmonary disease with (acute) lower respiratory infection; J44.1 Chronic obstructive pulmonary disease with (acute) exacerbation; J45.51 Severe persistent asthma with (acute) exacerbation; E03.9 Hypothyroidism, unspecified; E11.22 Type 2 diabetes mellitus with diabetic chronic kidney disease; E11.65 Type 2 diabetes mellitus with hyperglycemia; T38.0X5A Adverse effect of glucocorticoids and synthetic analogues, initial encounter; T44.7X5A Adverse effect of beta-adrenoreceptor antagonists, initial encounter; L40.9 Psoriasis, unspecified; Z79.51 Long term (current) use of inhaled steroids; N18.9 Chronic kidney disease, unspecified; E66.01 Morbid (severe) obesity due to excess calories; E78.5 Hyperlipidemia, unspecified; E86.0 Dehydration; K57.90 Diverticulosis of intestine, part unspecified, without perforation or abscess without bleeding; G47.33 Obstructive sleep apnea (adult) (pediatric); R19.7 Diarrhea, unspecified; M19.90 Unspecified osteoarthritis, unspecified site; Z87.01 Personal history of pneumonia (recurrent); R00.1 Bradycardia, unspecified; R91.8 Other nonspecific abnormal finding of lung field; Z90.89 Acquired absence of other organs; Z98.890 Other specified postprocedural states; Z86.19 Personal history of other infectious and parasitic diseases; Z90.49 Acquired absence of other specified parts of digestive tract; Z80.8 Family history of malignant neoplasm of other organs or systems; Z80.0 Family history of malignant neoplasm of digestive organs; Z82.49 Family history of ischemic heart disease and other diseases of the circulatory system; Z79.84 Long term (current) use of oral hypoglycemic drugs; Z79.890 Hormone replacement therapy; Z79.899 Other long term (current) drug therapy; Z83.3 Family history of diabetes mellitus; Z85.828 Personal history of other malignant neoplasm of skin; Z88.1 Allergy status to other antibiotic agents; Z88.0 Allergy status to penicillin; Z88.2 Allergy status to sulfonamides; Z88.8 Allergy status to other drugs, medicaments and biological substances; Z88.6 Allergy status to analgesic agent; Z91.040 Latex allergy status
CPT/HCPCS: 36410; 36415; 71045; 71046; 76770; 76937; 80048; 80053; 81001; 82728; 83036; 83605; 83615; 83735; 83880; 84145; 84484; 85025; 85379; 85384; 85610; 85730; 86140; 87040; 87070; 87205; 87635; 93005; 93306; 93970; 94640; 94660; 94760; 96374; 99285

== ENCOUNTER → 2022-07-13 | Outpatient (CLI) | payer OTHER ==
--- NOTE | 2022-07-14 09:17 | MM ---
Reason for Exam: Screening (asymptomatic). Last screening mammogram was performed 12 month(s) ago. Patient History: Menarche at age 10. Patient has no children. Postmenopausal. Other cancer. Patient used Hormonal Contraceptives for 15 years. Risk Values: Moira 5 year model risk: 1.7%. NCI Lifetime model risk: 7.4%. Prior Study Comparison: 11/18/2011 Screening Mammogram, [facility]. 11/19/2015 Screening Mammogram, [facility]. 03/29/2018 Bilateral Diagnostic Mammogram, [facility]. 03/11/2019 Bilateral Screening Mammogram, [facility]. 07/09/2020 Bilateral Screening Mammogram, [facility]. 07/14/2020 Right Diagnostic Mammogram, [facility]. 07/14/2020 Right Diagnostic Ultrasound, [facility]. 07/12/2021 Bilateral Screening Mammogram, [facility]. Tissue Density: There are scattered fibroglandular densities. Findings: Analyzed By CAD. There is no suspicious group of microcalcifications or new suspicious mass in either breast. Stable chronic nodularity within both breasts. No significant change from prior exams. Overall Assessment: Benign, BI-RAD 2 Management: Screening Mammogram of both breasts in 1 year. A clinical breast exam by your physician is recommended on an annual basis and results should be correlated with mammographic findings. Electronically signed and approved by: Elias Valentin D.O.
== END | disposition home or self-care (01) ==
LOC: RADMAMWWP 14:41
DX: Z12.31 Encounter for screening mammogram for malignant neoplasm of breast (principal); Z78.0 Asymptomatic menopausal state; Z85.3 Personal history of malignant neoplasm of breast
CPT/HCPCS: 77067

== ENCOUNTER → 2022-08-05 | Outpatient (CLI) | payer OTHER ==
--- NOTE | 2022-08-05 11:58 | US ---
EXAMINATION TYPE: US thyroid st tissue head/neck DATE OF EXAM: 08/05/2022 COMPARISON: NONE CLINICAL HISTORY: E21.5 DISORDER OF PARATHYROID GLAND. Patient takes levothyroxine. Disorder of parat hyroid. GLAND SIZE: Right Lobe: 4.6 1.9 x 1.7 cm Overall Parenchyma: Slightly heterogeneous Left Lobe: 4.5 x 1.7 x 1.8 cm Overall Parenchyma: Slightly heterogeneous Isthmus Thickness: 0.29 cm NODULES RIGHT: # of nodules measured on right: 1 1. 0.6 X 0.7 x 0.4 cm, mid mid, mixed cystic and solid nodule, which is wider than tall, with moe h margins, without echogenic foci. Prior size: No prior LEFT: # of nodules measured on left: 1 1. 0.4 X 0.4 x 0.4 cm, mid mid, cystic or almost completely cystic, anechoic nodule, which is as wi de as it is tall, with smooth margins, without echogenic foci. Prior size: No prior ISTHMUS: # of nodules measured in the isthmus: 0 Bilateral neck scanned, no evidence of lymphadenopathy. No parathyroid tissue visualized at this time. IMPRESSION: Mildly suspicious nodule right lobe thyroid. Consider follow-up in one year. 2017 ACR TI-RADS LEVEL: TR-RADS 3 - Mildly Suspicious: Follow if > 1.5 cm, FNA if > 2.5 cm *Highest TI-RADS level nodule reported
== END | disposition home or self-care (01) ==
LOC: RADUSWWP 10:14
DX: E04.1 Nontoxic single thyroid nodule (principal)
CPT/HCPCS: 76536

== ENCOUNTER → 2022-10-20 | Outpatient (CLI) | payer OTHER ==
--- NOTE | 2022-10-22 12:42 | MR ---
EXAMINATION TYPE: MR lumbar spine wo con DATE OF EXAM: 10/20/2022 COMPARISON: None HISTORY: 61-year-old female in 5 4.59, compatible back pain. Low back pain that radiates down both le gs, mostly left. TECHNIQUE: Multiplanar, multisequence images of the lumbar spine were acquired without IV contrast. FINDINGS: Vertebral body heights are preserved and alignment is maintained. A few scattered fatty matrix hemangiomas are present such as within the T11, L3, L4, and S1 vertebral bodies. Mild heterogeneous marrow signal without suspicious bone marrow placement. 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 Superimposed mid and lower lumbar facet arthropathy with ligamentum flavum thickening. There is mild multilevel degenerative disc disease with variable disc desiccation and disc bulging. Conus medullaris is normal. No prevertebral or paravertebral soft tissue abnormality seen. At T12-L1, no spinal canal or neuroforaminal stenosis. At L1-L2, no significant canal or foraminal stenosis. At L2-L3, there is diffuse disc bulge with ligamentum flavum thickening. Mild to moderate overall jaison rowing of the spinal canal. No significant neural foraminal stenosis. At L3-L4, mild congenital spinal canal narrowing. Mild ligamentum flavum thickening. No significant n euroforaminal stenosis or spinal canal stenosis. At L4-L5, mild congenital spinal canal narrowing. There is hypertrophic facet arthropathy with a liga mentum flavum thickening. No significant spinal canal stenosis. Changes result in mild bilateral neur oforaminal stenosis. At L5-S1, there is hypertrophic facet arthropathy. No significant neuroforaminal stenosis. IMPRESSION: 1. Mild multilevel degenerative disc disease as well as facet arthropathy and ligamentum flavum thick ening particularly in the mid and lower lumbar spine. Changes are superimposed on a congenital spinal canal narrowing. [place] AP canal dimension is 1.0 cm. 2. Changes result in overall mild to moderate narrowing of the spinal canal at L2-L3. No high-grade c anal compromise. 3. Mild bilateral neuroforaminal stenosis at L4-L5.
== END | disposition home or self-care (01) ==
LOC: RADMRIMAIN 11:18
PROVIDERS: ATTEND Physician Assistant Medical
DX: M51.36 Other intervertebral disc degeneration, lumbar region (principal); M47.816 Spondylosis without myelopathy or radiculopathy, lumbar region; M48.061 Spinal stenosis, lumbar region without neurogenic claudication; M99.73 Connective tissue and disc stenosis of intervertebral foramina of lumbar region
CPT/HCPCS: 72148

== ENCOUNTER → 2022-12-07 | Outpatient (CLI) | payer OTHER ==
--- NOTE | 2022-12-07 16:10 | NM ---
EXAMINATION TYPE: NM parathyroid w/spect DATE OF EXAM: 12/07/2022 COMPARISON: Thyroid ultrasound 08/05/2022 HISTORY: Secondary hyperparathyroidism TECHNIQUE: Following administration of 25.1 mCi Tc99m Sestamibi. Anterior projection images of the neck and ches t were obtained 10 minutes and 3 hours post injection. SPECT images of the neck and chest were obtai kori and reconstructed in three axes. FINDINGS: Thyroid tracer washout: Delayed images demonstrate near-complete tracer washout from the thyroid. Parathyroid uptake: None. The 3 hour delayed images do not demonstrate any focal abnormal persistent uptake in the region of the parathyroid glands to suggest parathyroid adenoma. Normal uptake: There is physiological tracer uptake in the myocardium, liver, salivary glands, and th yroid gland. IMPRESSION: Normal parathyroid imaging study. No evidence for mediastinal uptake to suggest mediastinal parathyro id adenoma
== END | disposition home or self-care (01) ==
LOC: RADNMMAIN 10:48
PROVIDERS: ATTEND Internal Medicine
DX: N25.81 Secondary hyperparathyroidism of renal origin (principal)
CPT/HCPCS: 78071; A9500

== ENCOUNTER 2023-04-18 07:42 | Day surgery (SDC) | payer OTHER ==
[2023-04-14 09:10] VITALS: BMI 55.2
[~2023-04-18 07:42] MED LIST changes: -ALBUTEROL NEB (CONC) 2.5 MG/0.5 ML INHALATION ONE; -LIDOCAINE 2% (PF) 20 MG/ML 5 ML VIAL INHALATION ONE; -LIDOCAINE VISCOUS 300 MG/15 ML CUP MUCOUS MEM ONE
[2023-04-18 08:36] VITALS: RESP 16; TEMP 97.5
[2023-04-18 08:44] LABS: Glucose,Whole Blood 116 mg/dL (70-110)
[2023-04-18] MEDS ORDERED: MIDAZOLAM 2 MG/2 ML VIAL ONE (08:55)
[2023-04-18] MEDS ORDERED: PROPOFOL 10 MG/ML 20 ML VIAL IV ONE (08:55)
[2023-04-18] MEDS ORDERED: LIDOCAINE 2% INJ 20 MG/ML (2 ML VIAL) ONE (08:55)
[2023-04-18] MEDS ORDERED: fentaNYL (PF) 50 MCG/ML 2 ML AMP ONE (08:55)
--- NOTE | 2023-04-18 09:07 | P.PCN ---
Date of Procedure: 04/18/23 Procedure(s) Performed: BRIEF HISTORY: Patient is a 62-year-old, pleasant, white female scheduled for an upper endoscopy as a part of evaluation of iron deficiency anemia. Last colonoscopy was in December this year and was noted to have 2 small polyps. She does complain of intermittent dysphagia and heartburn. PROCEDURE PERFORMED: Esophagogastroduodenoscopy with biopsy PREOPERATIVE DIAGNOSIS: Iron deficiency anemia/intermittent dysphagia to solids. IV sedation per anesthesia. PROCEDURE: After informed consent was obtained, the patient was brought into the endoscopy unit. IV sedation was administered by Anesthesia under continuous monitoring. Initially the Olympus GIF-140 video endoscope was inserted into the mouth. Esophagus intubated without any difficulty. It was gradually advanced into the stomach and duodenum and carefully examined. The bulb and the second part of the duodenum appeared normal. Biopsies were done from the duodenum to rule out celiac disease The scope at this time was withdrawn to the stomach, adequately insufflated with air, and upon careful examination, mucosa of the antrum, had minimal antral gastritis and biopsies were done from this area. The multiple small gastric polyps noted in the body the stomach were biopsied. Rest of the body, cardia and the fundus appeared normal. The scope was then withdrawn into the esophagus. The GE junction was located at 39 cm from the incisors. The esophagus appeared normal. There were no erosions or ulcerations seen, biopsies were done from the distal esophagus and the patient tolerated the procedure well. IMPRESSION: 1. Mild antral gastritis. 2. Multiple small gastric polyps 3. No evidence of esophagitis or esophageal stricture. RECOMMENDATIONS: The findings of this examination were discussed with the patient as well as her family. She was advised to follow with the biopsy results.. She was advised to follow up in the office if she has any worsening symptoms
[2023-04-18 09:27] VITALS: BP 131/82; PULSE 72
== END 2023-04-18 09:45 | disposition home or self-care (01) ==
LOC: ORWHC2ENDO 07:42
PROVIDERS: ATTEND Internal Medicine Gastroenterology
DX: K29.50 Unspecified chronic gastritis without bleeding (principal); K31.7 Polyp of stomach and duodenum; K20.90 Esophagitis, unspecified without bleeding; D50.9 Iron deficiency anemia, unspecified; Z79.899 Other long term (current) drug therapy; I10 Essential (primary) hypertension; E78.5 Hyperlipidemia, unspecified; J44.9 Chronic obstructive pulmonary disease, unspecified; G47.33 Obstructive sleep apnea (adult) (pediatric); E11.22 Type 2 diabetes mellitus with diabetic chronic kidney disease; N18.9 Chronic kidney disease, unspecified; E03.9 Hypothyroidism, unspecified; Z79.890 Hormone replacement therapy; Z98.890 Other specified postprocedural states
CPT/HCPCS: 88305; 43239; J2250; J3010; J2704; J2001

== ENCOUNTER → 2023-08-08 | Outpatient (CLI) | payer OTHER ==
--- NOTE | 2023-08-09 18:35 | MM ---
Reason for Exam: Screening (asymptomatic). Last mammogram was performed 1 year(s) and 1 month(s) ago. Patient History: Menarche at age 10. Patient has no children. Postmenopausal. Patient used Hormonal Contraceptives for 15 years. Risk Values: Moira 5 year model risk: 1.8%. NCI Lifetime model risk: 7.2%. Prior Study Comparison: 07/14/2020 Right Diagnostic Mammogram, [facility]. 07/12/2021 Bilateral Screening Mammogram, [facility]. 07/13/2022 Bilateral MG screening mammo w CAD, [facility]. Tissue Density: There are scattered fibroglandular densities. Findings: Analyzed By CAD. Pattern appears stable. Some asymmetric parenchymal tissue is within the left breast compared to the right. Some focal asymmetries in the upper outer left breast posteriorly. Chronic nodularity is present bilaterally. No significant interval changes are evident. No suspicious groups of microcalcifications, spiculated or lobular masses, architectural distortion or other secondary signs of malignancy are mammographically apparent. Overall Assessment: Benign, BI-RAD 2 Management: Screening Mammogram of both breasts in 1 year. A negative mammogram report should not preclude additional follow up of suspicious palpable abnormalities. Patient should continue monthly self breast exam. A clinical breast exam by your physician is recommended on an annual basis and results should be correlated with mammographic findings. Electronically signed and approved by: Nico Scott D.O. Radiologis
== END | disposition home or self-care (01) ==
LOC: RADMAMWWP 10:21
DX: Z12.31 Encounter for screening mammogram for malignant neoplasm of breast (principal); Z78.0 Asymptomatic menopausal state
CPT/HCPCS: 77067

== ENCOUNTER → 2023-10-24 | Outpatient (CLI) | payer OTHER ==
--- NOTE | 2023-10-24 18:41 | BD ---
EXAMINATION TYPE: Axial Bone Density DATE OF EXAM: 10/24/2023 CLINICAL HISTORY: 63 years old Female. ICD-10 CODE: Z86.62 FAM HX OF OSTEOPOROSIS Height: 5 ft 3 in Weight: 295 FRAX RISK QUESTIONS: Alcohol (3 or more units per day): no Family History (Parent hip fracture): no Glucocorticoids (More than 3mos): yes (Ex: prednisone, prednisolone, methylprednisolone, dexamethasone, and hydrocortisone). History of Fracture in Adulthood: yes Secondary Osteoporosis: 1. Type 1 Diabetes: type 2 2. Hyperthyroidism: no 3. Menopause before 45: no 4. Malnutrition: no 5. Chronic liver disease: no Rheumatoid Arthritis: no Current Tobacco Use: no RISK FACTORS HISTORY OF: History of Wrist Fracture: coty wrists When: 2008 and 2013 Surgery to Spine/Hip(right/left)/Wrist (right/left): no Family History of Osteoporosis: yes Active: no Diet low in dairy products/other sources of calcium: no Postmenopausal woman: yes Take estrogen and/or progesterone medications: no Lost more than 2 inches in height since high school: no Frequent falls: no Poor Health: fair Hyperparathyroidism: no Adrenal Insufficiency: stage 3 kidney disease MEDICATIONS: Prednisone or other steroids: uses updraft for asthma and inhalers How Long: since 2008 Thyroid Medications: yes Which medication: levothyroxine How Long: since 2006 Additional Medications: levothyroxine, Lasix, blood pressure meds, bronchial dialater, losartan, Gli pizide, jardiance, allupurinol, Additional History: EXAM MEASUREMENTS: Bone mineral densitometry was performed using the Splice Machine System. Bone mineral density as measured about the Lumbar spine is: ----- L1-L4(G/cm2): 1.163 T Score Values are as follows: ----- L1: -0.2 ----- L2: -0.2 ----- L3: 0.6 ----- L4: -0.8 ----- L1-L4: -0.1 Z Score Values are as follows: ----- L1: 0.2 ----- L2: 0.3 ----- L3: 1.0 ----- L4: -0.4 ----- L1-L4: 0.3 baseline Bone mineral density about the R hip (g/cm2): 0.768 Bone mineral density about the L hip (g/cm2): 0.855 T Score values are as follows: -----R Neck: -1.9 -----L Neck: -1.3 -----R Total: -1.7 -----L Total: -1.3 Z Score values are as follows: -----R Neck: -1.2 -----L Neck: -0.6 -----R Total: -1.3 -----L Total: -0.9 baseline FRAX%s: The graph provided illustrates a 8.3 % chance for a major osteoporotic fx and a 1.0% chance f or the hips probability for fx in 10 years time. IMPRESSION: Osteopenia (T Score between -2.5 and -1). There is slightly increased risk of fracture and the patient may be considered for treatment. Re-Screen 2-5 years. NOTE: T-SCORE=SD OF THE YOUNG ADULT MEAN.
--- NOTE | 2023-10-24 19:18 | US ---
EXAMINATION TYPE: US thyroid st tissue head/neck DATE OF EXAM: 10/24/2023 COMPARISON: 08/05/2022 CLINICAL INDICATION: Female, 63 years old with history of E04.1 thyroid nodule; follow up on known no dule, some coughing, unable to lay flat GLAND SIZE: Right Lobe: 4.3 x 1.8 x 1.6cm Overall Parenchyma: homogeneous Left Lobe: 4.1 x 1.8 x 1.4cm Overall Parenchyma: homogeneous Isthmus Thickness: 0.2 cm NODULES RIGHT: # of nodules measured on right: 1 1. 0.7 X 0.4 x 0.5 cm, hypoechoic nodule at the mid pole, which is wider than tall. Suspected josé oid cyst. Some exam limitations for characterization due to habitus. Prior size: 0.6 x 0.4 x 0.7 cm LEFT: # of nodules measured on left: 0 Prior left nodule is not seen on this study. ISTHMUS: # of nodules measured in the isthmus: 0 Bilateral neck scanned, no evidence of lymphadenopathy. IMPRESSION: Stable solitary 7 mm nodule at the right midpole, suspected benign colloid cyst. Consider an addition al annual surveillance follow-up.
== END | disposition home or self-care (01) ==
LOC: RADUSWWP 14:12
DX: M85.89 Other specified disorders of bone density and structure, multiple sites (principal); E04.1 Nontoxic single thyroid nodule; E10.9 Type 1 diabetes mellitus without complications; Z86.61 Personal history of infections of the central nervous system
CPT/HCPCS: 76536; 77080

== ENCOUNTER → 2024-08-09 | Outpatient (CLI) | payer OTHER ==
--- NOTE | 2024-08-19 11:30 | MM ---
Reason for Exam: Screening (asymptomatic). Last screening mammogram was performed 12 month(s) ago. Patient History: Menarche at age 10. Patient has no children. Postmenopausal. Patient used Hormonal Contraceptives for 15 years. Risk Values: Moira 5 year model risk: 1.8%. NCI Lifetime model risk: 6.9%. Prior Study Comparison: 07/12/2021 Bilateral Screening Mammogram, [facility]. 07/13/2022 Bilateral MG screening mammo w CAD, [facility]. 08/08/2023 Bilateral MG screening mammo w CAD, [facility]. Tissue Density: There are scattered areas of fibroglandular density. Findings: Analyzed By CAD. Right breast: There is no suspicious group of microcalcifications or new suspicious mass. Left breast: There is no suspicious group of microcalcifications or new suspicious mass. Overall Assessment: Negative, BI-RAD 1 Management: Screening Mammogram of both breasts in [address] [facility] will attempt to contact patient to return for supplemental views and ultrasound if indicated. Patient should continue monthly self-breast exams. A clinical breast exam by your physician is recommended on an annual basis. This exam should not preclude additional follow-up of suspicious palpable abnormalities. Note on Moira scores and lifetime risk: 1. A Moira score greater than 3% is considered moderate risk. If this is the case, consider specialist referral to assess eligibility for a risk reducing agent. 2. If overall lifetime risk for the development of breast cancer is 20% or higher, the patient may qualify for future screening with alternating mammogram and breast MRI. [facility], , 08/19/2024 11:27 AM. Electronically signed and approved by: Kaleb Reveles DO
== END | disposition home or self-care (01) ==
LOC: RADMAMWWP 10:15
PROVIDERS: ATTEND Family Medicine
DX: Z12.31 Encounter for screening mammogram for malignant neoplasm of breast
CPT/HCPCS: 77067

== ENCOUNTER → 2024-10-03 | Outpatient (CLI) | payer OTHER ==
--- NOTE | 2024-10-06 21:20 | US ---
EXAMINATION TYPE: US thyroid st tissue head/neck DATE OF EXAM: 10/03/2024 COMPARISON: US(10/24/24) CLINICAL INDICATION: Female, 63 years old with history of E04.1 NONTOX SING THY NOD N18.32 CKD STAGE 3B; TECHNIQUE: Grayscale and color Doppler imaging of the thyroid gland. FINDINGS: GLAND SIZE: Right Lobe: 4.1x1.7x1.7 cm Overall Parenchyma: homogeneous Left Lobe: 3.5x1.9x1.7 cm Overall Parenchyma: homogeneous Isthmus Thickness: 0.4 cm NODULES RIGHT: # of nodules measured on right: 1 1. 0.6 X 0.4 x 0.7 cm, mid mid, cystic or almost completely cystic, hypoechoic nodule, which is wid er than tall, with smooth margins, without echogenic foci. TR 2 Prior size: 0.7 x 0.4 x 0.5 cm LEFT: # of nodules measured on left: 1 1. 0.5 X 0.3 x 0.4 cm, mid mid, cystic or almost completely cystic, anechoic nodule, which is wider than tall, with smooth margins, without echogenic foci. ISTHMUS: 0 # of nodules measured in the isthmus: Bilateral neck scanned, no evidence of lymphadenopathy. IMPRESSION: No suspicious nodules 2017 ACR TI-RADS LEVEL: TR-RADS 2 - Not Suspicious: No FNA *Highest TI-RADS level nodule reported [email or web address] [facility], , 10/06/2024 9:18 PM
--- NOTE | 2024-10-06 21:21 | US ---
EXAMINATION TYPE: US kidneys/renal and bladder DATE OF EXAM: 10/03/2024 COMPARISON: NONE CLINICAL INDICATION: Female, 63 years old with history of E04.1 NONTOX SING THY NOD N18.32 CKD STAGE 3B; TECHNIQUE: Grayscale imaging of the bilateral kidneys and urinary bladder: FINDINGS: EXAM MEASUREMENTS: Right Kidney: 10.0x5.1x6.2 cm Left Kidney: 12.8x4.7x5.0 cm Right Kidney: No hydronephrosis or masses seen Left Kidney: No hydronephrosis or masses seen Bladder: wnl Bilateral Jets seen: unable to visualize due to bladder not being full enough There is no evidence for hydronephrosis at this point in time. No nephrolithiasis is seen. No breanna s are identified. The urinary bladder is anechoic. IMPRESSION: 1. Unremarkable renal ultrasound as visualized. [facility], , 10/06/2024 9:19 PM
== END | disposition home or self-care (01) ==
LOC: RADUSWWP 14:50
PROVIDERS: ATTEND Family Medicine
DX: E04.1 Nontoxic single thyroid nodule (principal); N18.32 Chronic kidney disease, stage 3b
CPT/HCPCS: 76536; 76770

== ENCOUNTER → 2025-05-02 | Outpatient (CLI) | payer OTHER ==
--- NOTE | 2025-05-02 14:46 | CT ---
EXAMINATION TYPE: CT abdomen wo con DATE OF EXAM: 05/02/2025 COMPARISON: None CLINICAL INDICATION: Female, 64 years old with history of abdominal pain; PHH, CONSTIPATION AND ABDOM INAL PAIN. LEFT SIDED ABDOMINAL SWELLING TECHNIQUE: CT of the abdomen performed with with Oral Contrast and , patient injected with mL of . CT DLP: 972.[address] CTDI: mGy Automated exposure control for dose reduction was used. FINDINGS: There are mild chronic interstitial changes in the lung base. Gallbladder is normal and there is no gallstone, wall thickening, pericholecystic fluid or distention . There is no biliary ductal dilatation. There is no organomegaly of the liver, pancreas, spleen or adrenal glands. There are no renal calcifications or hydronephrosis. The caliber of the abdominal aorta is normal and there is no retroperitoneal adenopathy or hemorrhage . The bowel loops are normal in caliber is no evidence of obstruction. No inflammatory changes are iden tified in the mesentery and there is no free intraperitoneal air or fluid. The osseous structures and soft tissues are unremarkable. IMPRESSION: No significant abnormality seen. [facility], , 05/02/2025 2:44 PM
== END | disposition home or self-care (01) ==
LOC: RADCTMAIN 13:05
PROVIDERS: ATTEND Family Medicine
DX: K59.00 Constipation, unspecified (principal); R10.10 Upper abdominal pain, unspecified; R19.00 Intra-abdominal and pelvic swelling, mass and lump, unspecified site
CPT/HCPCS: 74150